=== PATIENT | female | born 1985 | race Caucasian/White ===

== ENCOUNTER 2019-03-12 06:46 | Emergency (ER) | payer MEDICAID, SELFPAY ==
[2019-03-12 06:47] VITALS: BP 144/94; BP 156/93; PULSE 70; RESP 16; RESP 18; TEMP 35; O2SAT 97; BMI 22.8
--- NOTE | 2019-03-12 06:50 | ED_ITS ---
Entered by Lilibeth Finch, acting as scribe for Sesar Valverde DO Mar 12, 2019 06:46 HPI - General Adult General: Chief complaint: General Medical Stated complaint: MILD HYPOTHERMIA Time Seen by Provider: 03/12/19 06:48 Source: patient and EMS Mode of arrival: EMS Limitations: no limitations History of Present Illness: HPI narrative: 33 yo f came to the er by ems for mild hypothermia. Onset was last night. Pt states that she is homeless and that she was trying to make it to the [facility] for an apt and did not make it. Pt states that she was just trying to survive till she [facility]. Pt is denying any numbness at this time. MD complaint: Mild Hypothermia Onset (ago): day(s) (last night) Radiation: non-radiation Severity: mild Pain Consistency: intermittent Relieving factors: none Exacerbating factors: none Associated symptoms: Deny chest pain, confusion, dyspnea, headache(s), malaise, nausea, rash, palpitations, syncope or vomiting Review of Systems Const: Reports: chills, body aches and fatigue; Denies: fever or malaise ENMT: Denies: throat pain, ear pain, nasal discharge or nasal congestion Card: Denies: chest pain, palpitations or syncope Resp: Denies: shortness of breath GI: Denies: nausea or vomiting : Denies: flank pain, difficulty urinating, painful urination, urinary frequency or urinary urgency Skin/Breast: Denies: rash Neuro: Denies: headache or confusion PFSH ED PFSH: Statuses (acute, chronic, etc) shown below reflect problem list status as previously entered and may not be historically accurate Social History Smoking and tobacco status: current every day smoker Physical Exam Const: COMMON NORMALS: no apparent distress GENERAL APPEARANCE: cooperative and comfortable ORIENTATION/CONSCIOUSNESS: Yes awake, Yes oriented to person, Yes oriented to place and Yes oriented to time HENMT: COMMON NORMALS: normocephalic, head/scalp atraumatic, hearing grossly normal bilaterally, external ears normal, EAC's normal, TM's normal bilaterally, nasal mucous membranes and turbinates normal, moist oral mucous membranes and oropharynx normal HEAD & SCALP: normocephalic and atraumatic NOSE: nasal mucous membranes and turbinates normal EXTERNAL EAR: Yes external ears normal EXTERNAL AUDITORY CANAL: EAC's normal TYMPANIC MEMBRANE: TM's normal bilaterally Eye: COMMON NORMALS: PERRL, EOMs intact bilaterally, conjunctivae normal and no scleral icterus CONJUNCTIVA: Yes conjunctivae normal PUPIL: Yes PERRL Neck/C-Spine: COMMON NORMALS: full ROM, no lymphadenopathy, supple and no JVD Lymph: LYMPHATIC: no lymphadenopathy noted and no lymphedema noted Resp: COMMON NORMALS: normal respiratory effort, no retractions, no use of accessory muscles and clear to auscultation bilaterally AUSCULTATION: clear to auscultation bilaterally Cardio: COMMON NORMALS: no JVD, regular rate, regular rhythm and no murmurs RATE: regular rate RHYTHM: regular rhythm Extremity: COMMON NORMALS: normal to inspection, normal capillary refill, no clubbing, cyanosis or edema, no calf tenderness and no pedal edema Neuro: SENSORIUM/ORIENTATION: Yes oriented to person, Yes oriented to place and Yes oriented to time Skin: COMMON NORMALS: no rashes or lesions noted GENERAL SKIN EXAM: no rashes or lesions noted Course ED course: Core temp improved labs reviewed. We will go ahead and discharge patient home we did try to get some social organization professor help for her ultimately she left the emergency room on her own. Vital Signs: Vital signs: Vital Signs Temperature 97.7 F 03/12/19 10:05 Pulse Rate 100 03/12/19 10:05 Respiratory Rate 16 03/12/19 10:05 Blood Pressure 127/67 03/12/19 10:05 Pulse Oximetry 97 03/12/19 06:47 [facility] - General Adult Lab Data: Labs: Lab Results 03/12/19 03/12/19 03/12/19 Range/Units 07:02 07:02 07:02 WBC 10.4 H (4.0-10.0) 10^3/ uL RBC 4.84 (4.1-5.3) 10^6/u L Hgb 14.9 (11.5-15.3) g/dL Hct 45.7 (37.0-47.0) % MCV 94.4 (81-99) fL MCH 30.8 (28.0-34.0) pg MCHC 32.6 (30.0-36.0) g/dL RDW 13.1 (12.1-15.1) % Plt Count 147 (130-400) 10^3/c mm MPV 12.6 H (7.4-10.4) fL Neut % (Auto) 68.6 % Lymph % (Auto) 22.3 % [place] % (Auto) 7.4 % Eos % (Auto) 1.0 % Baso % (Auto) 0.5 % Neut # (Auto) 7.2 (1.8-7.7) 10^3/u L Lymph # (Auto) 2.3 (0.8-4.8) 10^3/u L [place] # (Auto) 0.8 (0.2-0.9) 10^3/u L Eos # (Auto) 0.1 (0.0-0.8) 10^3/u L Baso # (Auto) 0.1 (0.0-0.1) 10^3/u L Nucleated RBC % (a uto) 0 % Nucleated RBCs # 0.0 /100WBC Sodium 138 (136-145) mmol/L Potassium 3.4 L (3.5-5.1) mmol/L Chloride 102 (98-107) mmol/L Carbon Dioxide 23 (22-29) mmol/L Anion Gap 16.4 (5-19) BUN 15 (6-20) mg/dL Creatinine 0.4 L (0.5-0.9) mg/dL GFR Calculation 182.7 H (90-130) mL/min Glucose 115 H (74-109) mg/dL Calcium 10.0 (8.6-10.0) mg/Dl Total Bilirubin 0.3 (0.15-1.2) mg/dL AST 12 (0-32) U/L ALT 15 (0-33) U/L Alkaline Phosphata se 89 (35-105) IU/L Creatine Kinase 63 (26-192) U/L Total Protein 6.4 L (6.6-8.7) g/dL Albumin 4.4 (3.5-5.2) g/dL Globulin 2.0 (1.3-4.6) g/dL TSH 1.22 (0.27-4.20) uIU/ mL Salicylates < 0.3 L (3-10) mg/dL Acetaminophen < 5.0 L (10-30) ug/mL Ethyl Alcohol < 10 (0-10) mg/dL Discharge Plan Discharge Patient Disposition: Home, Self-Care Clinical Impression: Mental health disorder Hypothermia Qualifiers: Encounter type: initial encounter Qualified Code(s): T68.XXXA - Hypothermia, initial encounter Condition: Stable Prescriptions: No Action hydrocodone-acetaminophen 10-325 mg tablet See Rx Instructions .ROUTE .COMPLEX RF: 0 gabapentin 100 mg capsule 100 mg PO BID RF: 0 Discharge Orders: Discharge Order (Routine); Ordered 03/12/19 Ordered By: Sesar Valverde Referrals: Franca Akers DO [Primary Care Provider] - Discharge Diet: Usual diet Discharge Activity: Resume usual activity Discharge Date/Time: 03/12/19 10:07 Coding Level of Care Code ED Land Manager for Chg Fwd Exam Problem Focused The documentation recorded by the Stef welsh Stephanie Lyn, accurately reflects the service I personally performed and the decisions made by Nicolle driscoll Curtis L, DO Mar 12, 2019 06:46
--- NOTE | 2019-03-12 07:04 | PC.NURSE ---
pt care taken over
[2019-03-12 07:07] LABS: Basophils # 0.1 10^3/uL (0.0-0.1); Basophils % 0.5 %; Eosinophils # 0.1 10^3/uL (0.0-0.8); Hematocrit 45.7 % (37.0-47.0); Hemoglobin 14.9 g/dL (11.5-15.3); Lymphocytes # 2.3 10^3/uL (0.8-4.8); Lymphocytes % 22.3 %; Mean Corpuscular HGB Conc 32.6 g/dL (30.0-36.0); Mean Corpuscular Hemoglobin 30.8 pg (28.0-34.0); Mean Corpuscular Volume 94.4 fL (81-99); Mean Platelet Volume 12.6 fL (7.4-10.4); Monocytes # 0.8 10^3/uL (0.2-0.9); Monocytes % 7.4 %; Neutrophils # 7.2 10^3/uL (1.8-7.7); Neutrophils % 68.6 %; Nucleated Red Blood Cells % 0 %; Platelet Count 147 10^3/cmm (130-400); Red Blood Count 4.84 10^6/uL (4.1-5.3); Red Cell Distribution Width 13.1 % (12.1-15.1); White Blood Count 10.4 10^3/uL (4.0-10.0)
[2019-03-12 07:31] LABS: Creatine Phosphokinase 63 U/L (26-192)
[2019-03-12] MEDS: sodium chloride 0.9% 1,000 ML 999 ML IV (07:33)
--- NOTE | 2019-03-12 07:35 | PC.NURSE ---
when nurse checked on patient and stated to patient she was going to start warm fluids to help hydrate her, patient then stated I plead the 5th until I have an privacy attorney, so get an privacy attorney and get the fuck out
[2019-03-12 07:38] LABS: Alanine Aminotransferase 15 U/L (0-33); Albumin Level 4.4 g/dL (3.5-5.2); Alkaline Phosphatase 89 IU/L (35-105); Anion Gap 16.4 (5-19); Aspartate Amino Transferase 12 U/L (0-32); Blood Urea Nitrogen 15 mg/dL (6-20); Carbon Dioxide 23 mmol/L (22-29); Chloride 102 mmol/L (98-107); Glomerular Filtration Rate 182.7 mL/min (90-130); Glucose 115 mg/dL (74-109); Potassium 3.4 mmol/L (3.5-5.1); Sodium 138 mmol/L (136-145); Thyroid Stimulating Hormone 1.22 uIU/mL (0.27-4.20); Total Bilirubin 0.3 mg/dL (0.15-1.2); Total Protein 6.4 g/dL (6.6-8.7)
[2019-03-12 07:47] LABS: Acetaminophen < 5.0 ug/mL (10-30); Alcohol Level < 10 mg/dL (0-10); Salicylate < 0.3 mg/dL (3-10)
[2019-03-12 08:56] VITALS: TEMP 36.5
[2019-03-12 10:05] VITALS: BP 127/67; PULSE 100; RESP 16; TEMP 36.5
== END 2019-03-12 10:07 | disposition home or self-care (01) ==
PROVIDERS: Emergency Provider Family Medicine; Family Provider Family Medicine; PCP Family Medicine
DX: T68.XXXA Hypothermia, initial encounter (principal); F99 Mental disorder, not otherwise specified; F17.210 Nicotine dependence, cigarettes, uncomplicated
CPT/HCPCS: 80053; 80307; 82550; 84443; 85025; 96360; 99281; J7030

== ENCOUNTER 2019-03-17 22:00 | Emergency (ER) | payer MEDICAID, SELFPAY ==
[2019-03-17 21:53] VITALS: BP 138/99; PULSE 86; RESP 17; TEMP 36.7; O2SAT 99; BMI 20.8
[2019-03-18] MEDS: HYDROcodone-acetaminophen 5-325 mg Tablet 1 TAB PO (00:27)
[2019-03-18] MEDS: citalopram 20 mg Tablet 10 MG PO (00:27)
--- NOTE | 2019-03-18 00:44 | W.ED.ANXIETY ---
HPI - Anxiety General: Chief Complaint: Anxiety Stated Complaint: ANXIETY Time Seen by Provider: 03/17/19 23:47 History of Present Illness: HPI narrative: Patient arrived here by ambulance stating that she like to have some medication for PTSD and for her chronic pain. She has been staying at skilled nursing. He does not want to be admitted she did not want go to [facility] [place]. Says she is interested in going to [facility] skilled nursing in [place]. Says she has chronic pain from her salt that she had many years ago MD complaint: anxiety Onset (ago): year(s) Associated symptoms: Deny chest pain, chills, fever(s), headache(s), nausea or vomiting Review of Systems Const: Denies: fever, chills or body aches Eyes: Denies: change in vision or blurry vision ENMT: Denies: throat pain or nasal congestion Card: Denies: chest pain or shortness of breath on exertion Resp: Denies: shortness of breath, productive cough or non-productive cough GI: Denies: abdominal pain, nausea or vomiting Musc: Reports: extremity pain (And back pain) Skin/Breast: Denies: rash Neuro: Denies: headache Psych: Denies: anxiety or depression Ramy/Lymph: Denies: easy bruising PFSH ED PFSH: Statuses (acute, chronic, etc) shown below reflect problem list status as previously entered and may not be historically accurate Social History Smoking and tobacco status: current every day smoker Physical Exam Const: COMMON NORMALS: no apparent distress, average body habitus and oriented x3 HENMT: COMMON NORMALS: normocephalic HEAD & SCALP: normal to inspection and normocephalic FACE & SINUS: normal facial exam Eye: COMMON NORMALS: conjunctivae normal GENERAL EYE: normal appearance of both eyes CONJUNCTIVA: Yes conjunctivae normal Neck/C-Spine: COMMON NORMALS: no JVD Chest: COMMONS NORMALS: inspection of chest normal Resp: COMMON NORMALS: normal respiratory effort and clear to auscultation bilaterally AUSCULTATION: clear to auscultation bilaterally Cardio: COMMON NORMALS: no JVD, regular rate and regular rhythm RATE: regular rate RHYTHM: regular rhythm GI: COMMON NORMALS: normal to inspection, nondistended, normoactive bowel sounds Extremity: COMMON NORMALS: normal to inspection and full ROM Neuro: COMMON NORMALS: oriented x3 Psych: ATTITUDE: Yes other (Patient talks very fast keeps repeating short and sweet , goes back very Fa past history to explain what has happened to her) MOOD & AFFECT: Yes anxious and Yes flat affect Course Vital Signs: Vital signs: Vital Signs Temperature 98.0 F 03/17/19 21:53 Pulse Rate 86 03/17/19 21:53 Respiratory Rate 17 03/17/19 21:53 Blood Pressure 138/99 03/17/19 21:53 Pulse Oximetry 99 03/17/19 21:53 Discharge Plan Discharge Patient Disposition: Home, Self-Care Clinical Impression: Posttraumatic stress disorder Chronic pain Qualifiers: Chronic pain type: due to trauma Qualified Code(s): G89.21 - Chronic pain due to trauma Condition: Stable Prescriptions: New Celexa 10 mg tablet 10 mg PO DAILY Qty: 10 RF: 0 tramadol 50 mg tablet 50 mg PO Q8H PRN (Reason: pain) Qty: 10 RF: 0 No Action hydrocodone-acetaminophen 10-325 mg tablet See Rx Instructions .ROUTE .COMPLEX RF: 0 gabapentin 100 mg capsule 100 mg PO BID RF: 0 trazodone RF: 0 Discharge Orders: Discharge Order (Routine); Ordered 03/18/19 Ordered By: Sandip Carreon Referrals: Franca Akers DO [Primary Care Provider] - Discharge Diet: Advance as tolerated Discharge Activity: Resume usual activity Patient Instructions: Post Traumatic Stress Disorder (ED) Activity Restrictions/Additional Instructions: Follow-up with medical provider as directed. Take medications as prescribed. Return to the ER are your medical provider if condition worsens. Read and understand discharge instructions. Follow-up with [facility] [place] or mental health providers of choice. Return to skilled nursing Coding Level of Care Code ED Emotionally Impaired Teacher for Indira Campos
--- NOTE | 2019-03-18 11:41 | DCPLANNER ---
it account manager had message to speak with patient about [facility] services, patient came back to ER on 03.18.19 and was admitted. it account manager was unable to make contact with patient before coming back to ED.
== END 2019-03-18 00:56 | disposition home or self-care (01) ==
PROVIDERS: Emergency Provider Nurse Practitioner Family; Family Provider Family Medicine; PCP Family Medicine
DX: F43.10 Post-traumatic stress disorder, unspecified (principal); G89.29 Other chronic pain; G89.21 Chronic pain due to trauma; F17.210 Nicotine dependence, cigarettes, uncomplicated
CPT/HCPCS: 99281; 99283

== ENCOUNTER 2019-03-18 08:17 | Inpatient (IN) | payer MEDICAID, SELFPAY ==
[2019-03-18 08:18] VITALS: BP 133/73; PULSE 97; RESP 17; TEMP 36.8; O2SAT 97; BMI 20.8
--- NOTE | 2019-03-18 08:21 | ED_ITS ---
Entered by Delia Wooten, acting as scribe for HPI - Psych General: Chief Complaint: Psychiatric Symptoms Stated Complaint: PTSD, does not want to have SI Time Seen by Provider: 03/18/19 08:21 Source: patient Mode of arrival: ambulatory Limitations: no limitations History of Present Illness: MD complaint: feels depressed Onset (ago): hour(s) (just user acceptance tester) Duration: getting worse PFSH ED PFSH: Statuses (acute, chronic, etc) shown below reflect problem list status as previously entered and may not be historically accurate Social History Smoking and tobacco status: current every day smoker MDM - Psych Lab Data: Labs: Lab Results 03/18/19 03/18/19 03/18/19 Range/Units 08:49 08:49 09:22 WBC 12.8 H (4.0-10.0) 10^3/ uL RBC 4.88 (4.1-5.3) 10^6/u L Hgb 15.5 H (11.5-15.3) g/dL Hct 46.6 (37.0-47.0) % MCV 95.5 (81-99) fL MCH 31.8 (28.0-34.0) pg MCHC 33.3 (30.0-36.0) g/dL RDW 12.9 (12.1-15.1) % Plt Count 228 (130-400) 10^3/c mm MPV 11.7 H (7.4-10.4) fL Neut % (Auto) 69.8 % Lymph % (Auto) 22.6 % [place] % (Auto) 5.9 % Eos % (Auto) 0.9 % Baso % (Auto) 0.5 % Neut # (Auto) 8.9 H (1.8-7.7) 10^3/u L Lymph # (Auto) 2.9 (0.8-4.8) 10^3/u L [place] # (Auto) 0.8 (0.2-0.9) 10^3/u L Eos # (Auto) 0.1 (0.0-0.8) 10^3/u L Baso # (Auto) 0.1 (0.0-0.1) 10^3/u L Nucleated RBC % (a uto) 0 % Nucleated RBCs # 0.0 /100WBC Sodium 139 (136-145) mmol/L Potassium 4.0 (3.5-5.1) mmol/L Chloride 101 (98-107) mmol/L Carbon Dioxide 23 (22-29) mmol/L Anion Gap 19.0 (5-19) BUN 16 (6-20) mg/dL Creatinine 0.5 (0.5-0.9) mg/dL GFR Calculation 141.2 H (90-130) mL/min Glucose 113 H (74-109) mg/dL Calcium 10.0 (8.6-10.0) mg/Dl Total Bilirubin 0.6 (0.15-1.2) mg/dL AST 15 (0-32) U/L ALT 15 (0-33) U/L Alkaline Phosphata se 93 (35-105) IU/L Total Protein 7.0 (6.6-8.7) g/dL Albumin 5.5 H (3.5-5.2) g/dL Globulin 1.5 (1.3-4.6) g/dL TSH 0.71 (0.27-4.20) uIU/ mL HCG, Qual Negative (Negative) Urine Color (Yellow) Urine Appearance (CLEAR) Urine pH (5-7) Ur Specific Gravit y (1.005-1.030) Urine Protein (Negative) Urine Glucose (UA) (Normal) Urine Ketones (Negative) Urine Occult Blood (Negative) Urine Nitrate (Negative) Urine Bilirubin (NEGATIVE) Urine Urobilinogen (Negative) mg/dL Ur Leukocyte Tara ase (Negative) Urine RBC (0-2) /hpf Urine WBC (0-5) /hpf Ur Squamous Epith Cells (0-5) Urine Bacteria (NONE) Salicylates < 0.3 L (3-10) mg/dL Urine Opiates Scre en (Negative) ng/mL Acetaminophen < 5.0 L (10-30) ug/mL Ur Barbiturates Sc reen (Negative) ng/mL Ur Phencyclidine S crn (Negative) ng/mL Ur Amphetamines Sc reen (Negative) ng/mL U Benzodiazepines Scrn (Negative) ng/mL Urine Cocaine Scre en (Negative) ng/mL U Marijuana (THC) Screen (Negative) ng/mL Ethyl Alcohol < 10 (0-10) mg/dL 03/18/19 03/18/19 Range/Units 09:22 09:22 WBC (4.0-10.0) 10^3/ uL RBC (4.1-5.3) 10^6/u L Hgb (11.5-15.3) g/dL Hct (37.0-47.0) % MCV (81-99) fL MCH (28.0-34.0) pg MCHC (30.0-36.0) g/dL RDW (12.1-15.1) % Plt Count (130-400) 10^3/c mm MPV (7.4-10.4) fL Neut % (Auto) % Lymph % (Auto) % [place] % (Auto) % Eos % (Auto) % Baso % (Auto) % Neut # (Auto) (1.8-7.7) 10^3/u L Lymph # (Auto) (0.8-4.8) 10^3/u L [place] # (Auto) (0.2-0.9) 10^3/u L Eos # (Auto) (0.0-0.8) 10^3/u L Baso # (Auto) (0.0-0.1) 10^3/u L Nucleated RBC % (a uto) % Nucleated RBCs # /100WBC Sodium (136-145) mmol/L Potassium (3.5-5.1) mmol/L Chloride (98-107) mmol/L Carbon Dioxide (22-29) mmol/L Anion Gap (5-19) BUN (6-20) mg/dL Creatinine (0.5-0.9) mg/dL GFR Calculation (90-130) mL/min Glucose (74-109) mg/dL Calcium (8.6-10.0) mg/Dl Total Bilirubin (0.15-1.2) mg/dL AST (0-32) U/L ALT (0-33) U/L Alkaline Phosphata se (35-105) IU/L Total Protein (6.6-8.7) g/dL Albumin (3.5-5.2) g/dL Globulin (1.3-4.6) g/dL TSH (0.27-4.20) uIU/ mL HCG, Qual (Negative) Urine Color Yellow (Yellow) Urine Appearance Hazy A (CLEAR) Urine pH 5 (5-7) Ur Specific Gravit y 1.015 (1.005-1.030) Urine Protein Neg (Negative) Urine Glucose (UA) Norm (Normal) Urine Ketones 1+ H (Negative) Urine Occult Blood Neg (Negative) Urine Nitrate Positive H (Negative) Urine Bilirubin Neg (NEGATIVE) Urine Urobilinogen Norm (Negative) mg/dL Ur Leukocyte Tara ase Trace H (Negative) Urine RBC None (0-2) /hpf Urine WBC 5-10 H (0-5) /hpf Ur Squamous Epith Cells 25-40 H (0-5) Urine Bacteria 3+ H (NONE) Salicylates (3-10) mg/dL Urine Opiates Scre en Positve (Negative) ng/mL Acetaminophen (10-30) ug/mL Ur Barbiturates Sc reen Negative (Negative) ng/mL Ur Phencyclidine S crn Negative (Negative) ng/mL Ur Amphetamines Sc reen Negative (Negative) ng/mL U Benzodiazepines Scrn Negative (Negative) ng/mL Urine Cocaine Scre en Negative (Negative) ng/mL U Marijuana (THC) Screen Negative (Negative) ng/mL Ethyl Alcohol (0-10) mg/dL Discharge Plan Discharge Prescriptions: No Action hydrocodone-acetaminophen 10-325 mg tablet See Rx Instructions .ROUTE .COMPLEX RF: 0 gabapentin 100 mg capsule 100 mg PO BID RF: 0 trazodone RF: 0 Celexa 10 mg tablet 10 mg PO DAILY Qty: 10 RF: 0 tramadol 50 mg tablet 50 mg PO Q8H PRN (Reason: pain) Qty: 10 RF: 0 Coding Level of Care Code ED Aviation Maintenance Technician for Chg Fwd The documentation recorded by the Je welsh Bridget Annette, accurately re flects the service I personally performed and the decisions made by , Last Levine, Mar 18, 2019 08:17
[2019-03-18] MEDS: LORazepam 1 mg Tablet PO ×2 (08:51→09:30)
[2019-03-18 09:03] LABS: Basophils # 0.1 10^3/uL (0.0-0.1); Basophils % 0.5 %; Eosinophils # 0.1 10^3/uL (0.0-0.8); Eosinophils % 0.9 %; Hematocrit 46.6 % (37.0-47.0); Hemoglobin 15.5 g/dL (11.5-15.3); Lymphocytes # 2.9 10^3/uL (0.8-4.8); Lymphocytes % 22.6 %; Mean Corpuscular HGB Conc 33.3 g/dL (30.0-36.0); Mean Corpuscular Hemoglobin 31.8 pg (28.0-34.0); Mean Corpuscular Volume 95.5 fL (81-99); Mean Platelet Volume 11.7 fL (7.4-10.4); Monocytes # 0.8 10^3/uL (0.2-0.9); Monocytes % 5.9 %; Neutrophils # 8.9 10^3/uL (1.8-7.7); Neutrophils % 69.8 %; Nucleated Red Blood Cells % 0 %; Platelet Count 228 10^3/cmm (130-400); Red Blood Count 4.88 10^6/uL (4.1-5.3); Red Cell Distribution Width 12.9 % (12.1-15.1); White Blood Count 12.8 10^3/uL (4.0-10.0)
[2019-03-18 09:32] LABS: Alanine Aminotransferase 15 U/L (0-33); Albumin Level 5.5 g/dL (3.5-5.2); Alkaline Phosphatase 93 IU/L (35-105); Aspartate Amino Transferase 15 U/L (0-32); Blood Urea Nitrogen 16 mg/dL (6-20); Carbon Dioxide 23 mmol/L (22-29); Chloride 101 mmol/L (98-107); Globulin 1.5 g/dL (1.3-4.6); Glomerular Filtration Rate 141.2 mL/min (90-130); Glucose 113 mg/dL (74-109); Sodium 139 mmol/L (136-145); Thyroid Stimulating Hormone 0.71 uIU/mL (0.27-4.20); Total Bilirubin 0.6 mg/dL (0.15-1.2)
[2019-03-18 09:32] LABS: HCG Qualitative Urine. Negative (Negative)
--- NOTE | 2019-03-18 09:32 | PC.NURSE ---
please see 1:1 charting for further documentation
[2019-03-18 09:33] LABS: Acetaminophen < 5.0 ug/mL (10-30); Alcohol Level < 10 mg/dL (0-10); Salicylate < 0.3 mg/dL (3-10)
[2019-03-18 09:48] LABS: Add Urine Microscopic? YES; Bilirubin Urine Neg (NEGATIVE); Blood Urine Neg (Negative); Glucose Urine UA Norm (Normal); Ketones Urine 1+ (Negative); Leukocyte Esterase Urine Trace (Negative); Nitrate Urine Positive (Negative); Protein Urine Neg (Negative); Specific Gravity, Urine 1.015 (1.005-1.030); Urine Appearance Hazy (CLEAR); Urine Color Yellow (Yellow); Urobilinogen Urine Norm (Negative); pH Urine 5 (5-7)
[2019-03-18 10:00] LABS: Add Urine Culture? No; Bacteria Urine 3+; Squamous Epithelial Cell Urine 25-40 (0-5)
[2019-03-18 10:03] LABS: Amphetamines Screen Urine Negative (Negative); Barbiturates Screen Urine Negative (Negative); Benzodiazepines Screen Urine Negative (Negative); Cocaine Screen Urine Negative (Negative); PCP Screen Urine Negative (Negative); THC Screen Urine Negative (Negative)
--- NOTE | 2019-03-18 10:22 | PC.NURSE ---
wasted 2 mg of ativan with travon garces
[2019-03-18 11:08] VITALS: BP 117/79; PULSE 87; RESP 20; TEMP 36.6; O2SAT 98
--- NOTE | 2019-03-18 11:27 | W.ED.PSYCH ---
HPI - Psych General: Chief Complaint: Psychiatric Symptoms Stated Complaint: PTSD, does not want to have SI Time Seen by Provider: 03/18/19 08:21 PFS ED PFSH: Statuses (acute, chronic, etc) shown below reflect problem list status as previously entered and may not be historically accurate Social History Smoking and tobacco status: current every day smoker MDM - Psych Lab Data: Labs: Lab Results 03/18/19 03/18/19 03/18/19 Range/Units 08:49 08:49 09:22 WBC 12.8 H (4.0-10.0) 10^3/ uL RBC 4.88 (4.1-5.3) 10^6/u L Hgb 15.5 H (11.5-15.3) g/dL Hct 46.6 (37.0-47.0) % MCV 95.5 (81-99) fL MCH 31.8 (28.0-34.0) pg MCHC 33.3 (30.0-36.0) g/dL RDW 12.9 (12.1-15.1) % Plt Count 228 (130-400) 10^3/c mm MPV 11.7 H (7.4-10.4) fL Neut % (Auto) 69.8 % Lymph % (Auto) 22.6 % [place] % (Auto) 5.9 % Eos % (Auto) 0.9 % Baso % (Auto) 0.5 % Neut # (Auto) 8.9 H (1.8-7.7) 10^3/u L Lymph # (Auto) 2.9 (0.8-4.8) 10^3/u L [place] # (Auto) 0.8 (0.2-0.9) 10^3/u L Eos # (Auto) 0.1 (0.0-0.8) 10^3/u L Baso # (Auto) 0.1 (0.0-0.1) 10^3/u L Nucleated RBC % (a uto) 0 % Nucleated RBCs # 0.0 /100WBC Sodium 139 (136-145) mmol/L Potassium 4.0 (3.5-5.1) mmol/L Chloride 101 (98-107) mmol/L Carbon Dioxide 23 (22-29) mmol/L Anion Gap 19.0 (5-19) BUN 16 (6-20) mg/dL Creatinine 0.5 (0.5-0.9) mg/dL GFR Calculation 141.2 H (90-130) mL/min Glucose 113 H (74-109) mg/dL Calcium 10.0 (8.6-10.0) mg/Dl Total Bilirubin 0.6 (0.15-1.2) mg/dL AST 15 (0-32) U/L ALT 15 (0-33) U/L Alkaline Phosphata se 93 (35-105) IU/L Total Protein 7.0 (6.6-8.7) g/dL Albumin 5.5 H (3.5-5.2) g/dL Globulin 1.5 (1.3-4.6) g/dL TSH 0.71 (0.27-4.20) uIU/ mL HCG, Qual Negative (Negative) Urine Color (Yellow) Urine Appearance (CLEAR) Urine pH (5-7) Ur Specific Gravit y (1.005-1.030) Urine Protein (Negative) Urine Glucose (UA) (Normal) Urine Ketones (Negative) Urine Occult Blood (Negative) Urine Nitrate (Negative) Urine Bilirubin (NEGATIVE) Urine Urobilinogen (Negative) mg/dL Ur Leukocyte Tara ase (Negative) Urine RBC (0-2) /hpf Urine WBC (0-5) /hpf Ur Squamous Epith Cells (0-5) Urine Bacteria (NONE) Salicylates < 0.3 L (3-10) mg/dL Urine Opiates Scre en (Negative) ng/mL Acetaminophen < 5.0 L (10-30) ug/mL Ur Barbiturates Sc reen (Negative) ng/mL Ur Phencyclidine S crn (Negative) ng/mL Ur Amphetamines Sc reen (Negative) ng/mL U Benzodiazepines Scrn (Negative) ng/mL Urine Cocaine Scre en (Negative) ng/mL U Marijuana (THC) Screen (Negative) ng/mL Ethyl Alcohol < 10 (0-10) mg/dL 03/18/19 03/18/19 Range/Units 09:22 09:22 WBC (4.0-10.0) 10^3/ uL RBC (4.1-5.3) 10^6/u L Hgb (11.5-15.3) g/dL Hct (37.0-47.0) % MCV (81-99) fL MCH (28.0-34.0) pg MCHC (30.0-36.0) g/dL RDW (12.1-15.1) % Plt Count (130-400) 10^3/c mm MPV (7.4-10.4) fL Neut % (Auto) % Lymph % (Auto) % [place] % (Auto) % Eos % (Auto) % Baso % (Auto) % Neut # (Auto) (1.8-7.7) 10^3/u L Lymph # (Auto) (0.8-4.8) 10^3/u L [place] # (Auto) (0.2-0.9) 10^3/u L Eos # (Auto) (0.0-0.8) 10^3/u L Baso # (Auto) (0.0-0.1) 10^3/u L Nucleated RBC % (a uto) % Nucleated RBCs # /100WBC Sodium (136-145) mmol/L Potassium (3.5-5.1) mmol/L Chloride (98-107) mmol/L Carbon Dioxide (22-29) mmol/L Anion Gap (5-19) BUN (6-20) mg/dL Creatinine (0.5-0.9) mg/dL GFR Calculation (90-130) mL/min Glucose (74-109) mg/dL Calcium (8.6-10.0) mg/Dl Total Bilirubin (0.15-1.2) mg/dL AST (0-32) U/L ALT (0-33) U/L Alkaline Phosphata se (35-105) IU/L Total Protein (6.6-8.7) g/dL Albumin (3.5-5.2) g/dL Globulin (1.3-4.6) g/dL TSH (0.27-4.20) uIU/ mL HCG, Qual (Negative) Urine Color Yellow (Yellow) Urine Appearance Hazy A (CLEAR) Urine pH 5 (5-7) Ur Specific Gravit y 1.015 (1.005-1.030) Urine Protein Neg (Negative) Urine Glucose (UA) Norm (Normal) Urine Ketones 1+ H (Negative) Urine Occult Blood Neg (Negative) Urine Nitrate Positive H (Negative) Urine Bilirubin Neg (NEGATIVE) Urine Urobilinogen Norm (Negative) mg/dL Ur Leukocyte Tara ase Trace H (Negative) Urine RBC None (0-2) /hpf Urine WBC 5-10 H (0-5) /hpf Ur Squamous Epith Cells 25-40 H (0-5) Urine Bacteria 3+ H (NONE) Salicylates (3-10) mg/dL Urine Opiates Scre en Positve (Negative) ng/mL Acetaminophen (10-30) ug/mL Ur Barbiturates Sc reen Negative (Negative) ng/mL Ur Phencyclidine S crn Negative (Negative) ng/mL Ur Amphetamines Sc reen Negative (Negative) ng/mL U Benzodiazepines Scrn Negative (Negative) ng/mL Urine Cocaine Scre en Negative (Negative) ng/mL U Marijuana (THC) Screen Negative (Negative) ng/mL Ethyl Alcohol (0-10) mg/dL Discharge Plan Discharge Clinical Impression: Mental health disorder, Posttraumatic stress disorder, Acute psychosis, Suicidal ideation, Depression Condition: Stable Prescriptions: No Action hydrocodone-acetaminophen 10-325 mg tablet See Rx Instructions .ROUTE .COMPLEX RF: 0 gabapentin 100 mg capsule 100 mg PO BID RF: 0 trazodone RF: 0 Celexa 10 mg tablet 10 mg PO DAILY Qty: 10 RF: 0 tramadol 50 mg tablet 50 mg PO Q8H PRN (Reason: pain) Qty: 10 RF: 0 Referrals: Franca Akers DO [Primary Care Provider] - Coding Level of Care Code ED Growth Media Mixer Mushroom for Indira Campos
[2019-03-18 11:32] VITALS: BP 138/75; PULSE 94; RESP 17; O2SAT 98
[2019-03-18 14:00] VITALS: BP 117/79; PULSE 87; RESP 20; TEMP 36.6; O2SAT 98
[2019-03-18] MEDS: nicotine 2 mg Gum BUCCAL ×2 (16:33→20:40)
[2019-03-18] MEDS: gabapentin 100 mg Capsule PO (17:13)
[2019-03-18 20:36] VITALS: BP 118/75; PULSE 93; RESP 24; TEMP 36.8; O2SAT 98
[2019-03-18] MEDS: trazodone 150 mg Tablet 75 MG PO (20:40)
[2019-03-19] MEDS: nicotine 2 mg Gum BUCCAL ×3 (04:28→19:08)
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
[2019-03-19 06:28] VITALS: BP 115/69; PULSE 101; RESP 23; TEMP 36.7; O2SAT 98
[2019-03-19] MEDS: gabapentin 100 mg Capsule PO ×2 (08:37→17:36)
[2019-03-19] MEDS: PARoxetine 20 mg Tablet PO (08:37)
--- NOTE | 2019-03-19 13:21 | PC.NURSE ---
REFUSED SCHEDULED ABILIFY. PT AGITATED, STATED TO THIS NURSE I HAVE THE RIGHT TO REFUSE!
[2019-03-19 14:00] VITALS: BP 121/78; PULSE 94; RESP 18; TEMP 36.3; O2SAT 96
[2019-03-19] MEDS: ARIPiprazole 10 mg Tablet PO (14:00)
--- NOTE | 2019-03-19 14:00 | PC.NURSE ---
PT AGREEABLE TO TAKING SCHEDULED ABILIFY THAT SHE PREVIOUSLY HAD REFUSED TO TAKE. PT STILL ARGUMENTATIVE WITH STAFF, SAYING HOW SHE HATES US ALL, HATES THIS FUCKING [place]OWN, SHE WANTS A STAFFING DIRECTOR & SHE DOESN'T TRUST ANY OF US.
[2019-03-19 19:53] VITALS: BP 116/79; PULSE 90; RESP 18; TEMP 36.3; O2SAT 99
[2019-03-19] MEDS: trazodone 150 mg Tablet 75 MG PO (20:48)
[2019-03-20] MEDS: acetaminophen 325 mg Tablet 650 MG PO ×2 (01:28→18:25)
[2019-03-20] MEDS: hyDROXYzine 25 mg Capsule 50 MG PO ×2 (01:28→21:30)
[2019-03-20 06:00] VITALS: BP 101/72; PULSE 127; RESP 19; TEMP 36.4; O2SAT 94
[2019-03-20] MEDS: PARoxetine 20 mg Tablet PO (08:26)
[2019-03-20] MEDS: gabapentin 100 mg Capsule PO ×2 (08:27→17:39)
[2019-03-20] MEDS: nicotine 2 mg Gum BUCCAL ×4 (09:13→21:40)
--- NOTE | 2019-03-20 10:53 | PM.NPN ---
Subjective NPU Subjective: Interval history: Patient states that she is not suicidal. She is thinking clearly. She intends to be compliant with her medications. She is not from this area but is highly motivated to comply with rules so that she can stay here. She has an appointment with her advocate and once to be discharged so that she can meet with her advocate. She would also like to shave her armpits. It is really important to her that she shave her armpits. Medications: Medication Review Details: I cannot figure out how to get the medication list into this document but they have been reviewed. Mental Status Exam MSE Comments: This is a slender white female with adequate dressed limited grooming and eye contact. No abnormal movements . Cooperative with exam in no distress. Speech was increased rate/pressure. Mood described as happy, affect mildly elevated. Thought process mostly organized, . Thought content: Patient denied any suicidal or homicidal ideations, no delusions reported, No longer exhibiting paranoia , she denied any auditory or visual hallucinations. Attention and concentration were limited, and memory was mostly reliable but none were formally tested. She is alert and oriented to person and place but does not believe anything wrong or that she needs to be here. Insight and judgment are Poor but adequate for safety. Cognition: Level of Consciousness: Awake, Alert and Appropriate Patient Cognition Impaired: Yes Ability to Follow Directions: Fair Patient Orientation (long list): Person and Place Comprehension Ability: Moderate Impairment Hallucination Type: None Thought Process: Flight of Ideas Affect: Affect Description: Appropriate Depressive Symptoms: Unhappiness Behavior: Patient Behavior: Cooperative Speech Pattern: Appropriate and Clear Vitals/I&O/Wt Last Vital Signs Temp 97.6 F 03/20/19 06:00 Pulse 127 H 03/20/19 06:00 Resp 19 H 03/20/19 06:00 BP 101/72 03/20/19 06:00 Pulse Ox 94 03/20/19 06:00 A&P Assessment and plan (1) Nikky: This is a 33-year-old white female with a history of schizoaffective disorder bipolar type versus bipolar disorder with significant trauma/PTSD diagnosis who presents in active nikky wanting to leave but only 96 hour hold. 1. Continue current medication. Except: 2. Continue Abilify 10 mg by mouth every morning. 3. Encourage individual, group and milieu therapy. 4. Continue every 15 minute checks for safety. Status: Acute Code(s): F30.9 - Manic episode, unspecified (2) Bipolar 1 disorder with moderate nikky: Status: Acute Code(s): F31.12 - Bipolar disorder, current episode manic without psychotic features, moderate Involuntary Hold Information 96 Hour Hold: 96 Hour Involuntary Admission: Yes 96 Hour Hold Ending Date: 03/24/19 96 Hour Hold Ending Time: 09:30 Attestations NPU Medical Necessity Statement*: Patient will remain in the hospital another 2-3 nights while her Abilify was titrated and We can assess that she is no longer imminent risk to self or others. Coding Level of Care Code Acute Embedded Software Architect for Indira Campos Diagnoses Nikky F30.9 Bipolar 1 disorder with moderate nikky F31.12
[2019-03-20] MEDS: ARIPiprazole 10 mg Tablet PO (12:15)
[2019-03-20 13:59] VITALS: BP 136/84; PULSE 88; RESP 20; TEMP 36.8; O2SAT 100
[2019-03-20 19:56] VITALS: BP 123/82; PULSE 103; RESP 18; TEMP 36.9; O2SAT 100
[2019-03-20] MEDS: trazodone 150 mg Tablet 75 MG PO (21:32)
[2019-03-20] MEDS: HYDROcodone-acetaminophen 10-325 mg Tablet 1 TAB PO (22:02)
[2019-03-21 06:00] VITALS: BP 121/75; PULSE 91; RESP 17; TEMP 36.6; O2SAT 98
[2019-03-21] MEDS: nicotine 2 mg Gum BUCCAL ×2 (08:15→18:36)
[2019-03-21] MEDS: ARIPiprazole 10 mg Tablet PO (09:31)
[2019-03-21] MEDS: PARoxetine 20 mg Tablet PO (09:31)
[2019-03-21] MEDS: gabapentin 100 mg Capsule PO ×2 (09:31→17:19)
[2019-03-21 13:33] VITALS: BP 118/66; PULSE 96; RESP 20; TEMP 36.6; O2SAT 99
--- NOTE | 2019-03-21 14:39 | P.PN_ITS ---
Subjective NPU Subjective: Interval history: Patient continues to insist that she is not suicidal. She is not a harm to herself. She has a plan for her discharge. However her plan includes 1. being transported to a homeless senior care in [place] 2. accessing her storage locker in [place] 3. utilizing services of her counselor at [facility] 4. Utilizing a voucher that she has that we will give her a place to stay and [place]. However she bounces from one plan to another with no specific set plan once she leaves the unit. Medications: Reviewed: Yes Mental Status Exam MSE Comments: This is a slender white female with adequate dressed limited grooming and eye contact. No abnormal movements . Cooperative with exam in no distress. Speech was increased rate/pressure. (+) flight of ideas. Mood described as happy, affect mildly elevated. Thought process still somewhat dis- organized, . Thought content: Patient denied any suicidal or homicidal ideations, no delusions reported, No longer exhibiting paranoia , she denied any auditory or visual hallucinations. Attention and concentration were limited, and memory was mostly reliable but none were formally tested. She is alert and oriented to person and place but does not believe anything wrong or that she needs to be here. Insight and judgment are Poor but adequate for safety. Cognition: Level of Consciousness: Awake, Alert and Appropriate Patient Cognition Impaired: Yes Ability to Follow Directions: Fair Patient Orientation (long list): Person and Place Comprehension Ability: Moderate Impairment Hallucination Type: None Thought Process: Appropriate Affect: Affect Description: Calm Depressive Symptoms: Unhappiness Behavior: Patient Behavior: Cooperative Speech Pattern: Clear Vitals/I&O/Wt Last Vital Signs Temp 97.8 F 03/21/19 13:33 Pulse 96 03/21/19 13:33 Resp 20 H 03/21/19 13:33 BP 118/66 03/21/19 13:33 Pulse Ox 99 03/21/19 13:33 Data NPU : 03/18/19 08:49 03/18/19 08:49 A&P Assessment and plan (1) Nikky: This is a 33-year-old white female with a history of schizoaffective disorder bipolar type versus bipolar disorder with significant trauma/PTSD diagnosis who presents in active nikky wanting to leave but only 96 hour hold. 1. Continue current medication. Except: 2. Continue Abilify 10 mg by mouth every morning. 3. Encourage individual, group and milieu therapy. 4. Continue every 15 minute checks for safety. Status: Acute Code(s): F30.9 - Manic episode, unspecified (2) Bipolar 1 disorder with moderate nikky: Status: Acute Code(s): F31.12 - Bipolar disorder, current episode manic without psychotic features, moderate Involuntary Hold Information 96 Hour Hold: 96 Hour Involuntary Admission: Yes 96 Hour Hold Ending Date: 03/24/19 96 Hour Hold Ending Time: 09:30 Attestations NPU Medical Necessity Statement*: Patient remained in the hospital the night so that hopefully the medication will provide adequate benefit that she can be discharged at the completion of her 96 hour involuntary commitment. Coding Level of Care Code Acute Manufacturing Quality Inspector for Indira Campos Diagnoses Nikky F30.9 Bipolar 1 disorder with moderate nikky F31.12
[2019-03-21] MEDS: HYDROcodone-acetaminophen 10-325 mg Tablet 1 TAB PO ×2 (14:40→20:44)
[2019-03-21 20:01] VITALS: BP 120/85; PULSE 94; RESP 24; TEMP 36.8
[2019-03-21] MEDS: hyDROXYzine 25 mg Capsule 50 MG PO (20:44)
[2019-03-21] MEDS: trazodone 150 mg Tablet 75 MG PO (20:45)
[2019-03-21 21:59] VITALS: BP 120/85; PULSE 94; RESP 24; TEMP 36.8; O2SAT 100
[2019-03-22] MEDS: blistex lip oint 7 gm Tube 1 APPLIC TOPICAL ×2 (04:53→08:05)
[2019-03-22 05:17] VITALS: BP 115/76; PULSE 70; RESP 16; TEMP 36.7; O2SAT 94
[2019-03-22] MEDS: PARoxetine 20 mg Tablet PO (08:05)
[2019-03-22] MEDS: ARIPiprazole 10 mg Tablet PO (08:05)
[2019-03-22] MEDS: gabapentin 100 mg Capsule PO (08:05)
[2019-03-22 08:39] VITALS: BP 115/76; PULSE 70; RESP 16; TEMP 36.7; O2SAT 94
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
[2019-03-22] MEDS: nicotine 2 mg Gum BUCCAL (09:11)
== END 2019-03-22 09:59 | disposition left against medical advice (07) | DRG 882 ==
LOC: ER 11:33 → NP 11:38
PROVIDERS: Admitting Provider Psychiatry & Neurology Psychiatry; Emergency Provider Family Medicine; Family Provider Family Medicine; PCP Family Medicine; Visit Provider Psychiatry & Neurology Psychiatry
DX: F43.10 Post-traumatic stress disorder, unspecified (principal); Z59.0 Homelessness; F17.210 Nicotine dependence, cigarettes, uncomplicated; F31.12 Bipolar disorder, current episode manic without psychotic features, moderate; F25.9 Schizoaffective disorder, unspecified; Z62.810 Personal history of physical and sexual abuse in childhood; F12.90 Cannabis use, unspecified, uncomplicated; Z91.5 Personal history of self-harm
CPT/HCPCS: 12345; 36415; 80053; 80307; 81003; 81025; 84443; 85025; 99284; A9270

== ENCOUNTER 2019-03-18 08:17 | Emergency (ER) | payer SELFPAY | END 2019-03-18 11:44 | disposition admitted as inpatient to this hospital (09) | LOC: ER 04-18 10:51 | PROVIDERS: Emergency Provider Family Medicine; Family Provider Family Medicine; PCP Family Medicine | DX: F43.10 Post-traumatic stress disorder, unspecified (principal); F32.9 Major depressive disorder, single episode, unspecified; F17.210 Nicotine dependence, cigarettes, uncomplicated; Z79.891 Long term (current) use of opiate analgesic | CPT/HCPCS: 36415; 80053; 80307; 81003; 81025; 84443; 85025; 96372; 99284; 99285; A9270 ==

== ENCOUNTER 2019-05-13 18:19 | Inpatient (IN) | payer MEDICAID, SELFPAY ==
[2019-05-13 17:32] VITALS: BP 134/81; PULSE 85; RESP 15; TEMP 36.8; O2SAT 99
--- NOTE | 2019-05-13 17:37 | ECG_ITS ---
Measurements Intervals [place] Rate: 84 P: 61 MS: 126 QRS: 51 QRSD: 76 T: 18 QT: 359 QTc: 426 SINUS RHYTHM POSSIBLE LEFT ATRIAL ENLARGEMENT [-0.1mV P WAVE IN V1/V2] ANTERIOR MYOCARDIAL INFARCTION , PROBABLY RECENT [40+ ms Q WAVE AND/OR ST/T ABNO ABNORMALITY IN V3/V4] INTERPRETATION BASED ON A DEFAULT AGE OF 40 YEARS No previous ECG available for comparison Electronically Signed On 05-14-2019 9:03:21 CDT by Royal Olea M.D. [email or web address]
--- NOTE | 2019-05-13 17:37 | ED_ITS ---
Entered by Annamaria Levi, acting as scribe for Christiane Bonner HPI - Altered Mental Status General: Chief Complaint: Altered Mental Status Stated Complaint: AMS Time Seen by Provider: 05/13/19 17:32 Source: EMS Mode of arrival: EMS Limitations: altered mental status History of Present Illness: HPI narrative: 34 yo Female presents to ED with complaint of altered mental status. Pt was brought in by EMS. Per EMS, patient was found in front of a storage unit and has been unresponsive. Pt does not respond to questions in the ER. Pt does not voice any complaints at this time. MD complaint: altered mental status and decreased responsiveness Onset (ago): unknown Consistency of symptoms: Unknown Context: unknown Associated symptoms: Reports other (altered mental status) Review of Systems General: Reports: ROS unobtainable due to mental status Physical Exam Const: EXAM LIMITATIONS: altered mental status GENERAL APPEARANCE: well developed and disheveled; not cooperative ORIENTATION/CONSCIOUSNESS: Yes awake HENMT: COMMON NORMALS: normocephalic, head/scalp atraumatic, hearing grossly normal bilaterally, external ears normal, EAC's normal, external nose normal and moist oral mucous membranes HEAD & SCALP: normal to inspection, normocephalic and atraumatic FACE & SINUS: normal facial exam and face symmetric NOSE: external nose normal and nares normal EXTERNAL EAR: Yes external ears normal EXTERNAL AUDITORY CANAL: EAC's normal MOUTH: oral and palatal mucosa normal and tongue normal Eye: COMMON NORMALS: PERRL, EOMs intact bilaterally, conjunctivae normal and no scleral icterus GENERAL EYE: normal appearance of both eyes and normal light reflex CONJUNCTIVA: Yes conjunctivae normal SCLERA: sclerae normal CORNEA: Yes corneas normal PUPIL: Yes PERRL DIRECT OPHTHALMOSCOPY: Yes normal light reflex Neck/C-Spine: COMMON NORMALS: full ROM, no lymphadenopathy, supple, no meningeal signs and no JVD GENERAL: Yes normal visual inspection and Yes trachea midline CERVICAL SPINE: Yes cervical ROM normal Chest: COMMONS NORMALS: inspection of chest normal and palpation of chest normal Resp: COMMON NORMALS: normal respiratory effort, no retractions, no use of accessory muscles and clear to auscultation bilaterally EFFORT & INSPECTION: Yes able to speak in complete sentences AUSCULTATION: clear to auscultation bilaterally Cardio: COMMON NORMALS: no JVD, regular rate, regular rhythm, S1 normal heart sound, S2 normal heart sound, no gallops, no clicks, no murmurs and no rub JUGULAR VENOUS DISTENTION: no JVD RATE: regular rate RHYTHM: regular rhythm HEART SOUNDS: S1 normal and S2 normal GI: COMMON NORMALS: soft to palpation, non-tender, no hepatosplenomegaly and no masses INSPECTION: Yes normal to inspection PALPATION: Yes soft and Yes no hepatosplenomegaly : COMMON NORMALS: Yes no CVA tenderness BLADDER/KIDNEY EXAM: Yes no CVA tenderness Back/Pelvis: COMMON NORMALS: no CVA tenderness, thoracic and lumbar spine normal to inspection, no thoracic nor lumbar tenderness and thoraco-lumbar ROM normal Extremity: COMMON NORMALS: normal to inspection, full ROM, normal capillary refill, no joint enlargement, no clubbing, cyanosis or edema and no calf tenderness Neuro: COMMON NORMALS: CN's II-XII intact bilaterally, moves all extremities, no focal motor deficits and no sensory deficits noted MENINGEAL SIGNS: Yes no meningeal signs Psych: APPEARANCE: Yes disheveled ATTITUDE: Yes uncooperative, Yes belligerent and Yes hostile SPEECH: Yes mute Skin: COMMON NORMALS: no rashes or lesions noted, skin turgor normal, no jaundice, no petechiae and no mottling GENERAL SKIN EXAM: no rashes or lesions noted and turgor normal Course Vital Signs: Vital signs: Vital Signs Temperature 98.6 F 05/13/19 21:14 Pulse Rate 81 05/13/19 21:14 Respiratory Rate 22 H 05/13/19 21:14 Blood Pressure 139/73 05/13/19 21:14 Pulse Oximetry 98 05/13/19 21:14 MDM - Altered Mental Status MDM Narrative: Medical decision making narrative: Meredith is a 33-year-old female who arrives to the ER after being found sitting in front of a storage unit. Here the patient is alert and will interact at times. She has spoken a few times but only 2 complaint including a comment when we tried to draw an ABG fuck off . The patient did allow us to place an IV and give her IV fluids. I found no evidence of acute abnormality on her work-up here. With her being able to speak but at times fighting us and being combative I felt this is likely behavioral or psychiatric in nature. The patient at times appears acutely psychotic. I reviewed the case in full including the normal pressure hydrocephalus seen on CT by Dr. Estrada he agrees to take the patient. The radiology department did not have the benefit of an old CT to compare to as she initially the patient was listed as a Sakina Magallon but to my eye the ventricles are normal in size in comparison to her old CT and they were read as normal at that time. Lab Data: Attestation: I reviewed the patient's lab results. Labs: Lab Results 05/13/19 05/13/19 05/13/19 Range/Units 17:51 17:51 17:51 WBC 13.5 H (4.0-10.0) 10^3/ uL RBC 4.19 (4.1-5.3) 10^6/u L Hgb 13.1 (11.5-15.3) g/dL Hct 38.6 (37.0-47.0) % MCV 92.1 (81-99) fL MCH 31.3 (28.0-34.0) pg MCHC 33.9 (30.0-36.0) g/dL RDW 12.5 (12.1-15.1) % Plt Count 173 (130-400) 10^3/c mm MPV 11.1 H (7.4-10.4) fL Neut % (Auto) 82.5 % Lymph % (Auto) 10.4 % [place] % (Auto) 6.3 % Eos % (Auto) 0.2 % Baso % (Auto) 0.2 % Neut # (Auto) 11.2 H (1.8-7.7) 10^3/u L Lymph # (Auto) 1.4 (0.8-4.8) 10^3/u L [place] # (Auto) 0.9 (0.2-0.9) 10^3/u L Eos # (Auto) 0.0 (0.0-0.8) 10^3/u L Baso # (Auto) 0.0 (0.0-0.1) 10^3/u L Nucleated RBC % (a uto) 0 % Nucleated RBCs # 0.0 /100WBC Sodium 142 (136-145) mmol/L Potassium 3.5 (3.5-5.1) mmol/L Chloride 102 (98-107) mmol/L Carbon Dioxide 24 (22-29) mmol/L Anion Gap 19.5 H (5-19) BUN 11 (6-20) mg/dL Creatinine 0.5 (0.5-0.9) mg/dL GFR Calculation 140.4 H (90-130) mL/min Glucose 107 (65-115) mg/dL Calculated Osmolal ity 291 (285-295) mOsm/k g Calcium 9.8 (8.5-10.5) mg/dL Magnesium 2.1 (1.7-2.3) mg/dL Total Bilirubin 0.8 (0.15-1.2) mg/dL AST 16 (0-32) U/L ALT 17 (0-33) U/L Alkaline Phosphata se 93 (35-105) IU/L Ammonia 10 L (11-51) umol/L Creatine Kinase 223 H (26-192) U/L Total Protein 6.4 L (6.6-8.7) g/dL Albumin 4.4 (3.5-5.2) g/dL Globulin 2.0 (1.3-4.6) g/dL TSH (0.27-4.20) uIU/ mL HCG, Qual (Negative) Urine Color (Yellow) Urine Appearance (CLEAR) Urine pH (5-7) Ur Specific Gravit y (1.005-1.030) Urine Protein (Negative) Urine Glucose (UA) (Normal) Urine Ketones (Negative) Urine Blood (Negative) Urine Nitrate (Negative) Urine Bilirubin (NEGATIVE) Urine Urobilinogen (Negative) mg/dL Ur Leukocyte Tara ase (Negative) Urine RBC (0-2) /hpf Urine WBC (0-5) /hpf Ur Squamous Epith Cells (0-5) Urine Bacteria (NONE) Salicylates (3-10) mg/dL Urine Opiates Scre en (Negative) ng/mL Acetaminophen (10-30) ug/mL Ur Barbiturates Sc reen (Negative) ng/mL Phenytoin (10-20) ug/mL Valproic Acid (50-100) mcg/mL Carbamazepine (4.0-12.0) ug/mL Ur Phencyclidine S crn (Negative) ng/mL Ur Amphetamines Sc reen (Negative) ng/mL U Benzodiazepines Scrn (Negative) ng/mL [place] (0.6-1.2) mmol/L Urine Cocaine Scre en (Negative) ng/mL U Marijuana (THC) Screen (Negative) ng/mL Ethyl Alcohol < 10 (0-10) mg/dL 05/13/19 05/13/19 05/13/19 Range/Units 17:51 17:51 17:51 WBC (4.0-10.0) 10^3/ uL RBC (4.1-5.3) 10^6/u L Hgb (11.5-15.3) g/dL Hct (37.0-47.0) % MCV (81-99) fL MCH (28.0-34.0) pg MCHC (30.0-36.0) g/dL RDW (12.1-15.1) % Plt Count (130-400) 10^3/c mm MPV (7.4-10.4) fL Neut % (Auto) % Lymph % (Auto) % Cam[place] % (Auto) % Eos % (Auto) % Baso % (Auto) % Neut # (Auto) (1.8-7.7) 10^3/u L Lymph # (Auto) (0.8-4.8) 10^3/u L [place] # (Auto) (0.2-0.9) 10^3/u L Eos # (Auto) (0.0-0.8) 10^3/u L Baso # (Auto) (0.0-0.1) 10^3/u L Nucleated RBC % (a uto) % Nucleated RBCs # /100WBC Sodium (136-145) mmol/L Potassium (3.5-5.1) mmol/L Chloride (98-107) mmol/L Carbon Dioxide (22-29) mmol/L Anion Gap (5-19) BUN (6-20) mg/dL Creatinine (0.5-0.9) mg/dL GFR Calculation (90-130) mL/min Glucose (65-115) mg/dL Calculated Osmolal ity (285-295) mOsm/k g Calcium (8.5-10.5) mg/dL Magnesium (1.7-2.3) mg/dL Total Bilirubin (0.15-1.2) mg/dL AST (0-32) U/L ALT (0-33) U/L Alkaline Phosphata se (35-105) IU/L Ammonia (11-51) umol/L Creatine Kinase (26-192) U/L Total Protein (6.6-8.7) g/dL Albumin (3.5-5.2) g/dL Globulin (1.3-4.6) g/dL TSH (0.27-4.20) uIU/ mL HCG, Qual Negative (Negative) Urine Color Dark yellow (Yellow) Urine Appearance Sl hazy (CLEAR) Urine pH 5 (5-7) Ur Specific Gravit y 1.025 (1.005-1.030) Urine Protein Neg (Negative) Urine Glucose (UA) Norm (Normal) Urine Ketones 2+ H (Negative) Urine Blood Neg (Negative) Urine Nitrate Negative (Negative) Urine Bilirubin 1+ H (NEGATIVE) Urine Urobilinogen 1 H (Negative) mg/dL Ur Leukocyte Tara ase 1+ H (Negative) Urine RBC 5-10 H (0-2) /hpf Urine WBC 15-25 H (0-5) /hpf Ur Squamous Epith Cells 25-40 H (0-5) Urine Bacteria 2+ H (NONE) Salicylates (3-10) mg/dL Urine Opiates Scre en Negative (Negative) ng/mL Acetaminophen (10-30) ug/mL Ur Barbiturates Sc reen Negative (Negative) ng/mL Phenytoin (10-20) ug/mL Valproic Acid (50-100) mcg/mL Carbamazepine (4.0-12.0) ug/mL Ur Phencyclidine S crn Negative (Negative) ng/mL Ur Amphetamines Sc reen Negative (Negative) ng/mL U Benzodiazepines Scrn Negative (Negative) ng/mL [place] (0.6-1.2) mmol/L Urine Cocaine Scre en Negative (Negative) ng/mL U Marijuana (THC) Screen Negative (Negative) ng/mL Ethyl Alcohol (0-10) mg/dL 05/13/19 05/13/19 Range/Units 17:51 17:51 WBC (4.0-10.0) 10^3/ uL RBC (4.1-5.3) 10^6/u L Hgb (11.5-15.3) g/dL Hct (37.0-47.0) % MCV (81-99) fL MCH (28.0-34.0) pg MCHC (30.0-36.0) g/dL RDW (12.1-15.1) % Plt Count (130-400) 10^3/c mm MPV (7.4-10.4) fL Neut % (Auto) % Lymph % (Auto) % [place] % (Auto) % Eos % (Auto) % Baso % (Auto) % Neut # (Auto) (1.8-7.7) 10^3/u L Lymph # (Auto) (0.8-4.8) 10^3/u L [place] # (Auto) (0.2-0.9) 10^3/u L Eos # (Auto) (0.0-0.8) 10^3/u L Baso # (Auto) (0.0-0.1) 10^3/u L Nucleated RBC % (a uto) % Nucleated RBCs # /100WBC Sodium (136-145) mmol/L Potassium (3.5-5.1) mmol/L Chloride (98-107) mmol/L Carbon Dioxide (22-29) mmol/L Anion Gap (5-19) BUN (6-20) mg/dL Creatinine (0.5-0.9) mg/dL GFR Calculation (90-130) mL/min Glucose (65-115) mg/dL Calculated Osmolal ity (285-295) mOsm/k g Calcium (8.5-10.5) mg/dL Magnesium (1.7-2.3) mg/dL Total Bilirubin (0.15-1.2) mg/dL AST (0-32) U/L ALT (0-33) U/L Alkaline Phosphata se (35-105) IU/L Ammonia (11-51) umol/L Creatine Kinase (26-192) U/L Total Protein (6.6-8.7) g/dL Albumin (3.5-5.2) g/dL Globulin (1.3-4.6) g/dL TSH 0.39 (0.27-4.20) uIU/ mL HCG, Qual (Negative) Urine Color (Yellow) Urine Appearance (CLEAR) Urine pH (5-7) Ur Specific Gravit y (1.005-1.030) Urine Protein (Negative) Urine Glucose (UA) (Normal) Urine Ketones (Negative) Urine Blood (Negative) Urine Nitrate (Negative) Urine Bilirubin (NEGATIVE) Urine Urobilinogen (Negative) mg/dL Ur Leukocyte Tara ase (Negative) Urine RBC (0-2) /hpf Urine WBC (0-5) /hpf Ur Squamous Epith Cells (0-5) Urine Bacteria (NONE) Salicylates < 0.3 L (3-10) mg/dL Urine Opiates Scre en (Negative) ng/mL Acetaminophen < 5.0 L (10-30) ug/mL Ur Barbiturates Sc reen (Negative) ng/mL Phenytoin 0.8 L (10-20) ug/mL Valproic Acid 2.8 L (50-100) mcg/mL Carbamazepine 2.0 L (4.0-12.0) ug/mL Ur Phencyclidine S crn (Negative) ng/mL Ur Amphetamines Sc reen (Negative) ng/mL U Benzodiazepines Scrn (Negative) ng/mL [place] 0.1 L (0.6-1.2) mmol/L Urine Cocaine Scre en (Negative) ng/mL U Marijuana (THC) Screen (Negative) ng/mL Ethyl Alcohol (0-10) mg/dL Imaging Data^: CT Head: Radiologist's impression: [place] [address] CT Scan Report Signed Patient: Meredith Pressleynit #: [id number] : 1985Acct#:[id number] Age/Sex: 33 / FADM Date: 05/13/19 Loc: ERRoom/Bed: Attending Dr: Ordering Provider/Ordering MD: Christiane Bonner DO Date of Service: 05/13/19 Procedure(s): CT head wo con* 19756 Accession Number(s): [id number] Report Number: [id number] PROCEDURE INFORMATION: Exam: CT Head Without Contrast Exam date and time: 05/13/2019 5:38 PM Age: 34 years old Clinical indication: Altered mental status/memory loss; Additional info: Wang/ams TECHNIQUE: Imaging protocol: Computed tomography of the head without contrast. Total DLP: 611.56 mGy-cm Radiation optimization: All CT scans at this facility use at least one of these dose optimization techniques: automated exposure control; mA and/or kV adjustment per patient size (includes targeted exams where dose is matched to clinical indication); or iterative reconstruction. COMPARISON: No relevant prior studies available. FINDINGS: Brain: No abnormal brain attenuation. No intracranial hemorrhage. Ventricles: Mild prominence of the lateral, 3rd, and 4th ventricles. Bones/joints: Unremarkable. No acute fracture. Sinuses: Visualized sinuses are unremarkable. No fluid levels. Mastoid air cells: Visualized mastoid air cells are well aerated. Soft tissues: Unremarkable. Other findings: The pituitary gland is mildly prominent with a convex upper border. CT/CT head wo con* [id number] IMPRESSION: 1. Mild prominence of the ventricles. Normal pressure hydrocephalus cannot be excluded. 2. Mild prominence of the pituitary gland. If there is clinical concern for a pituitary adenoma, this can be further evaluated with a dedicated pituitary MRI scan. Radiation Dose CTDIVOL = (mGy): DLP = 611.56 (mGy-cm) Dictated By:Juliano Reddy Signed By:Juliano ReddySianne Date/Time:05/13/191914 DD/ 12 CXR: Radiologist's impression: [address] [address] XRay Report Signed Patient: Meredith Pressley #: [id number] : 1985Acct#:[id number] Age/Sex: 33 / FADM Date: 05/13/19 Loc: ERRoom/Bed: Attending Dr: Ordering Provider/Ordering MD: Christiane Bonner DO Date of Service: 05/13/19 Procedure(s): XR chest 1V portable [id number] Accession Number(s): [id number] Report Number: [id number] PROCEDURE INFORMATION: Exam: XR Chest, 1 View Exam date and time: 05/13/2019 6:37 PM Age: 33 years old Clinical indication: Other: AMS; Additional info: Cough TECHNIQUE: Imaging protocol: XR of the chest Views: 1 view. COMPARISON: No relevant prior studies available. FINDINGS: Lungs: There is very mild interstitial prominence compatible with mild fibrosis, bronchitis, viral pneumonitis or mild interstitial edema. No lobar consolidation. Pleural space: Unremarkable. No pleural effusion. No pneumothorax. Heart/Mediastinum: Unremarkable. No cardiomegaly. Bones/joints: No acute abnormality. Other findings: Probable nipples are projected symmetrically over both lower lobes. XR/XR chest 1V portable [id number] IMPRESSION: There is very mild interstitial prominence compatible with mild fibrosis, bronchitis, viral pneumonitis or mild interstitial edema. Dictated By:Dorita Rust Signed By:Sumi Rustigned Date/Time:05/13/191937 DD/ 34 Discharge Plan Discharge Patient Disposition: Admitted As Inpatient Admit Provider: Fran Estrada Clinical Impression: Psychosis Condition: Stable Interventions: ED Discharge Assessment Last Done: 05/13/19 20:49 Discharge Date/Time: 05/13/19 21:10 Coding Level of Care Code ED Gun Perforator Loader for Chg 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 The documentation recorded by the Amita welsh Carmen, accurately reflects the service I personally performed and the decisions made by Kailey driscoll Eli N May 13, 2019 18:19
[2019-05-13 18:15] LABS: Ammonia 10 umol/L (11-51); Urine Appearance SL Hazy (CLEAR); Urine Color Dark Yellow (Yellow)
[2019-05-13 18:16] LABS: Alanine Aminotransferase 17 U/L (0-33); Albumin Level 4.4 g/dL (3.5-5.2); Alkaline Phosphatase 93 IU/L (35-105); Anion Gap 19.5 (5-19); Aspartate Amino Transferase 16 U/L (0-32); Bilirubin Urine 1+ (NEGATIVE); Blood Urea Nitrogen 11 mg/dL (6-20); Blood Urine Neg (Negative); Calcium 9.8 mg/dL (8.5-10.5); Carbon Dioxide 24 mmol/L (22-29); Chloride 102 mmol/L (98-107); Creatine Phosphokinase 223 U/L (26-192); Glomerular Filtration Rate 140.4 mL/min (90-130); Glucose 107 mg/dL (65-115); Glucose Urine UA Norm (Normal); Ketones Urine 2+ (Negative); Leukocyte Esterase Urine 1+ (Negative); Magnesium 2.1 mg/dL (1.7-2.3); Nitrate Urine Negative (Negative); Osmolality Calculated 291 mOsm/kg (285-295); Potassium 3.5 mmol/L (3.5-5.1); Protein Urine Neg (Negative); Sodium 142 mmol/L (136-145); Specific Gravity, Urine 1.025 (1.005-1.030); Total Bilirubin 0.8 mg/dL (0.15-1.2); Total Protein 6.4 g/dL (6.6-8.7); Urobilinogen Urine 1 mg/dL (Negative); pH Urine 5 (5-7)
[2019-05-13] MEDS: sodium chloride 0.9% 1,000 ML 100 ML IV (18:16)
[2019-05-13 18:22] LABS: Amphetamines Screen Urine Negative (Negative); Barbiturates Screen Urine Negative (Negative); Benzodiazepines Screen Urine Negative (Negative); Cocaine Screen Urine Negative (Negative); Opiate Screen Urine Negative (Negative); PCP Screen Urine Negative (Negative); THC Screen Urine Negative (Negative)
[2019-05-13 18:23] LABS: Add Urine Culture? No; Bacteria Urine 2+; Squamous Epithelial Cell Urine 25-40 (0-5); WBC Urine 15-25 /hpf (0-5)
[2019-05-13 18:24] LABS: HCG, Serum Qual Negative (Negative)
[2019-05-13 18:26] LABS: Alcohol Level < 10 mg/dL (0-10)
--- NOTE | 2019-05-13 18:32 | PC.NURSE ---
patient alllowed me to do iv and ekg patient refuses to speak or give any information
[2019-05-13 18:49] LABS: Basophils % 0.2 %; Eosinophils % 0.2 %; Hematocrit 38.6 % (37.0-47.0); Hemoglobin 13.1 g/dL (11.5-15.3); Lymphocytes # 1.4 10^3/uL (0.8-4.8); Lymphocytes % 10.4 %; Mean Corpuscular HGB Conc 33.9 g/dL (30.0-36.0); Mean Corpuscular Hemoglobin 31.3 pg (28.0-34.0); Mean Corpuscular Volume 92.1 fL (81-99); Mean Platelet Volume 11.1 fL (7.4-10.4); Monocytes # 0.9 10^3/uL (0.2-0.9); Monocytes % 6.3 %; Neutrophils # 11.2 10^3/uL (1.8-7.7); Neutrophils % 82.5 %; Nucleated Red Blood Cells % 0 %; Platelet Count 173 10^3/cmm (130-400); Red Blood Count 4.19 10^6/uL (4.1-5.3); Red Cell Distribution Width 12.5 % (12.1-15.1); White Blood Count 13.5 10^3/uL (4.0-10.0)
[2019-05-13 19:01] LABS: Lithium 0.1 mmol/L (0.6-1.2)
[2019-05-13 19:10] LABS: Phenytoin Dilantin 0.8 ug/mL (10-20); Thyroid Stimulating Hormone 0.39 uIU/mL (0.27-4.20); Valproic Acid Level 2.8 mcg/mL (50-100)
[2019-05-13 19:18] LABS: Acetaminophen < 5.0 ug/mL (10-30); Salicylate < 0.3 mg/dL (3-10)
[2019-05-13 20:49] VITALS: PULSE 16
[2019-05-13 21:14] VITALS: BP 139/73; PULSE 81; RESP 22; TEMP 37; O2SAT 98
[2019-05-14 06:00] VITALS: BP 106/62; PULSE 102; RESP 23; TEMP 37.1; O2SAT 95
[2019-05-14 14:00] VITALS: RESP 18
--- NOTE | 2019-05-14 20:15 | PC.NURSE ---
Pt refused HS trazodone at this time.
[2019-05-14 21:54] VITALS: RESP 17
[2019-05-15 06:00] VITALS: RESP 17
[2019-05-15] MEDS: PARoxetine 20 mg Tablet PO (09:51)
[2019-05-15] MEDS: ARIPiprazole 10 mg Tablet PO (09:51)
[2019-05-15 14:00] VITALS: BP 102/62; PULSE 77; RESP 18; TEMP 36.3; O2SAT 99
[2019-05-15] MEDS: OLANZapine ODT 5 MG TABLET PO (15:38)
--- NOTE | 2019-05-15 15:38 | PC.NURSE ---
PRN ZYPREXA ZYDIS ZYPREXA ZYDIS 5MG PO FOR ANXIETY/AGITATION. WILL CONTINUE TO MONITOR FOR MEDICATION EFFECTIVENESS.
--- NOTE | 2019-05-15 16:34 | PM.NHP ---
Providers/Chief Complaint Admitting Physician: Fran Estrada MD Chief Complaint: AMS [facility] NPU History of Present Illness Meredith Pressley is a 33 year old female who was found unresponsive near a storage unit. EMS were called and she presented to the emergency room, where very little history could be obtained she was found to be physically intact and referred to us for inpatient care. This is my first encounter with her and she has been sleeping all day but is still clearly confused and disoriented. She is the very very picture of confusion and her speech is slurred. She says she had a normal [place] accident but there is no evidence of injury that would have left her unconscious for an unknown period of time. She is unable to answer most questions but she does admit to psychiatric hospitalizations many times and says her diagnosis is bipolar disorder, although today she seems more catatonic than manic. Further inquiry will have to wait. Meds NPU Home Medications Medication Instructions Recorded Confirmed Type Unable to Assess 05/13/19 05/13/19 History Allergies Allergy/AdvReac Type Severity Reaction Status Date / Time No Known Allergies Allergy Verified 05/14/19 19:19 [facility] NPU Other Psychiatric History: Other Psychiatric History: Probably longstanding, with multiple hospitalizations involving bipolar disease Mental Status Exam MSE Comments: This is a 33-year-old female who looks her stated age. She is utterly disheveled and bedraggled. She looks stunned and stares about her as if trying to grasp her situation. She frequently responds to my inquiry by lying her head down in her arms on the desk and talking to the floor, which further diminishes my ability to understand her. Thought processes are definitely blocked. She does not acknowledge whether she has suicidal or homicidal ideation and makes no response to inquiry about psychotic symptoms. She wants to know if she can go home but cannot tell me where that might be. Cognition is clearly impaired and the patient is bereft of insight and judgment. Affect is benumbed. Behavior exhibits very little regard for boundaries. Vitals/I&O/Wt Last Vital Signs Temp 97.3 F L 05/15/19 14:00 Pulse 77 05/15/19 14:00 Resp 18 05/15/19 14:00 BP 102/62 05/15/19 14:00 Pulse Ox 99 05/15/19 14:00 Physical Exam Narrative: EXAM NARRATIVE: The patient will not allow me to approach or touch her. Data NPU : 05/13/19 17:51 05/13/19 17:51 A&P Additional A&P Information Acute psychosis, possibly reflecting schizophrenia. She gives a history of bipolar disease. We still see see Involuntary Hold Information 96 Hour Hold: 96 Hour Involuntary Admission: Yes 96 Hour Hold Ending Date: 05/19/19 96 Hour Hold Ending Time: 19:12 Attestations NPU Medical Necessity Statement*: This patient is acutely psychotic. I anticipate 3-5 midnights additional stay if not longer Time Spent in Patient Care: Greater than 35 minutes (>than 50% of time spent in counselling and/or direct pt care on unit). Coding Level of Care Code Acute Patient Centered Care Specialist for Indira Campos
--- NOTE | 2019-05-15 16:40 | PC.NURSE ---
Addendum entered by Oralia Jiménez LPN 05/15/19 19:07: medication effective. no further c/o anxiety/agitation. Original Note: PRN ZYPREXA ZYDIS FOLLOW UP MEDICATION EFFECTIVE. PATIENT CALM AND COOPERATIVE.
--- NOTE | 2019-05-15 20:08 | PC.NURSE ---
Pt refused HS med at this time.
[2019-05-15 21:25] VITALS: BP 114/66; PULSE 88; RESP 20; TEMP 36.8; O2SAT 96
[2019-05-16 06:00] VITALS: BP 117/69; PULSE 63; RESP 19; TEMP 36.8; O2SAT 97
[2019-05-16] MEDS: PARoxetine 20 mg Tablet PO (09:00)
[2019-05-16] MEDS: ARIPiprazole 10 mg Tablet PO (09:00)
[2019-05-16 14:00] VITALS: BP 118/62; PULSE 82; RESP 20; TEMP 36.6; O2SAT 98
--- NOTE | 2019-05-16 17:00 | PC.NURSE ---
PT NOTE: WHILE PATIENT ON 1:1, PATIENT STEPPED TOWARD ANOTHER PATIENT IN HALLWAY, REACHING OUT WITH ONE HAND TOWARD THIS OTHER PATIENT NECK REGION, NO CONTACT WAS MADE TO OTHER PATIENT, HOWEVER RECIPIENT WAS MOVED TO A DIFFERENT AREA OF UNIT FOR SAFETY AND WELL BEING.
--- NOTE | 2019-05-16 19:36 | PM.NPN ---
Subjective NPU Subjective: Interval history: Things have not improved much. The patient is very nearly mute as before and she seems disoriented even within the confines of the [facility]. Worse, she attempted to reach for the throat of 1 of her peers, who was frightened and had to be moved to a separate section of the [place]. All is calm now but the patient is nearly mute and invades my personal space without hesitation. I had to ask her to move away so that I could open a door. She was able to understand and did so. Medications: Reviewed: Yes Medication Review Details: Current Medications Acetaminophen (Tylenol) 650 mg PO Q4H PRN PRN Reason: MILD PAIN Aripiprazole (Abilify) 15 mg PO DAILY DG Benztropine Mesylate (Cogentin) 1 mg PO BID PRN PRN Reason: Mild Extrapyramidal symptoms Camphor/Menthol/Phenol (Blistex) 1 applic TOPICAL Q1H PRN PRN Reason: DRYNESS Diphenhydramine HCl (Benadryl) 50 mg IM ONCE PRN PRN Reason: Severe Extrapyramidal Symptoms Diphenhydramine HCl (Benadryl) 50 mg IM Q4H PRN PRN Reason: Severe Aggression Haloperidol (Haldol) 5 mg PO Q4H PRN PRN Reason: AGITATION Haloperidol Lactate (Haldol Inj) 5 mg IM Q4H PRN PRN Reason: Severe Aggression Hydroxyzine Pamoate (Vistaril) 50 mg PO Q6H PRN PRN Reason: ANXIETY Loperamide HCl (Imodium Capsule) 2 mg PO Q6H PRN PRN Reason: DIARRHEA Lorazepam (Ativan) 2 mg IM Q4H PRN PRN Reason: Severe Aggression Nicotine (Nicoderm 21 Mg Patch) 1 patch TRANSDERMA DAILY PRN PRN Reason: NICOTINE WITHDRAWAL Nicotine Polacrilex (Nicorette) 2 mg BUCCAL Q2H PRN PRN Reason: NICOTINE WITHDRAWAL Olanzapine (Zyprexa Zydis) 5 mg PO Q4H PRN PRN Reason: Agitation/Psychosis Last Admin: 05/15/19 15:38 Dose: 5 mg Documented by: Ondansetron HCl (Zofran) 4 mg PO Q6H PRN PRN Reason: NAUSEA AND VOMITING Paroxetine HCl (Paxil) 20 mg PO DAILY [facility] Last Admin: 05/16/19 09:00 Dose: 20 mg Documented by: Trazodone HCl (Desyrel) 50 mg PO BEDTIME PRN PRN Reason: SLEEP Trazodone HCl (Desyrel) 75 mg PO BEDTIME [facility] Last Admin: 05/15/19 22:11 Dose: Not Given Documented by: Mental Status Exam MSE Comments: This is a 33-year-old female who looks her stated age. She remains utterly disheveled and bedraggled. She continues to appear stunned and to stare about her. She still has not grasped her situation. She is even less verbal than she had been yesterday. I have consulted with some of the nursing staff, who are familiar with her from prior hospital stays. They say they have never seen her this bad. Thought processes are definitely blocked. She does not acknowledge whether she has suicidal or homicidal ideation and makes no response to inquiry about psychotic symptoms. Cognition is clearly impaired and the patient is bereft of insight and judgment. Affect is benumbed. Behavior exhibits very little regard for boundaries. Vitals/I&O/Wt Last Vital Signs Temp 98 F 05/16/19 14:00 Pulse 82 05/16/19 14:00 Resp 20 H 05/16/19 14:00 BP 118/62 05/16/19 14:00 Pulse Ox 98 05/16/19 14:00 Data NPU : 05/13/19 17:51 05/13/19 17:51 A&P Additional A&P Information Additional A&P Information Acute psychosis, possibly reflecting schizophrenia. She gives a history of bipolar disease. We shall see Involuntary Hold Information 96 Hour Hold: 96 Hour Involuntary Admission: Yes 96 Hour Hold Ending Date: 05/19/19 96 Hour Hold Ending Time: 19:12 Attestations NPU Medical Necessity Statement*: I anticipate as many as 7-10 midnights additional stay. Time Spent in Patient Care: 16 - 35 minutes (>than 50% of time spent in counselling and/or direct pt care on unit). Coding Level of Care Code Acute Test Engineer for Indira Campos
[2019-05-16 20:00] VITALS: BP 141/83; PULSE 70; RESP 22; TEMP 36.6; O2SAT 99
[2019-05-16] MEDS: trazodone 150 mg Tablet 75 MG PO (20:51)
[2019-05-17 06:00] VITALS: BP 126/78; PULSE 68; RESP 19; TEMP 36.7; O2SAT 98
[2019-05-17] MEDS: ARIPiprazole 10 mg Tablet 15 MG PO (09:07)
[2019-05-17] MEDS: PARoxetine 20 mg Tablet PO (09:07)
[2019-05-17 14:00] VITALS: BP 126/78; PULSE 68; RESP 18
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
[2019-05-17] MEDS: OLANZapine ODT 5 MG TABLET PO (16:39)
[2019-05-17] MEDS: hyDROXYzine 25 mg Capsule 50 MG PO (17:18)
[2019-05-17] MEDS: trazodone 150 mg Tablet 75 MG PO (21:45)
[2019-05-17 22:00] VITALS: BP 118/82; PULSE 90; RESP 19; TEMP 36.6; O2SAT 99
[2019-05-18 06:00] VITALS: BP 100/63; PULSE 53; RESP 18; TEMP 36.4; O2SAT 97
[2019-05-18] MEDS: ARIPiprazole 10 mg Tablet 15 MG PO (08:15)
[2019-05-18] MEDS: PARoxetine 20 mg Tablet PO (08:16)
[2019-05-18 14:00] VITALS: BP 132/79; PULSE 79; RESP 18
[2019-05-18] MEDS: acetaminophen 325 mg Tablet 650 MG PO ×2 (15:52→20:57)
--- NOTE | 2019-05-18 17:19 | P.PN_ITS ---
Subjective NPU Subjective: Interval history: Interval history: Day by day the patient's mind begins to clear. She can have simple dialogue with staff now and indicate her preferences on things like the objects on her meal tray. She recognizes me and is oriented as to her current location but (reasonably) not what day of the week it is or time of day, much less the date. She seems appropriate in her interaction with me. She is getting hungry and she awakens every day and will eat. Medications: Reviewed: Yes Medication Review Details: Current Medications Acetaminophen (Tylenol) 650 mg PO Q4H PRN PRN Reason: MILD PAIN Last Admin: 05/18/19 15:52 Dose: 650 mg Documented by: Aripiprazole (Abilify) 15 mg PO DAILY [facility] Last Admin: 05/18/19 08:15 Dose: 15 mg Documented by: Benztropine Mesylate (Cogentin) 1 mg PO BID PRN PRN Reason: Mild Extrapyramidal symptoms Camphor/Menthol/Phenol (Blistex) 1 applic TOPICAL Q1H PRN PRN Reason: DRYNESS Diphenhydramine HCl (Benadryl) 50 mg IM ONCE PRN PRN Reason: Severe Extrapyramidal Symptoms Diphenhydramine HCl (Benadryl) 50 mg IM Q4H PRN PRN Reason: Severe Aggression Haloperidol (Haldol) 5 mg PO Q4H PRN PRN Reason: AGITATION Haloperidol Lactate (Haldol Inj) 5 mg IM Q4H PRN PRN Reason: Severe Aggression Hydroxyzine Pamoate (Vistaril) 50 mg PO Q6H PRN PRN Reason: ANXIETY Last Admin: 05/17/19 17:18 Dose: 50 mg Documented by: Loperamide HCl (Imodium Capsule) 2 mg PO Q6H PRN PRN Reason: DIARRHEA Nicotine (Nicoderm 21 Mg Patch) 1 patch TRANSDERMA DAILY PRN PRN Reason: NICOTINE WITHDRAWAL Nicotine Polacrilex (Nicorette) 2 mg BUCCAL Q2H PRN PRN Reason: NICOTINE WITHDRAWAL Olanzapine (Zyprexa Zydis) 5 mg PO Q4H PRN PRN Reason: Agitation/Psychosis Last Admin: 05/17/19 16:39 Dose: 5 mg Documented by: Ondansetron HCl (Zofran) 4 mg PO Q6H PRN PRN Reason: NAUSEA AND VOMITING Paroxetine HCl (Paxil) 20 mg PO DAILY [facility] Last Admin: 05/18/19 08:16 Dose: 20 mg Documented by: Trazodone HCl (Desyrel) 50 mg PO BEDTIME PRN PRN Reason: SLEEP Trazodone HCl (Desyrel) 75 mg PO BEDTIME [facility] Last Admin: 05/17/19 21:45 Dose: 75 mg Documented by: Mental Status Exam MSE Comments: This is a 33-year-old female who looks her stated age. She remains disheveled but can be induced to run a comb through her hair. She no longer wanders, stunned, nor does she stare blankly. She now understands her situation and is conversant with staff about her needs. Thought processes are less blocked. Cognition is less impaired and the patient has a hint of insight and judgment. Affect is flat. She is reacquiring appropriate boundaries. Vitals/I&O/Wt Last Vital Signs Temp 97.6 F 05/18/19 06:00 Pulse 79 05/18/19 14:00 Resp 18 05/18/19 14:00 BP 132/79 05/18/19 14:00 Pulse Ox 97 05/18/19 06:00 Weight last 48 hrs Weight 112 lb Data NPU : 05/13/19 17:51 05/13/19 17:51 A&P Assessment and plan (1) Psychosis: We honestly do not know what the origin of this woman's psychotic episode is. However, she is slowly recovering from what was near coma. So far so good Status: Acute Qualifiers: Psychosis type: unspecified psychosis type Qualified Code(s): F29 - Unspecified psychosis not due to a substance or known physiological condition Code(s): F29 - Unspecified psychosis not due to a substance or known physiological condition Involuntary Hold Information 96 Hour Hold: 96 Hour Involuntary Admission: Yes 96 Hour Hold Ending Date: 05/19/19 96 Hour Hold Ending Time: 19:12 Attestations NPU Medical Necessity Statement*: I anticipate 10-12 midnights additional stay. I further recognize that she will be the subject of a hearing tomorrow for a 21- day extension of her involuntary hold. She is utterly vulnerable. Time Spent in Patient Care: 16 - 35 minutes (>than 50% of time spent in counselling and/or direct pt care on unit) . Coding Level of Care Code Acute Director Counseling Bureau for Chg Fwd Diagnoses Psychosis F29 Psychosis type: unspecified psychosis type
[2019-05-18] MEDS: hyDROXYzine 25 mg Capsule 50 MG PO (17:49)
[2019-05-18] MEDS: trazodone 150 mg Tablet 75 MG PO (20:59)
[2019-05-18 22:00] VITALS: BP 117/71; PULSE 72; RESP 16; TEMP 36.4; O2SAT 100
[2019-05-19 06:00] VITALS: BP 96/60; PULSE 59; RESP 16; TEMP 37; O2SAT 96
[2019-05-19] MEDS: PARoxetine 20 mg Tablet PO (09:08)
[2019-05-19] MEDS: ARIPiprazole 10 mg Tablet 15 MG PO (09:08)
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
[2019-05-19] MEDS: acetaminophen 325 mg Tablet 650 MG PO (12:41)
[2019-05-19 14:00] VITALS: BP 104/69; PULSE 85; RESP 18; TEMP 36.6; O2SAT 100
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
[2019-05-19] MEDS: sulfamethoxazole-trimeth DS 160-800 mg Tablet 1 TAB PO (17:18)
[2019-05-19] MEDS: OLANZapine ODT 5 MG TABLET PO (17:18)
--- NOTE | 2019-05-19 17:18 | PC.NURSE ---
PRN ZYPREXA ZYDIS ZYPREXA ZYDIS 5MG PO PER PT C/O AGITATION/PSYCHOSIS. WILL CONTINUE TO MONITOR FOR MEDICATION EFFECTIVENESS.
--- NOTE | 2019-05-19 18:20 | PC.NURSE ---
PRN ZYPREXA ZYDIS FOLLOW UP MEDICATION SOMEWHAT EFFECTIVE. PATIENT CALM AND COOPERATIVE.
[2019-05-19 20:16] VITALS: RESP 20
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
[2019-05-19] MEDS: trazodone 150 mg Tablet 75 MG PO (20:33)
[2019-05-20 06:00] VITALS: BP 91/54; PULSE 65; RESP 18; TEMP 36.3; O2SAT 97
[2019-05-20] MEDS: ARIPiprazole 10 mg Tablet 15 MG PO (08:20)
[2019-05-20] MEDS: PARoxetine 20 mg Tablet PO (08:20)
[2019-05-20] MEDS: sulfamethoxazole-trimeth DS 160-800 mg Tablet 1 TAB PO ×2 (08:20→17:11)
--- NOTE | 2019-05-20 11:36 | PC.SOCIAL ---
Addendum entered by DONOVAN Corona 05/21/19 11:07: 21 day hold rescinded Original Note: Court for 21 day hold scheduled for Tuesday, May 21, 2019 at 1:00pm at the [facility], this may be changed to being done via videoconferencing.
--- NOTE | 2019-05-20 13:03 | PM.NPN ---
Subjective NPU Subjective: Interval history: I've been taking my medications. Doing well I'm asked. I'm not sure where I will go. can I think about it? Mental Status Exam MSE Comments: Mental Status Exam: Appearance: hygiene is fair; no gross neurological deficits., gait is unremarkable; AIMS=0 Speech: Speech is of normal rate and rhythm and easily understood. Thought processes: Thought processes are abstract. Judgment is not adequate for safety. Associations: intact Psychotic processes: There is no indication of guarding or paranoia. There is no attention to the internal stimuli. Auditory and visual hallucinations are denied. Judgment: Insight is fair. Problem solving skills are adequate for safety. Orientation: The patient is oriented to person, place time and situation. Memory: no deficits noted in immediate, intermediate, or remote spheres. Attention: The patient is alert and interpersonally engaged. Language: Verbalizations are coherent. Fund of knowledge: Fund of knowledge is adequate. Affect/Mood: Affect is consistent with a depressed mood. denied suicidal ideation Affective range is appropriate. Psychosis: perception unimpaired except through cognitive distortion; reality testing intact. Cognition: Patient Appearance: Disheveled/Poor Hygiene Level of Consciousness: Awake, Disoriented and Inappropriate Patient Cognition Impaired: Yes Ability to Follow Directions: Fair Patient Orientation (long list): Person Comprehension Ability: Mild Impairment Hallucination Type: Visual Delusion Description: Not Present Thought Process: Confused Affect: Affect Description: [place] Behavior: Patient Behavior: Cooperative Speech Pattern: Clear Vitals/I&O/Wt Last Vital Signs Temp 97.3 F L 05/20/19 06:00 Pulse 65 05/20/19 06:00 Resp 18 05/20/19 06:00 BP 91/54 05/20/19 06:00 Pulse Ox 97 05/20/19 06:00 Data NPU : 05/13/19 17:51 05/13/19 17:51 A&P Assessment and plan (1) Psychosis: at this point there is no explanation for the events leading to her being found unconscious under a bridge. She is known to be higher functioning than is apparent on interview. Her cognitive level is better than she presents. Her admission labs might be consistent with a urinary tract infection and staff has noted that she has been incontinent of urine. At this point the plan is to continue her routine medications that she has been on in the past and this provided her a trial of Bactrim DS targeting a presumptive urinary tract infection. hospital day #6: patient is more alert and thinking more coherently. She is no longer a danger to herself or others if she can identify a place where she will go which she will be out of harms way. She is yet to do that. Status: Acute Qualifiers: Psychosis type: unspecified psychosis type Qualified Code(s): F29 - Unspecified psychosis not due to a substance or known physiological condition Code(s): F29 - Unspecified psychosis not due to a substance or known physiological condition Involuntary Hold Information 96 Hour Hold: 96 Hour Involuntary Admission: Yes 96 Hour Hold Ending Date: 05/19/19 96 Hour Hold Ending Time: 19:12 Attestations NPU Medical Necessity Statement*: she'll remain in the hospital another 1-3 nights while discharge planning is completed. Coding Level of Care Code Acute Knockout Worker for Indira Campos Diagnoses Psychosis F29 Psychosis type: unspecified psychosis type
[2019-05-20 14:00] VITALS: BP 98/62; PULSE 74; RESP 16; TEMP 36.5; O2SAT 99
[2019-05-20] MEDS: trazodone 150 mg Tablet 75 MG PO (21:11)
[2019-05-21 06:00] VITALS: BP 98/61; PULSE 72; RESP 18; TEMP 36.9; O2SAT 97
[2019-05-21] MEDS: PARoxetine 20 mg Tablet PO (08:38)
[2019-05-21] MEDS: ARIPiprazole 10 mg Tablet 15 MG PO (08:38)
[2019-05-21] MEDS: sulfamethoxazole-trimeth DS 160-800 mg Tablet 1 TAB PO ×2 (08:38→17:09)
[2019-05-21] MEDS: ARIPiprazole Maintena 400 MG IM (10:57)
--- NOTE | 2019-05-21 10:58 | PC.NURSE ---
YOJANA MAINTENA INJECTION GIVEN ORDERED BY PHYSICIAN. INJECTION GIVEN IN LEFT DELTOID. WILL CONT TO MONITOR INJECTION SITE FOR ANY REDNESS, SWELLING, OR IRRITATION. PT EDUCATED ON MED GIVEN AND VERBALIZED UNDERSTANDING. LOT [id number] EXP NOV 2020
[2019-05-21 13:14] VITALS: BP 93/59; PULSE 84; RESP 18; TEMP 36.9; O2SAT 100
[2019-05-21] MEDS: gabapentin 100 mg Capsule PO (14:30)
[2019-05-21] MEDS: nicotine 2 mg Gum BUCCAL ×2 (17:09→19:20)
--- NOTE | 2019-05-21 17:34 | P.PN_ITS ---
Subjective NPU Subjective: Interval history: I want to get back on my Abilify Mental Status Exam MSE Comments: Mental Status Exam: Appearance: hygiene is fair; no gross neurological deficits., gait is unremarkable; AIMS=0 Speech: Speech is of normal rate and rhythm and easily understood. Thought processes: Thought processes are abstract. Judgment is adequate for safety. Associations: intact Psychotic processes: There is no indication of guarding or paranoia. There is no attention to the internal stimuli. Auditory and visual hallucinations are denied. Judgment: Insight is fair. Problem solving skills are adequate for safety. Orientation: The patient is oriented to person, place time and situation. Memory: no deficits noted in immediate, intermediate, or remote spheres. Attention: The patient is alert and interpersonally engaged. Language: Verbalizations are coherent. Fund of knowledge: Fund of knowledge is adequate. Affect/Mood: Affect is consistent with a depressed mood. denied suicidal ideation Affective range is appropriate. Psychosis: perception unimpaired except through cognitive distortion; reality testing intact. Cognition: Patient Appearance: Disheveled/Poor Hygiene Level of Consciousness: Awake, Disoriented and Inappropriate Patient Cognition Impaired: Yes Ability to Follow Directions: Fair Patient Orientation (long list): Person and Place Comprehension Ability: Mild Impairment Hallucination Type: None Delusion Description: Not Present Thought Process: Appropriate Affect: Affect Description: Appropriate Behavior: Patient Behavior: Appropriate Speech Pattern: Appropriate and Clear Vitals/I&O/Wt Last Vital Signs Temp 98.4 F 05/21/19 13:14 Pulse 84 05/21/19 13:14 Resp 18 05/21/19 13:14 BP 93/59 05/21/19 13:14 Pulse Ox 100 05/21/19 13:14 Data NPU : 05/13/19 17:51 05/13/19 17:51 A&P Assessment and plan (1) Psychosis: Start Abilify Maintenna 400 mg im. Status: Acute Qualifiers: Psychosis type: unspecified psychosis type Qualified Code(s): F29 - Unspecified psychosis not due to a substance or known physiological condition Code(s): F29 - Unspecified psychosis not due to a substance or known physiological condition Involuntary Hold Information 96 Hour Hold: 96 Hour Involuntary Admission: Yes 96 Hour Hold Ending Date: 05/19/19 96 Hour Hold Ending Time: 19:12 Attestations NPU Medical Necessity Statement*: Pt will be in the hospital another 1-2 nights until her Abilify shows benefit. 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
--- NOTE | 2019-05-21 20:20 | PC.NURSE ---
HS meds Gabapentin and Trazodone given at this time.
[2019-05-21 21:16] VITALS: BP 106/69; PULSE 113; RESP 22; TEMP 36.7; O2SAT 99
[2019-05-21] MEDS: acetaminophen 325 mg Tablet 650 MG PO (21:34)
--- NOTE | 2019-05-21 21:34 | PC.NURSE ---
Tylenol given for c/o headache, per pt request.
[2019-05-22] MEDS: trazodone 150 mg Tablet 75 MG PO (00:22)
[2019-05-22] MEDS: gabapentin 100 mg Capsule PO ×3 (00:22→14:29)
[2019-05-22 05:55] VITALS: BP 96/62; PULSE 86; RESP 20; TEMP 36.6; O2SAT 98
[2019-05-22] MEDS: sulfamethoxazole-trimeth DS 160-800 mg Tablet 1 TAB PO (08:10)
[2019-05-22] MEDS: PARoxetine 20 mg Tablet PO (08:10)
[2019-05-22] MEDS: ARIPiprazole 10 mg Tablet 15 MG PO (08:11)
[2019-05-22] MEDS: nicotine 2 mg Gum BUCCAL ×2 (11:30→14:29)
[2019-05-22 14:00] VITALS: BP 105/67; PULSE 86; RESP 16; TEMP 36.7; O2SAT 97
--- NOTE | 2019-05-22 14:56 | PM.NDC ---
Diagnoses at Discharge Discharge Diagnosis (1) Psychosis: Status: Acute Qualifiers: Psychosis type: unspecified psychosis type Qualified Code(s): F29 - Unspecified psychosis not due to a substance or known physiological condition Reason for Visit Reason for Visit: Reason For Visit: AMS Hospital Course Hospital Course For several days after the patient was admitted there was little response. Patient has since begun to recover. It is a daily slow process and I suspect it will be a while. Discharge Summary Meredith Pressley is a 33 year old female who was found unresponsive near a storage unit. EMS were called and she presented to the emergency room, where very little history could be obtained she was found to be physically intact and referred to us for inpatient care. This is my first encounter with her and she has been sleeping all day but is still clearly confused and disoriented. She is the very very picture of confusion and her speech is slurred. She says she had a normal [place] accident but there is no evidence of injury that would have left her unconscious for an unknown period of time. She is unable to answer most questions but she does admit to psychiatric hospitalizations many times and says her diagnosis is bipolar disorder, although today she seems more catatonic than manic. Further inquiry will have to wait. Admission MSE: This is a 33-year-old female who looks her stated age. She is utterly disheveled and bedraggled. She looks stunned and stares about her as if trying to grasp her situation. She frequently responds to my inquiry by lying her head down in her arms on the desk and talking to the floor, which further diminishes my ability to understand her. Thought processes are definitely blocked. She does not acknowledge whether she has suicidal or homicidal ideation and makes no response to inquiry about psychotic symptoms. She wants to know if she can go home but cannot tell me where that might be. Cognition is clearly impaired and the patient is bereft of insight and judgment. Affect is benumbed. Behavior exhibits very little regard for boundaries. Second day of this physician's coverage HD#5: Interval history: Can I be discharged now? patient clearly does not know or recall the events leading to her hospitalization. She notes that it's 20. 20.. When being informed of the events leading to her hospitalization she did appear somewhat alarmed. However at point she tried provided explanation, most likely because she cannot remember the events leading to her being discovered unconscious under a bridge. She did spontaneously report problems with urination and burning on urination. ) Psychosis: at this point there is no explanation for the events leading to her being found unconscious under a bridge. She is known to be higher functioning than is apparent on interview. Her cognitive level is better than she presents. Her admission labs might be consistent with a urinary tract infection and staff has noted that she has been incontinent of urine. At this point the plan is to continue her routine medications that she has been on in the past and this provided her a trial of Bactrim DS targeting a presumptive urinary tract infection. Status: Acute Qualifiers: Psychosis type: unspecified psychosis type Qualified Code(s): F29 - Unspecified psychosis not due to a substance or known physiological condition Code(s): F29 - Unspecified psychosis not due to a substance or known physiological condition Additional A&P Information Acute psychosis, possibly reflecting schizophrenia. provisional?delirium secondary to urinary tract infection Urinary tract infection HD#6: Interval history: I've been taking my medications. Doing well I'm asked. I'm not sure where I will go. can I think about it? HD#7:? I want back on my Abilify? Pateint tolerated two days o f regular Abiliy and Abilify Maintenna 300 mg was provided and pt accepted. Involuntary Hold Information 96 Hour Hold: 96 Hour Involuntary Admission: Yes 96 Hour Hold Ending Date: 05/19/19 96 Hour Hold Ending Time: 19:12 Mental Status Exam MSE Comments: Discharge Mental Status Exam: Appearance: hygiene is good; no gross neurological deficits., gait is unremarkable; AIMS=0 Speech: Speech is of normal rate and rhythm and easily understood. Thought processes: Thought processes are abstract. Judgment is adequate for safety. Associations: intact Psychotic processes: There is no indication of guarding or paranoia. There is no attention to the internal stimuli. Auditory and visual hallucinations are denied. Judgment: Insight is fair. Problem solving skills are adequate for safety. Orientation: The patient is oriented to person, place time and situation. Memory: no deficits noted in immediate, intermediate, or remote spheres. Attention: The patient is alert and interpersonally engaged. Language: Verbalizations are coherent. Fund of knowledge: Fund of knowledge is adequate. Affect/Mood: Affect is consistent with a euthymic mood. denied suicidal ideation Affective range is appropriate. Psychosis: perception unimpaired except through cognitive distortion; reality testing intact. Discharge Data Data Completed and Pending: Completed Studies During Hospitalization Category Date Time Status CT head wo con* 7 0450 Urgent Cat Scan 05/13/19 17:37 Completed XR chest 1V pedro luis ble [id number] Urgent Exams 05/13/19 17:37 Completed Vitals: Last Vital Signs Temp 98.1 F 05/22/19 14:00 Pulse 86 05/22/19 14:00 Resp 16 05/22/19 14:00 BP 105/67 05/22/19 14:00 Pulse Ox 97 05/22/19 14:00 Discharge Plan Discharge Patient Disposition: Home, Self-Care Condition: Stable Prescriptions: New sulfamethoxazole-trimethoprim 800-160 mg Tablet 1 tab PO BID Qty: 10 RF: 0 paroxetine HCl 20 mg Tablet 20 mg PO DAILY Qty: 30 RF: 3 trazodone 150 mg Tablet 75 mg PO BEDTIME Qty: 15 RF: 3 gabapentin 100 mg Capsule 100 mg PO TID Qty: 90 RF: 3 aripiprazole 10 mg Tablet 10 mg PO DAILY PRN (Reason: as directed) Qty: 30 RF: 3 Abilify Maintena 300 mg suspension,extended rel recon 300 mg IM .monthly Qty: 1 RF: 5 Discharge Orders: Discharge Order (Routine); Ordered 05/22/19 Ordered By: Layo Simmons Discharge Attestations NPU Time Spent in Discharge Care*: greater than 30 min Coding Level of Care Code 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
[2019-05-22 15:07] VITALS: BP 105/67; PULSE 86; RESP 16; TEMP 36.7; O2SAT 97
[2019-05-22 16:42] VITALS: BP 105/67; PULSE 86; RESP 16; TEMP 36.7; O2SAT 97
--- NOTE | 2019-05-22 17:53 | PC.NURSE ---
refused scheduled antibiotic
== END 2019-05-22 17:59 | disposition home or self-care (01) | DRG 885 ==
LOC: ER 19:35 → NP 19:48
PROVIDERS: Admitting Provider Psychiatry & Neurology Psychiatry; Emergency Provider Emergency Medicine; Visit Provider Psychiatry & Neurology Psychiatry
DX: F23 Brief psychotic disorder (principal); N39.0 Urinary tract infection, site not specified; F17.210 Nicotine dependence, cigarettes, uncomplicated
CPT/HCPCS: 12345; 36415; 70450; 71045; 80053; 80156; 80164; 80178; 80185; 80306; 80307; 81001; 82140; 82550; 83735; 84443; 84703; 85025; 93005; 96372; 99282; J0401; J7030

== ENCOUNTER 2019-05-13 18:19 | Emergency (ER) | payer MEDICAID, SELFPAY | END 2019-05-13 21:10 | disposition admitted as inpatient to this hospital (09) | LOC: ER 05-30 13:11 | PROVIDERS: Emergency Provider Emergency Medicine; Family Provider Family Medicine; PCP Family Medicine | DX: T43.211A Poisoning by selective serotonin and norepinephrine reuptake inhibitors, accidental (unintentional), initial encounter (principal); F17.210 Nicotine dependence, cigarettes, uncomplicated; I10 Essential (primary) hypertension; F31.12 Bipolar disorder, current episode manic without psychotic features, moderate; F43.10 Post-traumatic stress disorder, unspecified | CPT/HCPCS: 12345; 36415; 70450; 71045; 80053; 80156; 80164; 80178; 80185; 80306; 80307; 81001; 82140; 82550; 83735; 84443; 84703; 85025; 93005; 99282; 99285; J7030 ==

== ENCOUNTER 2019-05-13 18:52 | Emergency (ER) | payer MEDICAID, SELFPAY | END 2019-05-13 19:51 | disposition left against medical advice (07) | LOC: ER 19:01 | PROVIDERS: Emergency Provider Emergency Medicine; Family Provider Family Medicine; PCP Family Medicine | DX: Z53.21 Procedure and treatment not carried out due to patient leaving prior to being seen by health care provider (principal) | CPT/HCPCS: 99281 ==

== ENCOUNTER 2019-05-23 14:20 | Emergency (ER) | payer MEDICAID, SELFPAY ==
[2019-05-23 14:28] VITALS: BP 133/84; PULSE 113; RESP 17; TEMP 36.6; O2SAT 99; BMI 20.1
[2019-05-23 14:45] VITALS: BP 119/80; PULSE 104; RESP 16; TEMP 36.4; O2SAT 98
--- NOTE | 2019-05-23 15:05 | W.ED.ALLEREA ---
HPI - Allergic Reaction General: Chief complaint: Allergic Reaction Stated complaint: Poss reaction to meds Time Seen by Provider: 05/23/19 15:02 Source: patient Mode of arrival: ambulatory Limitations: no limitations History of Present Illness: HPI narrative: Patient comes in today for complaints of swelling around the eyes and some nasal stuffiness. Patient appears well. No obvious swelling is noted. Patient appears in no pain. Review of Systems General: Reports: 10 or more systems reviewed and unremarkable except in HPI and below Eyes: Reports: eye discomfort PFSH ED PFSH: Social History (System 05/23/19 @ 11:31 by Trish Hernandez) Smoking and tobacco status: current every day smoker Female Reproductive History: Date of last menstrual period: 05/14/19 Physical Exam Const: COMMON NORMALS: no apparent distress and oriented x3 GENERAL APPEARANCE: cooperative HENMT: COMMON NORMALS: normocephalic, external ears normal, EAC's normal, TM's normal bilaterally and external nose normal HEAD & SCALP: normal to inspection and normocephalic FACE & SINUS: normal facial exam NOSE: external nose normal GENERAL EAR: hearing not grossly impaired EXTERNAL EAR: Yes external ears normal EXTERNAL AUDITORY CANAL: EAC's normal TYMPANIC MEMBRANE: TM's normal bilaterally MOUTH: oral and palatal mucosa normal THROAT: posterior oropharynx normal Eye: COMMON NORMALS: PERRL and EOMs intact bilaterally PUPIL: Yes PERRL Neck/C-Spine: COMMON NORMALS: full ROM and no lymphadenopathy Lymph: LYMPHATIC: no lymphedema noted Chest: COMMONS NORMALS: inspection of chest normal and palpation of chest normal Resp: COMMON NORMALS: normal respiratory effort and clear to auscultation bilaterally AUSCULTATION: clear to auscultation bilaterally Cardio: COMMON NORMALS: regular rate and regular rhythm RATE: regular rate RHYTHM: regular rhythm GI: COMMON NORMALS: normal to inspection, nondistended, normoactive bowel sounds and non-tender : COMMON NORMALS: Yes no CVA tenderness BLADDER/KIDNEY EXAM: Yes no CVA tenderness Back/Pelvis: COMMON NORMALS: no CVA tenderness and thoracic and lumbar spine normal to inspection Extremity: COMMON NORMALS: normal to inspection GENERAL: No edema Neuro: COMMON NORMALS: oriented x3, moves all extremities and no focal motor deficits Psych: COMMON NORMALS: mental status grossly normal and cooperative Skin: COMMON NORMALS: no rashes or lesions noted GENERAL SKIN EXAM: no rashes or lesions noted Course Vital Signs: Vital signs: Vital Signs Temperature 97.5 F L 05/23/19 14:45 Pulse Rate 104 H 05/23/19 14:45 Respiratory Rate 16 05/23/19 14:45 Blood Pressure 119/80 05/23/19 14:45 Pulse Oximetry 98 05/23/19 14:45 MDM - Allergic Reaction MDM Narrative: Medical decision making narrative: Patient comes in today for concerns of swelling in the periorbital region of the eyes, nasal congestion. Patient recently been started on some Abilify and felt that that she may be having a reaction to it. Exam notes no obvious swelling. Pupils are equal reactive. Nasal mucosal is pink and moist. Posterior pharynx is open without any signs of airway obstruction. Lungs are clear to auscultation. Skin is warm and dry. Differential diagnosis adverse reaction, anaphylaxis, allergic reaction, side effect. Reviewed documentation of side effects that are common to medication and some mild swelling and blurring of the eyesight is very common with Abilify. Reassured patient that this is a common side effect but would probably improve with time. Recommended continuation of treatment and follow-up with behavioral health. Patient reported understanding agreed to plan. Discharge Plan Discharge Patient Disposition: Home, Self-Care Clinical Impression: Drug side effects Condition: Stable Prescriptions: No Action trazodone 50 mg tablet 25 mg PO DAILY RF: 0 hydroxyzine pamoate 25 mg capsule 25 mg PO QID RF: 0 propranolol 20 mg tablet 20 mg PO DAILY RF: 0 amitriptyline 50 mg tablet 50 mg PO DAILY RF: 0 hydrocodone-acetaminophen 10-325 mg Tablet 1 tab PO Q8H PRN (Reason: Pain, Moderate) Qty: 30 RF: 0 paroxetine HCl 20 mg Tablet 20 mg PO DAILY Qty: 30 RF: 3 trazodone 150 mg Tablet 75 mg PO BEDTIME Qty: 15 RF: 3 gabapentin 100 mg Capsule 100 mg PO BID Qty: 60 RF: 3 aripiprazole 10 mg Tablet 10 mg PO DAILY Qty: 30 RF: 3 sulfamethoxazole-trimethoprim 800-160 mg Tablet 1 tab PO BID Qty: 10 RF: 0 paroxetine HCl 20 mg Tablet 20 mg PO DAILY Qty: 30 RF: 3 trazodone 150 mg Tablet 75 mg PO BEDTIME Qty: 15 RF: 3 gabapentin 100 mg Capsule 100 mg PO TID Qty: 90 RF: 3 aripiprazole 10 mg Tablet 10 mg PO DAILY PRN (Reason: as directed) Qty: 30 RF: 3 Abilify Maintena 300 mg suspension,extended rel recon 300 mg IM .monthly Qty: 1 RF: 5 Discharge Orders: Discharge Order (Routine); Ordered 05/23/19 Ordered By: Braden Miller Referrals: Franca Akers DO [Primary Care Provider] - Discharge Diet: Usual diet Discharge Activity: Increase activity as tolerated Patient Instructions: Adverse Drug Reaction (ED) Activity Restrictions/Additional Instructions: Continue with medications as directed Keep appointment Sunday with psychiatry services Return to ER for difficulty breathing or new concerns Coding Level of Care Code ED Audio Visual Aids Director for Indira 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
--- NOTE | 2019-05-23 15:29 | DCPLANNER ---
financial manager was asked to give patient the phone numbers to [facility] and [facility] for shelters. financial manager gave patient the phone numbers to the local shelters. financial manager then was asked to call [facility] to confirm if long-term had a bed. financial manager called [facility], the long-term spoke with patient, and informed patient that they did not have any beds at this time. financial manager was not asked to call any other long-term, patient stated that she would go and stay with a friend.
== END 2019-05-23 15:39 | disposition home or self-care (01) ==
PROVIDERS: Emergency Provider Nurse Practitioner Family; Family Provider Family Medicine; PCP Family Medicine
DX: R22.0 Localized swelling, mass and lump, head (principal); R09.81 Nasal congestion; T43.595A Adverse effect of other antipsychotics and neuroleptics, initial encounter; F17.200 Nicotine dependence, unspecified, uncomplicated
CPT/HCPCS: 12345; 99281

== ENCOUNTER 2019-06-05 18:04 | Emergency (ER) | payer MEDICAID, SELFPAY ==
[2019-06-05 18:11] VITALS: BP 122/79; PULSE 110; RESP 16; TEMP 36.7; O2SAT 97; BMI 19.7
--- NOTE | 2019-06-05 18:14 | W.ED.HA ---
HPI - Headache General: Chief Complaint: Headache Stated Complaint: reyes Time Seen by Provider: 06/05/19 18:09 History of Present Illness: HPI Narrative: 33-year-old female presents emergency room with complaint of a headache she indicates it is frontal in nature. She is very repetitive she does have a history of psychiatric issues she denies any suicidal or homicidal ideation. She is not had any suicidal homicidal ideations. MD elicited complaint: headache Associated symptoms: Deny chest pain, fever(s), malaise, nausea, rash or vomiting Review of Systems Const: Denies: fever, chills, body aches, change in appetite, fatigue or malaise ENMT: Denies: throat pain, ear pain, nasal discharge or nasal congestion Card: Denies: chest pain, edema, shortness of breath on exertion or shortness of breath when lying down Resp: Denies: shortness of breath, productive cough or non-productive cough GI: Denies: abdominal pain, nausea, vomiting, vomiting blood, coffee grounds in vomit, diarrhea, constipation, bloating, blood in stool or black tarry stool : Denies: flank pain, difficulty urinating, painful urination, urinary frequency or urinary urgency Skin/Breast: Denies: rash or itching Neuro: Reports: headache PFSH ED PFSH: Medical History (Updated 06/05/19 @ 18:31 by Sesar Valverde DO) Schizoaffective disorder, bipolar type Scoliosis Surgical History (Updated 05/29/19 @ 14:40 by Franca Akers DO) H/O tubal ligation History of foot surgery Social History Smoking and tobacco status: current every day smoker cigarettes Packs smoked per day: 0.25 Alcohol intake: never Female Reproductive History: Date of last menstrual period: 05/14/19 Physical Exam Const: COMMON NORMALS: no apparent distress GENERAL APPEARANCE: cooperative and comfortable ORIENTATION/CONSCIOUSNESS: Yes awake, Yes oriented to person, Yes oriented to place and Yes oriented to time HENMT: COMMON NORMALS: normocephalic, head/scalp atraumatic, hearing grossly normal bilaterally, external ears normal, EAC's normal, TM's normal bilaterally, nasal mucous membranes and turbinates normal, moist oral mucous membranes and oropharynx normal HEAD & SCALP: normocephalic and atraumatic NOSE: nasal mucous membranes and turbinates normal EXTERNAL EAR: Yes external ears normal EXTERNAL AUDITORY CANAL: EAC's normal TYMPANIC MEMBRANE: TM's normal bilaterally Eye: COMMON NORMALS: PERRL, EOMs intact bilaterally, conjunctivae normal and no scleral icterus CONJUNCTIVA: Yes conjunctivae normal PUPIL: Yes PERRL Neck/C-Spine: COMMON NORMALS: full ROM, no lymphadenopathy, supple and no JVD Lymph: LYMPHATIC: no lymphadenopathy noted and no lymphedema noted Resp: COMMON NORMALS: normal respiratory effort, no retractions, no use of accessory muscles and clear to auscultation bilaterally AUSCULTATION: clear to auscultation bilaterally Cardio: COMMON NORMALS: no JVD, regular rate, regular rhythm and no murmurs RATE: regular rate RHYTHM: regular rhythm GI: COMMON NORMALS: soft to palpation and no hepatosplenomegaly AUSCULTATION: Yes normoactive bowel sounds PALPATION: Yes soft, No tender, No guarding and Yes no hepatosplenomegaly Extremity: COMMON NORMALS: normal to inspection, normal capillary refill, no clubbing, cyanosis or edema, no calf tenderness and no pedal edema Neuro: SENSORIUM/ORIENTATION: Yes oriented to person, Yes oriented to place and Yes oriented to time Skin: COMMON NORMALS: no rashes or lesions noted GENERAL SKIN EXAM: no rashes or lesions noted Course Vital Signs: Vital signs: Vital Signs Temperature 98.1 F 06/05/19 18:11 Pulse Rate 110 H 06/05/19 18:11 Respiratory Rate 16 06/05/19 18:11 Blood Pressure 122/79 06/05/19 18:11 Pulse Oximetry 97 06/05/19 18:11 MDM - Headache MDM Narrative: Medical decision making narrative: Improved after medications patient is ready to go home. Her exam continues to be normal she has no focal neurologic deficits we will go ahead and discharge her home follow-up with her primary care provider Discharge Plan Discharge Patient Disposition: Home, Self-Care Clinical Impression: Headache Condition: Stable Prescriptions: No Action hydroxyzine pamoate 25 mg capsule 25 mg PO QID RF: 0 propranolol 20 mg tablet 20 mg PO DAILY RF: 0 amitriptyline 50 mg tablet 50 mg PO DAILY RF: 0 baclofen 20 mg tablet 20 mg PO TID RF: 0 nicotine [Nicoderm CQ] 14 mg/24 hr patch 24 hour 1 patch TRANSDERMA DAILY RF: 0 trazodone 150 mg tablet 175 mg PO .at bedtime RF: 0 hydrocodone-acetaminophen 10-325 mg Tablet 1 tab PO Q8H PRN (Reason: Pain, Moderate) Qty: 30 RF: 0 paroxetine HCl 20 mg Tablet 20 mg PO DAILY Qty: 30 RF: 3 gabapentin 100 mg Capsule 100 mg PO TID Qty: 90 RF: 3 Abilify Maintena 300 mg suspension,extended rel recon 300 mg IM .monthly Qty: 1 RF: 5 Referrals: Franca Akers DO [Primary Care Provider] - Discharge Diet: Usual diet Discharge Activity: Resume usual activity Activity Restrictions/Additional Instructions: Follow-up as needed Discharge Date/Time: 06/05/19 20:30 Coding Level of Care Code ED Adoption Manager for Indira Fwelisha Exam Comprehensive
[2019-06-05] MEDS: metoclopramide 5 mg/mL SDV 2 mL 10 MG IVP (18:39)
[2019-06-05] MEDS: valproic acid inj 500 MG in sodium chloride 0.9% 50 ML 55 MG IV (18:40)
[2019-06-05] MEDS: ketorolac 30 mg/mL INJ IVP (18:40)
== END 2019-06-05 20:30 | disposition home or self-care (01) ==
PROVIDERS: Emergency Provider Family Medicine; Family Provider Family Medicine; PCP Family Medicine
DX: R51 Headache (principal); F25.0 Schizoaffective disorder, bipolar type; F43.10 Post-traumatic stress disorder, unspecified; M41.9 Scoliosis, unspecified; F17.210 Nicotine dependence, cigarettes, uncomplicated
CPT/HCPCS: 12345; 96365; 96366; 96374; 96375; 99282; 99284; J1885; J2765

== ENCOUNTER 2019-06-08 23:36 | Emergency (ER) | payer MEDICAID, SELFPAY ==
[2019-06-08 23:37] VITALS: BP 113/65; PULSE 100; RESP 16; TEMP 36.8; O2SAT 96; BMI 20.1
--- NOTE | 2019-06-08 23:51 | ECG_ITS ---
Measurements Intervals Gray Rate: 86 P: 59 OH: 133 QRS: 57 QRSD: 74 T: 33 QT: 371 QTc: 446 SINUS RHYTHM Compared to ECG 02/19/2019 19:08:16 Sinus tachycardia no longer present Electronically Signed On 06-09-2019 18:28:34 CDT by Neftali Vega M.D. [email or web address]
--- NOTE | 2019-06-08 23:54 | ED_ITS ---
HPI - Overdose General: Chief Complaint: Overdose Stated Complaint: possible overdose Time Seen by Provider: 06/08/19 23:40 History of Present Illness: HPI Narrative: 33-year-old female on multiple psychiatric medications. She presents after reportedly accidentally taking too many trazodone. She usually takes one half of a tab of a 150 mg trazodone at bedtime. This evening, she ended up taking several . On pill count, it appears that she took around 900 mg. This may or may not be accurate. This would be around the max she would have taken. She states that she had a sip of a Felisa as well. She adamantly denies that she was trying to harm h erself at all. MD complaint: accidental overdose Onset (ago): hour(s) (1.5) Time: 22:15 Timing confirmed by: spouse Review of Systems Const: Denies: fever or chills Eyes: Reports: blurry vision; Denies: change in vision ENMT: Denies: painful swallowing, swelling of lips/tongue, bleeding gums, nose bleeds, post nasal drip or facial/sinus pain Card: Denies: chest pain, palpitations, irregular heart rhythm or edema Resp: Denies: shortness of breath, productive cough, non-productive cough or wheezing GI: Reports: nausea; Denies: abdominal pain or vomiting : Denies: painful urination, urinary frequency, urinary urgency or blood in urine Musc: Denies: neck pain, back pain, redness or joint warmth Skin/Breast: Denies: rash, itching or redness Neuro: Reports: dizziness and confusion; Denies: headache, vertigo or seizure-like activity Psych: Denies: anxiety, visual hallucinations, auditory hallucinations, suicidal ideation or homicidal ideation [facility] ED PFSH: Medical History (Updated 06/09/19 @ 02:39 by Gilberto Marie DO) Schizoaffective disorder, bipolar type Scoliosis Surgical History (Updated 05/29/19 @ 14:40 by Franca Akers DO) H/O tubal ligation History of foot surgery Social History Smoking and tobacco status: current every day smoker cigarettes Packs smoked per day: 0.25 Alcohol intake: never Female Reproductive History: Date of last menstrual period: 05/14/19 Physical Exam Const: GENERAL APPEARANCE: well developed and lethargic ORIENTATION/CONSCIOUSNESS: Yes oriented to person, Yes oriented to place, Yes oriented to time and Yes lethargic HENMT: COMMON NORMALS: normocephalic, external ears normal and external nose normal HEAD & SCALP: normocephalic; no scalp tenderness FACE & SINUS: normal facial exam NOSE: external nose normal and no nasal discharge EXTERNAL EAR: Yes external ears normal MOUTH: tongue normal Eye: COMMON NORMALS: PERRL, EOMs intact bilaterally and conjunctivae normal EYELID: eyelids normal CONJUNCTIVA: Yes conjunctivae normal PUPIL: Yes PERRL Neck/C-Spine: GENERAL: No tracheal deviation Chest: COMMONS NORMALS: inspection of chest normal CHEST: No tenderness Resp: COMMON NORMALS: clear to auscultation bilaterally EFFORT & INSPECTION: No tachypneic, No respiratory distress, No retractions, No uses accessory muscles and No tracheal deviation AUSCULTATION: clear to auscultation bilaterally, no rhonchi, no wheezes and lung sounds not diminished Cardio: COMMON NORMALS: regular rate and regular rhythm RATE: regular rate RHYTHM: regular rhythm HEART SOUNDS: no murmurs PERIPHERAL PULSES: radial pulses present GI: INSPECTION: No abdominal distension AUSCULTATION: No hyperactive bowel sounds and No hypoactive bowel sounds PALPATION: No guarding and No rigid Neuro: SENSORIUM/ORIENTATION: Yes oriented to person, Yes oriented to place, Yes oriented to time and Yes lethargic CRANIAL NERVES: Yes CN normal except as noted COORDINATION/BALANCE: ladfna-og-rdab test normal SPEECH: abnormal speech Details: slurred MOTOR EXAM: no pronator drift COORDINATION: [id number] test normal Psych: COMMON NORMALS: thought process normal APPEARANCE: Yes grossly normal ATTITUDE: Yes calm ACTIVITY/MOTOR BEHAVIOR: Yes psychomotor slowing SPEECH: Yes slow THOUGHT PROCESS: normal thought process THOUGHT CONTENT: No suicidality and No homicidality ATTENTION/CONCENTRATION: Yes attention grossly intact MEMORY/COGNITION: Yes memory grossly intact JUDGEMENT: limited Skin: COMMON NORMALS: no rashes or lesions noted GENERAL SKIN EXAM: no rashes or lesions noted Course Vital Signs: Vital signs: Vital Signs Temperature 98.2 F 06/08/19 23:37 Pulse Rate 84 06/09/19 02:14 Respiratory Rate 16 06/09/19 02:14 Blood Pressure 114/64 06/09/19 02:14 Pulse Oximetry 98 06/09/19 02:14 MDM - Overdose MDM Narrative: Medical decision making narrative: 33-year-old female with a long psychiatric history. She states that she accidentally took too many trazodone tonight. She adamantly denies suicidality. She denies stressors, that would have made her do this as a move for attention, etc. We spoke with poison control. Toxic dose was 1200 mg. She took no more than 900 mg it seems. It peaks in 2 hours. She is past the peak time now. EKG revealed a normal QTc of 415 or so. She is non-tachycardic, and not hypertensive. She shows no rigidity or signs of seizure. She has been held here for 3 hours. No changes to her vitals. She has been up and walking. She is eating. No signs of toxicity. She continues to deny suicidality. We will go ahead and discharge her. Lab Data: Labs: Lab Results 06/08/19 06/08/19 06/08/19 Range/Units 23:22 23:22 23:22 WBC 7.8 (4.0-10.0) 10^3/ uL RBC 4.45 (4.1-5.3) 10^6/u L Hgb 14.4 (11.5-15.3) g/dL Hct 44.1 (37.0-47.0) % MCV 99.1 H (81-99) fL MCH 32.4 (28.0-34.0) pg MCHC 32.7 (30.0-36.0) g/dL RDW 13.2 (12.1-15.1) % Plt Count 177 (130-400) 10^3/c mm MPV 11.8 H (7.4-10.4) fL Neut % (Auto) 53.4 % Lymph % (Auto) 36.6 % Meigs % (Auto) 7.0 % Eos % (Auto) 2.3 % Baso % (Auto) 0.4 % Neut # (Auto) 4.2 (1.8-7.7) 10^3/u L Lymph # (Auto) 2.9 (0.8-4.8) 10^3/u L Meigs # (Auto) 0.6 (0.2-0.9) 10^3/u L Eos # (Auto) 0.2 (0.0-0.8) 10^3/u L Baso # (Auto) 0.0 (0.0-0.1) 10^3/u L Nucleated RBC % (a uto) 0 % Nucleated RBCs # 0.0 /100WBC Sodium 135 L (136-145) mmol/L Potassium 4.0 (3.5-5.1) mmol/L Chloride 98 (98-107) mmol/L Carbon Dioxide 26 (22-29) mmol/L Anion Gap 15.0 (5-19) BUN 15 (6-20) mg/dL Creatinine 0.7 (0.5-0.9) mg/dL GFR Calculation 95.8 (90-130) mL/min Glucose 100 (65-115) mg/dL Calculated Osmolal ity 276 L (285-295) mOsm/k g Calcium 9.7 (8.5-10.5) mg/dL Total Bilirubin 0.2 (0.15-1.2) mg/dL AST 19 (0-32) U/L ALT 85 H (0-33) U/L Alkaline Phosphata se 138 H (35-105) IU/L Total Protein 7.6 (6.6-8.7) g/dL Albumin 4.8 (3.5-5.2) g/dL Globulin 2.8 (1.3-4.6) g/dL HCG, Qual Negative (Negative) Urine Color (Yellow) Urine Appearance (CLEAR) Urine pH (5-7) Ur Specific Gravit y (1.005-1.030) Urine Protein (Negative) Urine Glucose (UA) (Normal) Urine Ketones (Negative) Urine Blood (Negative) Urine Nitrate (Negative) Urine Bilirubin (NEGATIVE) Urine Urobilinogen (Negative) mg/dL Ur Leukocyte Tara ase (Negative) Urine RBC (0-2) /hpf Urine WBC (0-5) /hpf Ur Squamous Epith Cells (0-5) Urine Bacteria (NONE) Salicylates 0.5 L (3-10) mg/dL Urine Opiates Scre en (Negative) ng/mL Acetaminophen < 10.0 L (10-30) ug/mL Ur Barbiturates Sc reen (Negative) ng/mL Ur Phencyclidine S crn (Negative) ng/mL Ur Amphetamines Sc reen (Negative) ng/mL U Benzodiazepines Scrn (Negative) ng/mL Urine Cocaine Scre en (Negative) ng/mL U Marijuana (THC) Screen (Negative) ng/mL Ethyl Alcohol < 10 (0-10) mg/dL 06/09/19 06/09/19 Range/Units 00:15 00:15 WBC (4.0-10.0) 10^3/ uL RBC (4.1-5.3) 10^6/u L Hgb (11.5-15.3) g/dL Hct (37.0-47.0) % MCV (81-99) fL MCH (28.0-34.0) pg MCHC (30.0-36.0) g/dL RDW (12.1-15.1) % Plt Count (130-400) 10^3/c mm MPV (7.4-10.4) fL Neut % (Auto) % Lymph % (Auto) % Meigs % (Auto) % Eos % (Auto) % Baso % (Auto) % Neut # (Auto) (1.8-7.7) 10^3/u L Lymph # (Auto) (0.8-4.8) 10^3/u L Meigs # (Auto) (0.2-0.9) 10^3/u L Eos # (Auto) (0.0-0.8) 10^3/u L Baso # (Auto) (0.0-0.1) 10^3/u L Nucleated RBC % (a uto) % Nucleated RBCs # /100WBC Sodium (136-145) mmol/L Potassium (3.5-5.1) mmol/L Chloride (98-107) mmol/L Carbon Dioxide (22-29) mmol/L Anion Gap (5-19) BUN (6-20) mg/dL Creatinine (0.5-0.9) mg/dL GFR Calculation (90-130) mL/min Glucose (65-115) mg/dL Calculated Osmolal ity (285-295) mOsm/k g Calcium (8.5-10.5) mg/dL Total Bilirubin (0.15-1.2) mg/dL AST (0-32) U/L ALT (0-33) U/L Alkaline Phosphata se (35-105) IU/L Total Protein (6.6-8.7) g/dL Albumin (3.5-5.2) g/dL Globulin (1.3-4.6) g/dL HCG, Qual (Negative) Urine Color Yellow (Yellow) Urine Appearance Cloudy (CLEAR) Urine pH 5 (5-7) Ur Specific Gravit y 1.015 (1.005-1.030) Urine Protein Neg (Negative) Urine Glucose (UA) Norm (Normal) Urine Ketones Negative (Negative) Urine Blood Neg (Negative) Urine Nitrate Negative (Negative) Urine Bilirubin Neg (NEGATIVE) Urine Urobilinogen Norm (Negative) mg/dL Ur Leukocyte Tara ase Negative (Negative) Urine RBC 0-4 H (0-2) /hpf Urine WBC 0-4 H (0-5) /hpf Ur Squamous Epith Cells 15-25 H (0-5) Urine Bacteria 1+ H (NONE) Salicylates (3-10) mg/dL Urine Opiates Scre en Positive H (Negative) ng/mL Acetaminophen (10-30) ug/mL Ur Barbiturates Sc reen Negative (Negative) ng/mL Ur Phencyclidine S crn Negative (Negative) ng/mL Ur Amphetamines Sc reen Negative (Negative) ng/mL U Benzodiazepines Scrn Negative (Negative) ng/mL Urine Cocaine Scre en Negative (Negative) ng/mL U Marijuana (THC) Screen Negative (Negative) ng/mL Ethyl Alcohol (0-10) mg/dL Discharge Plan Discharge Patient Disposition: Home, Self-Care Clinical Impression: Drug overdose Qualifiers: Encounter type: initial encounter Injury intent: accidental or unintentional Qualified Code(s): T50.901A - Poisoning by unspecified drugs, medicaments and biological substances, accidental (unintentional), initial encounter Condition: Stable Prescriptions: No Action hydroxyzine pamoate 25 mg capsule 25 mg PO QID RF: 0 propranolol 20 mg tablet 20 mg PO DAILY RF: 0 amitriptyline 50 mg tablet 50 mg PO DAILY RF: 0 baclofen 20 mg tablet 20 mg PO TID RF: 0 nicotine [Nicoderm CQ] 14 mg/24 hr patch 24 hour 1 patch TRANSDERMA DAILY RF: 0 trazodone 150 mg tablet 175 mg PO .at bedtime RF: 0 hydrocodone-acetaminophen 10-325 mg Tablet 1 tab PO Q8H PRN (Reason: Pain, Moderate) Qty: 30 RF: 0 paroxetine HCl 20 mg Tablet 20 mg PO DAILY Qty: 30 RF: 3 gabapentin 100 mg Capsule 100 mg PO TID Qty: 90 RF: 3 Abilify Maintena 300 mg suspension,extended rel recon 300 mg IM .monthly Qty: 1 RF: 5 Discharge Orders: Discharge Order (Routine); Ordered 06/09/19 Ordered By: Gilberto Marie Referrals: Franca Akers DO [Primary Care Provider] - 4-7 days Discharge Diet: Usual diet Discharge Activity: Increase activity as tolerated Activity Restrictions/Additional Instructions: Return for vomiting, seizure activity, mental status changes, other concerning symptoms. Return immediately for any thoughts or wishes to harm your self or anyone else. 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
[2019-06-09 00:01] LABS: Basophils % 0.4 %; Eosinophils # 0.2 10^3/uL (0.0-0.8); Eosinophils % 2.3 %; Hematocrit 44.1 % (37.0-47.0); Hemoglobin 14.4 g/dL (11.5-15.3); Lymphocytes # 2.9 10^3/uL (0.8-4.8); Lymphocytes % 36.6 %; Mean Corpuscular HGB Conc 32.7 g/dL (30.0-36.0); Mean Corpuscular Hemoglobin 32.4 pg (28.0-34.0); Mean Corpuscular Volume 99.1 fL (81-99); Mean Platelet Volume 11.8 fL (7.4-10.4); Monocytes # 0.6 10^3/uL (0.2-0.9); Neutrophils # 4.2 10^3/uL (1.8-7.7); Neutrophils % 53.4 %; Nucleated Red Blood Cells % 0 %; Platelet Count 177 10^3/cmm (130-400); Red Blood Count 4.45 10^6/uL (4.1-5.3); Red Cell Distribution Width 13.2 % (12.1-15.1); White Blood Count 7.8 10^3/uL (4.0-10.0)
[2019-06-09] MEDS: sodium chloride 0.9% 1,000 ML 999 ML IV (00:07)
[2019-06-09 00:14] LABS: HCG, Serum Qual Negative (Negative)
[2019-06-09 00:15] LABS: Acetaminophen < 10.0 ug/mL (10-30); Alanine Aminotransferase 85 U/L (0-33); Albumin Level 4.8 g/dL (3.5-5.2); Alkaline Phosphatase 138 IU/L (35-105); Aspartate Amino Transferase 19 U/L (0-32); Blood Urea Nitrogen 15 mg/dL (6-20); Calcium 9.7 mg/dL (8.5-10.5); Carbon Dioxide 26 mmol/L (22-29); Chloride 98 mmol/L (98-107); Globulin 2.8 g/dL (1.3-4.6); Glomerular Filtration Rate 95.8 mL/min (90-130); Glucose 100 mg/dL (65-115); Osmolality Calculated 276 mOsm/kg (285-295); Salicylate 0.5 mg/dL (3-10); Sodium 135 mmol/L (136-145); Total Bilirubin 0.2 mg/dL (0.15-1.2); Total Protein 7.6 g/dL (6.6-8.7)
[2019-06-09 00:29] VITALS: BP 118/66; PULSE 88; RESP 19; O2SAT 97
[2019-06-09 00:30] LABS: Alcohol Level < 10 mg/dL (0-10)
[2019-06-09 00:49] LABS: Amphetamines Screen Urine Negative (Negative); Barbiturates Screen Urine Negative (Negative); Benzodiazepines Screen Urine Negative (Negative); Cocaine Screen Urine Negative (Negative); Opiate Screen Urine Positive (Negative); PCP Screen Urine Negative (Negative); THC Screen Urine Negative (Negative)
[2019-06-09 01:03] LABS: Add Urine Microscopic? YES; Bilirubin Urine Neg (NEGATIVE); Blood Urine Neg (Negative); Glucose Urine UA Norm (Normal); Ketones Urine Negative (Negative); Leukocyte Esterase Urine Negative (Negative); Nitrate Urine Negative (Negative); Protein Urine Neg (Negative); Specific Gravity, Urine 1.015 (1.005-1.030); Urine Appearance Cloudy (CLEAR); Urine Color Yellow (Yellow); Urobilinogen Urine Norm (Negative); pH Urine 5 (5-7)
[2019-06-09 01:04] LABS: Bacteria Urine 1+; RBC Urine 0-4 /hpf (0-2); Squamous Epithelial Cell Urine 15-25 (0-5); WBC Urine 0-4 /hpf (0-5)
[2019-06-09 02:14] VITALS: BP 114/64; PULSE 84; RESP 16; O2SAT 98
--- NOTE | 2019-06-09 02:15 | PC.NURSE ---
pt eating sandwich and chips
--- NOTE | 2019-06-09 03:30 | PC.NURSE ---
Called for a medicaid ride, ride number [phone].
[2019-06-09 04:00] VITALS: BP 111/77; O2SAT 99
[2019-06-09 07:29] VITALS: BP 125/85; PULSE 75; RESP 16; O2SAT 98
== END 2019-06-09 07:29 | disposition home or self-care (01) ==
PROVIDERS: Emergency Provider Emergency Medicine; Family Provider Family Medicine; PCP Family Medicine
DX: T43.211A Poisoning by selective serotonin and norepinephrine reuptake inhibitors, accidental (unintentional), initial encounter (principal); F25.0 Schizoaffective disorder, bipolar type; F17.210 Nicotine dependence, cigarettes, uncomplicated
CPT/HCPCS: 12345; 80053; 80306; 80307; 81001; 84703; 85025; 93005; 96360; 96361; 99284; J7030

== ENCOUNTER 2019-06-21 18:52 | Emergency (ER) | payer MEDICAID, SELFPAY | END 2019-06-21 21:30 | disposition admitted as inpatient to this hospital (09) | LOC: ER 06-23 09:49 | PROVIDERS: Emergency Provider Physician Assistant; Family Provider Family Medicine; PCP Family Medicine | DX: R45.851 Suicidal ideations (principal); F17.210 Nicotine dependence, cigarettes, uncomplicated | CPT/HCPCS: 12345; 71045; 80053; 80178; 80306; 80307; 81001; 84703; 85025; 96360; 99282; 99285 ==

== ENCOUNTER 2019-06-21 18:52 | Inpatient (IN) | payer MEDICAID, SELFPAY ==
[2019-06-21 19:07] VITALS: BP 142/101; PULSE 115; RESP 18; TEMP 37.1; O2SAT 100; BMI 22.1
--- NOTE | 2019-06-21 19:14 | XRR_ITS ---
PROCEDURE INFORMATION: Exam: XR Chest, 1 View Exam date and time: 06/21/2019 7:35 PM Age: 33 years old Clinical indication: Other: Si, mhe TECHNIQUE: Imaging protocol: XR of the chest Views: Frontal portable upright view of the chest. COMPARISON: CR Chest 1 [place] [id number] 09/15/2015 8:15 PM FINDINGS: Lungs: The lungs are clear bilaterally. The pulmonary vasculature is normal. Pleural space: No pleural effusion. No pneumothorax. Heart/Mediastinum: The heart is normal in size and contour. Mediastinum: Stable. Bones/joints: Stable. XR/XR chest 1V portable [id number] IMPRESSION: No acute cardiopulmonary abnormality identified.
[2019-06-21 19:18] VITALS: BP 137/97; PULSE 107; RESP 18; O2SAT 98
--- NOTE | 2019-06-21 19:26 | W.ED.PSYCH ---
HPI - Psych General: Chief Complaint: Psychiatric Symptoms Stated Complaint: MHE Time Seen by Provider: 06/21/19 19:10 History of Present Illness: HPI Narrative: Patient is a 33-year-old female who comes to the ED with suicidal ideation. Past medical history of essential hypertension, bipolar 1 disorder, PTSD and vicenta. Patient was here on June 07 for a drug overdose. She comes in today stating she is extremely stressed and has a lot of anxiety. She is homeless and states that she is hearing voices that are telling her to end her life. She says her current antidepressive medication has not working anymore and she needs help. Patient states if she leaves here tonight no one will oversee her lab again. She denies any homicidal ideation. She does not not have a plan to end her life but has been thinking about a lot lately. Denies ingesting or overdose today. Associated symptoms: Reports auditory hallucinations and suicidal ideation; Deny visual hallucinations or homicidal ideation Review of Systems Const: Denies: fever, chills or fatigue Eyes: Denies: change in vision or eye discomfort ENMT: Denies: throat pain, painful swallowing, nasal discharge or nasal congestion Card: Denies: chest pain, palpitations, edema, swelling of feet/ankles, shortness of breath on exertion or shortness of breath when lying down Resp: Denies: shortness of breath, productive cough or non-productive cough GI: Denies: abdominal pain, nausea, vomiting, diarrhea, constipation or blood in stool : Denies: flank pain, painful urination or blood in urine Musc: Denies: neck pain, back pain or extremity swelling Skin/Breast: Denies: rash or new lesion Neuro: Denies: headache, numbness in extremities or weakness in extremities Psych: Reports: anxiety, auditory hallucinations and suicidal ideation; Denies: visual hallucinations or homicidal ideation PFS ED PFSH: Medical History Schizoaffective disorder, bipolar type Scoliosis Surgical History H/O tubal ligation History of foot surgery Family History Other Cancer Social History Smoking and tobacco status: current every day smoker cigarettes Packs smoked per day: 0.25 Alcohol intake: never Female Reproductive History: Date of last menstrual period: 05/14/19 Physical Exam Const: COMMON NORMALS: oriented x3 HENMT: COMMON NORMALS: normocephalic HEAD & SCALP: normocephalic MOUTH: oral and palatal mucosa normal THROAT: posterior oropharynx normal and uvula midline Eye: COMMON NORMALS: PERRL and conjunctivae normal CONJUNCTIVA: Yes conjunctivae normal PUPIL: Yes PERRL Neck/C-Spine: COMMON NORMALS: supple GENERAL: Yes normal visual inspection Resp: COMMON NORMALS: normal respiratory effort, no retractions, no use of accessory muscles and clear to auscultation bilaterally AUSCULTATION: clear to auscultation bilaterally Cardio: COMMON NORMALS: regular rate, regular rhythm, S1 normal heart sound, S2 normal heart sound, no gallops, no clicks, no murmurs and peripheral pulses 2+ throughout RATE: regular rate RHYTHM: regular rhythm HEART SOUNDS: S1 normal and S2 normal PERIPHERAL PULSES: pulses 2+ throughout GI: COMMON NORMALS: normal to inspection, nondistended, normoactive bowel sounds, soft to palpation, non-tender and no masses PALPATION: Yes soft : COMMON NORMALS: Yes no CVA tenderness BLADDER/KIDNEY EXAM: Yes no CVA tenderness Back/Pelvis: COMMON NORMALS: no CVA tenderness Extremity: COMMON NORMALS: normal to inspection, full ROM, normal capillary refill and no pedal edema Neuro: COMMON NORMALS: oriented x3, CN's II-XII intact bilaterally, moves all extremities, no focal motor deficits, no sensory deficits noted and gait normal COORDINATION/BALANCE: [id number]-lj-[id number] test normal and ffbr-hh-vnlx test normal MOTOR EXAM: strength 5/5 throughout COORDINATION: [id number]-wt-[id number] test normal and rqlu-he-mcnc test normal Psych: COMMON NORMALS: mental status grossly normal, thought process normal, cooperative and denies homicidal ideation; negative for denies suicidal ideation APPEARANCE: Yes unkempt ATTITUDE: Yes engaged ACTIVITY/MOTOR BEHAVIOR: Yes appropriate eye contact, Yes hyperactive and Yes restless SPEECH: Yes excessive and Yes rapid MOOD & AFFECT: Yes elevated mood and Yes anxious THOUGHT PROCESS: normal thought process THOUGHT CONTENT: Yes suicidality and Yes hallucination(s) auditory (Voices tell her to end her life.) ATTENTION/CONCENTRATION: Yes attention grossly intact and Yes concentration grossly intact MEMORY/COGNITION: Yes memory grossly intact and Yes cognition grossly intact INSIGHT: fair JUDGEMENT: fair Skin: COMMON NORMALS: no rashes or lesions noted GENERAL SKIN EXAM: no rashes or lesions noted and dry skin MDM - Psych MDM Narrative: Medical decision making narrative: Patient is a 33-year-old female who comes to the ED with suicidal ideation and anxiety. Patient wants to be admitted to [facility] to get help. I contacted Dr. Simmons the on-call behavioral health doctor and he wanted me to admit patient to [facility]. I talked with Dr. Marie and he will be handling the admitting process and placing orders for admission. Lab Data: Attestation: I reviewed the patient's lab results. Labs: Lab Results 06/21/19 06/21/19 06/21/19 Range/Units 19:20 19:20 19:20 WBC 10.8 H (4.0-10.0) 10^3/ uL RBC 4.47 (4.1-5.3) 10^6/u L Hgb 14.3 (11.5-15.3) g/dL Hct 43.8 (37.0-47.0) % MCV 98.0 (81-99) fL MCH 32.0 (28.0-34.0) pg MCHC 32.6 (30.0-36.0) g/dL RDW 13.1 (12.1-15.1) % Plt Count 211 (130-400) 10^3/c mm MPV 11.6 H (7.4-10.4) fL Neut % (Auto) 59.9 % Lymph % (Auto) 31.1 % Wallace % (Auto) 6.5 % Eos % (Auto) 1.6 % Baso % (Auto) 0.6 % Neut # (Auto) 6.5 (1.8-7.7) 10^3/u L Lymph # (Auto) 3.4 (0.8-4.8) 10^3/u L Wallace # (Auto) 0.7 (0.2-0.9) 10^3/u L Eos # (Auto) 0.2 (0.0-0.8) 10^3/u L Baso # (Auto) 0.1 (0.0-0.1) 10^3/u L Nucleated RBC % (a uto) 0 % Nucleated RBCs # 0.0 /100WBC Sodium 139 (136-145) mmol/L Potassium 3.9 (3.5-5.1) mmol/L Chloride 102 (98-107) mmol/L Carbon Dioxide 27 (22-29) mmol/L Anion Gap 13.9 (5-19) BUN 17 (6-20) mg/dL Creatinine 0.6 (0.5-0.9) mg/dL GFR Calculation 114.4 (90-130) mL/min Glucose 138 H (65-115) mg/dL Calculated Osmolal ity 287 (285-295) mOsm/k g Calcium 9.3 (8.5-10.5) mg/dL Total Bilirubin 0.3 (0.15-1.2) mg/dL AST 11 (0-32) U/L ALT 11 (0-33) U/L Alkaline Phosphata se 95 (35-105) IU/L Total Protein 7.0 (6.6-8.7) g/dL Albumin 4.8 (3.5-5.2) g/dL Globulin 2.2 (1.3-4.6) g/dL HCG, Qual Negative (Negative) Urine Color (Yellow) Urine Appearance (CLEAR) Urine pH (5-7) Ur Specific Gravit y (1.005-1.030) Urine Protein (Negative) Urine Glucose (UA) (Normal) Urine Ketones (Negative) Urine Blood (Negative) Urine Nitrate (Negative) Urine Bilirubin (NEGATIVE) Urine Urobilinogen (Negative) mg/dL Ur Leukocyte Tara ase (Negative) Urine RBC (0-2) /hpf Urine WBC (0-5) /hpf Ur Squamous Epith Cells (0-5) Urine Bacteria (NONE) Urine Mucus Salicylates 0.6 L (3-10) mg/dL Urine Opiates Scre en (Negative) ng/mL Acetaminophen < 5.0 L (10-30) ug/mL Ur Barbiturates Sc reen (Negative) ng/mL Ur Phencyclidine S crn (Negative) ng/mL Ur Amphetamines Sc reen (Negative) ng/mL U Benzodiazepines Scrn (Negative) ng/mL Urine Cocaine Scre en (Negative) ng/mL U Marijuana (THC) Screen (Negative) ng/mL Ethyl Alcohol < 10 (0-10) mg/dL 06/21/19 06/21/19 Range/Units 20:00 20:00 WBC (4.0-10.0) 10^3/ uL RBC (4.1-5.3) 10^6/u L Hgb (11.5-15.3) g/dL Hct (37.0-47.0) % MCV (81-99) fL MCH (28.0-34.0) pg MCHC (30.0-36.0) g/dL RDW (12.1-15.1) % Plt Count (130-400) 10^3/c mm MPV (7.4-10.4) fL Neut % (Auto) % Lymph % (Auto) % Wallace % (Auto) % Eos % (Auto) % Baso % (Auto) % Neut # (Auto) (1.8-7.7) 10^3/u L Lymph # (Auto) (0.8-4.8) 10^3/u L Wallace # (Auto) (0.2-0.9) 10^3/u L Eos # (Auto) (0.0-0.8) 10^3/u L Baso # (Auto) (0.0-0.1) 10^3/u L Nucleated RBC % (a uto) % Nucleated RBCs # /100WBC Sodium (136-145) mmol/L Potassium (3.5-5.1) mmol/L Chloride (98-107) mmol/L Carbon Dioxide (22-29) mmol/L Anion Gap (5-19) BUN (6-20) mg/dL Creatinine (0.5-0.9) mg/dL GFR Calculation (90-130) mL/min Glucose (65-115) mg/dL Calculated Osmolal ity (285-295) mOsm/k g Calcium (8.5-10.5) mg/dL Total Bilirubin (0.15-1.2) mg/dL AST (0-32) U/L ALT (0-33) U/L Alkaline Phosphata se (35-105) IU/L Total Protein (6.6-8.7) g/dL Albumin (3.5-5.2) g/dL Globulin (1.3-4.6) g/dL HCG, Qual (Negative) Urine Color Yellow (Yellow) Urine Appearance Sl hazy (CLEAR) Urine pH 6.5 (5-7) Ur Specific Gravit y 1.020 (1.005-1.030) Urine Protein Neg (Negative) Urine Glucose (UA) Norm (Normal) Urine Ketones 1+ H (Negative) Urine Blood Neg (Negative) Urine Nitrate Negative (Negative) Urine Bilirubin 1+ H (NEGATIVE) Urine Urobilinogen 4 H (Negative) mg/dL Ur Leukocyte Tara ase Trace H (Negative) Urine RBC 0-4 H (0-2) /hpf Urine WBC 5-10 H (0-5) /hpf Ur Squamous Epith Cells 15-25 H (0-5) Urine Bacteria Trace (NONE) Urine Mucus Trace Salicylates (3-10) mg/dL Urine Opiates Scre en Positive H (Negative) ng/mL Acetaminophen (10-30) ug/mL Ur Barbiturates Sc reen Negative (Negative) ng/mL Ur Phencyclidine S crn Negative (Negative) ng/mL Ur Amphetamines Sc reen Negative (Negative) ng/mL U Benzodiazepines Scrn Negative (Negative) ng/mL Urine Cocaine Scre en Negative (Negative) ng/mL U Marijuana (THC) Screen Negative (Negative) ng/mL Ethyl Alcohol (0-10) mg/dL Imaging Data^: CXR: Attestation: I personally reviewed and interpreted this imaging study as follows: My impression: No acute findings. Pending final radiology report. 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
[2019-06-21 19:30] LABS: Basophils # 0.1 10^3/uL (0.0-0.1); Basophils % 0.6 %; Eosinophils # 0.2 10^3/uL (0.0-0.8); Eosinophils % 1.6 %; Hematocrit 43.8 % (37.0-47.0); Hemoglobin 14.3 g/dL (11.5-15.3); Lymphocytes # 3.4 10^3/uL (0.8-4.8); Lymphocytes % 31.1 %; Mean Corpuscular HGB Conc 32.6 g/dL (30.0-36.0); Mean Platelet Volume 11.6 fL (7.4-10.4); Monocytes # 0.7 10^3/uL (0.2-0.9); Monocytes % 6.5 %; Neutrophils # 6.5 10^3/uL (1.8-7.7); Neutrophils % 59.9 %; Nucleated Red Blood Cells % 0 %; Platelet Count 211 10^3/cmm (130-400); Red Blood Count 4.47 10^6/uL (4.1-5.3); Red Cell Distribution Width 13.1 % (12.1-15.1); White Blood Count 10.8 10^3/uL (4.0-10.0)
[2019-06-21 19:48] LABS: Alanine Aminotransferase 11 U/L (0-33); Albumin Level 4.8 g/dL (3.5-5.2); Alkaline Phosphatase 95 IU/L (35-105); Anion Gap 13.9 (5-19); Aspartate Amino Transferase 11 U/L (0-32); Blood Urea Nitrogen 17 mg/dL (6-20); Calcium 9.3 mg/dL (8.5-10.5); Carbon Dioxide 27 mmol/L (22-29); Chloride 102 mmol/L (98-107); Globulin 2.2 g/dL (1.3-4.6); Glomerular Filtration Rate 114.4 mL/min (90-130); Glucose 138 mg/dL (65-115); HCG, Serum Qual Negative (Negative); Osmolality Calculated 287 mOsm/kg (285-295); Potassium 3.9 mmol/L (3.5-5.1); Salicylate 0.6 mg/dL (3-10); Sodium 139 mmol/L (136-145); Total Bilirubin 0.3 mg/dL (0.15-1.2)
[2019-06-21 19:52] LABS: Acetaminophen < 5.0 ug/mL (10-30); Alcohol Level < 10 mg/dL (0-10)
[2019-06-21] MEDS: LORazepam 1 mg Tablet PO (19:56)
[2019-06-21 20:16] LABS: Bilirubin Urine 1+ (NEGATIVE); Blood Urine Neg (Negative); Glucose Urine UA Norm (Normal); Ketones Urine 1+ (Negative); Leukocyte Esterase Urine Trace (Negative); Nitrate Urine Negative (Negative); Protein Urine Neg (Negative); Urine Appearance SL Hazy (CLEAR); Urine Color Yellow (Yellow); Urobilinogen Urine 4 mg/dL (Negative); pH Urine 6.5 (5-7)
[2019-06-21 20:21] LABS: RBC Urine 0-4 /hpf (0-2)
[2019-06-21 20:22] LABS: Add Urine Culture? No; Bacteria Urine TRACE; Mucus Urine TRACE; Squamous Epithelial Cell Urine 15-25 (0-5)
[2019-06-21 20:24] LABS: Amphetamines Screen Urine Negative (Negative); Barbiturates Screen Urine Negative (Negative); Benzodiazepines Screen Urine Negative (Negative); Cocaine Screen Urine Negative (Negative); Opiate Screen Urine Positive (Negative); PCP Screen Urine Negative (Negative); THC Screen Urine Negative (Negative)
[2019-06-21] MEDS: HYDROcodone-acetaminophen 5-325 mg Tablet 1 TAB PO (20:34)
[2019-06-21] MEDS: nicotine 14 mg Patch 1 PATCH TRANSDERMA (21:10)
--- NOTE | 2019-06-21 21:37 | PC.NURSE ---
Called report to [facility] nurse
[2019-06-21 21:45] VITALS: BP 131/82; PULSE 60; RESP 18; TEMP 36.6; O2SAT 94
[2019-06-21 22:00] VITALS: BP 131/82; PULSE 60; RESP 18; TEMP 36.6; O2SAT 94
[2019-06-21] MEDS: trazodone 150 mg Tablet 75 MG PO (22:38)
--- NOTE | 2019-06-21 22:59 | PC.NURSE ---
TRAZODONE PT ADMITTED FROM ED. PER TELEPHONE ORDER FROM DR. DOBBS PTS HOME MED TRAZODONE CAN BE STARTED. PER ED NOTE PT TAKES 175MG OF TRAZODNE. PT RECENTLY HAD 75MG TRAZODONE FILLED AT [facility]. PT IS VERY ADAMANT THAT SHE ONLY TAKES 75 MG. 75MG OF TRAZODONE GIVEN PO. WILL MONITOR PT FOR MEDICATION EFFECTIVENESS.
[2019-06-22 06:00] VITALS: BP 126/85; PULSE 107; RESP 19; TEMP 36.7; O2SAT 97
[2019-06-22] MEDS: propranolol 20 mg Tablet PO (08:10)
[2019-06-22] MEDS: PARoxetine 20 mg Tablet PO (08:11)
[2019-06-22] MEDS: gabapentin 100 mg Capsule PO ×3 (08:11→21:11)
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
[2019-06-22] MEDS: acetaminophen 325 mg Tablet 650 MG PO ×2 (12:01→22:15)
[2019-06-22 14:00] VITALS: BP 120/80; PULSE 84; RESP 18
[2019-06-22] MEDS: nicotine 2 mg Gum BUCCAL ×3 (16:04→21:55)
[2019-06-22] MEDS: lithium carbonate 300 mg Capsule PO (17:21)
[2019-06-22] MEDS: trazodone 150 mg Tablet 75 MG PO (21:11)
[2019-06-22 21:32] VITALS: BP 136/85; PULSE 79; RESP 24; TEMP 36.8; O2SAT 97
--- NOTE | 2019-06-22 21:37 | PC.NURSE ---
Pt given HS gabapentin and trazodone at 2100.
[2019-06-23] MEDS: nicotine 2 mg Gum BUCCAL ×4 (05:24→18:01)
[2019-06-23 06:00] VITALS: BP 138/92; PULSE 99; RESP 23; TEMP 36.7; O2SAT 100
[2019-06-23] MEDS: lithium carbonate 300 mg Capsule PO ×2 (08:16→17:06)
[2019-06-23] MEDS: propranolol 20 mg Tablet PO (08:16)
[2019-06-23] MEDS: PARoxetine 20 mg Tablet PO (08:17)
[2019-06-23] MEDS: gabapentin 100 mg Capsule PO ×3 (08:17→20:18)
--- NOTE | 2019-06-23 10:43 | PM.NPN ---
Subjective NPU Subjective: Interval history: Meredith presented today looking significantly improved with the addition of the lithium. She is working with the treatment team to figure out reasonable options moving forward. She was somewhat focused on restarting PRN opiates but we were able to obtain her bottle and she has an open and legitimate prescription with medications in the bottle as would be expected so we discussed the risks benefits and alternatives of restarting the medication and she understood and agreed to proceed as is documented in this note. We discussed the plan to monitor the medication for another day or 2 with a plan for discharge no later than Sunday. Mental Status Exam MSE Comments: This is a well-nourished, well-developed, white female, with adequate dress, grooming, and eye contact. No abnormal movements. Cooperative with exam in no acute distress. Speech was decreased rate and volume. Mood described as depressed; affect congruent. Thought process, organized. Thought content: patient denied any suicidal or homicidal ideation, there were no delusions reported or noted, she denied any auditory or visual hallucinations. Attention, concentration, and memory appear intact but were not formally tested. She is alert and oriented times three. Insight and judgment are fair and improving. Vitals/I&O/Wt Last Vital Signs Temp 98.6 F 06/23/19 21:56 Pulse 112 H 06/23/19 21:56 Resp 20 H 06/23/19 21:56 BP 142/91 06/23/19 21:56 Pulse Ox 99 06/23/19 21:56 Weight last 48 hrs Weight 57.833 kg Data NPU : 06/21/19 19:20 06/21/19 19:20 A&P Additional A&P Information (1) Posttraumatic stress disorder: This is a 33 year old, white female, with bipolar disorder and post traumatic stress disorder, who presents reporting that she has been struggling without lithium as part of her treatment regimen. Continue current medication. Encourage individual and milieu therapy. Continue q-15 minute checks for safety. Will work with treatment team for outpatient continuity. Involuntary Hold Information 96 Hour Hold: 96 Hour Involuntary Admission: No 96 Hour Hold Ending Date: 05/19/19 96 Hour Hold Ending Time: 19:12 Attestations NPU Medical Necessity Statement*: Inpatient hospitalization is medically necessary and the clinically appropriate intervention at this time. We will monitor medications and titrate as indicated. Patient will be in the hospital for over two midnights; likely length of stay is 2-3 days. Coding Level of Care Code Acute Military Aircraft Designer for Indira Campos
[2019-06-23] MEDS: acetaminophen 325 mg Tablet 650 MG PO ×2 (11:22→20:17)
[2019-06-23 14:00] VITALS: BP 117/73; PULSE 96; RESP 20; TEMP 36.6; O2SAT 97
[2019-06-23] MEDS: OLANZapine ODT 5 MG TABLET PO (20:18)
[2019-06-23] MEDS: trazodone 150 mg Tablet 75 MG PO (20:18)
[2019-06-23] MEDS: HYDROcodone-acetaminophen 10-325 mg Tablet PO (21:19)
--- NOTE | 2019-06-23 21:38 | PC.NURSE ---
Pt given scheduled gabapentin and trazodone and prn tylenol for back pain at 2018. Pt requested to be able to soak in warm bath to help ease back pain.
--- NOTE | 2019-06-23 21:39 | PC.NURSE ---
Pt given norco 1 tab at 2118 for back pain not releived by tylenol and warm bath.
[2019-06-23 21:56] VITALS: BP 142/91; PULSE 112; RESP 20; TEMP 37; O2SAT 99
[2019-06-24] MEDS: nicotine 2 mg Gum BUCCAL ×3 (02:45→11:22)
[2019-06-24 06:00] VITALS: BP 105/74; PULSE 89; RESP 17; TEMP 36.6; O2SAT 96
[2019-06-24] MEDS: lithium carbonate 300 mg Capsule PO (08:14)
[2019-06-24] MEDS: gabapentin 100 mg Capsule PO ×2 (08:14→13:53)
[2019-06-24] MEDS: propranolol 20 mg Tablet PO (08:15)
[2019-06-24] MEDS: PARoxetine 20 mg Tablet PO (08:15)
[2019-06-24] MEDS: HYDROcodone-acetaminophen 10-325 mg Tablet PO ×2 (09:35→13:52)
[2019-06-24 11:21] LABS: Lithium 0.1 mmol/L (0.6-1.2)
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
[2019-06-24 13:49] VITALS: BP 105/74; PULSE 89; RESP 17; TEMP 36.6; O2SAT 96
--- NOTE | 2019-06-24 13:54 | PC.SOCIAL ---
Medicaid ride called. Trip #[id number] with a curing pickling packer time no later than 4:52PM.
== END 2019-06-24 14:40 | disposition home or self-care (01) | DRG 885 ==
LOC: ER 19:37 → NP 21:28
PROVIDERS: Psychiatry & Neurology Psychiatry; Admitting Provider Psychiatry & Neurology Psychiatry; Emergency Provider Physician Assistant; Family Provider Family Medicine; PCP Family Medicine; Visit Provider Psychiatry & Neurology Psychiatry
DX: F31.9 Bipolar disorder, unspecified (principal); R45.851 Suicidal ideations; F17.210 Nicotine dependence, cigarettes, uncomplicated; F43.10 Post-traumatic stress disorder, unspecified; Z59.0 Homelessness; I10 Essential (primary) hypertension; Z91.5 Personal history of self-harm
CPT/HCPCS: 12345; 71045; 80053; 80178; 80306; 80307; 81001; 84703; 85025; 90471; 90686; 99282; A9270

== ENCOUNTER 2019-07-31 13:58 | Emergency (ER) | payer MEDICAID, SELFPAY ==
[2019-07-31 14:04] VITALS: BP 125/77; RESP 20; TEMP 37; O2SAT 98; BMI 24.7
--- NOTE | 2019-07-31 14:07 | W.ED.ABDPA2 ---
HPI - Abdominal Pain General: Chief Complaint: OB/Uterine Contractions Stated Complaint: HAVING CONTRACTIONS Time Seen by Provider: 07/31/19 14:01 Source: patient and EMS Mode of arrival: EMS Limitations: no limitations History of Present Illness: HPI narrative: 33-year-old female who believes she is 3 months . She states she felt like she had contractions earlier and denies any pain currently. Patient denies any vaginal bleeding or discharge. She denies any worsening improving factors. Patient has not seen anyone for this and states she had a home that was positive MD elicited complaint: abdominal pain Pertinent past history: none Quality: cramping Exacerbating factors: nothing Associated Symptoms: Denies chills, dysuria and fever(s) Related Data: Date of Last Menstrual Period: 05/14/19 Review of Systems Const: Denies: fever(s), chills, body aches or change in appetite Eyes: Denies: blurry vision or eye discomfort ENMT: Denies: throat pain or dental pain Card: Denies: chest pain Resp: Denies: dyspnea GI: Reports: abdominal pain : Denies: dysuria Musc: Denies: neck pain or back pain Skin/Breast: Denies: rash Neuro: Denies: headache(s) Psych: Denies: depression Ramy/Lymph: Denies: easy bruising All/Imm: Denies: urticaria PFSH ED PFSH: Medical History Schizoaffective disorder, bipolar type Scoliosis Surgical History H/O tubal ligation History of foot surgery Family History Other Cancer Social History Smoking and tobacco status: current every day smoker cigarettes Packs smoked per day: 0.25 Alcohol intake: never Female Reproductive History: Date of last menstrual period: 05/14/19 Physical Exam Const: COMMON NORMALS: no acute distress, patient oriented x3 and healthy appearing HENMT: COMMON NORMALS: normocephalic and atraumatic HEAD & SCALP: normocephalic and atraumatic Eye: COMMON NORMALS: Equal, round and reactive pupils present and EOMs intact bilaterally PUPIL: Yes Equal, round and reactive pupils present Neck/C-Spine: COMMON NORMALS: full ROM and supple Chest: COMMONS NORMALS: normal inspection of the chest and normal palpation of entire chest wall Resp: COMMON NORMALS: normal respiratory effort, No retractions, No use of accessory muscles and clear to auscultation bilaterally AUSCULTATION: clear to auscultation bilaterally Cardio: COMMON NORMALS: regular rate, regular rhythm and No murmurs present (Cardio) RATE: regular rate RHYTHM: regular rhythm GI: COMMON NORMALS: Normal to inspection, nondistended, normoactive bowel sounds present, Soft to palpation, non-tender and no masses PALPATION: Yes Soft to palpation Extremity: COMMON NORMALS: normal to inspection and full ROM Neuro: COMMON NORMALS: patient oriented x3, moves all extremities and no focal motor deficits Psych: COMMON NORMALS: mental status grossly normal, Normal thought process present and cooperative THOUGHT PROCESS: Normal thought process present Skin: COMMON NORMALS: no rashes or lesions noted and no wounds GENERAL SKIN EXAM: no rashes or lesions noted Course Vital Signs: Vital signs: Vital Signs Temperature 98.6 F 07/31/19 14:04 Respiratory Rate 20 H 07/31/19 14:04 Blood Pressure 125/77 07/31/19 14:04 Pulse Oximetry 98 07/31/19 14:04 MDM - Abdominal Pain MDM Narrative: Medical decision making narrative: Patient presents here with abdominal pain stating that she is having contractions. Her here is negative and she is not . Her domicile here is benign and lab work is normal. Patient was upset and eloped because she stated that someone had seen her half naked. I am not sure what happened she did not explain it to me but her lab work and everything here is normal and she has no signs of acute surgical abdomen at this time. Lab Data: Labs: Lab Results 07/31/19 07/31/19 Range/Units 14:45 14:45 WBC 8.7 (4.0-10.0) 10^3/ uL RBC 4.46 (4.1-5.3) 10^6/u L Hgb 14.1 (11.5-15.3) g/dL Hct 44.3 (37.0-47.0) % MCV 99.3 H (81-99) fL MCH 31.6 (28.0-34.0) pg MCHC 31.8 (30.0-36.0) g/dL RDW 12.3 (12.1-15.1) % Plt Count 165 (130-400) 10^3/c mm MPV 11.6 H (7.4-10.4) fL Neut % (Auto) 64.0 % Lymph % (Auto) 28.2 % Pima % (Auto) 5.3 % Eos % (Auto) 1.7 % Baso % (Auto) 0.6 % Neut # (Auto) 5.6 (1.8-7.7) 10^3/u L Lymph # (Auto) 2.5 (0.8-4.8) 10^3/u L Pima # (Auto) 0.5 (0.2-0.9) 10^3/u L Eos # (Auto) 0.2 (0.0-0.8) 10^3/u L Baso # (Auto) 0.1 (0.0-0.1) 10^3/u L Nucleated RBC % (a uto) 0 % Nucleated RBCs # 0.0 /100WBC Sodium 142 (136-145) mmol/L Potassium 4.3 (3.5-5.1) mmol/L Chloride 106 (98-107) mmol/L Carbon Dioxide 28 (22-29) mmol/L Anion Gap 12.3 (5-19) BUN 12 (6-20) mg/dL Creatinine 0.5 (0.5-0.9) mg/dL GFR Calculation 141.2 H (90-130) mL/min Glucose 86 (65-115) mg/dL Calculated Osmolal ity 289 (285-295) mOsm/k g Calcium 9.0 (8.5-10.5) mg/dL Total Bilirubin 0.3 (0.15-1.2) mg/dL AST 16 (0-32) U/L ALT 56 H (0-33) U/L Alkaline Phosphata se 102 (35-105) IU/L Total Protein 6.2 L (6.6-8.7) g/dL Albumin 4.4 (3.5-5.2) g/dL Globulin 1.8 (1.3-4.6) g/dL Lipase 26 (13-60) U/L Discharge Plan Discharge Clinical Impression: Abdominal pain Qualifiers: Abdominal location: generalized Qualified Code(s): R10.84 - Generalized abdominal pain Condition: Stable Prescriptions: No Action amitriptyline 50 mg tablet 50 mg PO DAILY RF: 0 baclofen 20 mg tablet 20 mg PO TID RF: 0 propranolol 20 mg tablet 20 mg PO DAILY Qty: 90 RF: 0 nicotine 14 mg/24 hr patch 24 hour 1 patch TRANSDERMA DAILY Qty: 28 RF: 0 gabapentin 100 mg Capsule 100 mg PO TID Qty: 90 RF: 3 Abilify Maintena 300 mg suspension,extended rel recon 300 mg IM .monthly Qty: 1 RF: 5 trazodone 50 mg Tablet 75 mg PO BEDTIME PRN (Reason: Insomnia) 30 Days Qty: 45 RF: 2 Referrals: Franca Akers DO [Primary Care Provider] - Patient Instructions: Cholecystitis (ED), Abdominal Pain (ED) Coding Level of Care Code ED Kiln Operator Helper for Chg 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
[2019-07-31 14:54] LABS: Basophils # 0.1 10^3/uL (0.0-0.1); Basophils % 0.6 %; Eosinophils # 0.2 10^3/uL (0.0-0.8); Eosinophils % 1.7 %; Hematocrit 44.3 % (37.0-47.0); Hemoglobin 14.1 g/dL (11.5-15.3); Lymphocytes # 2.5 10^3/uL (0.8-4.8); Lymphocytes % 28.2 %; Mean Corpuscular HGB Conc 31.8 g/dL (30.0-36.0); Mean Corpuscular Hemoglobin 31.6 pg (28.0-34.0); Mean Corpuscular Volume 99.3 fL (81-99); Mean Platelet Volume 11.6 fL (7.4-10.4); Monocytes # 0.5 10^3/uL (0.2-0.9); Monocytes % 5.3 %; Neutrophils # 5.6 10^3/uL (1.8-7.7); Nucleated Red Blood Cells % 0 %; Platelet Count 165 10^3/cmm (130-400); Red Blood Count 4.46 10^6/uL (4.1-5.3); Red Cell Distribution Width 12.3 % (12.1-15.1); White Blood Count 8.7 10^3/uL (4.0-10.0)
[2019-07-31 15:07] LABS: Alanine Aminotransferase 56 U/L (0-33); Albumin Level 4.4 g/dL (3.5-5.2); Alkaline Phosphatase 102 IU/L (35-105); Anion Gap 12.3 (5-19); Aspartate Amino Transferase 16 U/L (0-32); Blood Urea Nitrogen 12 mg/dL (6-20); Carbon Dioxide 28 mmol/L (22-29); Chloride 106 mmol/L (98-107); Globulin 1.8 g/dL (1.3-4.6); Glomerular Filtration Rate 141.2 mL/min (90-130); Glucose 86 mg/dL (65-115); Lipase 26 U/L (13-60); Osmolality Calculated 289 mOsm/kg (285-295); Potassium 4.3 mmol/L (3.5-5.1); Sodium 142 mmol/L (136-145); Total Bilirubin 0.3 mg/dL (0.15-1.2); Total Protein 6.2 g/dL (6.6-8.7)
[2019-07-31 15:27] LABS: Add Urine Microscopic? NO
[2019-07-31 15:27] LABS: HCG, Serum Qual Negative (Negative)
[2019-07-31 15:52] LABS: Urine Appearance Clear (CLEAR); Urine Color Yellow (Yellow)
[2019-07-31 15:53] LABS: Bilirubin Urine Neg (NEGATIVE); Blood Urine Neg (Negative); Glucose Urine UA Norm (Normal); Ketones Urine Negative (Negative); Leukocyte Esterase Urine Negative (Negative); Nitrate Urine Negative (Negative); Protein Urine Neg (Negative); Specific Gravity, Urine 1.015 (1.005-1.030); Urobilinogen Urine 1 mg/dL (Negative)
== END 2019-07-31 15:22 | disposition home or self-care (01) ==
PROVIDERS: Emergency Provider Emergency Medicine; PCP Family Medicine
DX: O26.891 Other specified pregnancy related conditions, first trimester (principal); R10.84 Generalized abdominal pain; O99.331 Smoking (tobacco) complicating pregnancy, first trimester; F17.210 Nicotine dependence, cigarettes, uncomplicated; Z3A.00 Weeks of gestation of pregnancy not specified
CPT/HCPCS: 12345; 36415; 80053; 81003; 83690; 84703; 85025; 99282

== ENCOUNTER 2019-10-13 21:32 | Emergency (ER) | payer MEDICAID, SELFPAY ==
[2019-10-13 21:34] VITALS: BP 125/86; PULSE 84; RESP 16; TEMP 36.7; O2SAT 95; BMI 22.8
--- NOTE | 2019-10-13 21:45 | W.ED.PSYCH ---
HPI - Psych General: Chief Complaint: Psychiatric Symptoms Stated Complaint: Depression Time Seen by Provider: 10/13/19 21:37 Source: patient and EMS Mode of arrival: EMS Limitations: no limitations History of Present Illness: HPI Narrative: 34-year-old female who states she has been depressed and having trouble sleeping. Patient is currently 6 months . She denies any homicidality or suicidality. She denies any worsening improving factors. Associated symptoms: Reports depression Review of Systems Const: Denies: fever(s), chills, body aches or change in appetite Eyes: Denies: blurry vision or eye discomfort ENMT: Denies: throat pain or dental pain Card: Denies: chest pain Resp: Denies: dyspnea GI: Denies: abdominal pain, nausea, vomiting or diarrhea : Denies: dysuria Musc: Denies: neck pain or back pain Skin/Breast: Denies: rash Neuro: Denies: headache(s) Psych: Reports: depression Ramy/Lymph: Denies: easy bruising All/Imm: Denies: urticaria PFSH ED PFSH: Medical History (Updated 10/13/19 @ 22:19 by Nikos Rodriges MD) Schizoaffective disorder, bipolar type Scoliosis Surgical History H/O tubal ligation History of foot surgery Family History Other Cancer Social History Smoking and tobacco status: current every day smoker cigarettes Packs smoked per day: 0.25 Alcohol intake: never Female Reproductive History: Date of last menstrual period: 05/14/19 Physical Exam Const: COMMON NORMALS: no acute distress, patient oriented x3 and healthy appearing HENMT: COMMON NORMALS: normocephalic and atraumatic HEAD & SCALP: normocephalic and atraumatic Eye: COMMON NORMALS: Equal, round and reactive pupils present and EOMs intact bilaterally PUPIL: Yes Equal, round and reactive pupils present Neck/C-Spine: COMMON NORMALS: full ROM and supple Chest: COMMONS NORMALS: normal inspection of the chest and normal palpation of entire chest wall Resp: COMMON NORMALS: normal respiratory effort, No retractions, No use of accessory muscles and clear to auscultation bilaterally AUSCULTATION: clear to auscultation bilaterally Cardio: COMMON NORMALS: regular rate, regular rhythm and No murmurs present (Cardio) RATE: regular rate RHYTHM: regular rhythm GI: COMMON NORMALS: Normal to inspection, nondistended, normoactive bowel sounds present, Soft to palpation, non-tender and no masses PALPATION: Yes Soft to palpation Extremity: COMMON NORMALS: normal to inspection and full ROM Neuro: COMMON NORMALS: patient oriented x3, moves all extremities and no focal motor deficits Psych: COMMON NORMALS: mental status grossly normal, Normal thought process present and cooperative MOOD & AFFECT: Yes depressed mood THOUGHT PROCESS: Normal thought process present Skin: COMMON NORMALS: no rashes or lesions noted and no wounds GENERAL SKIN EXAM: no rashes or lesions noted MDM - Psych MDM Narrative: Medical decision making narrative: Patient presents here with depression. She adamantly denies being suicidal or homicidal. Patient also evaluated by Dr. Estrada and she does not warrant admission. Patient stable for discharge and is to follow-up with primary care doctor in 2 to 4 days return if worsening. Lab Data: Labs: Lab Results 10/13/19 10/13/19 Range/Units 21:42 21:42 WBC 8.7 (4.0-10.0) 10^3/ uL RBC 4.77 (4.1-5.3) 10^6/u L Hgb 15.1 (11.5-15.3) g/dL Hct 45.5 (37.0-47.0) % MCV 95.4 (81-99) fL MCH 31.7 (28.0-34.0) pg MCHC 33.2 (30.0-36.0) g/dL RDW 12.8 (12.1-15.1) % Plt Count 194 (130-400) 10^3/c mm MPV 11.4 H (7.4-10.4) fL Neut % (Auto) 60.9 % Lymph % (Auto) 31.3 % [place] % (Auto) 5.0 % Eos % (Auto) 2.0 % Baso % (Auto) 0.7 % Neut # (Auto) 5.29 (1.8-7.7) 10^3/u L Lymph # (Auto) 2.7 (0.8-4.8) 10^3/u L [place] # (Auto) 0.4 (0.2-0.9) 10^3/u L Eos # (Auto) 0.2 (0.0-0.8) 10^3/u L Baso # (Auto) 0.1 (0.0-0.1) 10^3/u L Nucleated RBC % (a uto) 0 % Nucleated RBCs # 0.0 /100WBC Sodium 138 (136-145) mmol/L Potassium 4.5 (3.5-5.1) mmol/L Chloride 103 (98-107) mmol/L Carbon Dioxide 27 (22-29) mmol/L Anion Gap 12.5 (5-19) BUN 14 (6-20) mg/dL Creatinine 0.6 (0.5-0.9) mg/dL GFR Calculation 113.8 (90-130) mL/min Glucose 201 H (65-115) mg/dL Calculated Osmolal ity 288 (285-295) mOsm/k g Calcium 10.0 (8.5-10.5) mg/dL Total Bilirubin 0.6 (0.15-1.2) mg/dL AST 19 (0-32) U/L ALT 73 H (0-33) U/L Alkaline Phosphata se 207 H (35-105) IU/L Total Protein 6.5 L (6.6-8.7) g/dL Albumin 4.7 (3.5-5.2) g/dL Globulin 1.8 (1.3-4.6) g/dL Salicylates 0.6 L (3-10) mg/dL Acetaminophen 9.4 L (10-30) ug/mL Ethyl Alcohol < 10 (0-10) mg/dL Discharge Plan Discharge Patient Disposition: Home Clinical Impression: Depression Qualifiers: Depression Type: unspecified Qualified Code(s): F32.9 - Major depressive disorder, single episode, unspecified Condition: Stable Prescriptions: No Action amitriptyline 50 mg tablet 50 mg PO DAILY RF: 0 baclofen 20 mg tablet 20 mg PO TID RF: 0 propranolol 20 mg tablet 20 mg PO DAILY Qty: 90 RF: 0 nicotine 14 mg/24 hr patch 24 hour 1 patch TRANSDERMA DAILY Qty: 28 RF: 0 gabapentin 100 mg Capsule 100 mg PO TID Qty: 90 RF: 3 Abilify Maintena 300 mg suspension,extended rel recon 300 mg IM .monthly Qty: 1 RF: 5 trazodone 50 mg Tablet 75 mg PO BEDTIME PRN (Reason: Insomnia) 30 Days Qty: 45 RF: 2 Discharge Orders: Discharge Order (Routine); Ordered 10/13/19 Ordered By: Nikos Rodriges Referrals: Franca Akers DO [Primary Care Provider] - Discharge Diet: Advance as tolerated Discharge Activity: Resume usual activity Patient Instructions: Depression (ED) Coding Level of Care Code ED Train Control Electronic Technician for Chg 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
[2019-10-13 21:54] LABS: Basophils # 0.1 10^3/uL (0.0-0.1); Basophils % 0.7 %; Eosinophils # 0.2 10^3/uL (0.0-0.8); Hematocrit 45.5 % (37.0-47.0); Hemoglobin 15.1 g/dL (11.5-15.3); Lymphocytes # 2.7 10^3/uL (0.8-4.8); Lymphocytes % 31.3 %; Mean Corpuscular HGB Conc 33.2 g/dL (30.0-36.0); Mean Corpuscular Hemoglobin 31.7 pg (28.0-34.0); Mean Corpuscular Volume 95.4 fL (81-99); Mean Platelet Volume 11.4 fL (7.4-10.4); Monocytes # 0.4 10^3/uL (0.2-0.9); Neutrophils # 5.29 10^3/uL (1.8-7.7); Neutrophils % 60.9 %; Nucleated Red Blood Cells % 0 %; Platelet Count 194 10^3/cmm (130-400); Red Blood Count 4.77 10^6/uL (4.1-5.3); Red Cell Distribution Width 12.8 % (12.1-15.1); White Blood Count 8.7 10^3/uL (4.0-10.0)
[2019-10-13 22:16] LABS: Acetaminophen 9.4 ug/mL (10-30); Alanine Aminotransferase 73 U/L (0-33); Albumin Level 4.7 g/dL (3.5-5.2); Alcohol Level < 10 mg/dL (0-10); Alkaline Phosphatase 207 IU/L (35-105); Anion Gap 12.5 (5-19); Aspartate Amino Transferase 19 U/L (0-32); Blood Urea Nitrogen 14 mg/dL (6-20); Carbon Dioxide 27 mmol/L (22-29); Chloride 103 mmol/L (98-107); Globulin 1.8 g/dL (1.3-4.6); Glomerular Filtration Rate 113.8 mL/min (90-130); Glucose 201 mg/dL (65-115); Osmolality Calculated 288 mOsm/kg (285-295); Potassium 4.5 mmol/L (3.5-5.1); Salicylate 0.6 mg/dL (3-10); Sodium 138 mmol/L (136-145); Total Bilirubin 0.6 mg/dL (0.15-1.2); Total Protein 6.5 g/dL (6.6-8.7)
[2019-10-13 22:22] LABS: HCG Qualitative Urine. Negative (Negative)
[2019-10-13 22:29] LABS: Amphetamines Screen Urine Negative (Negative); Barbiturates Screen Urine Negative (Negative); Benzodiazepines Screen Urine Negative (Negative); Cocaine Screen Urine Negative (Negative); Opiate Screen Urine Positive (Negative); PCP Screen Urine Positive (Negative); THC Screen Urine Negative (Negative)
[2019-10-13 22:31] VITALS: BP 138/74; PULSE 82; RESP 17; O2SAT 98
== END 2019-10-13 22:32 | disposition home or self-care (01) ==
PROVIDERS: Emergency Provider Emergency Medicine; PCP Family Medicine
DX: F32.9 Major depressive disorder, single episode, unspecified (principal); F17.210 Nicotine dependence, cigarettes, uncomplicated
CPT/HCPCS: 12345; 36415; 80053; 80306; 80307; 81025; 85025; 99282

== ENCOUNTER 2019-10-21 17:06 | Emergency (ER) | payer MEDICAID, SELFPAY ==
[2019-10-21 17:14] VITALS: BP 101/55; PULSE 89; RESP 16; TEMP 36.9; O2SAT 97; BMI 22.8
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
== END 2019-10-21 18:20 | disposition left against medical advice (07) ==
PROVIDERS: Emergency Provider Physician Assistant; PCP Family Medicine
DX: T76.21XA Adult sexual abuse, suspected, initial encounter (principal); Z53.21 Procedure and treatment not carried out due to patient leaving prior to being seen by health care provider
CPT/HCPCS: 12345; 99281

== ENCOUNTER 2019-11-16 18:23 | Observation (INO) | payer MEDICAID, SELFPAY ==
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
[2019-11-16 18:34] VITALS: BP 149/73; PULSE 63; RESP 20; TEMP 36.7; O2SAT 97; BMI 24.7
[2019-11-16 18:42] LABS: Basophils # 0.1 10^3/uL (0.0-0.1); Basophils % 0.6 %; Eosinophils # 0.1 10^3/uL (0.0-0.8); Hematocrit 45.8 % (37.0-47.0); Hemoglobin 14.8 g/dL (11.5-15.3); Lymphocytes # 2.3 10^3/uL (0.8-4.8); Lymphocytes % 24.7 %; Mean Corpuscular HGB Conc 32.3 g/dL (30.0-36.0); Mean Corpuscular Hemoglobin 31.7 pg (28.0-34.0); Mean Corpuscular Volume 98.1 fL (81-99); Mean Platelet Volume 11.6 fL (7.4-10.4); Monocytes # 0.6 10^3/uL (0.2-0.9); Monocytes % 6.4 %; Neutrophils # 6.24 10^3/uL (1.8-7.7); Neutrophils % 66.9 %; Nucleated Red Blood Cells % 0 %; Platelet Count 161 10^3/cmm (130-400); Red Blood Count 4.67 10^6/uL (4.1-5.3); Red Cell Distribution Width 13.2 % (12.1-15.1); White Blood Count 9.3 10^3/uL (4.0-10.0)
[2019-11-16] MEDS: LORazepam 2 mg/mL INJ 1 mL IM (18:50)
[2019-11-16 18:59] LABS: Alanine Aminotransferase 42 U/L (0-33); Albumin Level 4.4 g/dL (3.5-5.2); Alkaline Phosphatase 100 IU/L (35-105); Anion Gap 11.7 (5-19); Aspartate Amino Transferase 15 U/L (0-32); Blood Urea Nitrogen 9 mg/dL (6-20); Calcium 8.6 mg/dL (8.5-10.5); Carbon Dioxide 26 mmol/L (22-29); Chloride 110 mmol/L (98-107); Globulin 2.1 g/dL (1.3-4.6); Glomerular Filtration Rate 140.4 mL/min (90-130); Glucose 110 mg/dL (65-115); Osmolality Calculated 295 mOsm/kg (285-295); Potassium 3.7 mmol/L (3.5-5.1); Sodium 144 mmol/L (136-145); Total Bilirubin 0.3 mg/dL (0.15-1.2); Total Protein 6.5 g/dL (6.6-8.7)
[2019-11-16 19:02] LABS: Acetaminophen < 5.0 ug/mL (10-30); Alcohol Level < 10 mg/dL (0-10); Salicylate < 0.3 mg/dL (3-10)
--- NOTE | 2019-11-16 19:12 | XRR_ITS ---
PROCEDURE INFORMATION: Exam: XR Chest, 1 View Exam date and time: 11/16/2019 7:13 PM Age: 34 years old Clinical indication: Dyspnea; Additional info: AMS TECHNIQUE: Imaging protocol: XR of the chest Views: 1 view. COMPARISON: CR XR chest 1V portable [id number] 06/21/2019 7:26 PM FINDINGS: Lungs: Shallow inspiration with crowding. No focal consolidation. Pleural space: Unremarkable. No pleural effusion. No pneumothorax. Heart/Mediastinum: Unremarkable. No cardiomegaly. Diaphragm: Elevation of the right diaphragm. Bones/joints: Unremarkable. XR/XR chest 1V portable [id number] IMPRESSION: No acute findings.
--- NOTE | 2019-11-16 19:12 | ECG_ITS ---
[facility] Test Date: 2019-11-16 Pat Name: Meredith Pressley Department: Room: Gender: Female Coding Validator: : 1985 Requested By: Nikos Rodriges Order Number: [id number] Hodges MD: Neftali Vega M.D. Measurements Intervals [place] Rate: 57 P: 53 [place]: 165 QRS: 46 QRSD: 89 T: 14 QT: 411 QTc: 403 Interpretive Statements SINUS BRADYCARDIA POSSIBLE ANTERIOR MYOCARDIAL INFARCTION , OF INDETERMINATE AGE [30 ms Q WAVE IN V3/V4, OR R < 0.2 mV IN V4] Compared to ECG 06/08/2019 23:58:35 Myocardial infarct finding now present Sinus rhythm no longer present Electronically Signed On 11-17-2019 20:51:59 CDT by Neftali Vega M.D. [email or web address]
[2019-11-16 19:59] LABS: HCG Qualitative Urine. Negative (Negative)
[2019-11-16 20:05] LABS: Amphetamines Screen Urine Negative (Negative); Barbiturates Screen Urine Negative (Negative); Benzodiazepines Screen Urine Negative (Negative); Cocaine Screen Urine Negative (Negative); Opiate Screen Urine Positive (Negative); PCP Screen Urine Negative (Negative); THC Screen Urine Negative (Negative)
--- NOTE | 2019-11-16 21:01 | PM.HP ---
Providers/Chief Complaint Admitting Physician: Mariya Ahumada Primary Care Provider: Franca Akers DO Chief Complaint: AMS History of Present Illness Meredith Pressley is a 34 year old female who presented to the emergency room via EMS for alteration of mental status. It is not known exactly what was going on leading to EMS being called but according to EMS patient was combative when they arrived. She received Haldol and Ativan. Here she was agitated and would not provide any history. She required an additional dose of Ativan in the ER to allow evaluation. Work-up was unremarkable except for drug screen positive for opiates. She does have a prescription for hydrocodone on her medication list. Alcohol level was unremarkable as well. She has history of schizoaffective disorder bipolar type according to available medical records. Evidently her fianc? or at least a male friend stated that she was 6 months . She has stated this or similar at the last few ED visits that she has had this year. Qualitative hCG was negative today. At the time of my evaluation, patient will arouse to sternal rub and is protecting her airway but I am not able to communicate with her further. She has multiple prescriptions medications with her but I do not know if she is or is not taking them or if she is taking any in excess. Some prescriptions date back to earlier this year. Review of Systems General: Reports: ROS unobtainable due to mental status Medications/Allergies Home Medications Medication Instructions Recorded Confirmed Last Taken Type amitriptyline 50 mg tablet 50 mg PO DAILY 04/11/19 11/16/19 Unknown History Abilify Maintena 300 mg IM .monthly #1 vial 05/22/19 11/16/19 06/05/19 Rx gabapentin 100 mg PO TID #90 cap 05/22/19 11/16/19 06/05/19 Rx baclofen 20 mg tablet 20 mg PO TID 05/29/19 11/16/19 06/05/19 History propranolol 20 mg tablet 20 mg PO DAILY #90 tab 06/10/19 11/16/19 Unknown Rx trazodone 75 mg PO BEDTIME PRN 30 Days #45 06/24/19 11/16/19 Unknown Rx tab nicotine 14 mg/24 hr daily 1 patch TRANSDERMA DAILY #28 each 07/18/19 11/16/19 Unknown Rx transdermal patch fluoxetine 20 mg PO DAILY 11/16/19 11/16/19 Unknown History hydrocodone-acetaminophen See Rx Instructions .ROUTE .COMPLEX 11/16/19 11/16/19 Unknown History hydroxyzine pamoate 25 mg PO Q6H PRN 11/16/19 11/16/19 Unknown History Allergies Allergy/AdvReac Type Severity Reaction Status Date / Time adhesive tape Allergy ALGY-Rash Verified 11/16/19 18:57 cyclobenzaprine Allergy ALGY-Hives Verified 11/16/19 18:57 [From Flexeril] diphenhydramine Allergy ALGY-Hives Verified 11/16/19 18:57 [From Benadryl] fluphenazine [From Prolixin] Allergy ALGY-Anaphy Verified 11/16/19 18:57 laxis ibuprofen Allergy ALGY-Hives Verified 11/16/19 18:57 lithium Allergy ALGY-Difficulty Verified 11/16/19 18:57 Breathing Additional Medication Information Above information is based on prior medication list from clinic. Patient has various prescriptions for the above medications. There was a pack of cigarettes with her so I doubt that she is still using the nicotine patch which was prescribed back in July of this year. It is not known if she has missed any of her baclofen or any of her Abilify monthly injections. PFSH Acute PFSH: Medical History Schizoaffective disorder, bipolar type Scoliosis Surgical History H/O tubal ligation History of foot surgery Family History Other Cancer Social History Smoking and tobacco status: current every day smoker cigarettes Packs smoked per day: 0.25 Alcohol intake: former Female Reproductive History: Other female reproductive history: Last menstrual period is unknown at this time due to inability to get patient to answer any questions Supplemental PFSH Information: Above information is what was listed in the computer. I am unable to confirm or deny any history at this point in time otherwise Vitals/I&O/Wt Last Vital Signs Temp 98.1 F 11/16/19 18:34 Pulse 63 11/16/19 18:34 Resp 20 H 11/16/19 18:34 BP 149/73 11/16/19 18:34 Pulse Ox 97 11/16/19 18:34 Weight last 48 hrs Weight 61.235 kg Physical Exam Const: OTHER: Lethargic, arouses to sternal rub but does not follow any commands HENMT: OTHER: Normocephalic atraumatic, dry mucous membranes, no tongue lesions noted, gag reflex, no significant rhinorrhea or posterior pharyngeal erythema noted Eye: OTHER: Pupils equally round and reactive to light, conjunctive are slightly injected, normal corneal reflexes Neck/C-Spine: OTHER: Supple, no thyromegaly or lymphadenopathy Resp: OTHER: Clear to auscultation bilaterally, no rales, rhonchi or wheezes noted, no accessory muscle use noted, intermittent snoring Cardio: OTHER: Regular rate and rhythm, no murmurs gallops or rubs. Pulses equal throughout. Feet are a bit cool but no cyanosis. GI: OTHER: Abdomen soft, no apparent tenderness, nondistended with positive bowel sounds : OTHER: Normal external female genitalia Extremity: NARRATIVE EXTREMITY EXAM: No cyanosis, clubbing or edema, no acute synovitis Neuro: OTHER: Face symmetric, moves all extremities with sternal rub, DTRs are equal throughout Psych: OTHER: Not able to currently evaluate Skin: OTHER: Skin is dry, she has a small area of erythema below the right breast but otherwise did not really see any lan anywhere. No sores or rashes otherwise noted. Data : 11/16/19 18:37 11/16/19 18:37 Other Labs: Liver Function 11/16/19 Range/Units 18:37 Total Bilirubin 0.3 (0.15-1.2) mg/dL AST 15 (0-32) U/L ALT 42 H (0-33) U/L Alkaline Phosphatase 100 (35-105) IU/L Albumin 4.4 (3.5-5.2) g/dL Laboratory Tests 11/16/19 11/16/19 11/16/19 18:37 18:37 19:51 HCG, Qual Negative Ser , Semi-Qnt 0.50 Salicylates < 0.3 L Urine Opiates Screen Acetaminophen < 5.0 L Ethyl Alcohol < 10 11/16/19 19:51 HCG, Qual Ser , Semi-Qnt Salicylates Urine Opiates Screen Positive H Acetaminophen Ethyl Alcohol CT Head: Radiologist's impression: IMPRESSION: 1. No acute intracranial abnormality. CXR: Radiologist's impression: IMPRESSION: No acute findings EKG 1: I personally reviewed and interpreted this EKG as follows: My Interpretation: Sinus bradycardia 57 bpm, QTC 403, no acute ST segment changes noted A&P Assessment and plan (1) Combative behavior: I do not know if this is due to psychiatric reasons, over under use of medications or something else at this point in time. Quick review of prior admissions shows that she has had some vicenta at times and presented with almost a catatonic response at others. I did not go in depth through all of the admissions this year. Status: Acute (2) Sedated due to medication: Currently sedated after receiving Haldol and Ativan by EMS and then additional Ativan here. Status: Acute (3) Schizoaffective disorder, bipolar type: Status: Chronic (4) Nicotine dependence, cigarettes, with unspecified nicotine-induced disorders: Status: Chronic Additional A&P Information Home medication list shows chronic baclofen, gabapentin, hydrocodone for unclear reasons Her medication list indicates propranolol which I am suspecting is for either anxiety or akathesia from antipsychotics Observation admission currently Serial neuro exams When she has awakened will need to evaluate and see if we can get any information from her May have to consider psychiatry involvement Attempts to reach anybody to get more information as to what happened were unsuccessful tonight We will need to resume at least some baclofen to eliminate that as a cause of her mental status changes today Other home medications are currently held until we can clarify them further Will provide some maintenance IV fluids Supportive care otherwise Full code Disposition is unclear at this time. It is hoped that she will wake up and be a bit more cooperative. If not and it looks more like her psychiatric condition has acutely worsened she may require psychiatric admission. I do not currently see any medical indications as a cause of her presentation. Attestations Medical Necessity Statement*: Currently anticipated stay less than 2 midnights in a patient who was combative earlier and has received medications leading to significant sedation. Exact cause of combativeness is unknown. She does have a psychiatric history as described. Coding Level of Care Code Acute Sports Medicine [facility] Diagnoses Combative behavior R46.89 Sedated due to medication R40.4; T50.905A Schizoaffective disorder, bipolar type F25.0 Nicotine dependence, cigarettes, with unspecified nicotine-induced disorders F17.219
[2019-11-16 22:22] VITALS: BP 134/77; PULSE 59; RESP 18; O2SAT 95
[2019-11-16 22:51] VITALS: BP 126/78; PULSE 62; RESP 18; TEMP 36.9; O2SAT 99
[2019-11-16 23:12] VITALS: BP 126/78; PULSE 58; RESP 17; TEMP 36.9; O2SAT 99
[2019-11-16] MEDS: D5-NS 0.45% + KCL 20 mEq 20 MEQ/1,000 ML BAG 75 MEQ IV (23:41)
[2019-11-17] VITALS: BP 130/87; PULSE 65; RESP 16; TEMP 37.2; O2SAT 96
[2019-11-17 01:34] LABS: Glucose Point of Care 102 mg/dL (70-110)
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
[2019-11-17] MEDS: LORazepam 2 mg/mL INJ 1 mL 1 MG IVP (02:36)
[2019-11-17] MEDS: haloperidol inj 5 mg/mL INJ 1 mL 2 MG IM ×2 (02:43→05:39)
[2019-11-17] MEDS: LORazepam 2 mg/mL INJ 1 mL 1 MG IM (03:10)
[2019-11-17] MEDS: haloperidol inj 5 mg/mL INJ 1 mL IM (03:10)
--- NOTE | 2019-11-17 05:35 | PC.NURSE ---
Pt. awake at this time screaming at patient shayna Bo CNA that patient needs out, wants out . Pt. remains unable to verbalize what year it is or day. Pt. attempting to get out of bed and screaming at staff do not touch me, I don't want to be touched, don't touch me Mian. Pt. given 2mg IM Haldol by Carisa Estrada RN. Carisa Estrada RN and Rabia Hanson CNA voice to this nurse that patient expressed some SI and HI while they were in the room. This nurse did not witness any SI or HI statements from patient. View note from Carisa Estrada RN.
[2019-11-17] MEDS: ziprasidone 20 mg/mL SDV IM (06:15)
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
[2019-11-17 07:04] VITALS: BP 138/75; PULSE 126; RESP 18; O2SAT 99
--- NOTE | 2019-11-17 07:38 | PC.NURSE ---
During patient behavior event in room 277 patient continued to state i need my pain pills, give me my damn pain pills. Mian i need my pain pills I'll kill you and kill my self. I swear to god Mian i need my fucking pain pills, i'll kill you patient is a 1:1 sitter at this time, room sweep was completed prior to these statements.
[2019-11-17 10:03] VITALS: BP 123/77; PULSE 58; RESP 17; O2SAT 99
--- NOTE | 2019-11-17 11:59 | P.PN_ITS ---
Subjective Subjective: Interval history: Overnight labs and H&P reviewed. Patient is currently sleeping at this time. Discussion with nurse and report, patient was quite agitated this morning and was requiring restraints. Restraints were loosened and now the patient is more calm and currently sleeping. Medications: Reviewed: Yes Vitals/I&O/Wt Last Vital Signs Temp 98.9 F 11/17/19 00:00 Pulse 58 L 11/17/19 10:03 Resp 17 11/17/19 10:03 BP 123/77 11/17/19 10:03 Pulse Ox 99 11/17/19 10:03 11/16/19 11/17/19 11/17/19 22:59 06:59 14:59 Intake Total 248.75 / 248.75 Balance 248.75 / 248.75 Weight last 48 hrs Weight 61.235 kg Physical Exam Narrative: EXAM NARRATIVE: GEN: Asleep at the time of exam, snoring, does not wake up to calling name at this present time. Restraints have been loosened. CVS: S1S2 N RS: CTA B/L Abd: Soft, nt/nd , bs+ LICENSED PSYCHOLOGIST MANAGER: unable to assess at this time Data : 11/16/19 18:37 11/16/19 18:37 A&P Assessment and plan (1) Sedated due to medication: Status: Acute (2) Combative behavior: Status: Acute (3) Schizoaffective disorder, bipolar type: Status: Chronic (4) Nicotine dependence, cigarettes, with unspecified nicotine-induced disorders: Status: Chronic Additional A&P Information Patient is currently asleep, does not wake up easily to calling name. She was reportedly initially combative and needed to be restrained on the floors. Restraints have now been closing. Psychiatry consult with Dr. Estrada appreciated. We will come back to reassess patient once she is more awake. Her vital signs are stable. Continue maintenance IV fluid fluids and supportive therapy. We will get EEG to rule out postictal state given updated history that boyfriend may have noticed some jerking movements. Continued observation admission Attestations Medical Necessity Statement*: Needs ongoing neurological monitoring, patient is sedated at this present time. Will need reassessment through the day. Coding Level of Care Code Acute [facility] for [facility] Diagnoses Sedated due to medication R40.4; T50.905A Combative behavior R46.89 Schizoaffective disorder, bipolar type F25.0 Nicotine dependence, cigarettes, with unspecified nicotine-induced disorders F17.219
--- NOTE | 2019-11-17 12:13 | PC.RESP ---
Smoking Cessation information and a schedule of classes sent to patient.
[2019-11-17 12:29] VITALS: BP 117/72; PULSE 60; RESP 16; TEMP 36.4; O2SAT 100
--- NOTE | 2019-11-17 14:01 | PC.CHAP ---
Pastoral Care Encounter/Spiritual Assessment Type of Contact [] Declined cfo controller visit [] Patient/Family/Request visit [] Outpatient visit [] Follow-up visit [] Physician referral [] Code/Alert [] Routine visit [] Staff referral [] Actively dying [x] Patient sleeping [] Family support [] [] Out of room [] Palliative care [] [] Receiving care in room [] Pre-surgical visit [] Trauma [] Long length of stay [] ICU visit [] Other: Relational/Emotional Strength [] Patient feels connected with others/family/visitors/staff [] Distress [] Loneliness/isolation [] Abandonment Spirituality of Patient [] Person of Linda [] Attends Episcopal of their Linda [] Believes in Prayer [] Reads Bible or Latter-Day materials [] There are Spiritual issues to be addressed Hearing Healthcare Practitioner Interventions [] Prayer [] Active listening [] Non-anxious presence [] Spiritual/emotional support [] Crisis/trauma care [] Spiritual counseling [] Bereavement support [] Provided bereavement packet [] Provided Bible/devotional materials [] Provided toy/stuffed animal, coloring book to patient or family member [] Provided Communion [] Anointing/[place] [] Salvation [] Completed spiritual assessment [] Other: Impact on Illness or Injury [] Angry [] Fearful [] Anxious [] Often cries [] Exhaustion [] Unable to work [] Unable to attend zoroastrianism [] Unable to walk/stand [] Unable to read [] Unable to drive [] Unable to eat/drink [] Unable to sleep [] Unable to be with family [] Patient intubated [] Other: Summary Patient was sleeping at the time of the cfo controller visit. Hearing Healthcare Practitioner referred her for a follow- up visit from the next cfo controller. Patient visit attempted by Hearing Healthcare Practitioner Augustine Billings. Time spent with patient 3 minutes
[2019-11-17 16:00] VITALS: RESP 20
[2019-11-17] MEDS: OLANZapine 5 mg ODT PO (16:46)
[2019-11-17] MEDS: HYDROcodone-acetaminophen 5-325 mg Tablet 1 TAB PO (16:47)
[2019-11-17] MEDS: baclofen 10 mg Tablet PO (16:47)
--- NOTE | 2019-11-17 17:26 | PC.NURSE ---
Safe Deposit Attendant to Med Surg to possibly fill out 96 hour hold paperwork. Patient discussed with Psychiatrist, Dr. Estrada. Safe Deposit Attendant read Dr. Estrada affidavit in pt's chart. Dr. Estrada recommended writer producer to interview pt to determine if she is willing to come to [facility] voluntarily. During interview pt states that she wants to go home multiple times. Pt denies SI/HI/AVH repeatedly during interaction with writer producer. Pt is calm at this time. When writer producer asked pt what her plans are for when she is discharged, pt stated something similar to, I just want to go home and watch TV. This interaction was discussed with Dr. Estrada and his recommendation is to not put pt on a 96 hour hold and report this interaction to Dr. Loving before proceeding with the hold. This is being communicated to Dr. Loving per pt's nurse, Soraida Lara RN.
--- NOTE | 2019-11-17 19:26 | PC.NURSE ---
restraints removed from patient at 1015 due to patient being cooperative and resting well in bed. patient became more alert around 1620 and demanded a sandwich and pain medications. When offered her po norco, patient refused stating i need to talk to mian first patient was offered a phone call in which she spoke with Mian. Patient became agitated while on the phone, throwing her sandwich in the floor, walking out the door and into the hallway yelling i want to get out of here, you can't keep me here . patient had a 1:1 sitter this shift and the sitter, CHIARA, and this nurse walked with patient and tried to convince her to go back to her room so we could talk with her doctor. Dr. Loving notified, order received for zyprexa po. zyprexa and hydrocodone give to patient. she then tried to make herself vomit after taking them saying you hurt my baby Dr. Loving notified who talked with Dr. Estrada. 96 hour hold not ordered at this time, patient alert and oriented just stating she wants to go home Dr. Loving notified and patient left AMA at 1942.
[2019-11-17 19:42] VITALS: RESP 20
--- NOTE | 2019-11-18 08:45 | P.DS_ITS ---
Discharge Providers Date of Admission: 11/16/19 21:35 Date of Discharge: November 18, 2019 Attending Provider at Admission: Mariya Ahumada MD Attending Provider at Discharge: Marii Loving MD Primary Care Provider: Franca Akers DO Diagnoses at Discharge Discharge Diagnosis (1) Sedated due to medication: Status: Acute (2) Combative behavior: Status: Acute (3) Schizoaffective disorder, bipolar type: Status: Chronic (4) Nicotine dependence, cigarettes, with unspecified nicotine-induced disorders: Status: Chronic Reason for Visit Reason for Visit: AMS Hospital Course Discharge Summary: please see my progress notes from today for details. Patient decided to leave AMA Discharge Data Data Completed and Pending: Completed Studies During Hospitalization Category Date Time Status CT head wo con* 7 0450 Urgent Cat Scan 11/16/19 18:28 Completed XR chest 1V pedro luis ble [id number] Stat Exams 11/16/19 19:12 Completed Vitals: Last Vital Signs Temp 97.6 F 11/17/19 12:29 Pulse 60 11/17/19 12:29 Resp 20 H 11/17/19 19:42 BP 117/72 11/17/19 12:29 Pulse Ox 100 11/17/19 12:29 Discharge Plan Discharge Patient Disposition: Left Against Medical Advice Condition: Stable Prescriptions: No Action amitriptyline 50 mg tablet 50 mg PO DAILY RF: 0 baclofen 20 mg tablet 20 mg PO TID RF: 0 propranolol 20 mg tablet 20 mg PO DAILY Qty: 90 RF: 0 nicotine 14 mg/24 hr patch 24 hour 1 patch TRANSDERMA DAILY Qty: 28 RF: 0 gabapentin 100 mg Capsule 100 mg PO TID Qty: 90 RF: 3 Abilify Maintena 300 mg suspension,extended rel recon 300 mg IM .monthly Qty: 1 RF: 5 trazodone 50 mg Tablet 75 mg PO BEDTIME PRN (Reason: Insomnia) 30 Days Qty: 45 RF: 2 hydrocodone-acetaminophen 10-325 mg tablet See Rx Instructions .ROUTE .COMPLEX RF: 0 fluoxetine 20 mg capsule 20 mg PO DAILY RF: 0 hydroxyzine pamoate 25 mg capsule 25 mg PO Q6H PRN (Reason: Anxiety) RF: 0 Referrals: Franca Akers DO [Primary Care Provider] - Discharge Date/Time: 11/17/19 19:43 Discharge Attestations Time Spent in Discharge Care*: greater than 30 min Quality Metrics Clinical Quality Measures During this hospital stay, did patient experience: None Coding Level of Care Code 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
== END 2019-11-17 19:43 | disposition left against medical advice (07) ==
LOC: ER 20:50 → MEDSURG 22:01
PROVIDERS: Admitting Provider Hospitalist; Emergency Provider Emergency Medicine; PCP Family Medicine; Visit Provider Student in an Organized Health Care Education/Training Program
DX: F91.8 Other conduct disorders (principal); F25.0 Schizoaffective disorder, bipolar type; F17.210 Nicotine dependence, cigarettes, uncomplicated; Z53.29 Procedure and treatment not carried out because of patient's decision for other reasons
CPT/HCPCS: 12345; 36415; 36416; 70450; 71045; 80053; 80306; 80307; 81025; 82962; 84702; 85025; 93005; 96360; 96361; 96372; 96375; 99282; 99285; G0378; J1630; J2060; J3486

== ENCOUNTER 2019-12-31 21:31 | Outpatient (CLI) | payer MEDICAID, SELFPAY ==
[2019-12-31 21:46] VITALS: BMI 23.2
[2019-12-31 21:58] VITALS: PULSE 82; O2SAT 97
[2019-12-31 22:03] VITALS: PULSE 83; O2SAT 97
[2019-12-31 22:07] VITALS: BP 138/80; PULSE 81
[2019-12-31 22:08] VITALS: PULSE 84; O2SAT 96
--- NOTE | 2019-12-31 22:11 | PC.NURSE ---
Addendum entered by Stacie Harris RN 12/31/19 22:17: ON FILE. WAREHOUSE SHIPPING CLERK WENT INTO PT ROOM TO GET HER ON U/S AND TOCO; WAREHOUSE SHIPPING CLERK NOTED PT'S ABDOMEN WAS FLAT, SOFT AND NON-TENDER. WAREHOUSE SHIPPING CLERK WAS UNABLE TO OBTAIN HEART TONES WITH BEDSIDE MONITOR AND ASKED SECOND RN, Jose Manuel RANDOLPH TO BRING ULTRASOUND MACHINE TO BEDSIDE. WAREHOUSE SHIPPING CLERK WAS UNABLE TO VIEW ANY SIGNS OF WITH ULTRASOUND, AND ASKED Jose Manuel RANDOLPH TO TRY. WAREHOUSE SHIPPING CLERK ASKED PT WHEN SHE HAD LAST HAD A VISIT, AND SHE STATED 3-4 WEEKS AGO. WAREHOUSE SHIPPING CLERK ASKED PT IF SHE HAD AN ULTRASOUND DURING , AND PT STATED SHE HAD AN ULTRASOUND 3-4 WEEKS AGO BECAUSE SHE HAD BEEN SPOTTING. PT STATED SHE DID NOT KNOW WHERE SHE HAD GONE FOR THE ULTRASOUND, OR WHO HAD DONE IT, BUT THAT SHE KNEW IT HAD BEEN DONE IN [place]. WHILE Jose Manuel RANDOLPH ATTEMPTED TO LOCATE FETUS WITH ULTRASOUND, WAREHOUSE SHIPPING CLERK LEFT ROOM AND NOTIFIED Soraida HORTON RN OF PT ON FLOOR COMPLAINING OF BEING IN LABOR WITH TERM BUT PRESENTING WITH NO SIGNS OF BEING . RETURNED TO ROOM, WHILE Soraida HORTON RN NOTIFIED DIRECTOR OF PRECLINICAL RESEARCH AND SECURITY OF SITUATION. ONCE IN THE ROOM, Soraida HORTON ALSO ATTEMPED TO LOCATE FETUS WITH ULTRASOUND MACHINE, AND STATED TO PT THAT THERE WAS NO SIGN OF PT BEING , NO SIGNS OF A FETUS WITH ULTRASOUND. THE VISITOR THAT HAD ACCOMPANIED PT TO UNIT, LORELEI PLASCENCIA, ASKED HOW THAT COULD BE POSSIBLE IF YOU COULD FEEL THE BABY IN HER STOMACH. Soraida HORTON EXPLAINED TO PT THAT WE COULD CALL THE DOCTOR AND REQUEST A METAL CONTROL COORDINATOR COME TO THE BEDSIDE TO PERFORM ANOTHER ULTRASOUND WITH MORE ADVANCED EQUIPMENT, WE STATED TO PT WE WOULD STEP OUT TO CALL HIM, AND WOULD RETURN IN A FEW MINUTES. DIRECTOR OF PRECLINICAL RESEARCH AND SECURITY WERE WAITING OUTSIDE ROOM. Soraida HORTON RN NOTIFIED DR RODRIGES OF THE SITUATION AND OBTAINED AN ORDER TO DISCHARGE PT TO EMERGENCY ROOM. Ysabel RIVERA RN STEPPED INTO ROOM TO UPDATE PT, THAT SHE WOULD BE DISCHARGED TO THE EMERGENCY ROOM TO BE SEEN BY A PHYSICIAN. PT REFUSED TO BE DISCHARGED AND WANTED TO LEAVE HOSPITAL. PT WALKED OUT OF UNIT WITH HER STATED , LORELEI, AT 2218. Original Note: PT PRESENTED TO OB AT 2126 C/O CTX SINCE 1845 THAT WERE 5 MINUTES APART. PT RATED PAIN 9/10 WITH PAIN FROM CTX, WAS IN TEARS AND BREATHING THROUGH PAINS. PT STATED A LOSS OF VAGINAL FLUID AT 1830. WAREHOUSE SHIPPING CLERK WENT THROUGH TRIAGE SHEET WITH PT, PT STATED THIS WAS HER 5TH AND THAT HER OTHER CHILDREN HAD . PT STATED ONE CHILD AT AGE 4 BECAUSE A DOCTOR HAD CUT HER HEART VALVE AND KILLED HER , ONE CHILD HAD WHEN 2 WEEKS OLD FROM HEART COMPLICATIONS AND HAD BEEN A TWIN AND THAT HER OTHER THREE CHILDREN HAD BEEN STILLBIRTHS. PT STATED SHE HAD BEEN SEEING ZOHRA RIVERA, AN FISH SALTER, IN [place] FOR CARE. PT STATED SHE WAS DUE 01/03/20, MAKING HER 39 WEEKS AND 4 DAYS GESTATIONAL AGE. WAREHOUSE SHIPPING CLERK ASSISTED PT TO SCALE TO OBTAIN STANDING WEIGHT, THEN ASSISTED HER TO LDR 3. WAREHOUSE SHIPPING CLERK INSTRUCTED PT TO REMOVED CLOTHING, PUT ON BELLY BAND AND GOWN, AND TO LEAVE URINE SAMPLE. PT COMPLIED. WHILE PT WAS CHANGING WAREHOUSE SHIPPING CLERK TRIED LOCATING RECORDS BUT NONE WERE
--- NOTE | 2019-12-31 22:56 | PC.NURSE ---
Gwendolyn Harris, RN asked this nurse to come and evaluate this patient for heart tones and bedside anatomy ultrasound scan. This nurse did not see any sign of a fetus on bedside ultrasound, nor could a heartbeat be detected. Dr. Mosher was called by this nurse and explained that we do not have records on patient and cannot find a heartbeat or signs of fetus on bedside ultrasound. Dr. Mosher stated to send patient to ER for appropriate testing and dating of .
== END 2019-12-31 22:18 | disposition home or self-care (01) ==
LOC: OPOB 21:32 → OBGYN 21:34
PROVIDERS: PCP Family Medicine; Visit Provider Obstetrics & Gynecology
DX: O26.899 Other specified pregnancy related conditions, unspecified trimester (principal); Z3A.00 Weeks of gestation of pregnancy not specified; R10.9 Unspecified abdominal pain
CPT/HCPCS: 99211

== ENCOUNTER → 2020-03-10 16:03 | Outpatient (BNVA) | payer MEDICAID, SELFPAY | PROVIDERS: Absent Provider Family Medicine; PCP Family Medicine; Visit Provider Nurse Practitioner Family | DX: R10.9 Unspecified abdominal pain (principal); R21 Rash and other nonspecific skin eruption | CPT/HCPCS: 80053; 83690; 85025; 85651; 86038; 86140; 86431 ==

== ENCOUNTER 2020-04-01 08:51 | Outpatient (CLI) | payer MEDICAID, SELFPAY ==
--- NOTE | 2020-04-01 09:25 | US_ITS ---
WS: [id number] ULTRASOUND PELVIS TECHNIQUE: Transabdominal. CLINICAL INFORMATION: R10.84 - Generalized abdominal pain : No. COMPARISON: None. FINDINGS: Uterus not visualized presumably due to prior hysterectomy. Cystic pelvic lesion measuring 7.8 x 7.2 x 7.6 CM. Adnexa: Neither ovary is visualized. Free fluid: None. Other findings: None. US/US pelvic complete* [id number] IMPRESSION: 1. Prior hysterectomy. 2. Midline cystic pelvic lesion measuring 7.8 x 7.2 x 7.6 cm. This has a relat ively simple appearance and may be related to prior hysterectomy with postopera tive cyst or seroma. This can be further evaluated with contrast-enhanced CT ab domen pelvis for better anatomic detail. 3. Neither ovary is visualized.
== END 2020-04-01 08:52 | disposition home or self-care (01) ==
PROVIDERS: PCP Family Medicine; Visit Provider Nurse Practitioner Family
DX: R10.84 Generalized abdominal pain (principal); R63.4 Abnormal weight loss; Z90.710 Acquired absence of both cervix and uterus
CPT/HCPCS: 76856

== ENCOUNTER 2020-04-16 08:02 | Outpatient (CLI) | payer MEDICAID, SELFPAY ==
--- NOTE | 2020-04-16 08:45 | US_ITS ---
WS: [id number] ULTRASOUND ABDOMEN CLINICAL INFORMATION: R10.84 - Generalized abdominal pain COMPARISON: None. FINDINGS: Liver Size: Normal. Craniocaudal length: 16.4 cm. Echogenicity: Normal. Surface nodularity: None. Mass (size and location): None. Normal portal veins. Bile ducts Intrahepatic ducts: Normal. Common bile duct diameter: 0.4 cm. Gallbladder Extensive shadowing cholelithiasis. Gallstones: Present Gallbladder sludge: None. Gallbladder wall thickening: None. Pericholecystic fluid: None. Sonographic Corley sign: Absent. Pancreas Normal as visualized. Tail not well visualized. Spleen Small splenule Splenomegaly: Mild Craniocaudal length: 12.9 cm. Right kidney: Normal. Hydronephrosis: None. Size: 10.6 cm x 3.6 cm x 4.4 cm Left kidney: Normal. Hydronephrosis: None. Size: 11.3 cm x 4.7 cm x 3.4 cm. Abdominal aorta and IVC Visualized portions are normal. Ascites: None. US/US abdomen complete* [id number] IMPRESSION: 1. Mild hepatomegaly and mild splenomegaly. No intrahepatic biliary duct dilat ation. 2. No hydronephrosis in either kidney. 3. Cholelithiasis. Normal common bile duct. No gallbladder wall edema or peric holecystic fluid.
== END 2020-04-16 08:03 | disposition home or self-care (01) ==
LOC: US 08:05
PROVIDERS: PCP Nurse Practitioner Family; Visit Provider Nurse Practitioner Family
DX: R10.84 Generalized abdominal pain (principal); R16.0 Hepatomegaly, not elsewhere classified; K80.20 Calculus of gallbladder without cholecystitis without obstruction
CPT/HCPCS: 76700

== ENCOUNTER 2020-05-26 03:26 | Emergency (ER) | payer MEDICAID, SELFPAY ==
[2020-05-26 03:27] VITALS: BP 166/106; PULSE 82; RESP 18; TEMP 36.8; O2SAT 99; BMI 21.4
--- NOTE | 2020-05-26 03:37 | ED_ITS ---
HPI - Abdominal Pain General: Chief Complaint: Abdominal Pain Stated Complaint: HEADACHE/ANXIETY Time Seen by Provider: 05/26/20 03:34 Source: patient Mode of arrival: EMS Limitations: no limitations and altered mental status History of Present Illness: HPI narrative: 34-year-old female with history of anxiety, schizoaffective disorder, complaining of lower abdominal pain, head ache, and anxiety attack. She is unable to give an accurate timeline of events or a meaningful HPI due to disorganized and tangential thought process. She does say that she is supposed to be scheduled to get a CT scan some point, is not sure if she has an appointment or not. She has been having pain for 6 months. MD elicited complaint: abdominal pain Pertinent past history: none Associated Symptoms: Reports diarrhea and nausea Review of Systems General: Reports: 10 or more systems reviewed and unremarkable except in HPI and below and ROS unobtainable due to mental status GI: Reports: abdominal pain, nausea and diarrhea PFS ED PFSH: Medical History (Updated 05/26/20 @ 05:57 by Aimee Radford MD) Schizoaffective disorder, bipolar type Scoliosis Surgical History H/O tubal ligation History of foot surgery Family History Other Cancer Social History Smoking and tobacco status: current every day smoker cigarettes Packs smoked per day: 0.25 Years cigarettes smoked: 20 Second hand smoke exposure: Yes Alcohol intake: former Caregiver/support person: Yes Lives independently: Yes Household members: significant other Marital status: service: No Current occupational status: disabled History of recent travel: No Current gender identity: Female Special matt needs: Yes Agree to transfusion: No Physical Exam Const: COMMON NORMALS: patient oriented x3 GENERAL APPEARANCE: anxious and disheveled ORIENTATION/CONSCIOUSNESS: Yes awake and Yes oriented to person HENMT: COMMON NORMALS: normocephalic and atraumatic HEAD & SCALP: normal to inspection, normocephalic and atraumatic FACE & SINUS: normal facial exam and face symmetric Eye: COMMON NORMALS: Equal, round and reactive pupils present, EOMs intact bilaterally, conjunctivae normal and no scleral icterus CONJUNCTIVA: Yes conjunctivae normal PUPIL: Yes Equal, round and reactive pupils present Neck/C-Spine: COMMON NORMALS: no JVD Chest: COMMONS NORMALS: normal inspection of the chest and normal palpation of entire chest wall Resp: COMMON NORMALS: normal respiratory effort and No use of accessory muscles EFFORT & INSPECTION: Yes able to speak in complete sentences, No tachypneic and No respiratory distress Cardio: COMMON NORMALS: no JVD, regular rate, regular rhythm, S1 normal heart sound present and S2 normal heart sound present RATE: regular rate RHYTHM: regular rhythm HEART SOUNDS: S1 normal heart sound present and S2 normal heart sound present GI: COMMON NORMALS: Normal to inspection, nondistended, normoactive bowel sounds present and Soft to palpation INSPECTION: No abdominal distension PALPATION: Yes Soft to palpation and Yes Tenderness to palpation present (GI) (Lower abdominal, mild) Extremity: COMMON NORMALS: normal to inspection, full ROM and capillary refill normal Neuro: COMMON NORMALS: patient oriented x3 SENSORIUM/ORIENTATION: Yes oriented to person Psych: ATTITUDE: Yes bizarre ACTIVITY/MOTOR BEHAVIOR: Yes fidgeting, Yes hyperactivity, Yes disorganized behavior and Yes restless SPEECH: Yes excessive MOOD & AFFECT: Yes anxious THOUGHT PROCESS: disorganized, Perseverating thought process present and Tangential thought process present THOUGHT CONTENT: Yes Normal thought content present ATTENTION/CONCENTRATION: Yes attention grossly intact MEMORY/COGNITION: Yes memory grossly intact INSIGHT: Fair insight present (Psych) JUDGEMENT: Fair judgement present (Psych) Skin: COMMON NORMALS: no rashes or lesions noted, no wounds and turgor normal GENERAL SKIN EXAM: no rashes or lesions noted and turgor normal Course Vital Signs: Vital signs: Vital Signs Temperature 98.2 F 05/26/20 03:27 Pulse Rate 73 05/26/20 04:42 Respiratory Rate 18 05/26/20 04:42 Blood Pressure 141/86 05/26/20 04:42 Pulse Oximetry 98 05/26/20 04:42 MDM - Abdominal Pain MDM Narrative: Medical decision making narrative: 34-year-old female with lower abdominal pain, headache, anxiety. Underlying schizoaffective disorder. Review of her records show that she had a pelvic ultrasound 04/01/2020; a cystic pelvic lesion measuring 7.8 x 7.2 x 7.6 was noted-possibly postoperative. Ultrasound abdomen was done April 16, 2020, there was cholelithiasis without any signs of cholecystitis. Baseline labs today are unremarkable. Vital signs are stable, she is in no acute distress. CT abdomen pelvis; cystitis, cholelithiasis without acute cholecystitis, pelvic cyst- appears stable, keflex and levsin for uti/cystitis, norco for HARP Followup with specialist in [place] as scheduled. Differential Diagnosis: Differential diagnosis abdominal pain: Likely abdominal pain, acute appendicitis, calculus of kidney, constipation, diverticulitis, endometriosis, gastroenteritis, pancreatitis and small bowel obstruction Medical Records: Attestation: I reviewed the patient's medical records. Lab Data: Attestation: I reviewed the patient's lab results. Labs: Lab Results 05/26/20 05/26/20 05/26/20 Range/Units 03:31 03:31 04:05 WBC 8.8 (4.0-10.0) 10^3/ uL RBC 4.50 (4.1-5.3) 10^6/u L Hgb 14.5 (11.5-15.3) g/dL Hct 43.3 (37.0-47.0) % MCV 96.2 (81-99) fL MCH 32.2 (28.0-34.0) pg MCHC 33.5 (30.0-36.0) g/dL RDW 12.5 (12.1-15.1) % Plt Count 164 (130-400) 10^3/c mm MPV 11.8 H (7.4-10.4) fL Neut % (Auto) 65.1 % Lymph % (Auto) 25.3 % [place] % (Auto) 8.1 % Eos % (Auto) 0.8 % Baso % (Auto) 0.5 % Neut # (Auto) 5.73 (1.8-7.7) 10^3/u L Lymph # (Auto) 2.2 (0.8-4.8) 10^3/u L [place] # (Auto) 0.7 (0.2-0.9) 10^3/u L Eos # (Auto) 0.1 (0.0-0.8) 10^3/u L Baso # (Auto) 0.0 (0.0-0.1) 10^3/u L Nucleated RBC % (a uto) 0 % Nucleated RBCs # 0.0 /100WBC Sodium 142 (136-145) mmol/L Potassium 3.4 L (3.5-5.1) mmol/L Chloride 105 (98-107) mmol/L Carbon Dioxide 27 (22-29) mmol/L Anion Gap 13.4 (5-19) BUN 8 (6-20) mg/dL Creatinine 0.4 L (0.5-0.9) mg/dL GFR Calculation 181.6 H (90-130) mL/min Glucose 115 (65-115) mg/dL Calculated Osmolal ity 293 (285-295) mOsm/k g Calcium 8.8 (8.5-10.5) mg/dL Total Bilirubin 0.3 (0.15-1.2) mg/dL AST 39 H (0-32) U/L ALT 23 (0-33) U/L Alkaline Phosphata se 74 (35-105) IU/L Total Protein 6.2 L (6.6-8.7) g/dL Albumin 4.2 (3.5-5.2) g/dL Globulin 2.0 (1.3-4.6) g/dL Lipase 10 L (13-60) U/L Urine Color (Yellow) Urine Appearance (CLEAR) Urine pH (5-7) Ur Specific Gravit y (1.005-1.030) Urine Protein (Negative) Urine Glucose (UA) (Normal) Urine Ketones (Negative) Urine Blood (Negative) Urine Nitrate (Negative) Urine Bilirubin (Negative) Urine Urobilinogen (Negative) mg/dL Ur Leukocyte Tara ase (Negative) Urine RBC (0-2) /hpf Urine WBC (0-5) /hpf Ur Squamous Epith Cells (0-5) /hpf Amorphous Sediment Urine Bacteria (NONE) /hpf Urine Mucus /hpf Urine Opiates Scre en Positive H (Negative) ng/mL Ur Barbiturates Sc reen Negative (Negative) ng/mL Ur Phencyclidine S crn Negative (Negative) ng/mL Ur Amphetamines Sc reen Negative (Negative) ng/mL U Benzodiazepines Scrn Negative (Negative) ng/mL Urine Cocaine Scre en Negative (Negative) ng/mL U Marijuana (THC) Screen Negative (Negative) ng/mL 05/26/20 Range/Units 04:05 WBC (4.0-10.0) 10^3/ uL RBC (4.1-5.3) 10^6/u L Hgb (11.5-15.3) g/dL Hct (37.0-47.0) % MCV (81-99) fL MCH (28.0-34.0) pg MCHC (30.0-36.0) g/dL RDW (12.1-15.1) % Plt Count (130-400) 10^3/c mm MPV (7.4-10.4) fL Neut % (Auto) % Lymph % (Auto) % [place] % (Auto) % Eos % (Auto) % Baso % (Auto) % Neut # (Auto) (1.8-7.7) 10^3/u L Lymph # (Auto) (0.8-4.8) 10^3/u L [place] # (Auto) (0.2-0.9) 10^3/u L Eos # (Auto) (0.0-0.8) 10^3/u L Baso # (Auto) (0.0-0.1) 10^3/u L Nucleated RBC % (a uto) % Nucleated RBCs # /100WBC Sodium (136-145) mmol/L Potassium (3.5-5.1) mmol/L Chloride (98-107) mmol/L Carbon Dioxide (22-29) mmol/L Anion Gap (5-19) BUN (6-20) mg/dL Creatinine (0.5-0.9) mg/dL GFR Calculation (90-130) mL/min Glucose (65-115) mg/dL Calculated Osmolal ity (285-295) mOsm/k g Calcium (8.5-10.5) mg/dL Total Bilirubin (0.15-1.2) mg/dL AST (0-32) U/L ALT (0-33) U/L Alkaline Phosphata se (35-105) IU/L Total Protein (6.6-8.7) g/dL Albumin (3.5-5.2) g/dL Globulin (1.3-4.6) g/dL Lipase (13-60) U/L Urine Color Yellow (Yellow) Urine Appearance Clear (CLEAR) Urine pH 5 (5-7) Ur Specific Gravit y 1.020 (1.005-1.030) Urine Protein Neg (Negative) Urine Glucose (UA) Norm (Normal) Urine Ketones 1+ H (Negative) Urine Blood Neg (Negative) Urine Nitrate Negative (Negative) Urine Bilirubin 1+ H (Negative) Urine Urobilinogen 1 H (Negative) mg/dL Ur Leukocyte Tara ase Trace H (Negative) Urine RBC 0-4 H (0-2) /hpf Urine WBC 5-10 H (0-5) /hpf Ur Squamous Epith Cells 0-4 H (0-5) /hpf Amorphous Sediment Not Reportable Urine Bacteria Trace (NONE) /hpf Urine Mucus 2+ /hpf Urine Opiates Scre en (Negative) ng/mL Ur Barbiturates Sc reen (Negative) ng/mL Ur Phencyclidine S crn (Negative) ng/mL Ur Amphetamines Sc reen (Negative) ng/mL U Benzodiazepines Scrn (Negative) ng/mL Urine Cocaine Scre en (Negative) ng/mL U Marijuana (THC) Screen (Negative) ng/mL Discharge Plan Discharge Patient Disposition: Home Clinical Impression: Cystitis, Pelvic cyst Abdominal pain Qualifiers: Abdominal location: lower abdomen, unspecified Qualified Code(s): R10.30 - Lower abdominal pain, unspecified Condition: Stable Prescriptions: New cephalexin 500 mg capsule 500 mg PO BID 5 Days Qty: 10 RF: 0 Levsin 0.125 mg tablet 0.125 mg PO TID PRN (Reason: adominal ayala) Qty: 30 RF: 0 No Action baclofen 20 mg tablet 20 mg PO TID RF: 0 Premarin 0.625 mg tablet 0.625 mg PO DAILY RF: 0 propranolol 20 mg tablet 20 mg PO BID RF: 0 fluticasone propionate [Allergy Relief (fluticasone)] 50 mcg/actuation spray,suspension 2 spray intranasal DAILY RF: 0 nicotine (polacrilex) 4 mg gum 4 mg buccal Q2H RF: 0 sennosides-docusate sodium [Senna Plus] 8.6-50 mg tablet 1 tab-cap PO DAILY PRN (Reason: constipation) Qty: 20 RF: 0 fluoxetine [Prozac] 40 mg capsule 40 mg PO DAILY Qty: 30 RF: 2 ondansetron HCl [Zofran] 4 mg tablet 4 mg PO Q6H PRN (Reason: nausea and vomiting) Qty: 20 RF: 0 gabapentin 100 mg Capsule 100 mg PO TID Qty: 90 RF: 3 trazodone 50 mg Tablet 75 mg PO BEDTIME PRN (Reason: Insomnia) 30 Days Qty: 45 RF: 2 hydrocodone-acetaminophen 10-325 mg tablet See Rx Instructions .ROUTE .COMPLEX RF: 0 hydroxyzine pamoate 25 mg capsule 25 mg PO Q6H PRN (Reason: Anxiety) RF: 0 Discharge Orders: Discharge ED (Routine); Ordered 05/26/20 Ordered By: Aimee Radford Referrals: Estephania Cid FNP [Primary Care Provider] - Discharge Diet: Advance as tolerated Discharge Activity: Resume usual activity Patient Instructions: Urinary Tract Infection in Women (ED), Abdominal Pain (ED) Activity Restrictions/Additional Instructions: Call to schedule follow-up appoint with your primary care doctor in the next 2 to 3 days. Drink plenty of fluids, make sure to finish all of your antibiotics. Return immediately to the ER if you develop fever, worsening pain, nausea or vomiting. Coding Level of Care Code ED Drivability Technician for Indira Campos Exam Comprehensive
[2020-05-26 03:48] LABS: Basophils % 0.5 %; Eosinophils # 0.1 10^3/uL (0.0-0.8); Eosinophils % 0.8 %; Hematocrit 43.3 % (37.0-47.0); Hemoglobin 14.5 g/dL (11.5-15.3); Lymphocytes # 2.2 10^3/uL (0.8-4.8); Lymphocytes % 25.3 %; Mean Corpuscular HGB Conc 33.5 g/dL (30.0-36.0); Mean Corpuscular Hemoglobin 32.2 pg (28.0-34.0); Mean Corpuscular Volume 96.2 fL (81-99); Mean Platelet Volume 11.8 fL (7.4-10.4); Monocytes # 0.7 10^3/uL (0.2-0.9); Monocytes % 8.1 %; Neutrophils # 5.73 10^3/uL (1.8-7.7); Neutrophils % 65.1 %; Nucleated Red Blood Cells % 0 %; Platelet Count 164 10^3/cmm (130-400); Red Cell Distribution Width 12.5 % (12.1-15.1); White Blood Count 8.8 10^3/uL (4.0-10.0)
[2020-05-26 03:58] LABS: Alanine Aminotransferase 23 U/L (0-33); Albumin Level 4.2 g/dL (3.5-5.2); Alkaline Phosphatase 74 IU/L (35-105); Anion Gap 13.4 (5-19); Aspartate Amino Transferase 39 U/L (0-32); Blood Urea Nitrogen 8 mg/dL (6-20); Calcium 8.8 mg/dL (8.5-10.5); Carbon Dioxide 27 mmol/L (22-29); Chloride 105 mmol/L (98-107); Glomerular Filtration Rate 181.6 mL/min (90-130); Glucose 115 mg/dL (65-115); Lipase 10 U/L (13-60); Osmolality Calculated 293 mOsm/kg (285-295); Potassium 3.4 mmol/L (3.5-5.1); Sodium 142 mmol/L (136-145); Total Bilirubin 0.3 mg/dL (0.15-1.2); Total Protein 6.2 g/dL (6.6-8.7)
[2020-05-26 04:03] VITALS: BP 160/89; PULSE 79; RESP 18; O2SAT 99
[2020-05-26 04:21] LABS: Add Urine Microscopic? YES; Bilirubin Urine 1+ (Negative); Blood Urine Neg (Negative); Glucose Urine UA Norm (Normal); Ketones Urine 1+ (Negative); Leukocyte Esterase Urine Trace (Negative); Nitrate Urine Negative (Negative); Protein Urine Neg (Negative); Urine Appearance Clear (CLEAR); Urine Color Yellow (Yellow); Urobilinogen Urine 1 mg/dL (Negative); pH Urine 5 (5-7)
[2020-05-26 04:22] LABS: Bacteria Urine TRACE /hpf; Mucus Urine 2+ /hpf; RBC Urine 0-4 /hpf (0-2); Squamous Epithelial Cell Urine 0-4 /hpf (0-5)
[2020-05-26 04:23] LABS: Add Urine Culture? No
[2020-05-26 04:26] LABS: Amphetamines Screen Urine Negative (Negative); Barbiturates Screen Urine Negative (Negative); Benzodiazepines Screen Urine Negative (Negative); Cocaine Screen Urine Negative (Negative); Opiate Screen Urine Positive (Negative); PCP Screen Urine Negative (Negative); THC Screen Urine Negative (Negative)
[2020-05-26 04:42] VITALS: BP 141/86; PULSE 73; RESP 18; O2SAT 98
--- NOTE | 2020-05-26 04:57 | CTR_ITS ---
PROCEDURE INFORMATION: Exam: CT Abdomen And Pelvis With Contrast Exam date and time: 05/26/2020 4:59 AM Age: 34 years old Clinical indication: Abdominal pain; Prior surgery; Surgery type: Hysterectomy; Patient HX: Ruq pain; Additional info: Abd pain, HX of pelvic mass TECHNIQUE: Imaging protocol: Computed tomography of the abdomen and pelvis with contrast. Radiation optimization: All CT scans at this facility use at least one of these dose optimization techniques: automated exposure control; mA and/or kV adjustment per patient size (includes targeted exams where dose is matched to clinical indication); or iterative reconstruction. Contrast material: OMNI 300; Contrast volume: 75 ml; Contrast route: INTRAVENOUS (IV); COMPARISON: CT abdomen pelvis w con* [id number] 02/13/2017 10:12 AM RADIATION DOSE METRICS: Total DLP (mGy-cm): 733.3 FINDINGS: Lungs: The lung bases are clear. No effusion Liver: Normal. No mass. Gallbladder and bile ducts: There is cholelithiasis without wall thickening or pericholecystic fluid. Pancreas: Normal. No ductal dilation. Spleen: Normal. No splenomegaly. Adrenal glands: Normal. No mass. Kidneys and ureters: Normal. No hydronephrosis. Stomach and bowel: Unremarkable. No obstruction. No mucosal thickening. Appendix: No evidence of appendicitis. Intraperitoneal space: Unremarkable. No free air. No significant fluid collection. Vasculature: Unremarkable. No abdominal aortic aneurysm. Lymph nodes: Unremarkable. No enlarged lymph nodes. Urinary bladder: There is urinary bladder wall thickening with pericystic fat stranding. It Reproductive: 6.7 x 7.4 x 5.1 cm left adnexal cyst. Two right adnexal cysts, largest is 2.5 cm. Bones/joints: Unremarkable. No acute fracture. Soft tissues: Unremarkable. CT/CT abdomen pelvis w con* [id number] IMPRESSION: 1. Findings concerning for acute cystitis. 2. Cholelithiasis without cholecystitis. 6.7 x 7.4 x 5.1 cm simple left adnexal cyst. Ultrasound follow-up in 6-12 months is recommended. Reference: Eric) References: Eric et al. Management of Incidental Adnexal Findings on CT and MRI: A White Paper of the ACR Incidental Findings Committee, J Am Keena Radiol. 2019;17(2):248-254. Radiation Dose CTDIVOL = (mGy): DLP = 733.3 (mGy-cm)
[2020-05-26] MEDS: iohexol 300 mg/mL 100 mL Btl IV (05:24)
--- NOTE | 2020-05-26 06:09 | PC.NURSE ---
Patient refusing medication and discharge paperwork. Pt asking to leave AMA even though DC paperwork is printed and ready for patient to sign. Now patient refusing to leave ER room 14. Security notified.
[2020-05-26] MEDS: HYDROcodone-acetaminophen 5-325 mg Tablet 1 TAB PO (06:25)
[2020-05-26] MEDS: hyoscyamine ODT 0.125 mg Tablet 0.25 MG PO (06:25)
[2020-05-26] MEDS: cephALEXin 500 mg Capsule PO (06:26)
== END 2020-05-26 06:30 | disposition home or self-care (01) ==
PROVIDERS: Emergency Provider Family Medicine; PCP Nurse Practitioner Family
DX: N94.89 Other specified conditions associated with female genital organs and menstrual cycle (principal); N30.90 Cystitis, unspecified without hematuria; F17.210 Nicotine dependence, cigarettes, uncomplicated
CPT/HCPCS: 74177; 80053; 80306; 81001; 83690; 85025; 99284; Q9967

== ENCOUNTER 2020-06-14 15:32 | Outpatient (CLI) | payer MEDICAID, SELFPAY ==
--- NOTE | 2020-06-14 15:42 | MR_ITS ---
WS: [id number] MRI HEAD WITHOUT CONTRAST TECHNIQUE: Sagittal T1, T2 axial, T2 axial FLAIR, axial and coronal T1 images, axial susceptibility w eighted imaging, axial diffusion weighted images, and coronal T2 images were obtained. CLINICAL INFORMATION: SEIZURE-LIKE ACTIVITY, CHRONIC HEADACHES COMPARISON: CT November 16, 2019 FINDINGS: No evidence of restricted diffusion to suggest acute ischemia. Ventricular system and basal cisterns are patent. No suspicious intracranial signal abnormalities. Moderate parenchymal volume loss. This i s somewhat advanced for patient this age. Normal posterior fossa. Normal vascular flow voids at the s kull base. No extra axial fluid collections. No evidence of mass or mass effect. Paranasal sinuses and mastoid air cells are well aerated. No hemo siderin on susceptibly weighted images. Normal optic chiasm and pituitary infundibulum. Mild to moder ate symmetric atrophy temporal lobes and hippocampal formations. No signal abnormalities in the mesia l temporal lobes. MR/MR head wo con* [id number] IMPRESSION: 1. No evidence of restricted diffusion to suggest acute ischemia. 2. Moderate parenchymal volume loss somewhat advanced for patient this age. 3. Mild to moderate symmetric atrophy temporal lobes and hippocampal formation s. No signal abnormalities in the mesial temporal lobes. 4. No suspicious intracranial signal abnormalities. 5. No hemosiderin on susceptibly weighted images. 6. Normal posterior fossa and brainstem.
== END 2020-06-14 15:33 | disposition home or self-care (01) ==
PROVIDERS: PCP Nurse Practitioner Family; Visit Provider Nurse Practitioner Family
DX: R51.9 Headache, unspecified (principal); R56.9 Unspecified convulsions; G31.9 Degenerative disease of nervous system, unspecified
CPT/HCPCS: 70551

== ENCOUNTER → 2020-10-20 11:20 | Outpatient (BNVA) | payer MEDICAID, SELFPAY | PROVIDERS: PCP Nurse Practitioner Family; Visit Provider Registered Nurse | DX: F32.9 Major depressive disorder, single episode, unspecified (principal); G62.9 Polyneuropathy, unspecified; R63.4 Abnormal weight loss | CPT/HCPCS: 84443 ==

== ENCOUNTER 2020-11-11 17:29 | Inpatient (IN) | payer MEDICAID, SELFPAY ==
[2020-11-11 17:33] VITALS: BP 107/76; PULSE 82; RESP 18; TEMP 36.9; O2SAT 98; BMI 19.8
--- NOTE | 2020-11-11 17:43 | PC.NURSE ---
pt has been so [id number] on providing her history. pt states that she overdosed last night because she was depressed and missing her mother but then when asked suicide screening questions she denies all. Pt still placed with 1 to 1 sitter until ER physician gives orders.
[2020-11-11 18:00] VITALS: BP 120/68; PULSE 85; RESP 18; O2SAT 99
--- NOTE | 2020-11-11 18:25 | ECG_ITS ---
[facility] Test Date: 2020-11-11 Pat Name: Meredith Pressley Department: Room: Gender: Female Desktop Publisher: : 1985 Requested By: Yael Rehman Order Number: [id number] Hodges MD: Emanuel Michele M.D. Measurements Intervals [place] Rate: 74 P: 59 NH: 147 QRS: 42 QRSD: 72 T: 19 QT: 371 QTc: 412 Interpretive Statements SINUS RHYTHM Compared to ECG 11/16/2019 21:21:17 Sinus bradycardia no longer present Myocardial infarct finding no longer present Electronically Signed On 11-11-2020 20:03:51 CDT by Emanuel Michele M.D. [id number]
--- NOTE | 2020-11-11 18:51 | ED_ITS ---
HPI - General Adult General: Chief complaint: Overdose Stated complaint: overdose Time Seen by Provider: 11/11/20 17:35 History of Present Illness: HPI narrative: HPI: [35]yo patient w/ hx of depression presenting to the emergency room for concerns of baclofen injection. Patient tells me that yesterday night around 11 PM, she took 15 tablets of 20 mg of baclofen. Shortly after, patient induced vomiting and threw up the pills. Patient says that she was feeling sad about her mother and took the medicine. On arrival, the patient is AAOx3 and cooperative with my evaluation. No focal complaints of chest pain, shortness of breath, palpitations, N/V, focal GI/ complaints. Currently denies SI/HI. No complaints of hallucinations. Onset: chronic Duration: ongoing Location: home Severity: severe Review of Systems Narrative: Constitutional: No fever, no chills. HEENT: No vision changes CV: No chest pain, no palpitations PULM: No productive cough, no dyspnea. GI: No abdominal pain, no N/V/D. : No dysuria MSKEL: No muscle pain SKIN: No new rashes, no lesions. NEURO: No headache, no focal weakness. HEME: No visible bruises PSYCH: Normal mood PFSH ED PFSH: Medical History (Updated 11/11/20 @ 19:52 by Yael Rehman MD) Schizoaffective disorder, bipolar type Scoliosis Seizure disorder Surgical History H/O tubal ligation History of foot surgery Family History Other CAD (coronary artery disease) Cancer Hypertension Denies family history of Diabetes Stroke Social History Smoking and tobacco status: current every day smoker cigarettes Packs smoked per day: 0.25 Years cigarettes smoked: 20 Second hand smoke exposure: Yes Alcohol intake: former Caregiver/support person: Yes Lives independently: Yes Household members: significant other Marital status: service: No Current occupational status: disabled History of recent travel: No Current gender identity: Female Special matt needs: Yes Agree to transfusion: No Physical Exam Narrative: EXAM NARRATIVE: Head: Atraumatic Eyes: PERRL, conjunctiva without injection, eyes tracking ENT: Mucous membrane moist NECK: Supple without lymphadenopathy LUNGS: LCTAB CV: RRR ABDOMEN: Soft, nontender EXTREMITY: Normal ROM SKIN: No rash or erythema NEURO: Awake and alert. No focal weakness PSYCH: Cooperative mood and affect. Course Vital Signs: Vital signs: Vital Signs Temperature 98.3 F 11/12/20 19:56 Pulse Rate 91 11/12/20 19:56 Respiratory Rate 21 H 11/12/20 19:56 Blood Pressure 122/75 11/12/20 19:56 Pulse Oximetry 99 11/12/20 19:56 MDM - General Adult MDM Narrative: Medical decision making narrative: [35]yo patient w/ hx of depression presenting for concerns of ingestions of 15 tabs of 20mg of baclofen. HDS, exam within normal limit Thoughts are linear and organized, and the patient has no AH/VH, or HI. Clinically the patient displays no overt toxidrome; they are well appearing, with low suspicion for toxic ingestion given history and exam. Symptoms unlikely 2/2 anemia, hypothyroidism, infection, or ICH. Case was discussed with poison center specialist who tells me that given duration of symptoms (almost 24 hrs) and no neurological findings at this time, it is unlikely that patient has true baclofen overdose. Workup: CBC, CMP, Lipase, salicylate/tylenol EKG showing regular sinus rhythm at HT of [74]. Normal axis. No ST elevations/depressions to suggest coronary occlusion. Normal AK, QRS, QT intervals. Lab findings: wnl [7:51] On reassessment, labs and workup wnl. Patient is hemodynamically stable with no acute medical complaints. Around 7:30 PM, patient elects to leave the hospital at this time. Shortly prior to patient leaving the emergency room, Case was discussed with Dr Feliciano from Psychiatry who recommended placing patient under involuntary commitment hold to prevent her from leaving given concerns for baclofen overdose. Disposition: Admission Lab Data: Labs: Lab Results 11/11/20 11/11/20 11/11/20 Range/Units 17:11 17:11 18:25 WBC 10.3 H (4.0-10.0) 10^3/ uL RBC 4.73 (4.1-5.3) 10^6/u L Hgb 15.3 (11.5-15.3) g/dL Hct 45.2 (37.0-47.0) % MCV 95.6 (81-99) fl MCH 32.3 (28.0-34.0) pg MCHC 33.8 (30.0-36.0) g/dL RDW 12.1 (12.1-15.1) % Plt Count 167 (130-400) 10^3/c mm MPV 11.9 H (7.4-10.4) fL Neut % (Auto) 79.2 % Lymph % (Auto) 15.3 % Harrison % (Auto) 4.7 % Eos % (Auto) 0.3 % Baso % (Auto) 0.3 % Neut # (Auto) 8.14 H (1.8-7.7) 10^3/u L Lymph # (Auto) 1.6 (0.8-4.8) 10^3/u L Harrison # (Auto) 0.5 (0.2-0.9) 10^3/u L Eos # (Auto) 0.0 (0.0-0.8) 10^3/u L Baso # (Auto) 0.0 (0.0-0.1) 10^3/u L Nucleated RBC % (a uto) 0 % Nucleated RBCs # 0.0 /100WBC Sodium 140 (136-145) mmol/L Potassium 5.0 (3.5-5.1) mmol/L Chloride 104 (98-107) mmol/L Carbon Dioxide 27 (22-29) mmol/L Anion Gap 14.0 (5-19) BUN 10 (6-20) mg/dL Creatinine 0.4 L (0.5-0.9) mg/dL GFR Calculation 180.6 H (90-130) mL/min Glucose 92 (65-115) mg/dL Specific [place] Calculated Osmolal ity 289 (285-295) mOsm/k g Calcium 9.1 (8.5-10.5) mg/dL Total Bilirubin 0.4 (0.15-1.2) mg/dL AST 18 (0-32) U/L ALT 34 H (0-33) U/L Alkaline Phosphata se 128 H (35-105) IU/L Total Protein 6.6 (6.6-8.7) g/dL Albumin 4.5 (3.5-5.2) g/dL Globulin 2.1 (1.3-4.6) g/dL Lipase 11 L (13-60) U/L Urine pH Urine Oxidant Urine HCG, Qual Negative (Negative) Salicylates < 0.3 L (3-10) mg/dL Urine Opiates Scre en (Negative) ng/mL Urine Opiates Leve l Urine Oxycodone U Methadone Metabo lites Acetaminophen < 5.0 L (10-30) ug/mL Barbiturates Ur Barbiturates Sc reen (Negative) ng/mL Phencyclidine (PCP ) Ur Phencyclidine S crn (Negative) ng/mL Amphetamines Ur Amphetamines Sc reen (Negative) ng/mL Benzodiazepines U Benzodiazepines Scrn (Negative) ng/mL Cocaine Metabolite Urine Cocaine Scre en (Negative) ng/mL U Marijuana (THC) Screen (Negative) ng/mL U Marijuana Metabo lites Abn Spec Valid Oc g Scn Urine Drug Screen Note Ur Drug Screen Com ment 11/11/20 11/11/20 Range/Units 18:25 18:25 WBC (4.0-10.0) 10^3/ uL RBC (4.1-5.3) 10^6/u L Hgb (11.5-15.3) g/dL Hct (37.0-47.0) % MCV (81-99) fl MCH (28.0-34.0) pg MCHC (30.0-36.0) g/dL RDW (12.1-15.1) % Plt Count (130-400) 10^3/c mm MPV (7.4-10.4) fL Neut % (Auto) % Lymph % (Auto) % Harrison % (Auto) % Eos % (Auto) % Baso % (Auto) % Neut # (Auto) (1.8-7.7) 10^3/u L Lymph # (Auto) (0.8-4.8) 10^3/u L Harrison # (Auto) (0.2-0.9) 10^3/u L Eos # (Auto) (0.0-0.8) 10^3/u L Baso # (Auto) (0.0-0.1) 10^3/u L Nucleated RBC % (a uto) % Nucleated RBCs # /100WBC Sodium (136-145) mmol/L Potassium (3.5-5.1) mmol/L Chloride (98-107) mmol/L Carbon Dioxide (22-29) mmol/L Anion Gap (5-19) BUN (6-20) mg/dL Creatinine Cancelled (0.5-0.9) mg/dL GFR Calculation (90-130) mL/min Glucose (65-115) mg/dL Specific [place] Cancelled Calculated Osmolal ity (285-295) mOsm/k g Calcium (8.5-10.5) mg/dL Total Bilirubin (0.15-1.2) mg/dL AST (0-32) U/L ALT (0-33) U/L Alkaline Phosphata se (35-105) IU/L Total Protein (6.6-8.7) g/dL Albumin (3.5-5.2) g/dL Globulin (1.3-4.6) g/dL Lipase (13-60) U/L Urine pH Cancelled Urine Oxidant Cancelled Urine HCG, Qual (Negative) Salicylates (3-10) mg/dL Urine Opiates Scre en Positive H (Negative) ng/mL Urine Opiates Leve l Cancelled Urine Oxycodone Cancelled U Methadone Metabo lites Cancelled Acetaminophen (10-30) ug/mL Barbiturates Cancelled Ur Barbiturates Sc reen Negative (Negative) ng/mL Phencyclidine (PCP ) Cancelled Ur Phencyclidine S crn Negative (Negative) ng/mL Amphetamines Cancelled Ur Amphetamines Sc reen Negative (Negative) ng/mL Benzodiazepines Cancelled U Benzodiazepines Scrn Negative (Negative) ng/mL Cocaine Metabolite Cancelled Urine Cocaine Scre en Negative (Negative) ng/mL U Marijuana (THC) Screen Negative (Negative) ng/mL U Marijuana Met[place] lites Cancelled Abn Spec Valid Oc g Scn Cancelled Urine Drug Screen Note Cancelled Ur Drug Screen Com ment Cancelled Discharge Plan Discharge Patient Disposition: Admitted As Inpatient Admit Provider: Fran Estrada Clinical Impression: Accidental drug ingestion, Suicidal ideations Condition: Stable Coding Level of Care Code ED Library Services Dean for Indira Campos
[2020-11-11 19:02] LABS: Basophils % 0.3 %; Eosinophils % 0.3 %; Hematocrit 45.2 % (37.0-47.0); Hemoglobin 15.3 g/dL (11.5-15.3); Lymphocytes # 1.6 10^3/uL (0.8-4.8); Lymphocytes % 15.3 %; Mean Corpuscular HGB Conc 33.8 g/dL (30.0-36.0); Mean Corpuscular Hemoglobin 32.3 pg (28.0-34.0); Mean Corpuscular Volume 95.6 fl (81-99); Mean Platelet Volume 11.9 fL (7.4-10.4); Monocytes # 0.5 10^3/uL (0.2-0.9); Monocytes % 4.7 %; Neutrophils # 8.14 10^3/uL (1.8-7.7); Neutrophils % 79.2 %; Nucleated Red Blood Cells % 0 %; Platelet Count 167 10^3/cmm (130-400); Red Blood Count 4.73 10^6/uL (4.1-5.3); Red Cell Distribution Width 12.1 % (12.1-15.1); White Blood Count 10.3 10^3/uL (4.0-10.0)
[2020-11-11 19:05] VITALS: BP 116/74; PULSE 71; RESP 18; O2SAT 95
[2020-11-11 19:23] LABS: Alanine Aminotransferase 34 U/L (0-33); Albumin Level 4.5 g/dL (3.5-5.2); Alkaline Phosphatase 128 IU/L (35-105); Aspartate Amino Transferase 18 U/L (0-32); Blood Urea Nitrogen 10 mg/dL (6-20); Calcium 9.1 mg/dL (8.5-10.5); Carbon Dioxide 27 mmol/L (22-29); Chloride 104 mmol/L (98-107); Globulin 2.1 g/dL (1.3-4.6); Glomerular Filtration Rate 180.6 mL/min (90-130); Glucose 92 mg/dL (65-115); Lipase 11 U/L (13-60); Osmolality Calculated 289 mOsm/kg (285-295); Sodium 140 mmol/L (136-145); Total Bilirubin 0.4 mg/dL (0.15-1.2); Total Protein 6.6 g/dL (6.6-8.7)
[2020-11-11 19:24] LABS: Acetaminophen < 5.0 ug/mL (10-30); Salicylate < 0.3 mg/dL (3-10)
[2020-11-11] MEDS: HYDROcodone-acetaminophen 5-325 mg Tablet 1 TAB PO ×2 (20:25→22:34)
[2020-11-11 21:20] VITALS: BP 116/94; PULSE 71; RESP 18; TEMP 36.9; O2SAT 97
[2020-11-11 21:25] LABS: Amphetamines Screen Urine Negative (Negative); Barbiturates Screen Urine Negative (Negative); Benzodiazepines Screen Urine Negative (Negative); Cocaine Screen Urine Negative (Negative); Opiate Screen Urine Positive (Negative); PCP Screen Urine Negative (Negative); THC Screen Urine Negative (Negative)
[2020-11-11] MEDS: acetaminophen 325 mg Tablet 650 MG PO (21:36)
[2020-11-11] MEDS: trazodone 50 mg Tablet PO (21:36)
[2020-11-11] MEDS: nicotine 2 mg Gum BUCCAL ×2 (21:36→23:04)
--- NOTE | 2020-11-11 21:57 | PC.NURSE ---
Throughout ED visit,pt verbally aggressive and using profane language to staff. Pt becoming worse when informed she was being placed in a 96hr hold after ED Dr and Dr Beatty consult. Physician, Security and senior data warehouse architect notified. vo obtained for IM meds otained. restraint bed placed in room. With physician present, pt agreed to following protocols. IM meds not adm per order. Pt transfered to stress unit without further difficulites or complaints
[2020-11-11 22:00] VITALS: BP 116/94; PULSE 71; RESP 18; TEMP 36.9; O2SAT 97
[2020-11-11 22:04] VITALS: BP 116/94; O2SAT 97
[2020-11-11] MEDS: trazodone 100 mg Tablet PO (22:34)
[2020-11-11] MEDS: gabapentin 100 mg Capsule PO (22:56)
[2020-11-11] MEDS: BuSPIRONE 10 mg Tablet 7.5 MG PO (22:56)
[2020-11-12] MEDS: levETIRAcetam 500 mg Tablet PO ×2 (00:26→08:31)
[2020-11-12 06:00] VITALS: BP 116/94; PULSE 71; RESP 18; TEMP 36.9; O2SAT 97
[2020-11-12] MEDS: BuSPIRONE 10 mg Tablet 7.5 MG PO ×2 (08:30→20:40)
[2020-11-12] MEDS: gabapentin 100 mg Capsule PO ×3 (08:31→20:40)
[2020-11-12] MEDS: propranolol 20 mg Tablet PO ×2 (08:31→20:39)
[2020-11-12] MEDS: nicotine 2 mg Gum BUCCAL ×5 (08:32→20:39)
[2020-11-12] MEDS: fluoxetine 20 mg Capsule 40 MG PO (08:32)
[2020-11-12] MEDS: HYDROcodone-acetaminophen 10-325 mg Tablet PO ×4 (08:35→20:40)
--- NOTE | 2020-11-12 08:36 | PC.NURSE ---
refused scheduled nasal spray
[2020-11-12 14:00] VITALS: RESP 16; TEMP 36.9
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
--- NOTE | 2020-11-12 18:12 | PC.RESP ---
SMOKING CESSATION INFORMATION SENT TO PATIENT.
[2020-11-12 19:56] VITALS: BP 122/75; PULSE 91; RESP 21; TEMP 36.8; O2SAT 99
[2020-11-12] MEDS: trazodone 150 mg Tablet PO (20:39)
[2020-11-13] MEDS: HYDROcodone-acetaminophen 10-325 mg Tablet PO ×4 (04:38→20:55)
[2020-11-13] MEDS: fluoxetine 20 mg Capsule 40 MG PO (09:02)
[2020-11-13] MEDS: gabapentin 100 mg Capsule PO ×4 (09:03→20:55)
[2020-11-13] MEDS: BuSPIRONE 10 mg Tablet 7.5 MG PO ×2 (09:04→20:56)
[2020-11-13] MEDS: propranolol 20 mg Tablet PO ×2 (09:05→20:55)
[2020-11-13] MEDS: nicotine 2 mg Gum BUCCAL ×5 (09:18→20:57)
[2020-11-13 13:41] VITALS: BP 99/67; PULSE 81; RESP 14; TEMP 37
--- NOTE | 2020-11-13 13:42 | PC.NURSE ---
PATIENTS OXYGEN LEVEL WOULD NOT READ DUE TO FINGER NAILS BEING TO LONG, PATIENT STATES IM NOT BITING THEM AND IM NOT CUTTING THEM . WILL CONTINUE TO MONITOR.
--- NOTE | 2020-11-13 16:41 | P.PN_ITS ---
Subjective NPU Subjective: Interval history: Patient is in today reporting that she feels better. She tried to downplay her behavior leading to the hospitalization once again decreasing the amount of pills he supposedly took. And then trying to disregard the purpose of taking pills. We discussed the importance of her being honest and transparent with herself about behaviors he has been expressing. We discussed speaking with her prior to considering discharge. Mental Status Exam MSE Comments: This is a thin, underweight white female, in hospital scrubs with limited grooming, and eye contact. No abnormal movements except for psychomotor retardation. Cooperative with exam in no acute distress. Speech was more normal rate and volume. Mood described as okay; affect slightly subdued. T hought process, organized. Thought content: patient denied any suicidal or homicidal ideation, there were no delusions reported or noted, she denied any auditory or visual hallucinations. Attention and concentration appear intact and memory appears somewhat unreliable probably intentionally as she desires to be discharged but none were formally tested. She is alert and oriented times three. Insight and judgment are limited and impulse control is limited. Vitals/I&O/Wt Last Vital Signs Temp 98.6 F 11/13/20 13:41 Pulse 81 11/13/20 13:41 Resp 14 11/13/20 13:41 BP 99/67 11/13/20 13:41 Pulse Ox 99 11/12/20 19:56 Weight last 48 hrs Weight 49.895 kg Data NPU : 11/11/20 17:11 11/11/20 17:11 A&P Additional A&P Information (1) Accidental drug ingestion: (2) Suicidal ideations: (3) Seizure disorder: (4) Idiopathic peripheral neuropathy: (5) Anxiety with depression: (6) Insomnia disorder: (7) Weight loss, non-intentional: (8) Schizoaffective disorder, bipolar type: (9) Combative behavior: (10) Abdominal pain: (11) Rosacea: (12) Nausea and vomiting: (13) Rash: (14) Constipation: (15) Nicotine dependence, cigarettes, with unspecified nicotine-induced disorders: This is a 35-year-old white female known to this creative services writer from previous hospitalizations with a history of trauma, psychosis and poor independent functioning presents on the 96-hour hold after a possible intentional ingestion. 1. Continue current medication. We will explore whether restarting previous successful medications will be indicated. 2. Continue every 15 minute checks for safety. 3. Encourage individual, group and milieu therapies. 4. Will evaluate for safety for discharge against 96-hour hold affidavits. 5. Get collateral information from robert? or other significant others to get a sense of what her safety profile and motivations are. Involuntary Hold Information 96 Hour Hold: 96 Hour Involuntary Admission: Yes 96 Hour Hold Ending Date: 11/17/20 96 Hour Hold Ending Time: 19:46 Attestations NPU Medical Necessity Statement*: Inpatient hospitalization is medically necessary and the clinically appropriate intervention at this time. We will monitor medications and make changes as indicated. Likely length of stay 1-3 days. Coding Level of Care Code Acute Undercollar Baster for Indira Campos
[2020-11-13] MEDS: trazodone 150 mg Tablet PO (20:56)
[2020-11-13] MEDS: levETIRAcetam 500 mg Tablet PO (20:57)
--- NOTE | 2020-11-13 21:00 | PC.NURSE ---
pt requested sleep med, trazodone 150mg po given.
[2020-11-13 21:18] VITALS: BP 138/89; PULSE 82; RESP 15; TEMP 36.7; O2SAT 95
--- NOTE | 2020-11-13 22:00 | PC.NURSE ---
pt in room resting quietly
[2020-11-14] MEDS: nicotine 2 mg Gum BUCCAL ×4 (00:16→09:52)
[2020-11-14] MEDS: HYDROcodone-acetaminophen 10-325 mg Tablet PO ×2 (05:13→10:15)
[2020-11-14 06:00] VITALS: BP 94/65; PULSE 92; RESP 18; TEMP 37.1; O2SAT 92; BMI 20.1
[2020-11-14] MEDS: propranolol 20 mg Tablet PO (09:52)
[2020-11-14] MEDS: fluoxetine 20 mg Capsule 40 MG PO (09:52)
[2020-11-14] MEDS: gabapentin 100 mg Capsule PO (09:52)
[2020-11-14] MEDS: levETIRAcetam 500 mg Tablet PO (09:53)
[2020-11-14] MEDS: BuSPIRONE 10 mg Tablet 7.5 MG PO (09:53)
[2020-11-14] MEDS: fluticasone nasal spray 16gm Btl 2 SPRAY INTRANASAL (10:02)
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
[2020-11-14 12:45] VITALS: BP 94/65; PULSE 92; RESP 18; TEMP 37.1; O2SAT 92
== END 2020-11-14 13:44 | disposition home or self-care (01) | DRG 918 ==
LOC: ER 18:54 → NP 20:45
PROVIDERS: Admitting Provider Psychiatry & Neurology Psychiatry; Emergency Provider Emergency Medicine; PCP Nurse Practitioner Family; Visit Provider Psychiatry & Neurology Psychiatry
DX: T50.991A Poisoning by other drugs, medicaments and biological substances, accidental (unintentional), initial encounter (principal); F25.0 Schizoaffective disorder, bipolar type; F17.210 Nicotine dependence, cigarettes, uncomplicated; G60.9 Hereditary and idiopathic neuropathy, unspecified; Z79.891 Long term (current) use of opiate analgesic; F41.8 Other specified anxiety disorders; F51.04 Psychophysiologic insomnia; R10.30 Lower abdominal pain, unspecified; L71.9 Rosacea, unspecified; K59.00 Constipation, unspecified
CPT/HCPCS: 80053; 80306; 80307; 81025; 83690; 85025; 93005

== ENCOUNTER → 2021-06-13 11:45 | Outpatient (BNVA) | payer MEDICAID, SELFPAY | PROVIDERS: PCP Family Medicine; Visit Provider Family Medicine | DX: K80.20 Calculus of gallbladder without cholecystitis without obstruction (principal); R10.11 Right upper quadrant pain; R11.2 Nausea with vomiting, unspecified; R63.4 Abnormal weight loss; Z11.4 Encounter for screening for human immunodeficiency virus [HIV]; Z11.59 Encounter for screening for other viral diseases; Z91.89 Other specified personal risk factors, not elsewhere classified | CPT/HCPCS: 80053; 80061; 84439; 84443; 85025; 86803; 87806 ==

== ENCOUNTER 2021-07-21 10:55 | Outpatient (CLI) | payer MEDICAID, SELFPAY ==
--- NOTE | 2021-07-21 11:15 | US_ITS ---
WS: [id number] ULTRASOUND ABDOMEN LIMITED CLINICAL INFORMATION: History of gallstones, worsening symptoms. COMPARISON: CT May 26, 2020 FINDINGS: Liver Size: Normal. Craniocaudal length: 15.7 cm. Echogenicity: Normal. Surface nodularity: None. Mass (size and location): None. Bile ducts Intrahepatic ducts: Normal. Common bile duct diameter: 0.8 cm. Gallbladder Shadowing cholelithiasis. Gallstones: Present Gallbladder sludge: None. Gallbladder wall thickening: None. Pericholecystic fluid: None. Sonographic Corley sign: Absent. Pancreas Normal as visualized. Right kidney: Normal. Hydronephrosis: None. Size: 11.4 cm x 4.4 cm x 3.6 cm. Abdominal aorta and IVC Visualized portions are normal. Ascites: None. US/US abdomen limited 65138 IMPRESSION: 1. Normal liver. 2. Shadowing cholelithiasis. No gallbladder wall thickening or pericholecystic fluid. 3. Common bile duct dilated measuring 8 mm. Recommend further evaluation with MRCP to exclude choledocholithiasis. 4. No hydronephrosis in RIGHT kidney. 5. No other significant findings.
== END 2021-07-21 10:56 | disposition home or self-care (01) ==
LOC: RAD 10:57
PROVIDERS: PCP Family Medicine; Visit Provider Family Medicine
DX: K80.80 Other cholelithiasis without obstruction (principal); K83.8 Other specified diseases of biliary tract
CPT/HCPCS: 76705

== ENCOUNTER → 2021-07-26 08:53 | Outpatient (BNVA) | payer MEDICAID, SELFPAY | PROVIDERS: PCP Family Medicine; Visit Provider Surgery | DX: R10.9 Unspecified abdominal pain (principal); R11.0 Nausea; R14.0 Abdominal distension (gaseous) | CPT/HCPCS: 99203 ==

== ENCOUNTER 2021-08-08 09:54 | Day surgery (SDC) | payer MEDICAID, SELFPAY ==
[2021-08-05 09:35] VITALS: BMI 18.7
--- NOTE | 2021-08-08 | XR_ITS ---
WS: [id number] C-ARM RADIOGRAPHS INTRAOPERATIVE CHOLANGIOGRAM; 5 IMAGES HISTORY: Intraoperative cholangiogram. COMPARISON: None available. Intraoperative cholangiogram as been performed. There is good contrast opacification of a top normal size common bile duct. Common bile duct tapers normally through the ampulla. XR/XR cholangio operative 64128 IMPRESSION: Patent common bile duct with no filling defects. No choledocholithiasis or stri cture identified by intraoperative cholangiogram.
[2021-08-08 10:16] VITALS: BP 131/75; PULSE 81; RESP 17; TEMP 37.1; O2SAT 98
--- NOTE | 2021-08-08 10:29 | ANES.PREANE2 ---
Pre-Anesthetic Assessment Height/Weight: Height 1.59 m Weight 47.174 kg Temp Pulse Resp BP Pulse Ox 98.7 F 81 17 131/75 98 08/08/21 10:16 08/08/21 10:16 08/08/21 10:16 08/08/21 10:16 08/08/21 10:16 Preop Diagnosis: Cholecystitis Operation Date: 08/08/21 11:30 Proposed Procedures p Laparoscopic Cholecystectomy w/ Cholangiograms 26524,19210, r10.9,r11,r14(Not Applicable) - Momo Guan DO s EGD(Not Applicable) - Momo Guan DO Familial anesthetic complications: none Was Beta Nai taken within 24 hours: Yes Was Clonidine taken within 24 hours: N/A Last intake: > 8 hrs Social Tobacco and No alcohol Exam alert, oriented x 3, clear to auscultation bilaterally and regular rate & rhythm Airway Mallampati: Class II Dentition: other (metal plate) Pulmonary None reported CV/HEM Arrythmia (palpitations) and Hypertension Neuropsych Seizure (unable to tell me etiology - last one 4 months ago) schizoaffective, bipolar Anesthetic Plan ASA status: 3 Anesthesia: General Risk of > 500 ml blood loss (7ml/kg in children): No Medications/Allergies Home Medications Medication Instructions Recorded Confirmed Last Taken Type buspirone 7.5 mg tablet 7.5 mg PO BID 90 Days #180 tab 05/16/21 08/08/21 08/07/21 20:30 Rx conjugated estrogens 0.625 mg 0.625 mg PO DAILY #30 tab 05/16/21 08/08/21 08/07/21 08:00 Rx tablet (Premarin) propranolol 20 mg tablet 20 mg PO BID 90 Days #180 tab 05/16/21 08/08/21 08/07/21 20:30 Rx trazodone 50 mg tablet 150 mg PO BEDTIME PRN 90 Days #270 05/16/21 08/08/21 08/07/21 20:30 Rx tab acetaminophen 500 mg tablet 500 mg PO Q6H PRN 07/26/21 08/08/21 Unknown History (Tylenol Extra Strength) hydrocodone 10 mg-acetaminophen 1 tab PO .6 TABS DAILY PRN tab 07/26/21 08/08/21 08/07/21 20:30 History 325 mg tablet melatonin 5 mg tablet 5 mg PO DAILY 07/26/21 08/08/21 08/07/21 20:30 History fluoxetine 40 mg capsule (Prozac) 40 mg PO DAILY 90 Days #90 cap 08/03/21 08/08/21 08/07/21 08:00 Rx fluticasone propionate 50 2 spray INTRANASAL DAILY #16 g 08/03/21 08/08/21 08/07/21 08:00 Rx mcg/actuation nasal spray,suspension (Allergy Relief (fluticasone)) gabapentin 100 mg capsule 200 mg PO TID #180 cap 08/03/21 08/08/21 08/07/21 20:30 Rx fluoxetine 20 mg capsule (Prozac) 20 mg PO DAILY #30 cap 08/04/21 08/08/21 08/07/21 20:30 Rx nicotine (polacrilex) 4 mg gum 4 mg BUCCAL Q2H #20 ea 08/04/21 08/08/21 08/07/21 10:00 Rx Allergies Allergy/AdvReac Type Severity Reaction Status Date / Time adhesive tape Allergy ALGY-Rash Verified 08/08/21 10:18 amitriptyline Allergy Unknown Verified 08/08/21 10:18 cyclobenzaprine Allergy ALGY-Hives Verified 08/08/21 10:18 [From Flexeril] diphenhydramine Allergy ALGY-Hives Verified 08/08/21 10:18 [From Benadryl] fluphenazine [From Prolixin] Allergy ALGY-Anaphy Verified 08/08/21 10:18 laxis ibuprofen Allergy ALGY-Hives Verified 08/08/21 10:18 lithium Allergy ALGY-Difficulty Verified 08/08/21 10:18 Breathing PFSH Anesthesia Medical History Schizoaffective disorder, bipolar type Scoliosis Seizure disorder Surgical History H/O tubal ligation History of foot surgery History of hysterectomy Family History Other CAD (coronary artery disease) Cancer Hypertension Denies family history of Diabetes Stroke Social History Smoking and tobacco status: current every day smoker cigarettes Packs smoked per day: 0.25 Years cigarettes smoked: 20 Second hand smoke exposure: Yes Alcohol intake: former Caregiver/support person: Yes Lives independently: Yes Household members: significant other Marital status: service: No Current occupational status: disabled History of recent travel: No Current gender identity: Female Special matt needs: Yes Agree to transfusion: No Data Anesthesia Cardiac Studies: No Data to Display
[2021-08-08] MEDS: scopolamine 1.5 Patch 1 PATCH TRANSDERMA (11:03)
[2021-08-08] MEDS: sodium chloride 0.9% 1,000 ML 30 ML IV (11:03)
--- NOTE | 2021-08-08 11:31 | SUR.PREOP ---
Patient was told by Mona in the surgery clinic when arriving for surgery we would take care of completing her living will, DNR, and show her the ultrasound results confirming the need for gallbladder removal. Patient has been rude and demanding upon arrival, and is stating if Dr Guan doesn't show her the ultrasound results she is walking out the door. Patient is upset because she has been here since 10:00 and is still waiting to go to surgery. Her surgery was scheduled for 11:30 and it was explained that sometimes the surgeries go over the time they are scheduled for.
[2021-08-08 11:55] VITALS: RESP 17; O2SAT 97
[2021-08-08] MEDS: fentaNYL 50 mcg/mL INJ 2mL IVP (11:55)
--- NOTE | 2021-08-08 12:23 | W.PM.OPSUD ---
Surgery/Procedure H&P Update DATE OF PROCEDURE: August 08, 2021 DATE H&P PERFORMED: 07/26/21 CHANGES TO PREVIOUS DOCUMENTATION: NONE PREOP DIAGNOSIS: Cholecystitis PRIMARY INDICATION FOR PROCEDURE: symptomatic cholelithiasis Bloating, nausea PLANNED PROCEDURE: Operation Date: 08/08/21 11:30 Proposed Procedures p Laparoscopic Cholecystectomy w/ Cholangiograms [id number], r10.9,r11,r14(Not Applicable) - Momo Guan DO s EGD(Not Applicable) - Momo Guan DO
--- NOTE | 2021-08-08 14:22 | SUR.OPER ---
OMNIPAQUE 300MGI/ML 50 ML TO STERILE FIELD FOR GRAMS [id number]. EXP 03/17/24. 2ML PER DR. GARDNER.
[2021-08-08 14:33] VITALS: BP 188/99; PULSE 59; RESP 16; TEMP 36.4; O2SAT 100
--- NOTE | 2021-08-08 14:34 | P.OP_ITS ---
Operative Report Date of procedure: August 08, 2021 Pre-op diagnosis: Preop Diagnosis Cholecystitis Post-op diagnosis: Gastritis Cholecystitis Procedure done: EGD with cold forceps biopsy and Laparoscopic cholecystectomy with intraoperative cholangiogram Specimens removed/disposition: Antrum for H. Pylori Gallbladder Surgeon: Dr. Momo Guan, DO Estimated blood loss: 5 Brief History: Patient with symptomatic Cholelithiasis, abdominal pain and bloating. EGD and Laparoscopic cholecystectomy with intraoperative cholangiogram were indicated. Risks and benefits were explained and documented. Procedure: She?was taken to the operating room and placed in the left lateral decubitus position. All bony prominences were padded. Patient was intubated, monitored throughout the case by the anesthesia personnel. We did a procedure pause prior to beginning without any issues. ? The scope was passed into the mouth and down into the esophagus.? The scope then easily passed into the stomach.? I passed the scope into the duodenum, through the pylorus and observed the 1st and 2nd portions of the duodenum. ?There was some moderate gastritis, especially in the antrum. Cold forceps biopsy of the antrum was taken for H. pylori investigation. The scope was then slowly withdrawn examining the esophagus and the mouth.? No further abnormalities were noted Abdomen was inspected prepped and draped in usual sterile fashion.? Time-out was performed and all present were in agreement.? A 15 blade scalp was used to make a stab incision in the left upper quadrant and intra-abdominal insufflation was achieved using a Veress needle.? After localizing the tissue incisions were made and a 5 millimeter trocar was placed into the umbilicus as well as 2 in the right upper quadrant.? A 10 millimeter trocar was placed in the epigastrium.? Ga llbladder was grasped and elevated.? The triangle of Calot?was carefully dissected using blunt dissection and electrocautery until the triangle of Calot?clearly identified.??The cystic duct was clipped proximally and then partially transected just distal to the clip.? A cholangiocatheter was placed and a cholangiogram was performed.? No obstruction of the ductal system was noted.? The cholangiocatheter was removed.? The cystic duct was triple triply clipped distally and fully ligated proximally.? The cystic artery was doubly clipped and ligated.? The gallbladder was then removed from the liver bed using electrocautery.? The gallbladder was removed from the abdomen using an Endo- Catch bag through the epigastric incision.? The liver bed was inspected and no bleeding was seen.? The abdomen was irrigated and suctioned.? All ports removed.? Skin was washed and dried.? Incisions were closed with 4 O Vicryl in a subcuticular interrupted fashion.? Skin glue was applied.? Patient tolerated the procedure well
[2021-08-08 14:55] VITALS: BP 183/95; PULSE 60; RESP 17; O2SAT 100
[2021-08-08 15:44] VITALS: BP 182/95; PULSE 58; RESP 17; TEMP 36.4; O2SAT 99
--- NOTE | 2021-08-08 16:27 | ANE.PACU2 ---
Inpatient post-anesthesia follow up: Airway intact: Yes Vital signs: Temperature 97.5 F Pulse Rate 58 Respiratory Rate 17 Blood Pressure 182/95 Pulse Oximetry 99 Oxygen Delivery Me thod Room Air Oxygen Flow Rate 2 Fraction of Inspir ed Oxygen Hydration adequate: Yes Nausea and vomiting: No Pain level: 2 Mental status: Baseline
== END 2021-08-08 15:49 | disposition home or self-care (01) ==
PROVIDERS: PCP Family Medicine; Visit Provider Surgery
PROC: 0FT44ZZ Resection of Gallbladder, Percutaneous Endoscopic Approach (ICD-10-PCS; CPT 47562; principal; 2021-08-08 11:30)
PROC: 0DJ08ZZ Inspection of Upper Intestinal Tract, Via Natural or Artificial Opening Endoscopic (ICD-10-PCS; CPT 43235; 2021-08-08 11:30)
DX: K80.10 Calculus of gallbladder with chronic cholecystitis without obstruction (principal); K29.50 Unspecified chronic gastritis without bleeding; B96.81 Helicobacter pylori [H. pylori] as the cause of diseases classified elsewhere; I10 Essential (primary) hypertension; F17.210 Nicotine dependence, cigarettes, uncomplicated
CPT/HCPCS: 43239; 47562; 74300; 76000; 88304; 88305; J1100; J1200; J2405; J2704; J3010; J3490; J7030

== ENCOUNTER → 2021-09-21 12:27 | Outpatient (BNVA) | payer SELFPAY | PROVIDERS: PCP Family Medicine; Visit Provider Family Medicine | DX: G43.909 Migraine, unspecified, not intractable, without status migrainosus (principal); R11.0 Nausea; K21.9 Gastro-esophageal reflux disease without esophagitis; R10.9 Unspecified abdominal pain | CPT/HCPCS: 80053; 83036; 84439; 84443; 84481; 85025; 85651; 86140 ==

== ENCOUNTER 2021-11-24 23:35 | Emergency (ER) | payer MEDICAID, SELFPAY ==
[2021-11-24 23:44] VITALS: BP 147/90; PULSE 77; RESP 17; TEMP 36.5; O2SAT 100; BMI 19.5
[2021-11-25] VITALS: BP 116/73; PULSE 73; RESP 14; O2SAT 99
[2021-11-25] MEDS: dexamethasone 10 mg/mL INJ IVP (00:55)
--- NOTE | 2021-11-25 00:55 | W.ED.HA ---
HPI - Headache General: Chief Complaint: Headache Stated Complaint: HARP Time Seen by Provider: 11/25/21 00:05 History of Present Illness: 36-year-old female presenting today with headache. Patient notes gradual onset headache over the last week. Consistent with prior significant migraines. Patient notes that she will get migraines every once in a while. This is identical to prior migraines that she has had. States that usually these migraines will improve after a Toradol injection. She denies fevers or chills. She denies nausea or vomiting. She denies numbness tingling or weakness. She has no other complaints or concerns. Review of Systems General: Reports: 10 or more systems reviewed and unremarkable except in HPI and below PFSH ED PFSH: Medical History Schizoaffective disorder, bipolar type Scoliosis Seizure disorder Surgical History H/O tubal ligation History of foot surgery History of hysterectomy Family History Other CAD (coronary artery disease) Cancer Hypertension Denies family history of Diabetes Stroke Social History Smoking and tobacco status: current every day smoker cigarettes Packs smoked per day: 0.25 Years cigarettes smoked: 20 Second hand smoke exposure: Yes Alcohol intake: former Caregiver/support person: Yes Lives independently: Yes Household members: significant other Marital status: service: No Current occupational status: disabled History of recent travel: No Current gender identity: Female Special matt needs: Yes Agree to transfusion: No Female Reproductive History: Spontaneous abortions: No Physical Exam Const: COMMON NORMALS: no acute distress, patient oriented x3 and alert GENERAL APPEARANCE: cooperative ORIENTATION/CONSCIOUSNESS: Yes awake, Yes oriented to person, Yes oriented to place and Yes oriented to time HENMT: COMMON NORMALS: normocephalic, atraumatic, external ears normal, Normal external nose present and moist oral mucous membranes HEAD & SCALP: normal to inspection, normocephalic and atraumatic NOSE: Normal external nose present GENERAL EAR: hearing grossly impaired EXTERNAL EAR: Yes external ears normal Eye: COMMON NORMALS: Equal, round and reactive pupils present, EOMs intact bilaterally, conjunctivae normal and no scleral icterus GENERAL EYE: appearance normal, both eyes and all related structures EYELID: eyelids normal CONJUNCTIVA: Yes conjunctivae normal SCLERA: sclerae normal PUPIL: Yes Equal, round and reactive pupils present Neck/C-Spine: COMMON NORMALS: full ROM, supple and no JVD GENERAL: Yes normal visual inspection Lymph: LYMPHATIC: no lymphadenopathy noted and no lymphedema noted Chest: COMMONS NORMALS: normal inspection of the chest Resp: COMMON NORMALS: normal respiratory effort, No retractions and No use of accessory muscles Cardio: COMMON NORMALS: no JVD, regular rate and regular rhythm RATE: regular rate RHYTHM: regular rhythm GI: COMMON NORMALS: Normal to inspection, nondistended, normoactive bowel sounds present : COMMON NORMALS: Yes no CVA tenderness BLADDER/KIDNEY EXAM: Yes no CVA tenderness Back/Pelvis: COMMON NORMALS: no CVA tenderness and thoracic and lumbar spine normal to inspection Extremity: COMMON NORMALS: normal to inspection, full ROM and capillary refill normal GENERAL: Yes normal exam except as noted Neuro: COMMON NORMALS: patient oriented x3, CN's II-XII intact bilaterally, moves all extremities, no focal motor deficits, no sensory deficits noted and gait normal SENSORIUM/ORIENTATION: Yes alert, Yes oriented to person, Yes oriented to place and Yes oriented to time Psych: COMMON NORMALS: mental status grossly normal, Normal thought process present, cooperative and normal affect THOUGHT PROCESS: Normal thought process present Skin: COMMON NORMALS: no rashes or lesions noted and no wounds GENERAL SKIN EXAM: no rashes or lesions noted Course Vital Signs: Vital signs: Vital Signs Temperature 97.7 F 11/24/21 23:44 Pulse Rate 73 11/25/21 00:00 Respiratory Rate 14 11/25/21 00:00 Blood Pressure 116/73 11/25/21 00:00 Pulse Oximetry 99 11/25/21 00:00 Oxygen Delivery Me thod 11/25/21 00:00 MDM - Headache Medical Decision Making 36-year-old female presenting today with migraine headache. Neurologic exam is nonfocal. Patient was given migraine cocktail with improvement in symptoms. Patient was given strict return precautions and recommended routine outpatient follow-up. Discharge Plan Discharge Patient Disposition: Home Clinical Impression: Headache Condition: Stable Prescriptions: No Action melatonin 5 mg tablet 5 mg PO DAILY hydrocodone-acetaminophen 10-325 mg tablet 1 tab PO .6 TABS DAILY PRN (Reason: Pain) Hold Instructions: Resume on 08/15/21. Only take once postoperative pain medicine complete acetaminophen [Tylenol Extra Strength] 500 mg tablet 500 mg PO Q6H PRN (Reason: pain) Hold Instructions: Resume on 08/15/21. Do not take with hydrocodone hydrocodone-acetaminophen 5-325 mg tablet 2 tab PO Q6H PRN (Reason: pain) 7 Days Qty: 30 0RF Premarin 0.625 mg tablet 0.625 mg PO DAILY Qty: 30 3RF Rx Instructions: cyclically propranolol 20 mg tablet 20 mg PO BID 90 Days Qty: 180 0RF fluticasone propionate [Allergy Relief (fluticasone)] 50 mcg/actuation spray,suspension 2 spray intranasal DAILY Qty: 16 1RF Rx Instructions: administer into each nostril fluoxetine [Prozac] 20 mg capsule 20 mg PO DAILY Qty: 30 0RF Rx Instructions: Take 20 mg in addition to the 40 mg capsule. Total of 60 mg daily. fluoxetine [Prozac] 40 mg capsule 40 mg PO DAILY 30 Days Qty: 30 0RF buspirone 7.5 mg tablet 7.5 mg PO BID 90 Days Qty: 60 0RF trazodone 50 mg tablet 150 mg PO BEDTIME PRN (Reason: Insomnia) 90 Days Qty: 90 0RF gabapentin 100 mg capsule 200 mg PO TID Qty: 60 0RF nicotine (polacrilex) 4 mg gum 4 mg buccal Q2H Qty: 20 0RF Discharge Orders: Discharge ED (Routine); Ordered 11/25/21 Ordered By: Toñito Li Referrals: Fadi Quinn DO [Primary Care Provider] - Patient Instructions: General Headache (ED) Coding Level of Care Code ED Clinical Engineer for [facility]
== END 2021-11-25 01:20 | disposition home or self-care (01) ==
PROVIDERS: Emergency Provider Emergency Medicine; PCP Family Medicine
DX: R51.9 Headache, unspecified (principal); F17.210 Nicotine dependence, cigarettes, uncomplicated
CPT/HCPCS: 96374; 99284; J1100

== ENCOUNTER 2022-02-10 09:10 | Emergency (ER) | payer MEDICAID, SELFPAY ==
[2022-02-10] VITALS (15 sets, daily range): BP systolic 120–141; BP diastolic 67–99; PULSE 102; RESP 14; TEMP 36.9; O2SAT 96–100; BMI 18.1
--- NOTE | 2022-02-10 10:12 | W.ED.HA ---
HPI - Headache General: Chief Complaint: Headache Stated Complaint: headache Time Seen by Provider: 02/10/22 10:08 Source: patient Mode of arrival: ambulatory Limitations: no limitations History of Present Illness: 36-year-old female with a history of migraines presents to the ER today for headache x2 weeks. Patient reports it has not let up for 2 full weeks. She reports she also has dizziness associated. Patient describes this as a blurry type of vision versus the room spinning. Patient reports she is been taking her home medications including hydrocodone, gabapentin, and Tylenol. Patient reports nothing seems to be helping her taking the headache away. Patient reports this headache is very similar to all of her typical migraines. She reports no new symptoms associated with this 1. She does have some nausea but no vomiting. Patient denies any recent illness. Reports some seasonal allergies but denies any fever, chills, congestion, sore throat, cough. Review of Systems General: Reports: 10 or more systems reviewed and unremarkable except in HPI and below PFSH ED PFSH: Medical History Schizoaffective disorder, bipolar type Scoliosis Seizure disorder Surgical History H/O tubal ligation History of foot surgery History of hysterectomy Family History Other CAD (coronary artery disease) Cancer Hypertension Denies family history of Diabetes Stroke Social History Smoking and tobacco status: current every day smoker cigarettes Packs smoked per day: 0.25 Years cigarettes smoked: 20 Second hand smoke exposure: Yes Alcohol intake: former Caregiver/support person: Yes Lives independently: Yes Household members: significant other Marital status: service: No Current occupational status: disabled History of recent travel: No Current gender identity: Female Special matt needs: Yes Agree to transfusion: No Female Reproductive History: Spontaneous abortions: No Physical Exam Const: COMMON NORMALS: no acute distress, patient oriented x3, no limitations, alert and well nourished HENMT: COMMON NORMALS: normocephalic, atraumatic, external ears normal, Normal nasal mucous membranes and turbinates present and moist oral mucous membranes HEAD & SCALP: normocephalic and atraumatic NOSE: Normal nasal mucous membranes and turbinates present EXTERNAL EAR: Yes external ears normal Eye: COMMON NORMALS: Equal, round and reactive pupils present and conjunctivae normal CONJUNCTIVA: Yes conjunctivae normal PUPIL: Yes Equal, round and reactive pupils present Lymph: LYMPHATIC: no lymphadenopathy noted Resp: COMMON NORMALS: normal respiratory effort, No retractions and clear to auscultation bilaterally AUSCULTATION: clear to auscultation bilaterally Cardio: COMMON NORMALS: regular rate, regular rhythm and No murmurs present (Cardio) RATE: regular rate RHYTHM: regular rhythm GI: COMMON NORMALS: Normal to inspection, nondistended, normoactive bowel sounds present, Soft to palpation and non-tender PALPATION: Yes Soft to palpation Extremity: COMMON NORMALS: normal to inspection and full ROM Neuro: COMMON NORMALS: patient oriented x3 SENSORIUM/ORIENTATION: Yes alert Psych: COMMON NORMALS: mental status grossly normal, Normal thought process present and cooperative THOUGHT PROCESS: Normal thought process present Skin: COMMON NORMALS: no rashes or lesions noted and no wounds GENERAL SKIN EXAM: no rashes or lesions noted Course ED course: Patient presents to the ER with a migraine. This is not uncommon for patient to have a migraine and this 1 is no different than previous migraines. She has some dizziness and nausea. We will do 500 and mils of normal saline, Zofran for nausea, Toradol for pain, and meclizine for the dizziness. Patient has an allergy to Benadryl. Patient is taking all of her home medications appropriately she reports. No reason to do any type of imaging at this time as nothing is different. Vital Signs: Vital signs: Vital Signs Temperature 98.5 F 02/10/22 09:49 Pulse Rate 102 H 02/10/22 09:49 Respiratory Rate 14 02/10/22 09:49 Blood Pressure 135/99 02/10/22 09:49 Pulse Oximetry 98 02/10/22 09:49 Oxygen Delivery Me thod 02/10/22 09:49 MDM - Headache Medical Decision Making Patient reports significant improvement after medications and fluids in the ER. She reports she is ready to go home at this time. Recommend patient continue home medications. Rest recommended. Follow-up with PCP in 3 to 5 days if no improvement headaches. Return to the ER with new or worsening symptoms. Patient verbalized understanding and was in agreement with the treatment plan. Critical Care Time Critical Care Time: Critical Care Time: No Discharge Plan Discharge Patient Disposition: Home Clinical Impression: Migraine Qualifiers: Migraine type: without aura Status migrainosus presence: without status migrainosus Intractability: intractable Qualified Code(s): G43.019 - Migraine without aura, intractable, without status migrainosus Condition: Stable Prescriptions: No Action buspirone 10 mg tablet 10 mg PO BID 30 Days Qty: 60 5RF Rx Instructions: do NOT fill 7.5mg dose, this dose replaces melatonin 5 mg tablet 5 mg PO DAILY hydrocodone-acetaminophen 10-325 mg tablet 1 tab PO .6 TABS DAILY PRN (Reason: Pain) Hold Instructions: Resume on 08/15/21. Only take once postoperative pain medicine complete acetaminophen [Tylenol Extra Strength] 500 mg tablet 500 mg PO Q6H PRN (Reason: pain) Hold Instructions: Resume on 08/15/21. Do not take with hydrocodone hydrocodone-acetaminophen 5-325 mg tablet 2 tab PO Q6H PRN (Reason: pain) 7 Days Qty: 30 0RF nicotine (polacrilex) 4 mg gum 4 mg buccal Q2H Qty: 20 0RF propranolol 20 mg tablet 20 mg PO BID 90 Days Qty: 180 3RF Premarin 0.625 mg tablet 0.625 mg PO DAILY Qty: 30 5RF Rx Instructions: cyclically fluoxetine [Prozac] 20 mg capsule 20 mg PO DAILY Qty: 30 5RF Rx Instructions: Take 20 mg in addition to the 40 mg capsule. Total of 60 mg daily. fluoxetine [Prozac] 40 mg capsule 40 mg PO DAILY 30 Days Qty: 30 5RF fluticasone propionate [Allergy Relief (fluticasone)] 50 mcg/actuation spray,suspension 2 spray intranasal DAILY Qty: 16 5RF Rx Instructions: administer into each nostril trazodone 50 mg tablet 150 mg PO BEDTIME PRN (Reason: Insomnia) 90 Days Qty: 90 5RF gabapentin 100 mg capsule 200 mg PO TID Qty: 180 5RF Discharge Orders: Discharge ED (Routine); Ordered 02/10/22 Ordered By: Annalee Hines Referrals: Fadi Quinn DO [Primary Care Provider] - Discharge Diet: Usual diet Discharge Activity: Resume usual activity Patient Instructions: Opioid Safety, Pain Management Activity Restrictions/Additional Instructions: Rest recommended. Continue home medications. Follow-up with PCP in 3 to 5 days if no improvement. 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
[2022-02-10] MEDS: ketorolac 30 mg/mL INJ 15 MG IVP (10:29)
[2022-02-10] MEDS: sodium chloride 0.9% 500 ML 999 ML IV (10:29)
[2022-02-10] MEDS: ondansetron 2 mg/ML SDV 2 mL 4 MG IVP (10:29)
[2022-02-10] MEDS: meclizine 25 mg tablet PO (10:32)
== END 2022-02-10 11:42 | disposition home or self-care (01) ==
PROVIDERS: Emergency Provider Physician Assistant; PCP Family Medicine
DX: G43.019 Migraine without aura, intractable, without status migrainosus (principal); F17.210 Nicotine dependence, cigarettes, uncomplicated
CPT/HCPCS: 96361; 96374; 96375; 99284; J1885; J2405; J7040; J8597

== ENCOUNTER 2022-02-23 15:51 | Emergency (ER) | payer MEDICAID, SELFPAY ==
[2022-02-23 15:51] VITALS: BP 145/100; PULSE 94; RESP 16; O2SAT 98
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
[2022-02-23] MEDS: iohexol 350 mg/mL 500 mL Btl (per mL) IV (16:28)
--- NOTE | 2022-02-23 16:49 | ECG_ITS ---
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 Measurements Intervals Leiter Rate: 69 P: 60 TX: 142 QRS: 61 QRSD: 88 T: 34 QT: 374 QTc: 401 Interpretive Statements SINUS RHYTHM POSSIBLE ANTERIOR MYOCARDIAL INFARCTION , OF INDETERMINATE AGE [30 ms Q WAVE IN V3/V4, OR R < 0.2 mV IN V4] Compared to ECG 11/11/2020 18:58:46 Myocardial infarct finding now present Electronically Signed On 02-24-2022 7:52:32 AIRCRAFT REFUELLER by Emanuel Michele M.D. [id number]
[2022-02-23 17:01] LABS: Glucose Point of Care 78 mg/dL (70-110)
--- NOTE | 2022-02-23 17:24 | PC.NURSE ---
Pt was standing at the door yelling she was leaving and did not want to be here anymore. I told her i needed to take her IV out and she said i was not touching her and she would remove it herself, i told her to let me do it and at that time she pulled it out, she was bleeding some but would not let me touch her, the door opened and she left the ER. Dr. Ballesteros was notified
== END 2022-02-23 17:17 | disposition left against medical advice (07) ==
PROVIDERS: Emergency Provider Emergency Medicine; PCP Family Medicine
DX: S06.0X9A Concussion with loss of consciousness of unspecified duration, initial encounter (principal); Y04.2XXA Assault by strike against or bumped into by another person, initial encounter; Z53.21 Procedure and treatment not carried out due to patient leaving prior to being seen by health care provider; F17.210 Nicotine dependence, cigarettes, uncomplicated
CPT/HCPCS: 36416; 70450; 71260; 72125; 74177; 82962; 93005; 99285; Q9967

== ENCOUNTER 2022-03-15 12:02 | Emergency (ER) | payer MEDICAID, SELFPAY ==
[2022-03-15 12:07] VITALS: BP 109/74; PULSE 107; RESP 16; TEMP 36.4; O2SAT 98; BMI 17.4
--- NOTE | 2022-03-15 14:37 | ED_ITS ---
HPI - Seizure General: Chief Complaint: Seizure Stated Complaint: stated she has had grand mal seizure and migraines Time Seen by Provider: 03/15/22 14:37 Source: patient Mode of arrival: ambulatory History of Present Illness: HPI Narrative: 36-year-old female presents to the emergency room stating she has had several seizures today. She also reporting a headache and right sided body pain particularly in her back. She denies any fever sweats or chills she has had a little bit of a cough that is been nonproductive. Patient appears to be under the influence he is rapid speech and erratic behavior. Patient demands a patient advocate at the moment staff or myself comes in the room. We have provided a nurse extruding department supervisor to attempt to fill that role but told her we did not have anyone without particular job title she declined the assistance of the nurse extruding department supervisor. complaint: possible seizure Onset (ago): hour(s) Witnessed: Yes - by Bystander Trauma: No Seizure History: Yes Place: Home Possible Precipitating Event: none Associated symptoms: Deny chest pain, chills, confusion, cough, diaphoresis, fever(s), anorexia, malaise, rash, short of breath, syncope or weakness Treatments prior to arrival: none Review of Systems Const: Reports: fatigue; Denies: fever(s), chills, malaise or diaphoresis ENMT: Denies: throat pain, ear or mastoid pain, nasal discharge or nasal congestion Card: Denies: chest pain or syncope Resp: Reports: non-productive cough; Denies: dyspnea or productive cough GI: Denies: abdominal pain, nausea, vomiting, hematemesis, coffee ground emesis, diarrhea, constipation, bloating, hematochezia or melena : Denies: flank pain, difficulty voiding, dysuria, urinary frequency or urinary urgency Musc: Reports: back pain Skin/Breast: Denies: rash or pruritus Neuro: Denies: confusion PFSH ED PFSH: Medical History Schizoaffective disorder, bipolar type Scoliosis Seizure disorder Surgical History H/O tubal ligation History of foot surgery History of hysterectomy Family History Other CAD (coronary artery disease) Cancer Hypertension Denies family history of Diabetes Stroke Social History Smoking and tobacco status: current every day smoker cigarettes Packs smoked per day: 0.25 Years cigarettes smoked: 20 Second hand smoke exposure: Yes Alcohol intake: former Caregiver/support person: Yes Lives independently: Yes Household members: significant other Marital status: service: No Current occupational status: disabled History of recent travel: No Current gender identity: Female Special matt needs: Yes Agree to transfusion: No Female Reproductive History: Spontaneous abortions: No Physical Exam Const: GENERAL APPEARANCE: comfortable, anxious and disheveled ORIENTATION/CONSCIOUSNESS: Yes awake, Yes oriented to person, Yes oriented to place and Yes oriented to time HENMT: COMMON NORMALS: normocephalic, atraumatic, hearing grossly normal bilaterally, external ears normal, Normal nasal mucous membranes and turbinates present, moist oral mucous membranes and oropharynx normal HEAD & SCALP: normocephalic and atraumatic NOSE: Normal nasal mucous membranes and turbinates present EXTERNAL EAR: Yes external ears normal Eye: COMMON NORMALS: Equal, round and reactive pupils present, EOMs intact bilaterally, conjunctivae normal and no scleral icterus CONJUNCTIVA: Yes conjunctivae normal PUPIL: Yes Equal, round and reactive pupils present Neck/C-Spine: COMMON NORMALS: full ROM, no lymphadenopathy and supple Resp: COMMON NORMALS: normal respiratory effort, No retractions, No use of accessory muscles and clear to auscultation bilaterally AUSCULTATION: clear to auscultation bilaterally Cardio: COMMON NORMALS: regular rate, regular rhythm and No murmurs present (Cardio) RATE: regular rate RHYTHM: regular rhythm GI: COMMON NORMALS: Soft to palpation and No hepatosplenomegaly present AUSCULTATION: Yes normoactive bowel sounds PALPATION: Yes Soft to palpation, No Tenderness to palpation present (GI), No Guarding due to palpation present (GI) and Yes No hepatosplenomegaly present Extremity: COMMON NORMALS: normal to inspection, capillary refill normal, no clubbing, cyanosis or edema, no calf tenderness and no pedal edema Neuro: SENSORIUM/ORIENTATION: Yes oriented to person, Yes oriented to place and Yes oriented to time Skin: COMMON NORMALS: no rashes or lesions noted GENERAL SKIN EXAM: no rashes or lesions noted Course Vital Signs: Vital signs: Vital Signs Temperature 97.6 F 03/15/22 12:07 Pulse Rate 107 H 03/15/22 12:07 Respiratory Rate 16 03/15/22 12:07 Blood Pressure 109/74 03/15/22 12:07 Pulse Oximetry 98 03/15/22 12:07 Oxygen Delivery Me thod 03/15/22 12:07 MDM - Seizure MDM Narrative Medical decision making narrative: Medications ordered for patient for her aches and pains and headache she refuses to allow nursing staff to draw blood or start an IV. While I was attending to another emergent critical patient patient left AMA. Staff encouraged her to stay and also on [place] she could return at any point if she wished Discharge Plan Discharge Patient Disposition: Left Against Medical Advice Clinical Impression: Generalized seizure, Headache Condition: Stable Prescriptions: No Action buspirone 10 mg tablet 10 mg PO BID 30 Days Qty: 60 5RF Rx Instructions: do NOT fill 7.5mg dose, this dose replaces melatonin 5 mg tablet 5 mg PO BEDTIME hydrocodone-acetaminophen 10-325 mg tablet 1 tab PO .6 TABS DAILY PRN (Reason: Pain) Hold Instructions: Resume on 08/15/21. Only take once postoperative pain medicine complete acetaminophen [Tylenol Extra Strength] 500 mg tablet 500 mg PO Q6H PRN (Reason: pain) Hold Instructions: Resume on 08/15/21. Do not take with hydrocodone hydrocodone-acetaminophen 5-325 mg tablet 2 tab PO Q6H PRN (Reason: pain) 7 Days Qty: 30 0RF nicotine (polacrilex) 4 mg gum 4 mg buccal Q2H Qty: 20 0RF propranolol 20 mg tablet 20 mg PO BID 90 Days Qty: 180 3RF Premarin 0.625 mg tablet 0.625 mg PO DAILY Qty: 30 5RF Rx Instructions: cyclically fluoxetine [Prozac] 20 mg capsule 20 mg PO DAILY Qty: 30 5RF Rx Instructions: Take 20 mg in addition to the 40 mg capsule. Total of 60 mg daily. fluoxetine [Prozac] 40 mg capsule 40 mg PO DAILY 30 Days Qty: 30 5RF fluticasone propionate [Allergy Relief (fluticasone)] 50 mcg/actuation spray,suspension 2 spray intranasal DAILY Qty: 16 5RF Rx Instructions: administer into each nostril trazodone 50 mg tablet 150 mg PO BEDTIME PRN (Reason: Insomnia) 90 Days Qty: 90 5RF gabapentin 100 mg capsule 200 mg PO TID Qty: 180 5RF Referrals: Fadi Quinn DO [Primary Care Provider] - Coding Level of Care Code ED Fiber Locking Supervisor for Indira Campos
--- NOTE | 2022-03-15 15:26 | PC.NURSE ---
Patient states she wants to leave AMA. AMA paper was given to patient and she signed.
== END 2022-03-15 15:29 | disposition left against medical advice (07) ==
PROVIDERS: Emergency Provider Family Medicine; PCP Family Medicine
DX: G40.89 Other seizures (principal); R51.9 Headache, unspecified; Z53.21 Procedure and treatment not carried out due to patient leaving prior to being seen by health care provider; F17.210 Nicotine dependence, cigarettes, uncomplicated
CPT/HCPCS: 99282

== ENCOUNTER 2022-03-23 17:54 | Emergency (ER) | payer MEDICAID, SELFPAY ==
[2022-03-23 18:09] VITALS: PULSE 99; RESP 18; TEMP 36.7; O2SAT 97
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
== END 2022-03-23 20:40 | disposition home or self-care (01) ==
PROVIDERS: Emergency Provider Nurse Practitioner Family; PCP Family Medicine
DX: S09.90XA Unspecified injury of head, initial encounter (principal); F17.210 Nicotine dependence, cigarettes, uncomplicated; Y00.XXXA Assault by blunt object, initial encounter
CPT/HCPCS: 70450; 99284

== ENCOUNTER 2022-04-04 02:51 | Emergency (ER) | payer MEDICAID, SELFPAY ==
[2022-04-04 02:56] VITALS: BMI 15.0
[2022-04-04 02:59] VITALS: BP 128/91; PULSE 116; RESP 15; TEMP 36.4; O2SAT 100
--- NOTE | 2022-04-04 02:59 | ED_ITS ---
HPI - Headache General: Chief Complaint: Headache Stated Complaint: HARP x 3 days Source: patient and EMS Mode of arrival: EMS Limitations: no limitations History of Present Illness: 36-year-old female has a history of migraine states she has had a headache over the last 2 days. States headache began gradually is worsened and is currently a 7 out of 10 its not the worst headache of her life denies any injuries does have phonophobia and photophobia. No vomiting or diarrhea. Associated symptoms: Deny chest pain, fever(s), nausea, rash or vomiting Review of Systems Const: Denies: fever(s), chills, body aches or change in appetite Eyes: Denies: blurry vision or eye discomfort ENMT: Denies: throat pain or dental pain Card: Denies: chest pain Resp: Denies: dyspnea GI: Denies: abdominal pain, nausea, vomiting or diarrhea : Denies: dysuria Musc: Denies: neck pain or back pain Skin/Breast: Denies: rash Neuro: Reports: headache(s) Psych: Denies: depression Ramy/Lymph: Denies: easy bruising All/Imm: Denies: urticaria PFSH ED PFSH: Medical History Schizoaffective disorder, bipolar type Scoliosis Seizure disorder Surgical History H/O tubal ligation History of foot surgery History of hysterectomy Family History Other CAD (coronary artery disease) Cancer Hypertension Denies family history of Diabetes Stroke Social History Smoking and tobacco status: current every day smoker cigarettes Packs smoked per day: 0.25 Years cigarettes smoked: 20 Second hand smoke exposure: Yes Alcohol intake: former Caregiver/support person: Yes Lives independently: Yes Household members: significant other Marital status: service: No Current occupational status: disabled History of recent travel: No Current gender identity: Female Special matt needs: Yes Agree to transfusion: No Female Reproductive History: Spontaneous abortions: No Physical Exam Const: COMMON NORMALS: no acute distress, patient oriented x3 and healthy appearing HENMT: COMMON NORMALS: normocephalic and atraumatic HEAD & SCALP: normocephalic and atraumatic Eye: COMMON NORMALS: Equal, round and reactive pupils present and EOMs intact bilaterally PUPIL: Yes Equal, round and reactive pupils present Neck/C-Spine: COMMON NORMALS: full ROM and supple Chest: COMMONS NORMALS: normal inspection of the chest and normal palpation of entire chest wall Resp: COMMON NORMALS: normal respiratory effort, No retractions, No use of accessory muscles and clear to auscultation bilaterally AUSCULTATION: clear to auscultation bilaterally Cardio: COMMON NORMALS: regular rate, regular rhythm and No murmurs present (Cardio) RATE: regular rate RHYTHM: regular rhythm GI: COMMON NORMALS: Normal to inspection, nondistended, normoactive bowel sounds present, Soft to palpation, non-tender and no masses PALPATION: Yes Soft to palpation Extremity: COMMON NORMALS: normal to inspection and full ROM Neuro: COMMON NORMALS: patient oriented x3, moves all extremities and no focal motor deficits Psych: COMMON NORMALS: mental status grossly normal, Normal thought process present and cooperative THOUGHT PROCESS: Normal thought process present Skin: COMMON NORMALS: no rashes or lesions noted and no wounds GENERAL SKIN EXAM: no rashes or lesions noted Course Vital Signs: Vital signs: Vital Signs Temperature 97.6 F 04/04/22 02:59 Pulse Rate 88 04/04/22 03:52 Respiratory Rate 14 04/04/22 03:52 Blood Pressure 110/68 04/04/22 03:52 Pulse Oximetry 100 04/04/22 03:52 Oxygen Delivery Me thod 04/04/22 03:52 MDM - Headache Medical Decision Making Patient presents with a headache that is likely migraine headache her headaches much improved here no signs subarachnoid hemorrhage or meningitis she is stable for discharge she is to follow-up with her PCP and return if worsening. Discharge Plan Discharge Patient Disposition: Home Clinical Impression: Migraine Condition: Stable Prescriptions: No Action buspirone 10 mg tablet 10 mg PO BID 30 Days Qty: 60 5RF Rx Instructions: do NOT fill 7.5mg dose, this dose replaces melatonin 5 mg tablet 5 mg PO BEDTIME hydrocodone-acetaminophen 10-325 mg tablet 1 tab PO .6 TABS DAILY PRN (Reason: Pain) Hold Instructions: Resume on 08/15/21. Only take once postoperative pain medicine complete acetaminophen [Tylenol Extra Strength] 500 mg tablet 500 mg PO Q6H PRN (Reason: pain) Hold Instructions: Resume on 08/15/21. Do not take with hydrocodone hydrocodone-acetaminophen 5-325 mg tablet 2 tab PO Q6H PRN (Reason: pain) 7 Days Qty: 30 0RF nicotine (polacrilex) 4 mg gum 4 mg buccal Q2H Qty: 20 0RF propranolol 20 mg tablet 20 mg PO BID 90 Days Qty: 180 3RF Premarin 0.625 mg tablet 0.625 mg PO DAILY Qty: 30 5RF Rx Instructions: cyclically fluoxetine [Prozac] 20 mg capsule 20 mg PO DAILY Qty: 30 5RF Rx Instructions: Take 20 mg in addition to the 40 mg capsule. Total of 60 mg daily. fluoxetine [Prozac] 40 mg capsule 40 mg PO DAILY 30 Days Qty: 30 5RF fluticasone propionate [Allergy Relief (fluticasone)] 50 mcg/actuation spray,suspension 2 spray intranasal DAILY Qty: 16 5RF Rx Instructions: administer into each nostril trazodone 50 mg tablet 150 mg PO BEDTIME PRN (Reason: Insomnia) 90 Days Qty: 90 5RF gabapentin 100 mg capsule 200 mg PO TID Qty: 180 5RF Discharge Orders: Discharge ED (Routine); Ordered 04/04/22 Ordered By: Nikos Rodriges Referrals: Fadi Quinn DO [Primary Care Provider] - 1-3 days Discharge Diet: Advance as tolerated Discharge Activity: Resume usual activity Patient Instructions: Migraine Headache (ED) Coding Level of Care Code 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
[2022-04-04] MEDS: promethazine 25 mg/mL SDV 1 mL IM (03:06)
[2022-04-04] MEDS: ketorolac 30 mg/mL INJ IM (03:06)
[2022-04-04 03:52] VITALS: BP 110/68; PULSE 88; RESP 14; O2SAT 100
--- NOTE | 2022-04-04 03:53 | PC.NURSE ---
Pt sleeping. Wakes easily. States headache has eased up. Request warm blanket. Provided for pt.
[2022-04-04] MEDS: HYDROcodone-acetaminophen 5-325 mg Tablet 1 TAB PO (04:11)
[2022-04-04] MEDS: metoclopramide 5 mg/mL SDV 2 mL 10 MG IM (04:12)
== END 2022-04-04 04:25 | disposition home or self-care (01) ==
PROVIDERS: Emergency Provider Emergency Medicine; PCP Family Medicine
DX: G43.909 Migraine, unspecified, not intractable, without status migrainosus (principal); F17.210 Nicotine dependence, cigarettes, uncomplicated
CPT/HCPCS: 96372; 99284; J1885; J2550; J2765

== ENCOUNTER 2022-05-12 12:42 | Emergency (ER) | payer MEDICAID, SELFPAY ==
[2022-05-12] VITALS (10 sets, daily range): BP systolic 142; BP diastolic 93; PULSE 68–122; RESP 16–20; O2SAT 97–99
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
[2022-05-12 13:57] LABS: Basophils # 0.1 10^3/uL (0.0-0.1); Basophils % 0.5 %; Eosinophils # 0.2 10^3/uL (0.0-0.8); Eosinophils % 1.4 %; Hematocrit 37.6 % (37.0-47.0); Hemoglobin 12.6 g/dL (11.5-15.3); Lymphocytes # 1.7 10^3/uL (0.8-4.8); Lymphocytes % 16.4 %; Mean Corpuscular HGB Conc 33.5 g/dL (30.0-36.0); Mean Corpuscular Hemoglobin 33.2 pg (28.0-34.0); Mean Corpuscular Volume 99.2 fl (81-99); Mean Platelet Volume 10.5 fL (7.4-10.4); Monocytes # 0.6 10^3/uL (0.2-0.9); Monocytes % 5.4 %; Neutrophils # 7.86 10^3/uL (1.8-7.7); Neutrophils % 75.8 %; Nucleated Red Blood Cells % 0 %; Platelet Count 151 10^3/cmm (130-400); Red Blood Count 3.79 10^6/uL (4.1-5.3); Red Cell Distribution Width 11.7 % (12.1-15.1); White Blood Count 10.4 10^3/uL (4.0-10.0)
[2022-05-12 14:19] LABS: Add Urine Culture? No; Add Urine Microscopic? YES; Amphetamines Screen Urine Negative (Negative); Bacteria Urine TRACE /hpf; Barbiturates Screen Urine Negative (Negative); Benzodiazepines Screen Urine Positive (Negative); Bilirubin Urine Neg (Negative); Blood Urine Neg (Negative); Cocaine Screen Urine Negative (Negative); Glucose Urine UA Norm (Normal); Ketones Urine Negative (Negative); Leukocyte Esterase Urine 1+ (Negative); Nitrate Urine Negative (Negative); Opiate Screen Urine Positive (Negative); PCP Screen Urine Negative (Negative); Protein Urine Neg (Negative); RBC Urine 0-4 /hpf (0-2); Specific Gravity, Urine 1.015 (1.005-1.030); Squamous Epithelial Cell Urine 0-4 /hpf (0-5); THC Screen Urine Negative (Negative); Trichomonas Urine TRACE /hpf; Urine Appearance Clear (CLEAR); Urine Color Yellow (Yellow); Urobilinogen Urine Norm (Negative); pH Urine 5 (5-7)
[2022-05-12 14:31] LABS: Alanine Aminotransferase 13 U/L (0-33); Albumin Level 4.4 g/dL (3.5-5.2); Alkaline Phosphatase 94 U/L (35-105); Anion Gap 13.5 (5-19); Aspartate Amino Transferase 11 U/L (0-32); Blood Urea Nitrogen 15 mg/dL (6-20); Carbon Dioxide 28 mmol/L (22-29); Chloride 101 mmol/L (98-107); Globulin 2.1 g/dL (1.3-4.6); Glomerular Filtration Rate 138.8 mL/min (90-130); Glucose 98 mg/dL (65-115); Osmolality Calculated 289 mOsm/kg (285-295); Potassium 3.5 mmol/L (3.5-5.1); Sodium 139 mmol/L (136-145); Thyroid Stimulating Hormone 0.43 uIU/mL (0.27-4.20); Total Bilirubin 0.3 mg/dL (0.15-1.2); Total Protein 6.5 g/dL (6.6-8.7)
[2022-05-12 14:36] LABS: Acetaminophen < 5.0 ug/mL (10-30); Alcohol Level < 10 mg/dL (0-10); Salicylate < 0.3 mg/dL (3-10)
== END 2022-05-12 17:16 | disposition home or self-care (01) ==
PROVIDERS: Emergency Provider Family Medicine; PCP Family Medicine
DX: A59.01 Trichomonal vulvovaginitis (principal); F17.210 Nicotine dependence, cigarettes, uncomplicated; Z90.710 Acquired absence of both cervix and uterus
CPT/HCPCS: 36415; 80053; 80306; 80307; 81001; 84443; 85025; 99283

== ENCOUNTER 2022-06-08 08:52 | Emergency (ER) | payer MEDICAID, SELFPAY ==
[2022-06-08 08:50] VITALS: BP 150/101; PULSE 120; RESP 20; TEMP 36.8; O2SAT 98; BMI 22.8
--- NOTE | 2022-06-08 09:08 | ED.C_ITS ---
HPI - Psych General: Chief Complaint: Psychiatric Symptoms Stated Complaint: si Source: patient Mode of arrival: EMS History of Present Illness: 36-year-old female presents emergency room with complaint of depression and suicidal ideation. She was recently hospitalized at [facility] for the same complaint. She has a constant stream of thought tangential thoughts and speech. She did tell me she was also recently in [facility]. While she was there and in distress and afterwards evidently she was not able to make payment for the rent where she parked her camper's to her camper's. She is no longer able to get to her camper she is very upset and depressed she had her medications filled after her hospitalization at [facility] and now is contemplating overdose with those medications. MD complaint: suicidal ideation and feels depressed Duration: constant History of same: Yes Relieving factors: none Exacerbating factors: none Associated psychiatric symptoms: none Associated symptoms: Reports depression and suicidal ideation; Deny auditory hallucinations, visual hallucinations, delusions, homicidal ideation or racing thoughts Treatments prior to arrival: none If self harm: admits thoughts of self harm and has plan Review of Systems Const: Denies: fever(s), chills, body aches, change in appetite, fatigue or malaise ENMT: Denies: throat pain, ear or mastoid pain, nasal discharge or nasal congestion Card: Denies: chest pain, edema, dyspnea on exertion or orthopnea Resp: Denies: dyspnea, productive cough or non-productive cough GI: Denies: abdominal pain, nausea, vomiting, hematemesis, coffee ground emesis, diarrhea, constipation, bloating, hematochezia or melena : Denies: flank pain, difficulty voiding, dysuria, urinary frequency or urinary urgency Skin/Breast: Denies: rash or pruritus Psych: Reports: anxiety, depression and suicidal ideation; Denies: visual hallucinations, auditory hallucinations or homicidal ideation [facility] ED PFSH: Medical History Schizoaffective disorder, bipolar type Scoliosis Seizure disorder Surgical History H/O tubal ligation History of foot surgery History of hysterectomy Family History Other CAD (coronary artery disease) Cancer Hypertension Denies family history of Diabetes Stroke Social History Smoking and tobacco status: current every day smoker cigarettes Packs smoked per day: 0.25 Years cigarettes smoked: 20 Second hand smoke exposure: Yes Alcohol intake: former Caregiver/support person: Yes Lives independently: Yes Household members: significant other Marital status: service: No Current occupational status: disabled Current gender identity: Female Special matt needs: Yes Agree to transfusion: No Female Reproductive History: Spontaneous abortions: No Physical Exam Const: GENERAL APPEARANCE: cooperative and comfortable ORIENTATION/CONSCIOUSNESS: Yes awake, Yes oriented to person, Yes oriented to place and Yes oriented to time HENMT: COMMON NORMALS: normocephalic, atraumatic and hearing grossly normal bilaterally HEAD & SCALP: normocephalic and atraumatic Resp: COMMON NORMALS: normal respiratory effort, No retractions, No use of accessory muscles and clear to auscultation bilaterally AUSCULTATION: clear to auscultation bilaterally Cardio: COMMON NORMALS: regular rate, regular rhythm and No murmurs present (Cardio) RATE: regular rate RHYTHM: regular rhythm GI: COMMON NORMALS: Soft to palpation and No hepatosplenomegaly present AUSCULTATION: Yes normoactive bowel sounds PALPATION: Yes Soft to palpation, No Tenderness to palpation present (GI), No Guarding due to palpation present (GI) and Yes No hepatosplenomegaly present Extremity: COMMON NORMALS: normal to inspection, capillary refill normal, no clubbing, cyanosis or edema, no calf tenderness and no pedal edema Neuro: SENSORIUM/ORIENTATION: Yes oriented to person, Yes oriented to place and Yes oriented to time Psych: THOUGHT CONTENT: No delusions Skin: COMMON NORMALS: no rashes or lesions noted GENERAL SKIN EXAM: no rashes or lesions noted Course Vital Signs: Vital signs: Vital Signs Temperature 97.5 F L 06/08/22 16:49 Pulse Rate 102 H 06/08/22 16:49 Respiratory Rate 16 06/08/22 16:49 Blood Pressure 127/79 06/08/22 16:49 Pulse Oximetry 100 06/08/22 16:49 Oxygen Delivery Me thod 06/08/22 16:49 MDM - Psych Medical Decision Making Patient initially made statements of suicidal ideation. Wait I talked to Dr. Estrada who is on-call for psychiatry he is very familiar the patient did not necessarily feel that she needed to be admitted he came down to see the patient in the emergency room by then she was no longer complaining of suicidal ideation and stated that she simply could not get her medications refilled and that is why she was having difficulty with worsening symptoms she had just recently been discharged from [facility] and had been admitted twice there in the last approximately week and a half. We did get the old records from [facility] including medication list Dr. Estrada felt she could safely be discharged we filled all of her medications for 1 month. Medical Records I reviewed the patient's medical records. Lab Data I reviewed the patient's lab results. 06/08/22 09:06 06/08/22 09:06 Laboratory Results WBC 5.5 10^3/uL (4.0-10.0) 06/08/22 09:06 RBC 4.04 10^6/uL (4.1-5.3) L 06/08/22 09:06 Hgb 13.1 g/dL (11.5-15.3) 06/08/22 09:06 Hct 40.6 % (37.0-47.0) 06/08/22 09:06 MCV 100.5 fl (81-99) H 06/08/22 09:06 MCH 32.4 pg (28.0-34.0) 06/08/22 09:06 MCHC 32.3 g/dL (30.0-36.0) 06/08/22 09:06 RDW 12.3 % (12.1-15.1) 06/08/22 09:06 Plt Count 191 10^3/cmm (130-400) 06/08/22 09:06 MPV 10.3 fL (7.4-10.4) 06/08/22 09:06 Neut % (Auto) 62.9 % 06/08/22 09:06 Lymph % (Auto) 27.6 % 06/08/22 09:06 [place] % (Auto) 6.8 % 06/08/22 09:06 Eos % (Auto) 1.8 % 06/08/22 09:06 Baso % (Auto) 0.5 % 06/08/22 09:06 Neut # (Auto) 3.44 10^3/uL (1.8-7.7) 06/08/22 09:06 Lymph # (Auto) 1.5 10^3/uL (0.8-4.8) 06/08/22 09:06 [place] # (Auto) 0.4 10^3/uL (0.2-0.9) 06/08/22 09:06 Eos # (Auto) 0.1 10^3/uL (0.0-0.8) 06/08/22 09:06 Baso # (Auto) 0.0 10^3/uL (0.0-0.1) 06/08/22 09:06 Nucleated RBC % (auto) 0 % 06/08/22 09:06 Nucleated RBCs # 0.0 /100WBC 06/08/22 09:06 Sodium 143 mmol/L (136-145) 06/08/22 09:06 Potassium 3.9 mmol/L (3.5-5.1) 06/08/22 09:06 Chloride 105 mmol/L (98-107) 06/08/22 09:06 Carbon Dioxide 28 mmol/L (22-29) 06/08/22 09:06 Anion Gap 13.9 (5-19) 06/08/22 09:06 BUN 12 mg/dL (6-20) 06/08/22 09:06 Creatinine 0.5 mg/dL (0.5-0.9) 06/08/22 09:06 GFR Calculation 138.8 mL/min (90-130) H 06/08/22 09:06 Glucose 132 mg/dL (65-115) H 06/08/22 09:06 Calculated Osmolality 298 mOsm/kg (285-295) H 06/08/22 09:06 Calcium 8.8 mg/dL (8.5-10.5) 06/08/22 09:06 Total Bilirubin 0.3 mg/dL (0.15-1.2) 06/08/22 09:06 AST 10 U/L (0-32) 06/08/22 09:06 ALT 11 U/L (0-33) 06/08/22 09:06 Alkaline Phosphatase 80 U/L (35-105) 06/08/22 09:06 Total Protein 6.9 g/dL (6.6-8.7) 06/08/22 09:06 Albumin 4.2 g/dL (3.5-5.2) 06/08/22 09:06 Globulin 2.7 g/dL (1.3-4.6) 06/08/22 09:06 HCG, Qual Negative (Negative) 06/08/22 09:06 Urine Color Yellow (Yellow) 06/08/22 10:54 Urine Appearance Clear (CLEAR) 06/08/22 10:54 Urine pH 6 (5-7) 06/08/22 10:54 Ur Specific [place] 1.020 (1.005-1.030) 06/08/22 10:54 Urine Protein Neg (Negative) 06/08/22 10:54 Urine Glucose (UA) Norm (Normal) 06/08/22 10:54 Urine Ketones Negative (Negative) 06/08/22 10:54 Urine Blood Neg (Negative) 06/08/22 10:54 Urine Nitrate Negative (Negative) 06/08/22 10:54 Urine Bilirubin Neg (Negative) 06/08/22 10:54 Urine Urobilinogen Neg mg/dL (Negative) 06/08/22 10:54 Ur Leukocyte Esterase Negative (Negative) 06/08/22 10:54 Salicylates < 0.3 mg/dL (3-10) L 06/08/22 09:06 Urine Opiates Screen Negative ng/mL (Negative) 06/08/22 10:54 Acetaminophen < 5.0 ug/mL (10-30) L 06/08/22 09:06 Ur Barbiturates Screen Negative ng/mL (Negative) 06/08/22 10:54 Ur Phencyclidine Scrn Negative ng/mL (Negative) 06/08/22 10:54 Ur Amphetamines Screen Negative ng/mL (Negative) 06/08/22 10:54 U Benzodiazepines Scrn Positive ng/mL (Negative) H 06/08/22 10:54 Urine Cocaine Screen Negative ng/mL (Negative) 06/08/22 10:54 U Marijuana (THC) Screen Positive ng/mL (Negative) H 06/08/22 10:54 Discharge Plan Discharge Patient Disposition: Home Clinical Impression: Depression Condition: Stable Prescriptions: New buspirone 10 mg tablet 10 mg PO TID Qty: 90 0RF conjugated estrogens 0.625 mg tablet 0.625 mg PO DAILY Qty: 30 0RF Rx Instructions: cyclically gabapentin 100 mg capsule 200 mg PO TID Qty: 180 0RF lamotrigine 25 mg tablet 25 mg PO BID 30 Days Qty: 60 0RF levetiracetam 750 mg tablet 750 mg PO BID Qty: 60 0RF prazosin 1 mg capsule 1 mg PO QPM Qty: 30 0RF propranolol 20 mg tablet 20 mg PO BID Qty: 60 0RF trazodone 150 mg tablet 150 mg PO .qhs Qty: 30 0RF Geodon 80 mg capsule 80 mg PO BID Qty: 60 0RF Rx Instructions: give with food (meal/snack) Discontinued buspirone 10 mg tablet 10 mg PO BID 30 Days Qty: 60 5RF Rx Instructions: do NOT fill 7.5mg dose, this dose replaces propranolol 20 mg tablet 20 mg PO BID 90 Days Qty: 180 3RF trazodone 50 mg tablet 150 mg PO BEDTIME PRN (Reason: Insomnia) 90 Days Qty: 90 5RF gabapentin 100 mg capsule 200 mg PO TID Qty: 180 5RF fluoxetine [Prozac] 40 mg capsule 40 mg PO QAM Premarin 0.625 mg tablet 0.625 mg PO QAM Rx Instructions: cyclically fluoxetine [Prozac] 20 mg capsule 20 mg PO QAM Rx Instructions: Take 20 mg in addition to the 40 mg capsule. Total of 60 mg daily. No Action acetaminophen [Tylenol Extra Strength] 500 mg tablet 1,000 mg PO TID PRN (Reason: Pain) Hold Instructions: Resume on 08/15/21. Do not take with hydrocodone fluticasone propionate [Allergy Relief (fluticasone)] 50 mcg/actuation spray,suspension 2 spray intranasal DAILY Qty: 16 5RF Rx Instructions: administer into each nostril metronidazole 500 mg tablet 500 mg PO BID Rx Instructions: rx filled 05/19/22 7d/s hydrocodone-acetaminophen 10-325 mg tablet 1 - 2 tab PO .EVERY 4-6 HOURS PRN (Reason: Pain) Rx Instructions: rx filled 03/25/22 30d/s Salonpas Adhesive Patch,Medicated 1 patch TOPICAL DAILY PRN (Reason: Pain) Discharge Orders: Discharge ED (Routine); Ordered 06/08/22 Ordered By: Sesar Valverde Referrals: Kai,Fadi W, DO [Primary Care Provider] - Discharge Diet: Usual diet Discharge Activity: Increase activity as tolerated Patient Instructions: Opioid Safety, Pain Management Activity Restrictions/Additional Instructions: You were seen and evaluated by psychiatry in the emergency room today they felt you are safe to be discharged home. We did rewrite all of your prescriptions so that you can have them filled in town. Your prescriptions were refilled based on the discharge paperwork that you had received from [facility]. Follow- up with [facility]. Coding Level of Care Code ED [employer] Management Technician for Indira Campos
[2022-06-08 09:14] LABS: Basophils % 0.5 %; Eosinophils # 0.1 10^3/uL (0.0-0.8); Eosinophils % 1.8 %; Hematocrit 40.6 % (37.0-47.0); Hemoglobin 13.1 g/dL (11.5-15.3); Lymphocytes # 1.5 10^3/uL (0.8-4.8); Lymphocytes % 27.6 %; Mean Corpuscular HGB Conc 32.3 g/dL (30.0-36.0); Mean Corpuscular Hemoglobin 32.4 pg (28.0-34.0); Mean Corpuscular Volume 100.5 fl (81-99); Mean Platelet Volume 10.3 fL (7.4-10.4); Monocytes # 0.4 10^3/uL (0.2-0.9); Monocytes % 6.8 %; Neutrophils # 3.44 10^3/uL (1.8-7.7); Neutrophils % 62.9 %; Nucleated Red Blood Cells % 0 %; Platelet Count 191 10^3/cmm (130-400); Red Blood Count 4.04 10^6/uL (4.1-5.3); Red Cell Distribution Width 12.3 % (12.1-15.1); White Blood Count 5.5 10^3/uL (4.0-10.0)
[2022-06-08 09:23] LABS: HCG, Serum Qual Negative (Negative)
[2022-06-08 09:30] LABS: Alanine Aminotransferase 11 U/L (0-33); Albumin Level 4.2 g/dL (3.5-5.2); Alkaline Phosphatase 80 U/L (35-105); Anion Gap 13.9 (5-19); Aspartate Amino Transferase 10 U/L (0-32); Blood Urea Nitrogen 12 mg/dL (6-20); Calcium 8.8 mg/dL (8.5-10.5); Carbon Dioxide 28 mmol/L (22-29); Chloride 105 mmol/L (98-107); Globulin 2.7 g/dL (1.3-4.6); Glomerular Filtration Rate 138.8 mL/min (90-130); Glucose 132 mg/dL (65-115); Osmolality Calculated 298 mOsm/kg (285-295); Potassium 3.9 mmol/L (3.5-5.1); Sodium 143 mmol/L (136-145); Total Bilirubin 0.3 mg/dL (0.15-1.2); Total Protein 6.9 g/dL (6.6-8.7)
[2022-06-08 09:35] LABS: Acetaminophen < 5.0 ug/mL (10-30); Salicylate < 0.3 mg/dL (3-10)
[2022-06-08 10:44] VITALS: BP 129/78; PULSE 97; RESP 16; O2SAT 92
[2022-06-08] MEDS: propranolol 20 mg Tablet PO (10:48)
[2022-06-08 11:28] LABS: Add Urine Microscopic? NO; Charge for UA Resulting for Rev
[2022-06-08 11:36] LABS: Bilirubin Urine Neg (Negative); Blood Urine Neg (Negative); Glucose Urine UA Norm (Normal); Ketones Urine Negative (Negative); Leukocyte Esterase Urine Negative (Negative); Nitrate Urine Negative (Negative); Protein Urine Neg (Negative); Urine Appearance Clear (CLEAR); Urine Color Yellow (Yellow); Urobilinogen Urine Neg (Negative); pH Urine 6 (5-7)
[2022-06-08 11:39] LABS: Amphetamines Screen Urine Negative (Negative); Barbiturates Screen Urine Negative (Negative); Benzodiazepines Screen Urine Positive (Negative); Cocaine Screen Urine Negative (Negative); Opiate Screen Urine Negative (Negative); PCP Screen Urine Negative (Negative); THC Screen Urine Positive (Negative)
[2022-06-08] MEDS: gabapentin 100 mg Capsule 200 MG PO (14:51)
[2022-06-08] MEDS: nicotine 21 mg Patch 1 PATCH TRANSDERMA (14:51)
[2022-06-08 16:49] VITALS: BP 127/79; PULSE 102; RESP 16; TEMP 36.4; O2SAT 100
[2022-06-08 16:56] VITALS: BP 127/79; PULSE 102; RESP 16; O2SAT 100
== END 2022-06-08 16:58 | disposition home or self-care (01) ==
PROVIDERS: Emergency Provider Family Medicine; PCP Family Medicine
DX: F32.A Depression, unspecified (principal); F17.210 Nicotine dependence, cigarettes, uncomplicated
CPT/HCPCS: 80053; 80306; 80307; 81003; 84703; 85025; 99285

== ENCOUNTER 2022-06-08 22:56 | Emergency (ER) | payer MEDICAID, SELFPAY ==
[2022-06-08 23:01] VITALS: BP 146/95; PULSE 80; RESP 16; TEMP 36.3; O2SAT 100
--- NOTE | 2022-06-08 23:16 | W.ED.HA ---
HPI - Headache General: Chief Complaint: Headache Stated Complaint: migraine Time Seen by Provider: 06/08/22 23:12 Source: patient Mode of arrival: ambulatory Limitations: no limitations History of Present Illness: 36-year-old female has a history of migraines states she had a migraine headache over the last 3 days it began gradually currently an 8 out of 10 states it feels like her previous migraine she has photophobia and phonophobia. She denies this being the worst headache of her life denies any neck pain denies any fevers. She had no vomiting or diarrhea. She has had some nausea. Associated symptoms: Deny chest pain, fever(s), nausea, rash or vomiting Review of Systems Const: Denies: fever(s), chills, body aches or change in appetite Eyes: Denies: blurry vision or eye discomfort ENMT: Denies: throat pain or dental pain Card: Denies: chest pain Resp: Denies: dyspnea GI: Denies: abdominal pain, nausea, vomiting or diarrhea : Denies: dysuria Musc: Denies: neck pain or back pain Skin/Breast: Denies: rash Neuro: Reports: headache(s) Psych: Denies: depression Ramy/Lymph: Denies: easy bruising All/Imm: Denies: urticaria PFSH ED PFSH: Medical History Schizoaffective disorder, bipolar type Scoliosis Seizure disorder Surgical History H/O tubal ligation History of foot surgery History of hysterectomy Family History Other CAD (coronary artery disease) Cancer Hypertension Denies family history of Diabetes Stroke Social History Smoking and tobacco status: current every day smoker cigarettes Packs smoked per day: 0.25 Years cigarettes smoked: 20 Second hand smoke exposure: Yes Alcohol intake: former Caregiver/support person: Yes Lives independently: Yes Household members: significant other Marital status: service: No Current occupational status: disabled Current gender identity: Female Special matt needs: Yes Agree to transfusion: No Female Reproductive History: Spontaneous abortions: No Physical Exam Const: COMMON NORMALS: no acute distress, patient oriented x3 and healthy appearing HENMT: COMMON NORMALS: normocephalic and atraumatic HEAD & SCALP: normocephalic and atraumatic Eye: COMMON NORMALS: Equal, round and reactive pupils present and EOMs intact bilaterally PUPIL: Yes Equal, round and reactive pupils present Neck/C-Spine: COMMON NORMALS: full ROM and supple Chest: COMMONS NORMALS: normal inspection of the chest and normal palpation of entire chest wall Resp: COMMON NORMALS: normal respiratory effort, No retractions, No use of accessory muscles and clear to auscultation bilaterally AUSCULTATION: clear to auscultation bilaterally Cardio: COMMON NORMALS: regular rate, regular rhythm and No murmurs present (Cardio) RATE: regular rate RHYTHM: regular rhythm GI: COMMON NORMALS: Normal to inspection, nondistended, normoactive bowel sounds present, Soft to palpation, non-tender and no masses PALPATION: Yes Soft to palpation Extremity: COMMON NORMALS: normal to inspection and full ROM Neuro: COMMON NORMALS: patient oriented x3, moves all extremities and no focal motor deficits Psych: COMMON NORMALS: mental status grossly normal, Normal thought process present and cooperative THOUGHT PROCESS: Normal thought process present Skin: COMMON NORMALS: no rashes or lesions noted and no wounds GENERAL SKIN EXAM: no rashes or lesions noted Course Vital Signs: Vital signs: Vital Signs Temperature 97.4 F L 06/08/22 23:01 Pulse Rate 80 06/08/22 23:01 Respiratory Rate 16 06/08/22 23:01 Blood Pressure 146/95 06/08/22 23:01 Pulse Oximetry 100 06/08/22 23:01 Oxygen Delivery Me thod 06/08/22 23:01 MDM - Headache Medical Decision Making Patient presents with a headache consistent with migraine headache she feels much improved here she is stable for discharge she is to follow-up with PCP and return if worsening. Discharge Plan Discharge Patient Disposition: Home Clinical Impression: Migraine Condition: Stable Prescriptions: No Action acetaminophen [Tylenol Extra Strength] 500 mg tablet 1,000 mg PO TID PRN (Reason: Pain) Hold Instructions: Resume on 08/15/21. Do not take with hydrocodone fluticasone propionate [Allergy Relief (fluticasone)] 50 mcg/actuation spray,suspension 2 spray intranasal DAILY Qty: 16 5RF Rx Instructions: administer into each nostril metronidazole 500 mg tablet 500 mg PO BID Rx Instructions: rx filled 05/19/22 7d/s hydrocodone-acetaminophen 10-325 mg tablet 1 - 2 tab PO .EVERY 4-6 HOURS PRN (Reason: Pain) Rx Instructions: rx filled 03/25/22 30d/s Salonpas Adhesive Patch,Medicated 1 patch TOPICAL DAILY PRN (Reason: Pain) buspirone 10 mg tablet 10 mg PO TID Qty: 90 0RF conjugated estrogens 0.625 mg tablet 0.625 mg PO DAILY Qty: 30 0RF Rx Instructions: cyclically gabapentin 100 mg capsule 200 mg PO TID Qty: 180 0RF lamotrigine 25 mg tablet 25 mg PO BID 30 Days Qty: 60 0RF levetiracetam 750 mg tablet 750 mg PO BID Qty: 60 0RF prazosin 1 mg capsule 1 mg PO QPM Qty: 30 0RF propranolol 20 mg tablet 20 mg PO BID Qty: 60 0RF trazodone 150 mg tablet 150 mg PO .qhs Qty: 30 0RF Geodon 80 mg capsule 80 mg PO BID Qty: 60 0RF Rx Instructions: give with food (meal/snack) Discharge Orders: Discharge ED (Routine); Ordered 06/08/22 Ordered By: Nikos Rodriges Referrals: Tony Angel MD [Primary Care Provider] - 1-3 days Discharge Diet: Advance as tolerated Discharge Activity: Resume usual activity Patient Instructions: Migraine Headache (ED) Coding Level of Care Code ED [employer] Rolls for Indira Campos
[2022-06-08] MEDS: ondansetron 2 mg/ML SDV 2 mL 4 MG IM (23:18)
[2022-06-08] MEDS: haloperidol inj 5 mg/mL INJ 1 mL IM (23:18)
[2022-06-08 23:50] VITALS: BP 128/72; PULSE 78; RESP 18; O2SAT 98
== END 2022-06-08 23:53 | disposition home or self-care (01) ==
PROVIDERS: Emergency Provider Emergency Medicine; PCP Anesthesiology
DX: G43.909 Migraine, unspecified, not intractable, without status migrainosus (principal); F17.210 Nicotine dependence, cigarettes, uncomplicated
CPT/HCPCS: 96372; 99284; J1630; J2405

== ENCOUNTER 2022-06-09 01:52 | Emergency (ER) | payer MEDICAID, SELFPAY ==
[2022-06-09 01:54] VITALS: BP 135/77; PULSE 88; RESP 16; TEMP 36.6; O2SAT 97; BMI 16.9
--- NOTE | 2022-06-09 01:57 | ED.C_ITS ---
HPI - Psych General: Chief Complaint: Psychiatric Symptoms Stated Complaint: SI Time Seen by Provider: 06/09/22 01:53 Source: patient and EMS Mode of arrival: EMS Limitations: no limitations History of Present Illness: 36-year-old female has been here 3 times last 24 hours she is seen yesterday for suicidality and had her meds refilled was seen by psychiatrist and cleared I had seen her for headache now she called EMS because she is suicidal again she states that she is no longer wants to live she wants to kill herself she appears intoxicated at this time or under the influence of drugs she did get Haldol earlier for her headache. She denies any specific plan to states she wants to . Associated symptoms: Reports depression and suicidal ideation Review of Systems Const: Denies: fever(s), chills, body aches or change in appetite Eyes: Denies: blurry vision or eye discomfort ENMT: Denies: throat pain or dental pain Card: Denies: chest pain Resp: Denies: dyspnea GI: Denies: abdominal pain, nausea, vomiting or diarrhea : Denies: dysuria Musc: Denies: neck pain or back pain Skin/Breast: Denies: rash Neuro: Denies: headache(s) Psych: Reports: depression and suicidal ideation Ramy/Lymph: Denies: easy bruising All/Imm: Denies: urticaria PFSH ED PFSH: Medical History Schizoaffective disorder, bipolar type Scoliosis Seizure disorder Surgical History H/O tubal ligation History of foot surgery History of hysterectomy Family History Other CAD (coronary artery disease) Cancer Hypertension Denies family history of Diabetes Stroke Social History Smoking and tobacco status: current every day smoker cigarettes Packs smoked per day: 0.25 Years cigarettes smoked: 20 Second hand smoke exposure: Yes Alcohol intake: former Caregiver/support person: Yes Lives independently: Yes Household members: significant other Marital status: service: No Current occupational status: disabled Current gender identity: Female Special matt needs: Yes Agree to transfusion: No Female Reproductive History: Spontaneous abortions: No Physical Exam Const: COMMON NORMALS: no acute distress, patient oriented x3 and healthy appearing HENMT: COMMON NORMALS: normocephalic and atraumatic HEAD & SCALP: normocephalic and atraumatic Eye: COMMON NORMALS: Equal, round and reactive pupils present and EOMs intact bilaterally PUPIL: Yes Equal, round and reactive pupils present Neck/C-Spine: COMMON NORMALS: full ROM and supple Chest: COMMONS NORMALS: normal inspection of the chest and normal palpation of entire chest wall Resp: COMMON NORMALS: normal respiratory effort, No retractions, No use of accessory muscles and clear to auscultation bilaterally AUSCULTATION: clear to auscultation bilaterally Cardio: COMMON NORMALS: regular rate, regular rhythm and No murmurs present (Cardio) RATE: regular rate RHYTHM: regular rhythm GI: COMMON NORMALS: Normal to inspection, nondistended, normoactive bowel sounds present, Soft to palpation, non-tender and no masses PALPATION: Yes Soft to palpation Extremity: COMMON NORMALS: normal to inspection and full ROM Neuro: COMMON NORMALS: patient oriented x3, moves all extremities and no focal motor deficits Psych: COMMON NORMALS: mental status grossly normal, Normal thought process present and cooperative APPEARANCE: Yes unkempt THOUGHT PROCESS: Normal thought process present THOUGHT CONTENT: Yes Suicidality present Skin: COMMON NORMALS: no rashes or lesions noted and no wounds GENERAL SKIN EXAM: no rashes or lesions noted Course Vital Signs: Vital signs: Vital Signs Temperature 97.8 F 06/09/22 01:54 Pulse Rate 88 06/09/22 01:54 Respiratory Rate 16 06/09/22 01:54 Blood Pressure 135/77 06/09/22 01:54 Pulse Oximetry 97 06/09/22 01:54 MDM - Psych Medical Decision Making Patient presents here with depression she was originally suicidal she is now denying suicidality states she feels improved she is homeless I believe she is malingering as well she had a recent admission to [facility] within the last month she [facility] recently as well patient was seen by Dr. Estrada yesterday and cleared I spoke to him again and he feels that she is not an imminent threat to herself I agree she is stable for discharge we will give her information to the crisis access center she is return if worsening she understands agrees to plan. Lab Data 06/09/22 02:38 06/09/22 02:38 Laboratory Results WBC 8.1 10^3/uL (4.0-10.0) 06/09/22 02:38 RBC 4.70 10^6/uL (4.1-5.3) 06/09/22 02:38 Hgb 15.3 g/dL (11.5-15.3) 06/09/22 02:38 Hct 47.3 % (37.0-47.0) H 06/09/22 02:38 MCV 100.6 fl (81-99) H 06/09/22 02:38 MCH 32.6 pg (28.0-34.0) 06/09/22 02:38 MCHC 32.3 g/dL (30.0-36.0) 06/09/22 02:38 RDW 12.0 % (12.1-15.1) L 06/09/22 02:38 Plt Count 185 10^3/cmm (130-400) 06/09/22 02:38 MPV 10.7 fL (7.4-10.4) H 06/09/22 02:38 Neut % (Auto) 70.6 % 06/09/22 02:38 Lymph % (Auto) 21.6 % 06/09/22 02:38 [place] % (Auto) 5.5 % 06/09/22 02:38 Eos % (Auto) 1.6 % 06/09/22 02:38 Baso % (Auto) 0.5 % 06/09/22 02:38 Neut # (Auto) 5.70 10^3/uL (1.8-7.7) 06/09/22 02:38 Lymph # (Auto) 1.7 10^3/uL (0.8-4.8) 06/09/22 02:38 [place] # (Auto) 0.4 10^3/uL (0.2-0.9) 06/09/22 02:38 Eos # (Auto) 0.1 10^3/uL (0.0-0.8) 06/09/22 02:38 Baso # (Auto) 0.0 10^3/uL (0.0-0.1) 06/09/22 02:38 Nucleated RBC % (auto) 0 % 06/09/22 02:38 Nucleated RBCs # 0.0 /100WBC 06/09/22 02:38 Sodium 136 mmol/L (136-145) 06/09/22 02:38 Potassium 4.7 mmol/L (3.5-5.1) 06/09/22 02:38 Chloride 97 mmol/L (98-107) L 06/09/22 02:38 Carbon Dioxide 27 mmol/L (22-29) 06/09/22 02:38 Anion Gap 16.7 (5-19) 06/09/22 02:38 BUN 16 mg/dL (6-20) 06/09/22 02:38 Creatinine 0.5 mg/dL (0.5-0.9) 06/09/22 02:38 GFR Calculation 138.8 mL/min (90-130) H 06/09/22 02:38 Glucose 111 mg/dL (65-115) 06/09/22 02:38 Calculated Osmolality 284 mOsm/kg (285-295) L 06/09/22 02:38 Calcium 10.3 mg/dL (8.5-10.5) 06/09/22 02:38 Total Bilirubin 0.4 mg/dL (0.15-1.2) 06/09/22 02:38 AST 14 U/L (0-32) 06/09/22 02:38 ALT 13 U/L (0-33) 06/09/22 02:38 Alkaline Phosphatase 97 U/L (35-105) 06/09/22 02:38 Total Protein 8.3 g/dL (6.6-8.7) D 06/09/22 02:38 Albumin 5.1 g/dL (3.5-5.2) 06/09/22 02:38 Globulin 3.2 g/dL (1.3-4.6) 06/09/22 02:38 HCG, Qual Negative (Negative) 06/09/22 03:47 Salicylates < 0.3 mg/dL (3-10) L 06/09/22 02:38 Urine Opiates Screen Negative ng/mL (Negative) 06/09/22 03:47 Acetaminophen < 5.0 ug/mL (10-30) L 06/09/22 02:38 Ur Barbiturates Screen Negative ng/mL (Negative) 06/09/22 03:47 Ur Phencyclidine Scrn Negative ng/mL (Negative) 06/09/22 03:47 Ur Amphetamines Screen Negative ng/mL (Negative) 06/09/22 03:47 U Benzodiazepines Scrn Negative ng/mL (Negative) 06/09/22 03:47 Urine Cocaine Screen Negative ng/mL (Negative) 06/09/22 03:47 U Marijuana (THC) Screen Negative ng/mL (Negative) 06/09/22 03:47 Ethyl Alcohol < 10 mg/dL (0-10) 06/09/22 02:38 SARS-CoV-2 Ag (Rapid) negative (Negative) 06/09/22 02:22 Discharge Plan Discharge Patient Disposition: Home Clinical Impression: Bipolar disorder, Homelessness Condition: Stable Prescriptions: No Action acetaminophen [Tylenol Extra Strength] 500 mg tablet 1,000 mg PO TID PRN (Reason: Pain) Hold Instructions: Resume on 08/15/21. Do not take with hydrocodone fluticasone propionate [Allergy Relief (fluticasone)] 50 mcg/actuation sp ray,suspension 2 spray intranasal DAILY Qty: 16 5RF Rx Instructions: administer into each nostril metronidazole 500 mg tablet 500 mg PO BID Rx Instructions: rx filled 05/19/22 7d/s hydrocodone-acetaminophen 10-325 mg tablet 1 - 2 tab PO .EVERY 4-6 HOURS PRN (Reason: Pain) Rx Instructions: rx filled 03/25/22 30d/s Salonpas Adhesive Patch,Medicated 1 patch TOPICAL DAILY PRN (Reason: Pain) buspirone 10 mg tablet 10 mg PO TID Qty: 90 0RF conjugated estrogens 0.625 mg tablet 0.625 mg PO DAILY Qty: 30 0RF Rx Instructions: cyclically gabapentin 100 mg capsule 200 mg PO TID Qty: 180 0RF lamotrigine 25 mg tablet 25 mg PO BID 30 Days Qty: 60 0RF levetiracetam 750 mg tablet 750 mg PO BID Qty: 60 0RF prazosin 1 mg capsule 1 mg PO QPM Qty: 30 0RF propranolol 20 mg tablet 20 mg PO BID Qty: 60 0RF trazodone 150 mg tablet 150 mg PO .qhs Qty: 30 0RF Geodon 80 mg capsule 80 mg PO BID Qty: 60 0RF Rx Instructions: give with food (meal/snack) Discharge Orders: Discharge ED (Routine); Ordered 06/09/22 Ordered By: Nikos Rodriges Referrals: Tony Angel MD [Primary Care Provider] - Discharge Diet: Advance as tolerated Discharge Activity: Resume usual activity Patient Instructions: Depression (ED) Coding Level of Care Code ED Packaging Technician for Indira Campos
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
[2022-06-09 02:43] LABS: Basophils % 0.5 %; Eosinophils # 0.1 10^3/uL (0.0-0.8); Eosinophils % 1.6 %; Hematocrit 47.3 % (37.0-47.0); Hemoglobin 15.3 g/dL (11.5-15.3); Lymphocytes # 1.7 10^3/uL (0.8-4.8); Lymphocytes % 21.6 %; Mean Corpuscular HGB Conc 32.3 g/dL (30.0-36.0); Mean Corpuscular Hemoglobin 32.6 pg (28.0-34.0); Mean Corpuscular Volume 100.6 fl (81-99); Mean Platelet Volume 10.7 fL (7.4-10.4); Monocytes # 0.4 10^3/uL (0.2-0.9); Monocytes % 5.5 %; Neutrophils % 70.6 %; Nucleated Red Blood Cells % 0 %; Platelet Count 185 10^3/cmm (130-400); White Blood Count 8.1 10^3/uL (4.0-10.0)
[2022-06-09 02:50] LABS: SARS Covid-2 Antigen negative (Negative)
[2022-06-09 03:04] LABS: Alanine Aminotransferase 13 U/L (0-33); Albumin Level 5.1 g/dL (3.5-5.2); Alkaline Phosphatase 97 U/L (35-105); Anion Gap 16.7 (5-19); Aspartate Amino Transferase 14 U/L (0-32); Blood Urea Nitrogen 16 mg/dL (6-20); Calcium 10.3 mg/dL (8.5-10.5); Carbon Dioxide 27 mmol/L (22-29); Chloride 97 mmol/L (98-107); Globulin 3.2 g/dL (1.3-4.6); Glomerular Filtration Rate 138.8 mL/min (90-130); Glucose 111 mg/dL (65-115); Osmolality Calculated 284 mOsm/kg (285-295); Potassium 4.7 mmol/L (3.5-5.1); Sodium 136 mmol/L (136-145); Total Bilirubin 0.4 mg/dL (0.15-1.2); Total Protein 8.3 g/dL (6.6-8.7)
[2022-06-09 03:12] LABS: Acetaminophen < 5.0 ug/mL (10-30); Alcohol Level < 10 mg/dL (0-10); Salicylate < 0.3 mg/dL (3-10)
[2022-06-09 03:54] LABS: HCG Qualitative Urine. Negative (Negative)
[2022-06-09 04:07] LABS: Amphetamines Screen Urine Negative (Negative); Barbiturates Screen Urine Negative (Negative); Benzodiazepines Screen Urine Negative (Negative); Cocaine Screen Urine Negative (Negative); Opiate Screen Urine Negative (Negative); PCP Screen Urine Negative (Negative); THC Screen Urine Negative (Negative)
[2022-06-09 05:25] VITALS: BP 135/77; PULSE 88; RESP 16; TEMP 36.6; O2SAT 97
== END 2022-06-09 05:26 | disposition home or self-care (01) ==
PROVIDERS: Emergency Provider Emergency Medicine; PCP Anesthesiology
DX: F31.9 Bipolar disorder, unspecified (principal); Z59.00 Homelessness unspecified; Z20.822 Contact with and (suspected) exposure to COVID-19; F17.210 Nicotine dependence, cigarettes, uncomplicated
CPT/HCPCS: 80053; 80306; 80307; 81025; 85025; 87426; 99285

== ENCOUNTER 2022-06-16 12:39 | Inpatient (IN) | payer MEDICAID, SELFPAY ==
[2022-06-16 12:48] VITALS: BMI 17.7
[2022-06-16 12:52] VITALS: BP 137/82; PULSE 113; RESP 16; TEMP 35.9; O2SAT 95
--- NOTE | 2022-06-16 13:16 | W.ED.PSYCHS ---
HPI - Psych General: Chief Complaint: Psychiatric Symptoms Stated Complaint: SI Time Seen by Provider: 06/16/22 13:02 Source: patient Mode of arrival: ambulatory History of Present Illness: 36-year-old female presents emergency room with complaints of suicidal ideation. She has been in the emergency room multiple times for same complaints. We had seen her recently and Dr. Estrada had evaluated her and did not feel she needed admission she was evaluated discharged home without poor turned out her big issue was she did not have her medications. Her medicines were refilled at that ER visit however in talking to her today she still has not gotten the prescriptions filled since she has not been on any of her medications. She offered several different ideas about killing herself occluding jumping in front of traffic or cutting her wrists. She is angry she feels like no one is taking her seriously and she wants to be admitted for for suicidal ideation. MD complaint: suicidal ideation and feels depressed Onset (ago): unknown Duration: constant History of same: Yes Relieving factors: none Exacerbating factors: none Context: not taking psychiatric medications Associated psychiatric symptoms: depression and suicidal ideation Associated symptoms: Reports depression, suicidal ideation and racing thoughts If self harm: admits thoughts of self harm and has plan Review of Systems Const: Denies: fever(s), chills, body aches, change in appetite, fatigue or malaise ENMT: Denies: throat pain, ear or mastoid pain, nasal discharge or nasal congestion Card: Denies: chest pain, edema, dyspnea on exertion or orthopnea Resp: Denies: dyspnea, productive cough or non-productive cough GI: Denies: abdominal pain, nausea, vomiting, diarrhea or constipation : Denies: flank pain, difficulty voiding, dysuria, urinary frequency or urinary urgency Skin/Breast: Denies: rash or pruritus Psych: Reports: depression and suicidal ideation PFS ED PFSH: Medical History Schizoaffective disorder, bipolar type Scoliosis Seizure disorder Surgical History H/O tubal ligation History of foot surgery History of hysterectomy Family History Other CAD (coronary artery disease) Cancer Hypertension Denies family history of Diabetes Stroke Social History Smoking and tobacco status: current every day smoker cigarettes Packs smoked per day: 0.25 Years cigarettes smoked: 20 Second hand smoke exposure: Yes Alcohol intake: former Caregiver/support person: Yes Lives independently: Yes Household members: significant other Marital status: service: No Current occupational status: disabled Current gender identity: Female Special matt needs: Yes Agree to transfusion: No Female Reproductive History: Spontaneous abortions: No Physical Exam Const: GENERAL APPEARANCE: cooperative and comfortable NUTRITIONAL APPEARANCE: underweight ORIENTATION/CONSCIOUSNESS: Yes awake HENMT: COMMON NORMALS: normocephalic, atraumatic and hearing grossly normal bilaterally HEAD & SCALP: normocephalic and atraumatic Resp: COMMON NORMALS: normal respiratory effort, No retractions, No use of accessory muscles and clear to auscultation bilaterally AUSCULTATION: clear to auscultation bilaterally Cardio: COMMON NORMALS: regular rate, regular rhythm and No murmurs present (Cardio) RATE: regular rate RHYTHM: regular rhythm Extremity: COMMON NORMALS: normal to inspection, capillary refill normal, no clubbing, cyanosis or edema, no calf tenderness and no pedal edema Skin: COMMON NORMALS: no rashes or lesions noted GENERAL SKIN EXAM: no rashes or lesions noted Course Vital Signs: Vital signs: Vital Signs Temperature 96.7 F L 06/16/22 12:52 Pulse Rate 113 H 06/16/22 12:52 Respiratory Rate 14 06/16/22 13:49 Blood Pressure 137/82 06/16/22 12:52 Pulse Oximetry 95 06/16/22 12:52 Oxygen Delivery Me thod Room Air 06/16/22 12:52 MDM - Psych Medical Decision Making Patient expressing suicidal ideation multiple forms today. Discussed Dr. Giron he would like to admit the patient. I did fill out an affidavit regarding her suicidality in the event that she changes her mind and wishes to leave at this point she wants to voluntarily be admitted. With the affidavit they would be able to 96 patient if needed. Medical screening completed patient has no medical issues ongoing medical issues can be admitted to psychiatry unit. Medical Records I reviewed the patient's medical records. Lab Data I reviewed the patient's lab results. 06/16/22 13:41 06/16/22 13:41 Laboratory Results WBC 9.8 10^3/uL (4.0-10.0) 06/16/22 13:41 RBC 3.75 10^6/uL (4.1-5.3) L 06/16/22 13:41 Hgb 12.2 g/dL (11.5-15.3) 06/16/22 13:41 Hct 37.9 % (37.0-47.0) 06/16/22 13:41 MCV 101.1 fl (81-99) H 06/16/22 13:41 MCH 32.5 pg (28.0-34.0) 06/16/22 13:41 MCHC 32.2 g/dL (30.0-36.0) 06/16/22 13:41 RDW 12.6 % (12.1-15.1) 06/16/22 13:41 Plt Count 147 10^3/cmm (130-400) 06/16/22 13:41 MPV 10.6 fL (7.4-10.4) H 06/16/22 13:41 Neut % (Auto) 79.1 % 06/16/22 13:41 Lymph % (Auto) 14.3 % 06/16/22 13:41 [place] % (Auto) 5.3 % 06/16/22 13:41 Eos % (Auto) 0.7 % 06/16/22 13:41 Baso % (Auto) 0.3 % 06/16/22 13:41 Neut # (Auto) 7.78 10^3/uL (1.8-7.7) H 06/16/22 13:41 Lymph # (Auto) 1.4 10^3/uL (0.8-4.8) 06/16/22 13:41 [place] # (Auto) 0.5 10^3/uL (0.2-0.9) 06/16/22 13:41 Eos # (Auto) 0.1 10^3/uL (0.0-0.8) 06/16/22 13:41 Baso # (Auto) 0.0 10^3/uL (0.0-0.1) 06/16/22 13:41 Nucleated RBC % (auto) 0 % 06/16/22 13:41 Nucleated RBCs # 0.0 /100WBC 06/16/22 13:41 Sodium 142 mmol/L (136-145) 06/16/22 13:41 Potassium 4.1 mmol/L (3.5-5.1) 06/16/22 13:41 Chloride 106 mmol/L (98-107) 06/16/22 13:41 Carbon Dioxide 26 mmol/L (22-29) 06/16/22 13:41 Anion Gap 14.1 (5-19) 06/16/22 13:41 BUN 13 mg/dL (6-20) 06/16/22 13:41 Creatinine 0.6 mg/dL (0.5-0.9) 06/16/22 13:41 GFR Calculation 112.5 mL/min (90-130) 06/16/22 13:41 Glucose 90 mg/dL (65-115) 06/16/22 13:41 Calculated Osmolality 294 mOsm/kg (285-295) 06/16/22 13:41 Calcium 9.1 mg/dL (8.5-10.5) 06/16/22 13:41 Total Bilirubin 0.2 mg/dL (0.15-1.2) 06/16/22 13:41 AST 9 U/L (0-32) 06/16/22 13:41 ALT 11 U/L (0-33) 06/16/22 13:41 Alkaline Phosphatase 74 U/L (35-105) 06/16/22 13:41 Total Protein 6.2 g/dL (6.6-8.7) L 06/16/22 13:41 Albumin 3.9 g/dL (3.5-5.2) 06/16/22 13:41 Globulin 2.3 g/dL (1.3-4.6) 06/16/22 13:41 HCG, Qual Negative (Negative) 06/16/22 13:41 Salicylates < 0.3 mg/dL (3-10) L 06/16/22 13:41 Urine Opiates Screen Negative ng/mL (Negative) 06/16/22 13:41 Acetaminophen < 5.0 ug/mL (10-30) L 06/16/22 13:41 Ur Barbiturates Screen Negative ng/mL (Negative) 06/16/22 13:41 Ur Phencyclidine Scrn Negative ng/mL (Negative) 06/16/22 13:41 Ur Amphetamines Screen Negative ng/mL (Negative) 06/16/22 13:41 U Benzodiazepines Scrn Positive ng/mL (Negative) H 06/16/22 13:41 Urine Cocaine Screen Negative ng/mL (Negative) 06/16/22 13:41 U Marijuana (THC) Screen Negative ng/mL (Negative) 06/16/22 13:41 Ethyl Alcohol < 10 mg/dL (0-10) 06/16/22 13:41 Discharge Plan Discharge Patient Disposition: Home Admit Provider: Clint Carcamo Clinical Impression: Suicidal ideation, Schizoaffective disorder, bipolar type, Bipolar disorder Condition: Stable Coding Level of Care Code ED Sales Record Clerk for Indira Campos
[2022-06-16 13:46] LABS: Basophils % 0.3 %; Eosinophils # 0.1 10^3/uL (0.0-0.8); Eosinophils % 0.7 %; Hematocrit 37.9 % (37.0-47.0); Hemoglobin 12.2 g/dL (11.5-15.3); Lymphocytes # 1.4 10^3/uL (0.8-4.8); Lymphocytes % 14.3 %; Mean Corpuscular HGB Conc 32.2 g/dL (30.0-36.0); Mean Corpuscular Hemoglobin 32.5 pg (28.0-34.0); Mean Corpuscular Volume 101.1 fl (81-99); Mean Platelet Volume 10.6 fL (7.4-10.4); Monocytes # 0.5 10^3/uL (0.2-0.9); Monocytes % 5.3 %; Neutrophils # 7.78 10^3/uL (1.8-7.7); Neutrophils % 79.1 %; Nucleated Red Blood Cells % 0 %; Platelet Count 147 10^3/cmm (130-400); Red Blood Count 3.75 10^6/uL (4.1-5.3); Red Cell Distribution Width 12.6 % (12.1-15.1); White Blood Count 9.8 10^3/uL (4.0-10.0)
[2022-06-16 13:49] VITALS: RESP 14
[2022-06-16 14:00] LABS: Amphetamines Screen Urine Negative (Negative); Barbiturates Screen Urine Negative (Negative); Benzodiazepines Screen Urine Positive (Negative); Cocaine Screen Urine Negative (Negative); HCG, Serum Qual Negative (Negative); Opiate Screen Urine Negative (Negative); PCP Screen Urine Negative (Negative); THC Screen Urine Negative (Negative)
[2022-06-16 14:05] LABS: Alanine Aminotransferase 11 U/L (0-33); Albumin Level 3.9 g/dL (3.5-5.2); Alkaline Phosphatase 74 U/L (35-105); Anion Gap 14.1 (5-19); Aspartate Amino Transferase 9 U/L (0-32); Blood Urea Nitrogen 13 mg/dL (6-20); Calcium 9.1 mg/dL (8.5-10.5); Carbon Dioxide 26 mmol/L (22-29); Chloride 106 mmol/L (98-107); Globulin 2.3 g/dL (1.3-4.6); Glomerular Filtration Rate 112.5 mL/min (90-130); Glucose 90 mg/dL (65-115); Osmolality Calculated 294 mOsm/kg (285-295); Potassium 4.1 mmol/L (3.5-5.1); Sodium 142 mmol/L (136-145); Total Bilirubin 0.2 mg/dL (0.15-1.2); Total Protein 6.2 g/dL (6.6-8.7)
[2022-06-16 14:06] LABS: Acetaminophen < 5.0 ug/mL (10-30); Alcohol Level < 10 mg/dL (0-10); Salicylate < 0.3 mg/dL (3-10)
--- NOTE | 2022-06-16 14:15 | PC.PHAR ---
PT STATES HER MEDICATIONS GOT JACKED PT STATES SHE HASNT HAD MEDS IN A WEEK-[facility] STATES THE PT HASNT PICKED UP GEODON 80MG BID-BUSPAR 10MG TID (EXT SHOWS LAST FILLED 10MG BID 05/19/22 30D/S)-LAMOTRIGINE 25MG BID-PRAZOSIN 1MG QPM-PT BROUGHT IN TRAZODONE 150MG HS AND GABAPENTIN 100MG TAKE 200MG TID-PTS DISCHARGE RECORDS FROM [facility] PROZAC 40MG AND 20MG DAILY FILLED 05/19/22 30D/S WAS DCED-
[2022-06-16 15:40] VITALS: BP 134/86; PULSE 118; RESP 18; TEMP 36.7; O2SAT 97
[2022-06-16] MEDS: nicotine 2 mg Gum BUCCAL (17:23)
[2022-06-16] MEDS: levETIRAcetam 500 mg Tablet 750 MG PO (18:23)
[2022-06-16] MEDS: gabapentin 100 mg Capsule PO (20:20)
[2022-06-16 22:00] VITALS: BP 146/91; PULSE 95; RESP 16; TEMP 36.7; O2SAT 100
[2022-06-17] MEDS: nicotine 2 mg Gum BUCCAL ×3 (01:09→21:11)
[2022-06-17 06:00] VITALS: BP 131/87; PULSE 95; RESP 15; TEMP 36.4; O2SAT 96
[2022-06-17] MEDS: gabapentin 100 mg Capsule PO (08:46)
[2022-06-17] MEDS: levETIRAcetam 500 mg Tablet 750 MG PO ×2 (08:46→17:56)
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
[2022-06-17 14:00] VITALS: BP 135/91; PULSE 98; RESP 16; TEMP 36.6; O2SAT 100
[2022-06-17] MEDS: gabapentin 300 mg Capsule PO ×2 (14:21→20:50)
[2022-06-17] MEDS: acetaminophen 325 mg Tablet 650 MG PO (20:49)
[2022-06-17] MEDS: quetiapine 100 mg Tablet PO (20:50)
[2022-06-17 22:00] VITALS: BP 129/88; PULSE 102; RESP 17; TEMP 36.5; O2SAT 97
[2022-06-18] MEDS: acetaminophen 325 mg Tablet 650 MG PO ×2 (03:31→11:42)
[2022-06-18] MEDS: nicotine 2 mg Gum BUCCAL ×4 (03:32→16:52)
[2022-06-18 06:00] VITALS: RESP 14
[2022-06-18] MEDS: gabapentin 300 mg Capsule PO ×3 (09:31→20:14)
[2022-06-18] MEDS: levETIRAcetam 500 mg Tablet 750 MG PO ×2 (09:32→17:12)
[2022-06-18 14:00] VITALS: BP 120/81; PULSE 108; RESP 18; TEMP 36.9; O2SAT 96
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
[2022-06-18 20:11] VITALS: BP 121/83; PULSE 103; RESP 20; TEMP 36.6; O2SAT 99
[2022-06-18] MEDS: quetiapine 100 mg Tablet 150 MG PO (20:14)
[2022-06-19] MEDS: nicotine 2 mg Gum BUCCAL ×3 (05:27→11:50)
[2022-06-19] MEDS: acetaminophen 325 mg Tablet 650 MG PO ×2 (05:27→11:50)
[2022-06-19 06:00] VITALS: BP 120/81; PULSE 100; RESP 20; TEMP 36.4; O2SAT 97
[2022-06-19] MEDS: levETIRAcetam 500 mg Tablet 750 MG PO ×2 (08:40→18:51)
[2022-06-19] MEDS: gabapentin 300 mg Capsule PO ×3 (08:40→20:52)
[2022-06-19 14:00] VITALS: BP 126/87; PULSE 106; RESP 18; TEMP 36.4; O2SAT 98
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
[2022-06-19 20:05] VITALS: BP 128/87; PULSE 111; RESP 18; TEMP 36.4; O2SAT 98
[2022-06-19] MEDS: quetiapine 100 mg Tablet 150 MG PO (20:52)
[2022-06-20] MEDS: acetaminophen 325 mg Tablet 650 MG PO ×3 (00:59→11:56)
[2022-06-20] MEDS: nicotine 2 mg Gum BUCCAL ×5 (00:59→20:09)
[2022-06-20 06:00] VITALS: BP 124/91; PULSE 102; RESP 18; TEMP 36.3; O2SAT 99
[2022-06-20] MEDS: gabapentin 300 mg Capsule PO ×3 (07:51→20:09)
[2022-06-20] MEDS: levETIRAcetam 500 mg Tablet 750 MG PO ×2 (07:51→20:09)
[2022-06-20 14:00] VITALS: BP 123/85; PULSE 108; RESP 18; TEMP 36.7; O2SAT 97
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
[2022-06-20] MEDS: quetiapine 100 mg Tablet 200 MG PO (20:09)
[2022-06-20 21:53] VITALS: BP 109/75; PULSE 114; RESP 16; TEMP 36.4; O2SAT 98
[2022-06-21 06:00] VITALS: BP 137/92; PULSE 100; RESP 20; TEMP 36.3; O2SAT 98
[2022-06-21] MEDS: gabapentin 300 mg Capsule PO ×2 (09:00→14:35)
[2022-06-21] MEDS: levETIRAcetam 500 mg Tablet 750 MG PO (09:00)
[2022-06-21] MEDS: acetaminophen 325 mg Tablet 650 MG PO (09:00)
[2022-06-21 10:51] VITALS: BP 137/92; PULSE 100; RESP 20; TEMP 36.3; O2SAT 98
[2022-06-21] MEDS: nicotine 2 mg Gum BUCCAL ×2 (11:22→14:40)
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
== END 2022-06-21 17:36 | disposition home or self-care (01) | DRG 881 ==
LOC: ER 14:01 → NP 15:25
PROVIDERS: Admitting Provider Psychiatry & Neurology Psychiatry; Emergency Provider Family Medicine; PCP Anesthesiology; Visit Provider Psychiatry & Neurology Psychiatry
DX: F32.9 Major depressive disorder, single episode, unspecified (principal); R45.851 Suicidal ideations; F43.10 Post-traumatic stress disorder, unspecified; F17.210 Nicotine dependence, cigarettes, uncomplicated; G31.84 Mild cognitive impairment of uncertain or unknown etiology; Z59.00 Homelessness unspecified
CPT/HCPCS: 80053; 80306; 80307; 84703; 85025; 97150; 97165; 99285

== ENCOUNTER 2022-07-22 20:31 | Emergency (ER) | payer MEDICAID, SELFPAY ==
[2022-07-22 20:32] VITALS: BP 132/90; PULSE 84; RESP 14; TEMP 36.6; O2SAT 98; BMI 20.8
[2022-07-22 20:42] VITALS: PULSE 99; RESP 22; O2SAT 98
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
[2022-07-22] MEDS: LORazepam 0.5 mg Tablet PO (21:48)
[2022-07-22] MEDS: doxycycline 100 mg Tablet PO (21:49)
[2022-07-22] MEDS: metroNIDAZOLE 500 MG Tablet PO (21:49)
[2022-07-22] MEDS: cefTRIAXone 500 MG in water for injection-sterile 1 ML IM (21:50)
[2022-07-22 22:11] LABS: Basophils # 0.1 10^3/uL (0.0-0.1); Basophils % 0.7 %; Eosinophils # 0.2 10^3/uL (0.0-0.8); Eosinophils % 3.4 %; Hematocrit 41.1 % (37.0-47.0); Hemoglobin 13.5 g/dL (11.5-15.3); Lymphocytes # 2.8 10^3/uL (0.8-4.8); Lymphocytes % 39.7 %; Mean Corpuscular HGB Conc 32.8 g/dL (30.0-36.0); Mean Corpuscular Volume 97.4 fl (81-99); Mean Platelet Volume 10.7 fL (7.4-10.4); Monocytes # 0.5 10^3/uL (0.2-0.9); Monocytes % 6.6 %; Neutrophils # 3.45 10^3/uL (1.8-7.7); Neutrophils % 49.5 %; Nucleated Red Blood Cells % 0 %; Platelet Count 150 10^3/cmm (130-400); Red Blood Count 4.22 10^6/uL (4.1-5.3); Red Cell Distribution Width 11.9 % (12.1-15.1)
[2022-07-22 22:29] VITALS: BP 138/96; PULSE 80; RESP 22; O2SAT 99
[2022-07-22 22:31] LABS: Alanine Aminotransferase 9 U/L (0-33); Albumin Level 4.8 g/dL (3.5-5.2); Alkaline Phosphatase 86 U/L (35-105); Anion Gap 13.4 (5-19); Aspartate Amino Transferase 9 U/L (0-32); Blood Urea Nitrogen 12 mg/dL (6-20); Calcium 9.2 mg/dL (8.5-10.5); Carbon Dioxide 30 mmol/L (22-29); Chloride 101 mmol/L (98-107); Globulin 2.4 g/dL (1.3-4.6); Glomerular Filtration Rate 112.5 mL/min (90-130); Glucose 87 mg/dL (65-115); Osmolality Calculated 289 mOsm/kg (285-295); Potassium 4.4 mmol/L (3.5-5.1); Sodium 140 mmol/L (136-145); Total Bilirubin 0.2 mg/dL (0.15-1.2); Total Protein 7.2 g/dL (6.6-8.7)
[2022-07-22 22:41] LABS: HCG, Serum Qual Negative (Negative)
[2022-07-23 03:42] LABS: Hepatitis A Antibody IgM Non-Reactive (Nonreactive); Hepatitis B Core IgM Non-Reactive (Nonreactive); Hepatitis B Surface Antigen Non-Reactive (Nonreactive); Hepatitis C Virus Antibody Non-Reactive (Nonreactive)
[2022-07-23 03:45] LABS: Rapid Plasma Reagin Syphilis Nonreactive (Nonreactive)
[2022-07-25 02:49] LABS: HIV AG/AB 4th Generation NON-REACTIVE (NON-REACTIVE)
== END 2022-07-22 22:41 | disposition home or self-care (01) ==
PROVIDERS: Emergency Provider Emergency Medicine; PCP Family Medicine
DX: T76.21XA Adult sexual abuse, suspected, initial encounter (principal); Y07.9 Unspecified perpetrator of maltreatment and neglect; F41.9 Anxiety disorder, unspecified
CPT/HCPCS: 80053; 80074; 84703; 85025; 86592; 87389; 96372; 99284; J0696

== ENCOUNTER 2022-07-27 16:24 | Emergency (ER) | payer MEDICAID, SELFPAY ==
[2022-07-27 16:26] VITALS: BP 165/110; PULSE 92; RESP 18; TEMP 36.7; O2SAT 98; BMI 20.1
[2022-07-27 16:49] VITALS: BP 117/91
--- NOTE | 2022-07-27 17:08 | ED_ITS ---
HPI - Headache General: Chief Complaint: Headache Stated Complaint: migraine Time Seen by Provider: 07/27/22 16:32 Source: patient Mode of arrival: EMS Limitations: no limitations History of Present Illness: Patient presents to the emergency department because of 4-day duration of headache. She states that this headache began like her usual migraine headaches but has not responded to her usual regimen of either Excedrin, Tylenol, ibuprofen. She states that she has had some flashing lights and irregular squiggly lines in her vision off and on with this headache which has not occurred in the past. She states the headache was gradual in onset and has been persistent since onset. She states that bright lights and noises tend to exacerbate her headache and she has been wearing sunglasses for the last 4 days. She denies any head trauma, fevers, weakness numbness or any other associated neurologic symptoms with this headache. She has had a longstanding history of migraine headaches for as long as she can remember. She states her mother also had migraine headaches and she has step siblings who have migraine headaches as well. She smokes tobacco but denies street drugs or alcohol. MD elicited complaint: headache and migraine Location: generalized Quality & Timing: throbbing, dull, steady and similar to previous headaches Associated symptoms: Reports nausea; Deny confusion, fever(s), lightheadedness, pre-syncope, rash, syncope or vomiting Treatments prior to arrival: acetaminophen and ibuprofen Review of Systems Const: Denies: fever(s) or chills Eyes: Reports: photophobia and seeing flashes ENMT: Denies: throat pain, odynophagia, nasal discharge or nasal congestion Card: Denies: palpitations, lightheadedness, syncope or pre-syncope Resp: Denies: productive cough or non-productive cough GI: Reports: nausea; Denies: vomiting or diarrhea : Denies: difficulty voiding, dysuria or urinary frequency Musc: Denies: neck pain or back pain Skin/Breast: Denies: rash Neuro: Reports: headache(s); Denies: numbness in extremities, weakness in extremities, confusion, Slurred speech present or seizure-like activity Psych: Denies: anxiety or depression PFSH ED PFSH: Medical History Bipolar disorder Posttraumatic stress disorder Schizoaffective disorder, bipolar type Scoliosis Seizure disorder Surgical History H/O tubal ligation History of foot surgery History of hysterectomy Family History Other CAD (coronary artery disease) Cancer Hypertension Denies family history of Diabetes Stroke Social History Smoking and tobacco status: current every day smoker cigarettes Packs smoked per day: 0.25 Years cigarettes smoked: 20 Second hand smoke exposure: Yes Alcohol intake: former Substance/Drug Use: never Caregiver/support person: Yes Lives independently: Yes Household members: significant other Marital status: service: No Current occupational status: disabled Current gender identity: Female Special matt needs: Yes Agree to transfusion: No Female Reproductive History: Spontaneous abortions: No Physical Exam Narrative: EXAM NARRATIVE: Patient makes good eye contact she appears comfortable but slightly photophobic. She answers questions in a goal-directed and organized fashion. Const: COMMON NORMALS: no acute distress, average body habitus, patient or iented x3 and alert GENERAL APPEARANCE: cooperative HENMT: COMMON NORMALS: normocephalic, atraumatic, EAC's normal (Soft wax noted right EAC greater than left), TM's normal bilaterally, Normal nasal mucous membranes and turbinates present and moist oral mucous membranes HEAD & SCALP: normocephalic and atraumatic FACE & SINUS: normal facial exam and sinuses nontender NOSE: Normal nasal mucous membranes and turbinates present EXTERNAL AUDITORY CANAL: EAC's normal (Soft wax noted right EAC greater than left) TYMPANIC MEMBRANE: TM's normal bilaterally Eye: COMMON NORMALS: Equal, round and reactive pupils present, EOMs intact bilaterally, conjunctivae normal and no scleral icterus CONJUNCTIVA: Yes c onjunctivae normal PUPIL: Yes Equal, round and reactive pupils present Neck/C-Spine: COMMON NORMALS: full ROM, supple and no meningeal signs Resp: COMMON NORMALS: normal respiratory effort, No retractions and clear to auscultation bilaterally EFFORT & INSPECTION: Yes able to speak in complete sentences AUSCULTATION: clear to auscultation bilaterally Cardio: COMMON NORMALS: regular rate, regular rhythm, No murmurs present (Cardio) and Peripheral pulses 2+ throughout RATE: regular rate RHYTHM: regular rhythm PERIPHERAL PULSES: Peripheral pulses 2+ throughout GI: COMMON NORMALS: Normal to inspection, nondistended, normoactive bowel sounds present and Soft to palpation PALPATION: Yes Soft to palpation : COMMON NORMALS: Yes no CVA tenderness BLADDER/KIDNEY EXAM: Yes no CVA tenderness Back/Pelvis: COMMON NORMALS: no CVA tenderness, thoracic and lumbar spine normal to inspection, no thoracic nor lumbar tenderness, thoraco-lumbar ROM normal and straight leg raise negative bilaterally Extremity: COMMON NORMALS: normal to inspection, full ROM, capillary refill normal, no calf tenderness and no pedal edema Neuro: COMMON NORMALS: patient oriented x3, moves all extremities and gait normal SENSORIUM/ORIENTATION: Yes alert MENINGEAL SIGNS: Yes no meningeal signs CRANIAL NERVES: Yes CN normal except as noted COORDINATION/BALANCE: [id number] test normal and [id number] test normal SPEECH: speech normal COORDINATION: [id number] test normal and [id number] test normal Psych: COMMON NORMALS: mental status grossly normal Skin: COMMON NORMALS: no rashes or lesions noted, no wounds and turgor normal GENERAL SKIN EXAM: no rashes or lesions noted and turgor normal Course Reevaluation(s): Reevaluation #1: Tach resolved. Patient states she feels completely back to normal. She has a follow-up appoint with neurology to discuss long-term treatment of her migraines to include acupuncture. No new or focal findings on reevaluation. Current presentation is consistent with a recurrent migraine type headache without any concern at this time for any worrisome secondary headache. Time: 18:41 Vital Signs: Vital signs: Vital Signs Temperature 98.1 F 07/27/22 16:26 Pulse Rate 92 07/27/22 16:26 Respiratory Rate 18 07/27/22 16:26 Blood Pressure 117/91 07/27/22 16:49 Pulse Oximetry 98 07/27/22 16:26 Oxygen Delivery Me thod Room Air 07/27/22 16:26 MDM - Headache Medical Decision Making Patient comes to our emergency department persistent but typical migraine type headache for her. It was gradual in onset and generalized and throbbing and associated with photophobia and phonophobia. Longstanding history of similar headaches. Clinical examination revealed her to be alert with a nonfocal neurologic examination. Remainder of her examination is also reassuring. Given her history of headaches and that other than being persistent this headache is unchanged with similar onset and other associated symptoms it is consistent with her usual headache. She was given the benefit of IV hydration and IV Reglan and to yanci her symptoms which was quite successful in doing so. Clinically stable at this time without any evidence of an ongoing emergency medical condition and suitable for discharge with neurology follow-up as scheduled. Discharge Plan Discharge Patient Disposition: Home Clinical Impression: Chronic headache disorder Condition: Stable Prescriptions: No Action acetaminophen [Tylenol Extra Strength] 500 mg tablet 1,000 mg PO TID PRN (Reason: Pain) Hold Instructions: Resume on 08/15/21. Do not take with hydrocodone camphor-methyl salicyl-menthol Adhesive Patch,Medicated 1 patch TOPICAL DAILY PRN (Reason: Pain) conjugated estrogens 0.625 mg tablet 0.625 mg PO DAILY Qty: 30 0RF Rx Instructions: cyclically levetiracetam 750 mg tablet 750 mg PO BID Qty: 60 0RF Prozac 40 mg Capsule 40 mg PO DAILY trazodone 50 mg tablet 150 mg PO BEDTIME PRN (Reason: Sleep) buspirone 10 mg Tablet 10 mg PO BID propranolol 20 mg Tablet 20 mg PO BID Prozac 20 mg Capsule 20 mg PO DAILY Allergy Relief (fluticasone) 50 mcg/actuation spray,suspension 2 spray intranasal DAILY PRN (Reason: Nasal Congestion) Rx Instructions: administer into each nostril Discharge Orders: Discharge ED (Routine); Ordered 07/27/22 Ordered By: Addison Joel Referrals: Augustine Ramirez DO [Primary Care Provider] - Discharge Diet: Usual diet Discharge Activity: Increase activity as tolerated Patient Instructions: Opioid Safety, Pain Management Activity Restrictions/Additional Instructions: You have received treatment for your headache which has resolved your symptoms today. We recommend following up with neurology as scheduled to discuss long- term treatment to help control your headaches. If you develop any new, worsening, changing headache symptoms or intractable headache you are welcome to return to the emergency department for reevaluation. Continue all your prescribed medications. Coding Level of Care Code ED Cooling Machine Operator for Indira Campos
[2022-07-27] MEDS: sodium chloride 0.9% 1,000 ML 999 ML IV (17:38)
[2022-07-27] MEDS: metoclopramide 5 mg/mL SDV 2 mL 10 MG IVP (17:38)
--- NOTE | 2022-07-27 17:54 | PC.NURSE ---
medications were pushed by Jimmy Adorno RN
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
== END 2022-07-27 18:56 | disposition home or self-care (01) ==
PROVIDERS: Emergency Provider Emergency Medicine; PCP Family Medicine
DX: R51.9 Headache, unspecified (principal); F17.210 Nicotine dependence, cigarettes, uncomplicated
CPT/HCPCS: 96361; 96374; 99284; J2765; J7030

== ENCOUNTER 2022-08-07 07:23 | Emergency (ER) | payer MEDICAID, SELFPAY ==
[2022-08-07 07:27] VITALS: BP 132/81; PULSE 93; RESP 16; TEMP 37; O2SAT 98; BMI 20.1
--- NOTE | 2022-08-07 07:28 | ED_ITS ---
HPI - General Adult General: Chief complaint: General Medical Stated complaint: medication refill Time Seen by Provider: 08/07/22 07:26 Source: patient Mode of arrival: ambulatory History of Present Illness: 36-year-old female who presents to the emergency room requesting refills on propranolol Keppra and Prozac. She usually sees Dr. Molina she has not been able to get to see him recently. She says she has appointment within the next week. She denies any recent illness or problems is just simply ran out of her medications. She has had psychiatric issues in the past no recent suicidal or homicidal ideation. In addition to this she denies any recent illness cough cold fever sweats chills etc. Associated symptoms: Deny chest pain, confusion, cough, diaphoresis, decreased appetite, dyspnea, fevers/chills, headache(s), malaise, nausea, rash, palpitations, seizures, short of breath, syncope, vomiting or weakness Review of Systems Const: Denies: fever(s), chills, malaise or diaphoresis ENMT: Denies: throat pain, ear or mastoid pain, nasal discharge or nasal congestion Card: Denies: chest pain, palpitations or syncope Resp: Denies: dyspnea GI: Denies: abdominal pain, nausea or vomiting : Denies: flank pain, difficulty voiding, dysuria, urinary frequency or urinary urgency Musc: Denies: neck pain or back pain Skin/Breast: Denies: rash Neuro: Denies: headache(s) or confusion Psych: Reports: anxiety and depression PFS ED PFSH: Medical History Bipolar disorder Posttraumatic stress disorder Schizoaffective disorder, bipolar type Scoliosis Seizure disorder Surgical History H/O tubal ligation History of foot surgery History of hysterectomy Family History Other CAD (coronary artery disease) Cancer Hypertension Denies family history of Diabetes Stroke Social History Smoking and tobacco status: current every day smoker cigarettes Packs smoked per day: 0.25 Years cigarettes smoked: 20 Second hand smoke exposure: Yes Alcohol intake: former Substance/Drug Use: never Caregiver/support person: Yes Lives independently: Yes Household members: significant other Marital status: service: No Current occupational status: disabled Current gender identity: Female Special matt needs: Yes Agree to transfusion: No Female Reproductive History: Spontaneous abortions: No Physical Exam Const: COMMON NORMALS: no acute distress GENERAL APPEARANCE: cooperative and comfortable ORIENTATION/CONSCIOUSNESS: Yes awake, Yes oriented to person, Yes oriented to place and Yes oriented to time HENMT: COMMON NORMALS: normocephalic, atraumatic and hearing grossly normal bilaterally HEAD & SCALP: normocephalic and atraumatic Resp: COMMON NORMALS: normal respiratory effort, No retractions, No use of accessory muscles and clear to auscultation bilaterally AUSCULTATION: clear to auscultation bilaterally Cardio: COMMON NORMALS: regular rate, regular rhythm and No murmurs present (Cardio) RATE: regular rate RHYTHM: regular rhythm GI: COMMON NORMALS: Soft to palpation and No hepatosplenomegaly present AUSCULTATION: Yes normoactive bowel sounds PALPATION: Yes Soft to palpation, No Tenderness to palpation present (GI), No Guarding due to palpation present (GI) and Yes No hepatosplenomegaly present Extremity: COMMON NORMALS: normal to inspection, capillary refill normal, no clubbing, cyanosis or edema, no calf tenderness and no pedal edema Neuro: SENSORIUM/ORIENTATION: Yes oriented to person, Yes oriented to place and Yes oriented to time Skin: COMMON NORMALS: no rashes or lesions noted GENERAL SKIN EXAM: no rashes or lesions noted Course Vital Signs: Vital signs: Vital Signs Temperature 98.6 F 08/07/22 07:27 Pulse Rate 93 08/07/22 07:27 Respiratory Rate 16 08/07/22 07:27 Blood Pressure 132/81 08/07/22 07:27 Pulse Oximetry 98 08/07/22 07:27 Oxygen Delivery Me thod Room Air 08/07/22 07:27 [facility] - General Adult Medical Decision Making Chart reviewed. Medications given for 2 weeks, written prescriptions of Prozac Keppra and propranolol at her current doses. Encourage patient to follow-up with Dr. Walters within the next 2 weeks for continuing management of long-term medication. Medical Records I reviewed the patient's medical records. Discharge Plan Discharge Patient Disposition: Home Clinical Impression: Schizoaffective disorder, bipolar type, Migraine, Seizure disorder Condition: Stable Prescriptions: New propranolol 20 mg tablet 20 mg PO BID Qty: 28 0RF Prozac 40 mg capsule 40 mg PO DAILY Qty: 14 0RF Keppra 750 mg tablet 750 mg PO BID 14 Days Qty: 28 0RF Discontinued levetiracetam 750 mg tablet 750 mg PO BID Qty: 60 0RF fluoxetine [Prozac] 40 mg Capsule 40 mg PO DAILY propranolol 20 mg Tablet 20 mg PO BID fluoxetine [Prozac] 20 mg Capsule 20 mg PO DAILY No Action acetaminophen [Tylenol Extra Strength] 500 mg tablet 1,000 mg PO TID PRN (Reason: Pain) Hold Instructions: Resume on 08/15/21. Do not take with hydrocodone camphor-methyl salicyl-menthol Adhesive Patch,Medicated 1 patch TOPICAL DAILY PRN (Reason: Pain) conjugated estrogens 0.625 mg tablet 0.625 mg PO DAILY Qty: 30 0RF Rx Instructions: cyclically trazodone 50 mg tablet 150 mg PO BEDTIME PRN (Reason: Sleep) buspirone 10 mg Tablet 10 mg PO BID Allergy Relief (fluticasone) 50 mcg/actuation spray,suspension 2 spray intranasal DAILY PRN (Reason: Nasal Congestion) Rx Instructions: administer into each nostril Discharge Orders: Discharge ED (Routine); Ordered 08/07/22 Ordered By: Sesar Valverde Referrals: Augustine Ramirez DO [Primary Care Provider] - Discharge Diet: Usual diet Discharge Activity: Resume usual activity Patient Instructions: Opioid Safety, Pain Management Activity Restrictions/Additional Instructions: You were given 2 weeks refills on 3 of your medications you requested today. Is very important that you follow-up with your primary care doctor within the next 2 weeks so they can manage your long-term medication needs. Coding Level of Care Code ED Swatch Checker for Indira Campos
== END 2022-08-07 07:53 | disposition home or self-care (01) ==
PROVIDERS: Emergency Provider Family Medicine; PCP Family Medicine
DX: Z76.0 Encounter for issue of repeat prescription (principal); F25.0 Schizoaffective disorder, bipolar type; G43.909 Migraine, unspecified, not intractable, without status migrainosus; G40.909 Epilepsy, unspecified, not intractable, without status epilepticus
CPT/HCPCS: 99284

== ENCOUNTER 2022-09-11 09:48 | Inpatient (IN) | payer MEDICAID, SELFPAY ==
[2022-09-11] VITALS (55 sets, daily range): BP systolic 109–148; BP diastolic 65–101; PULSE 16–111; RESP 15–29; TEMP 36.4–37.2; O2SAT 73–100; BMI 21.5
--- NOTE | 2022-09-11 09:52 | ECG_ITS ---
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 Measurements Intervals [place] Rate: 87 P: 60 IA: 141 QRS: 57 QRSD: 71 T: 35 QT: 366 QTc: 442 Interpretive Statements SINUS RHYTHM POSSIBLE ANTERIOR MYOCARDIAL INFARCTION , OF INDETERMINATE AGE [30 ms Q WAVE IN V3/V4, OR R < 0.2 mV IN V4] Compared to ECG 02/23/2022 16:49:27 No significant changes Electronically Signed On 09-11-2022 16:18:08 CDT by Royal Olea M.D. [id number]
--- NOTE | 2022-09-11 10:01 | ED_ITS ---
HPI - Overdose General: Chief Complaint: Overdose Stated Complaint: intentional overdose Time Seen by Provider: 09/11/22 09:51 Source: patient History of Present Illness: 37-year-old female presents emergency room via EMS after a intentional overdose of trazodone. She told EMS that around 8:00 this morning she took 2050 mg trazodone tablet she vomited after that EMS did not see any pill debris in the vomitus. She is awake and alert with no evidence of arrhythmia on arrival here. She denies seeing psychiatry she has had multiple ER visits and admissions for psychiatric issues in the past. She states her primary care doctor recently started her on aripiprazole 5 mg daily. MD complaint: intentional overdose Intent: suicide attempt Context: Intentional Overdose: financial issues and hearing voices Associated symptoms: depression Treatments Prior to Arrival: none Review of Systems Const: Denies: fever(s), chills, body aches, change in appetite, fatigue or malaise Card: Denies: chest pain, edema, dyspnea on exertion or orthopnea Resp: Denies: dyspnea, productive cough or non-productive cough GI: Denies: abdominal pain, nausea, vomiting, hematemesis, coffee ground emesis, diarrhea, constipation, bloating, hematochezia or melena : Denies: flank pain, difficulty voiding, dysuria, urinary frequency or urinary urgency Skin/Breast: Denies: rash or pruritus PFSH ED PFSH: Medical History (Updated 09/11/22 @ 13:13 by Sesar Valverde DO) Bipolar disorder Posttraumatic stress disorder Schizoaffective disorder, bipolar type Scoliosis Seizure disorder Surgical History H/O tubal ligation History of foot surgery History of hysterectomy Family History Other CAD (coronary artery disease) Cancer Hypertension Denies family history of Diabetes Stroke Social History Smoking and tobacco status: current every day smoker cigarettes Packs smoked per day: 0.25 Years cigarettes smoked: 20 Second hand smoke exposure: Yes Alcohol intake: former Substance/Drug Use: never Caregiver/support person: Yes Lives independently: Yes Household members: significant other Marital status: service: No Current occupational status: disabled Current gender identity: Female Special matt needs: Yes Agree to transfusion: No Female Reproductive History: Spontaneous abortions: No Physical Exam Const: GENERAL APPEARANCE: cooperative ORIENTATION/CONSCIOUSNESS: Yes awake HENMT: COMMON NORMALS: normocephalic, atraumatic and hearing grossly normal bilaterally HEAD & SCALP: normocephalic and atraumatic Resp: COMMON NORMALS: normal respiratory effort, No retractions, No use of accessory muscles and clear to auscultation bilaterally AUSCULTATION: clear to auscultation bilaterally Cardio: COMMON NORMALS: regular rate, regular rhythm and No murmurs present (Cardio) RATE: regular rate RHYTHM: regular rhythm GI: COMMON NORMALS: Soft to palpation and No hepatosplenomegaly present AUSCULTATION: Yes normoactive bowel sounds PALPATION: Yes Soft to palpation, No Tenderness to palpation present (GI), No Guarding due to palpation present (GI) and Yes No hepatosplenomegaly present Extremity: COMMON NORMALS: normal to inspection, capillary refill normal, no clubbing, cyanosis or edema, no calf tenderness and no pedal edema Skin: COMMON NORMALS: no rashes or lesions noted GENERAL SKIN EXAM: no rashes or lesions noted Course Vital Signs: Vital signs: Vital Signs Temperature 98.9 F 09/11/22 12:04 Pulse Rate 86 09/11/22 12:04 Respiratory Rate 18 09/11/22 12:04 Blood Pressure 126/85 09/11/22 12:04 Pulse Oximetry 96 09/11/22 12:04 Oxygen Delivery Me thod Room Air 09/11/22 12:17 MDM - Overdose Medical Decision Making Intentional overdose with head of suicide. Patient has no arrhythmias. Will admit to the ICU on a 96-hour hold consult psychiatry. Discussed with hospitalist orders written Medical Records I reviewed the patient's medical records. Lab Data I reviewed the patient's lab results. 09/11/22 10:32 09/11/22 10:32 Laboratory Results WBC 5.6 10^3/uL (4.0-10.0) 09/11/22 10:32 RBC 4.60 10^6/uL (4.1-5.3) 09/11/22 10:32 Hgb 14.8 g/dL (11.5-15.3) 09/11/22 10:32 Hct 44.0 % (37.0-47.0) 09/11/22 10:32 MCV 95.7 fl (81-99) 09/11/22 10:32 MCH 32.2 pg (28.0-34.0) 09/11/22 10: MCHC 33.6 g/dL (30.0-36.0) 09/11/22 10:32 RDW 11.9 % (12.1-15.1) L 09/11/22 10:32 Plt Count 148 10^3/cmm (130-400) 09/11/22 10:32 MPV 11.0 fL (7.4-10.4) H 09/11/22 10:32 Neut % (Auto) 61.1 % 09/11/22 10:32 Lymph % (Auto) 32.0 % 09/11/22 10:32 [place] % (Auto) 5.7 % 09/11/22 10:32 Eos % (Auto) 0.5 % 09/11/22:32 Baso % (Auto) 0.5 % 09/11/22 10:32 Neut # (Auto) 3.42 10^3/uL (1.8-7.7) 09/11/22 10:32 Lymph # (Auto) 1.8 10^3/uL (0.8-4.8) 09/11/22 10:32 [place] # (Auto) 0.3 10^3/uL (0.2-0.9) 09/11/22 10:32 Eos # (Auto) 0.0 10^3/uL (0.0-0.8) 09/11/22 10:32 Baso # (Auto) 0.0 10^3/uL (0.0-0.1) 09/11/22 10:32 Nucleated RBC % (auto) 0 % 09/11/22:32 Nucleated RBCs # 0.0 /100WBC 09/11/22 10:32 Sodium 134 mmol/L (136-145) L 09/11/22 10:32 Potassium 4.0 mmol/L (3.5-5.1) 09/11/22 10:32 Chloride 98 mmol/L (98-107) 09/11/22 10:32 Carbon Dioxide 28 mmol/L (22-29) 09/11/22 10:32 Anion Gap 12.0 (5-19) 09/11/22 10:32 BUN 18 mg/dL (6-20) 09/11/22 10:32 Creatinine 0.6 mg/dL (0.5-0.9) 09/11/22 10:32 GFR Calculation 111.9 mL/min (90-130) 09/11/22 10:32 Glucose 83 mg/dL (65-115) 09/11/22 10:32 Calculated Osmolality 279 mOsm/kg (285-295) L 09/11/22 10:32 Calcium 8.7 mg/dL (8.5-10.5) 09/11/22 10:32 Total Bilirubin 0.3 mg/dL (0.15-1.2) 09/11/22 10:32 AST 8 U/L (0-32) 09/11/22 10:32 ALT 8 U/L (0-33) 09/11/22 10:32 Alkaline Phosphatase 71 U/L (35-105) 09/11/22 10:32 Total Protein 6.8 g/dL (6.6-8.7) 09/11/22 10:32 Albumin 4.7 g/dL (3.5-5.2) 09/11/22 10:32 Globulin 2.1 g/dL (1.3-4.6) 09/11/22 10:32 Urine Color Yellow (Yellow) 09/11/22 10:25 Urine Appearance Clear (CLEAR) 09/11/22 10:25 Urine pH 6 (5-7) 09/11/22 10:25 Ur Specific [place] 1.015 (1.005-1.030) 09/11/22 10:25 Urine Protein Neg (Negative) 09/11/22 10:25 Urine Glucose (UA) Norm (Normal) 09/11/22 10:25 Urine Ketones Negative (Negative) 09/11/22 10:25 Urine Blood Neg (Negative) 09/11/22 10:25 Urine Nitrate Negative (Negative) 09/11/22 10:25 Urine Bilirubin Neg (Negative) 09/11/22 10:25 Urine Urobilinogen Norm mg/dL (Negative) 09/11/22 10:25 Ur Leukocyte Esterase Trace (Negative) H 09/11/22 10:25 Urine RBC None /hpf (0-2) 07/10/23 10:25 Urine WBC Rare /hpf (0-5) 09/11/22 10:25 Ur Squamous Epith Cells 10-15 /hpf (0-5) H 09/11/22 10:25 Amorphous Sediment Not Reportable 09/11/22 10:25 Urine Bacteria Trace /hpf (NONE) 09/11/22 10:25 Salicylates < 0.3 mg/dL (3-10) L 09/11/22 10:32 Urine Opiates Screen Negative ng/mL (Negative) 09/11/22 10:25 Acetaminophen < 5.0 ug/mL (10-30) L 09/11/22 10:32 Ur Barbiturates Screen Negative ng/mL (Negative) 09/11/22 10:25 Ur Phencyclidine Scrn Negative ng/mL (Negative) 09/11/22 10:25 Ur Amphetamines Screen Negative ng/mL (Negative) 09/11/22 10:25 U Benzodiazepines Scrn Positive ng/mL (Negative) H 09/11/22 10:25 Urine Cocaine Screen Negative ng/mL (Negative) 09/11/22 10:25 U Marijuana (THC) Screen Negative ng/mL (Negative) 09/11/22 10:25 Ethyl Alcohol < 10 mg/dL (0-10) 09/11/22 10:32 Discharge Plan Discharge Patient Disposition: Admitted As Inpatient Admit Provider: Krystian Lopez Clinical Impression: Suicide attempt, Intentional overdose Condition: Stable Coding Level of Care Code ED 2Nd Grade Teacher for Indira Campos
[2022-09-11 10:49] LABS: Basophils % 0.5 %; Eosinophils % 0.5 %; Hemoglobin 14.8 g/dL (11.5-15.3); Lymphocytes # 1.8 10^3/uL (0.8-4.8); Mean Corpuscular HGB Conc 33.6 g/dL (30.0-36.0); Mean Corpuscular Hemoglobin 32.2 pg (28.0-34.0); Mean Corpuscular Volume 95.7 fl (81-99); Monocytes # 0.3 10^3/uL (0.2-0.9); Monocytes % 5.7 %; Neutrophils # 3.42 10^3/uL (1.8-7.7); Neutrophils % 61.1 %; Nucleated Red Blood Cells % 0 %; Platelet Count 148 10^3/cmm (130-400); Red Cell Distribution Width 11.9 % (12.1-15.1); White Blood Count 5.6 10^3/uL (4.0-10.0)
[2022-09-11 10:53] LABS: Amphetamines Screen Urine Negative (Negative); Barbiturates Screen Urine Negative (Negative); Benzodiazepines Screen Urine Positive (Negative); Cocaine Screen Urine Negative (Negative); Opiate Screen Urine Negative (Negative); PCP Screen Urine Negative (Negative); THC Screen Urine Negative (Negative)
[2022-09-11 10:55] LABS: Blood Urine Neg (Negative); Glucose Urine UA Norm (Normal); Ketones Urine Negative (Negative); Nitrate Urine Negative (Negative); Protein Urine Neg (Negative); Specific Gravity, Urine 1.015 (1.005-1.030); Urine Appearance Clear (CLEAR); Urine Color Yellow (Yellow); pH Urine 6 (5-7)
[2022-09-11 10:56] LABS: Add Urine Culture? No; Add Urine Microscopic? YES; Bacteria Urine TRACE /hpf; Bilirubin Urine Neg (Negative); Leukocyte Esterase Urine Trace (Negative); Urobilinogen Urine Norm (Negative); WBC Urine RARE /hpf (0-5)
[2022-09-11 11:05] LABS: Alanine Aminotransferase 8 U/L (0-33); Albumin Level 4.7 g/dL (3.5-5.2); Alkaline Phosphatase 71 U/L (35-105); Aspartate Amino Transferase 8 U/L (0-32); Blood Urea Nitrogen 18 mg/dL (6-20); Calcium 8.7 mg/dL (8.5-10.5); Carbon Dioxide 28 mmol/L (22-29); Chloride 98 mmol/L (98-107); Creatinine Clr Calc Pharmacy 103.2966; Globulin 2.1 g/dL (1.3-4.6); Glomerular Filtration Rate 111.9 mL/min (90-130); Glucose 83 mg/dL (65-115); Osmolality Calculated 279 mOsm/kg (285-295); Sodium 134 mmol/L (136-145); Total Bilirubin 0.3 mg/dL (0.15-1.2); Total Protein 6.8 g/dL (6.6-8.7)
[2022-09-11 11:06] LABS: Acetaminophen < 5.0 ug/mL (10-30); Alcohol Level < 10 mg/dL (0-10); Salicylate < 0.3 mg/dL (3-10)
--- NOTE | 2022-09-11 11:26 | PM.HP ---
Providers/Chief Complaint Admitting Physician: Krysitan Lopez MD Primary Care Provider: Augustine Ramirez DO Chief Complaint: intentional overdose History of Present Illness Meredith Pressley is a 37 year old female that presents to the emergency department with complaints of suicide attempt. She reports around 8:00 this morning she took 20, she has a history of bipolar disorder and suicide attempt in the past 50 mg trazodone pills. She reports. She reports she feels okay currently, not reporting any effect of the pills. She denies any coingestions. Concerned she has a court hearing this week and wants to make sure somebody notifies them. Review of Systems General: Reports: 10 or more systems reviewed and unremarkable except in HPI and below Card: Denies: chest pain Resp: Denies: dyspnea GI: Denies: abdominal pain, nausea, vomiting, hematochezia, melena or mucus in stool Medications/Allergies Home Medications Medication Instructions Recorded Confirmed Last Taken Type acetaminophen 500 mg tablet 1,000 mg PO TID PRN Pain 07/26/21 09/11/22 Unknown History (Tylenol Extra Strength) camphor-methyl salicylate-menthol 1 patch topical DAILY PRN Pain 06/08/22 09/11/22 Unknown History topical patch fluticasone propionate 50 1 spray intranasal BID PRN Allergy 07/27/22 09/11/22 Unknown History mcg/actuation nasal Symptoms spray,suspension (Allergy Relief (fluticasone)) buspirone 10 mg tablet 10 mg PO BID #60 tabs 08/18/22 09/11/22 09/10/22 Rx levetiracetam 750 mg tablet 750 mg PO BID 2 weeks #60 tabs 08/18/22 09/11/22 09/10/22 Rx (Keppra) propranolol 20 mg tablet 20 mg PO BID #60 tabs 08/18/22 09/11/22 09/10/22 Rx trazodone 50 mg tablet 150 mg PO BEDTIME PRN Sleep #90 08/18/22 09/11/22 09/11/22 Rx tabs around 20 tabs aripiprazole 5 mg tablet (Abilify) 5 mg PO BEDTIME depression 09/11/22 09/11/22 09/10/22 History conjugated estrogens 0.625 mg 0.625 mg PO QAM 09/11/22 09/11/22 09/10/22 History tablet (Premarin) fluoxetine 20 mg capsule 20 mg PO QAM 09/11/22 09/11/22 09/11/22 History fluoxetine 40 mg capsule 40 mg PO QAM 09/11/22 09/11/22 09/11/22 History gabapentin 100 mg capsule 200 mg PO TID 09/11/22 09/11/22 09/10/22 History pt states has 2 days ibuprofen 200 mg tablet 400 mg PO Q6H PRN Pain 09/11/22 09/11/22 Unknown History Allergies Allergy/AdvReac Type Severity Reaction Status Date / Time adhesive tape Allergy ALGY-Rash Verified 09/11/22 10:04 amitriptyline Allergy Unknown Verified 09/11/22 10:04 cyclobenzaprine Allergy ALGY-Hives Verified 09/11/22 10:04 [From Flexeril] diphenhydramine Allergy ALGY-Hives Verified 09/11/22 10:04 [From Benadryl] fluphenazine [From Prolixin] Allergy ALGY-Anaphy Verified 09/11/22 10:04 laxis ibuprofen Allergy ALGY-Hives Verified 09/11/22 10:04 lithium Allergy ALGY-Difficulty Verified 09/11/22 10:04 Breathing PFSH Acute PFSH: Medical History (Updated 09/11/22 @ 11:30 by Krystian Lopez MD) Bipolar disorder Posttraumatic stress disorder Schizoaffective disorder, bipolar type Scoliosis Seizure disorder Surgical History H/O tubal ligation History of foot surgery History of hysterectomy Family History Other CAD (coronary artery disease) Cancer Hypertension Denies family history of Diabetes Stroke Social History Smoking and tobacco status: current every day smoker cigarettes Packs smoked per day: 0.25 Years cigarettes smoked: 20 Second hand smoke exposure: Yes Alcohol intake: former Substance/Drug Use: never Caregiver/support person: Yes Lives independently: Yes Household members: significant other Marital status: service: No Current occupational status: disabled Current gender identity: Female Special matt needs: Yes Agree to transfusion: No Female Reproductive History: Spontaneous abortions: No Vitals/I&O/Wt Last Vital Signs Temp 98.4 F 09/11/22 10:04 Pulse 85 09/11/22 10:04 Resp 18 09/11/22 10:04 BP 126/85 09/11/22 10:04 Pulse Ox 94 09/11/22 10:04 O2 Del Method Room Air 09/11/22 10:04 Weight last 48 hrs Weight 53.524 kg Physical Exam Narrative: General exam demonstrates a female, no distress, polite and regretful HEENT: Atraumatic and normocephalic. Oropharynx clear Neck is supple no lymphadenopathy thyromegaly Cardiovascular regular rate and rhythm, no murmur Lungs clear no wheezing or crackles Abdomen is soft with positive bowel sounds. No obvious organomegaly exam was deferred Extremities no cyanosis clubbing or edema Data 09/11/22 10:32 09/11/22 10:32 Other Labs: Liver function tests are normal Albumin and calcium are normal Urinalysis negative Urine drug screen positive for benzodiazepine. Acetaminophen level and alcohol level not detectable. Salicylate level not detectable. EKG demonstrates normal sinus rhythm, normal axis, poor R wave progression by my read A&P Assessment and plan (1) Suicide attempt: Patient presents with a suicide attempt, by ingesting trazodone Telemetry One-on-one sitter Psychiatric consultation Monitor for any side effects Hopefully can transfer to neuropsychiatry, if no symptoms are noted today Will need full admission secondary to psychiatric needs Hydration Hold her other SSRIs today (2) Intentional overdose: See above (3) Seizure disorder: Continue Keppra (4) Bipolar disorder: Psychiatric consultation Plan Multiple other medical problems as outlined in past medical history Full code Low risk for DVT, no prophylaxis indicated Attestations Medical Necessity Statement*: Will need greater than 2 midnight stay for evaluation and treatment of suicide attempt. Diagnoses Suicide attempt T14.91XA Intentional overdose T50.902A Seizure disorder G40.909 Bipolar disorder F31.9 Time Spent (min) 43
[2022-09-11] MEDS: nicotine 14 mg Patch 1 PATCH TRANSDERMA (11:45)
--- NOTE | 2022-09-11 11:49 | PC.NURSE ---
96 hour hold rights read to patient. Patient verbalized understandings. Copy was left at the bedside. Patient stated she has court on 09/14/22, and was needing to get ahold of her deputy commonwealth's attorney and the court so she does not get in trouble for not attending her court date. Instructed patient that we can assist with that.
--- NOTE | 2022-09-11 11:52 | PC.NURSE ---
Patient in ED, states, The voices said to kill myself. I took a lot of pills I did vomit some but told my fiance and we called 911. I am sorry I did this but I still want to . I've tried lots of times but its never worked, most recent one was 04/28/2022 by trying to hang myself. Patient is very forthcoming about attempts and wanting to end her life. She is concerned about court she has on Sunday. VSS, AAOx4. Report called to Akiko PEREZ in ICU.
--- NOTE | 2022-09-11 12:24 | PC.NURSE ---
Patient arrived to ICU at 1215. A&Ox4. Complaint with julius
[2022-09-11] MEDS: sodium chloride 0.9% 1,000 ML 75 ML IV (12:39)
--- NOTE | 2022-09-11 13:00 | PC.NURSE ---
Poison control Poison control contacted. Per them, the pt is outside of the 4hr window for when symptoms would typically peak after taking Trazodone. Poison control stated the pt may experience mild adverse symptoms like headache and fatigue. PC will follow up and we can contact them if pt gets worse.
[2022-09-11] MEDS: gabapentin 100 mg Capsule 200 MG PO ×2 (14:15→20:08)
--- NOTE | 2022-09-11 16:48 | PC.NURSE ---
Patient cleared by poison control
[2022-09-11] MEDS: levETIRAcetam 500 mg Tablet 750 MG PO (17:22)
[2022-09-11] MEDS: propranolol 20 mg Tablet PO (17:23)
--- NOTE | 2022-09-11 17:35 | PC.NURSE ---
Patient cleared medically, received transfer to [facility], report called. Awaiting security to transport to NPU
--- NOTE | 2022-09-11 17:35 | PC.NURSE ---
All IVs removed
--- NOTE | 2022-09-11 17:46 | PC.NURSE ---
Patient transferred to NPU with security and nurse
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
[2022-09-11] MEDS: trazodone 50 mg Tablet PO (20:08)
[2022-09-11] MEDS: nicotine 2 mg Gum BUCCAL (20:08)
[2022-09-11] MEDS: ARIPiprazole 10 mg Tablet 5 MG PO (20:08)
[2022-09-11] MEDS: BuSPIRONE 10 mg Tablet PO (20:08)
[2022-09-12 06:00] VITALS: BP 134/87; PULSE 98; RESP 17; TEMP 36.8; O2SAT 93
[2022-09-12] MEDS: fluoxetine 20 mg Capsule 40 MG PO (06:32)
[2022-09-12] MEDS: fluoxetine 20 mg Capsule PO (06:32)
[2022-09-12] MEDS: nicotine 2 mg Gum BUCCAL ×5 (06:36→19:51)
[2022-09-12] MEDS: levETIRAcetam 500 mg Tablet 750 MG PO ×2 (08:17→17:45)
[2022-09-12] MEDS: BuSPIRONE 10 mg Tablet PO (08:17)
[2022-09-12] MEDS: gabapentin 100 mg Capsule 200 MG PO ×3 (08:17→19:50)
[2022-09-12] MEDS: propranolol 20 mg Tablet PO ×2 (08:18→17:46)
[2022-09-12 14:00] VITALS: BP 113/76; PULSE 67; RESP 16; TEMP 36.6; O2SAT 98
--- NOTE | 2022-09-12 16:21 | W.PM.NPUPNS ---
Subjective NPU Subjective: Patient is a 37-year-old white female with mild cognitive impairment along with PTSD and depression admitted with suicidal ideation with overdose on trazodone. Patient had reported that she continued to be worried about her legal hearing and stated that she had become anxious as the hearing time was approached. She stated that she had charges potentially against her in [place]. She had no evidence of aggression here on the unit today. She had continued to endorse PTSD symptoms. She had been mostly isolative on the milieu. She had reported having some sleep continuity disruption. She continued to endorse some feelings of anxiousness. She had requested that she be restarted on prazosin to target nightmares associated with PTSD. Mental Status Exam MSE Comments: She is a thin white female who appeared older than her stated age with fair eye contact with poor hygiene and normal gait. There was no evidence of any abnormal involuntary motor movements tics or tremors appreciated. Her speech was normal in rate with normal volume and prosody. Her thought process was linear and logical and goal-directed. Her mood was described as depressed. Her affect was mood congruent and restricted in range. Her thought content showed no evidence of homicidal ideation. She did endorse suicidal ideation with no active plan. There was no clear evidence of delusional thinking. She did not appear to be responding to internal stimuli and denied any auditory or visual hallucinations. Her fund of knowledge appeared poor. Her recent and remote memory appeared grossly intact. She was alert and oriented to person, place, and time and situation. Her attention span was fair. Her insight is poor and her judgment is poor. Her impulse control is poor. Her intelligence was commensurate with mild cognitive impairment. Vitals/I&O/Wt Last Vital Signs Temp 98 F 09/12/22 14:00 Pulse 67 09/12/22 14:00 Resp 16 09/12/22 14:00 BP 113/76 09/12/22 14:00 Pulse Ox 98 09/12/22 14:00 O2 Del Method Room Air 09/12/22 14:00 Weight last 48 hrs Weight 53.524 kg Weight 53.524 kg Data NPU 09/11/22 10:32 09/11/22 10:32 A&P Assessment and plan (1) Major depressive disorder: (2) Suicidal ideation: (3) Posttraumatic stress disorder: (4) Overdose of trazodone: Plan This is a 37-year-old white female admitted with depressed mood, with alleged overdose on Trazodone 150mg at night with hx of PTSD, MDD and increased anxiety regarding pending legal hearing in 2 days. 1.? Engage patient in individual ,milieu, and group therapy 2..Will restart medications with hold on trazodone due to overdose. Increase abilify to 7.5mg daily. Continue Prozac 60mg in am. 3.? TO-15 minute checks on the unit 4. Restart Prazosin 2mg at night for nightmares associated with ptsd. 5. Recommend sober living treatment at the highest level of care to which the patient is willing to commit. Involuntary Hold Information 96 Hour Hold: 96 Hour Involuntary Admission: Yes 96 Hour Hold Ending Date: 09/15/22 96 Hour Hold Ending Time: 09:54 Attestations NPU Medical Necessity Statement*: Patient hospitalization is medically necessary and deemed to be the clinically appropriate intervention at this time. Medications will be initiated and adjusted accordingly as indicated. Her likely length of stay is 4 to 6 days. Coding Level of Care Code Acute Code for g Fwd Diagnoses Major depressive disorder F32.9 Suicidal ideation R45.851 Posttraumatic stress disorder F43.10 Overdose of trazodone T43.211A
[2022-09-12 19:20] VITALS: BP 133/96; PULSE 96; RESP 15; O2SAT 100
[2022-09-12] MEDS: ARIPiprazole 10 mg Tablet 7.5 MG PO (19:49)
[2022-09-12] MEDS: prazosin 1 mg Capsule 2 MG PO (19:50)
[2022-09-12] MEDS: acetaminophen 325 mg Tablet 650 MG PO (19:50)
[2022-09-13] MEDS: nicotine 2 mg Gum BUCCAL ×6 (03:00→20:09)
[2022-09-13 06:00] VITALS: BP 127/87; PULSE 92; RESP 17; TEMP 37; O2SAT 100
[2022-09-13] MEDS: fluoxetine 20 mg Capsule PO (06:28)
[2022-09-13] MEDS: fluoxetine 20 mg Capsule 40 MG PO (06:28)
[2022-09-13] MEDS: propranolol 20 mg Tablet PO ×2 (07:41→20:10)
[2022-09-13] MEDS: levETIRAcetam 500 mg Tablet 750 MG PO ×2 (07:41→20:09)
[2022-09-13] MEDS: gabapentin 100 mg Capsule 200 MG PO ×3 (07:41→20:09)
[2022-09-13] MEDS: acetaminophen 500 mg Tablet 1000 MG PO (09:00)
[2022-09-13 13:22] VITALS: BP 119/84; PULSE 88; RESP 16; TEMP 36.7; O2SAT 99
[2022-09-13] MEDS: benzocaine 20% 7 gm 1 APPLIC MUCOUS MEM (14:45)
--- NOTE | 2022-09-13 14:49 | W.PM.NPUPNS ---
Subjective NPU Subjective: Patient is a 37-year-old white female with mild cognitive impairment along with PTSD and depression admitted with suicidal ideation with overdose on trazodone. She had reported no suicidal thoughts. She had reported slight lightheadedness when taking the prazosin but reported no other side effects. She reported that she continued to worry about her legal charges. The patient had endorsed continued PTSD symptoms but states that they had been better. She had remained somewhat isolative on the milieu. There were no acts of aggression noted on the unit. She reported no side effects from her Abilify. Mental Status Exam MSE Comments: She is a thin white female who appeared older than her stated age with fair eye contact with poor hygiene and normal gait. There was no evidence of any abnormal involuntary motor movements tics or tremors appreciated. Her speech was normal in rate with normal volume and prosody. Her thought process was linear and logical and goal-directed. Her mood was described as depressed. Her affect was mood congruent and restricted in range. Her thought content showed no evidence of homicidal ideation. She did not endorse suicidal ideation with no active plan. There was no clear evidence of delusional thinking. She did not appear to be responding to internal stimuli and denied any auditory or visual hallucinations. Her fund of knowledge appeared poor. Her recent and remote memory appeared grossly intact. She was alert and oriented to person, place, and time and situation. Her attention span was fair. Her insight is poor and her judgment is poor. Her impulse control is improving. Her intelligence was commensurate with mild cognitive impairment. Vitals/I&O/Wt Last Vital Signs Temp 98.1 F 09/13/22 13:22 Pulse 88 09/13/22 13:22 Resp 16 09/13/22 13:22 BP 119/84 09/13/22 13:22 Pulse Ox 99 09/13/22 13:22 O2 Del Method Room Air 09/13/22 13:22 Weight last 48 hrs Weight 53.524 kg Data NPU 09/11/22 10:32 09/11/22 10:32 A&P Assessment and plan (1) Major depressive disorder: (2) Suicidal ideation: (3) Posttraumatic stress disorder: (4) Overdose of trazodone: Plan This is a 37-year-old white female admitted with depressed mood, with alleged overdose on Trazodone 150mg at night with hx of PTSD, MDD and increased anxiety regarding pending legal hearing in 2 days. 1.? Engage patient in individual ,milieu, and group therapy 2..Will restart medications with hold on trazodone due to overdose. Increase abilify to 10mg daily. Continue Prozac 60mg in am. 3.? TO-15 minute checks on the unit 4. Continue Prazosin 2mg at night for nightmares associated with ptsd. 5. Recommend sober living treatment at the highest level of care to which the patient is willing to commit. Involuntary Hold Information 96 Hour Hold: 96 Hour Involuntary Admission: Yes 96 Hour Hold Ending Date: 09/15/22 96 Hour Hold Ending Time: 09:54 Attestations NPU Medical Necessity Statement*: Patient hospitalization is medically necessary and deemed to be the clinically appropriate intervention at this time. Medications will be initiated and adjusted accordingly as indicated. Her likely length of stay is 4 to 6 days. Coding Level of Care Code Acute Code for [facility] Diagnoses Major depressive disorder F32.9 Suicidal ideation R45.851 Posttraumatic stress disorder F43.10 Overdose of trazodone T43.211A
[2022-09-13] MEDS: acetaminophen 325 mg Tablet 650 MG PO (18:41)
[2022-09-13] MEDS: prazosin 1 mg Capsule 2 MG PO (20:09)
[2022-09-13] MEDS: ARIPiprazole 10 mg Tablet PO (20:09)
[2022-09-13 20:52] VITALS: BP 139/97; PULSE 84; RESP 18; O2SAT 96
[2022-09-14] MEDS: nicotine 2 mg Gum BUCCAL ×8 (00:29→20:33)
[2022-09-14] MEDS: acetaminophen 325 mg Tablet 650 MG PO ×2 (04:44→19:04)
[2022-09-14 06:00] VITALS: BP 123/86; PULSE 100; RESP 18; TEMP 36.3; O2SAT 100
[2022-09-14] MEDS: fluoxetine 20 mg Capsule 40 MG PO (06:00)
[2022-09-14] MEDS: fluoxetine 20 mg Capsule PO (06:00)
[2022-09-14] MEDS: levETIRAcetam 500 mg Tablet 750 MG PO ×2 (09:24→20:28)
[2022-09-14] MEDS: gabapentin 100 mg Capsule 200 MG PO ×3 (09:24→20:28)
[2022-09-14] MEDS: propranolol 20 mg Tablet PO ×2 (09:25→20:28)
[2022-09-14 14:00] VITALS: BP 126/94; PULSE 73; RESP 16; TEMP 36.7; O2SAT 95
[2022-09-14] MEDS: OLANZapine 5 mg ODT PO (16:09)
--- NOTE | 2022-09-14 16:12 | PC.NURSE ---
pt upset that she possibly not be able to go home until tomorrow, went to phone called poli told him to call her warp splitter in the morning that one way or another she was going home tomorrow. pt came up asked for medication for anxiety. then went to her room, pt refused administration of zyprexia stating she wanted to see doctor order for it. explained to patient it was on the computer. pt said from now on if the doctor did not order it she was not taking it. attempted to explain that the doctor did order the prn medication And what prn meant. pt still refused.
--- NOTE | 2022-09-14 18:04 | P.NPUPN_ITS ---
Subjective NPU Subjective: Patient is in today reporting that she is doing fine. She reports that she is hopeful to get discharged at the end of her hold tomorrow. She reports that she has a plan with the social work team and a safe place to go. She reports the medication changes that she had Dr. Carcamo have done and worked well for her and she denied any need for continued hospitalization. Mental Status Exam MSE Comments: This is a thin, underweight white female, in hospital scrubs with limited grooming, and adequate eye contact. No abnormal movements except for mild psychomotor agitation. Cooperative with exam in mild distress she reports related to anxiety discharge. Speech was more normal rate and volume. Mood described as much better; affect anxious. Thought process, organized. Thought content: patient denied any suicidal or homicidal ideation, there were no delusions reported or noted, she denied any auditory or visual hallucinations. Attention and concentration appear intact and memory appears somewhat reliable probably intentionally as she desires to be discharged but none were formally tested. She is alert and oriented times three. Insight and judgment are limited and impulse control is limited. Vitals/I&O/Wt Last Vital Signs Temp 98.2 F 09/14/22 21:47 Pulse 93 09/14/22 21:47 Resp 18 09/14/22 21:47 BP 131/89 09/14/22 21:47 Pulse Ox 98 09/14/22 21:47 O2 Del Method Room Air 09/14/22 21:47 Data NPU 09/11/22 10:32 09/11/22 10:32 A&P Assessment and plan (1) Major depressive disorder: (2) Suicidal ideation: (3) Posttraumatic stress disorder: (4) Overdose of trazodone: Plan This is a 37-year-old white female admitted with depressed mood, with alleged overdose on Trazodone 150mg at night with hx of PTSD, MDD and increased anxiety regarding pending legal hearing in 2 days. 1.? Engage patient in individual ,milieu, and group therapy 2..Will restart medications with hold on trazodone due to overdose. Increased abilify to 10mg daily. Continue Prozac 60mg in am. 3.? TO-15 minute checks on the unit 4. Continue Prazosin 2mg at night for nightmares associated with ptsd. 5. Recommend sober living treatment at the highest level of care to which the patient is willing to commit. Involuntary Hold Information 96 Hour Hold: 96 Hour Involuntary Admission: Yes 96 Hour Hold Ending Date: 09/15/22 96 Hour Hold Ending Time: 09:54 Attestations NPU Medical Necessity Statement*: Patient hospitalization is medically necessary and deemed to be the clinically appropriate intervention at this time. Medications will be initiated and adjusted accordingly as indicated. Her likely length of stay is 1-3 days. Coding Level of Care Code Acute Code for [facility] Diagnoses Major depressive disorder F32.9 Suicidal ideation R45.851 Posttraumatic stress disorder F43.10 Overdose of trazodone T43.211A
[2022-09-14] MEDS: ARIPiprazole 10 mg Tablet PO (20:27)
[2022-09-14] MEDS: prazosin 1 mg Capsule 2 MG PO (20:28)
[2022-09-14 21:47] VITALS: BP 131/89; PULSE 93; RESP 18; TEMP 36.8; O2SAT 98
[2022-09-15] MEDS: nicotine 2 mg Gum BUCCAL ×4 (02:11→11:46)
[2022-09-15] MEDS: acetaminophen 325 mg Tablet 650 MG PO (02:29)
[2022-09-15 06:00] VITALS: BP 116/81; PULSE 86; RESP 18; O2SAT 100
[2022-09-15] MEDS: fluoxetine 20 mg Capsule 40 MG PO (06:15)
[2022-09-15] MEDS: fluoxetine 20 mg Capsule PO (06:15)
[2022-09-15] MEDS: gabapentin 100 mg Capsule 200 MG PO (08:51)
[2022-09-15] MEDS: propranolol 20 mg Tablet PO (08:51)
[2022-09-15] MEDS: levETIRAcetam 500 mg Tablet 750 MG PO (08:51)
[2022-09-15] MEDS: benzocaine 20% 7 gm 1 APPLIC MUCOUS MEM (08:52)
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
[2022-09-15 14:00] VITALS: BP 116/81; PULSE 86; RESP 18; O2SAT 100
== END 2022-09-15 14:00 | disposition home or self-care (01) | DRG 885 ==
LOC: ER 09:53 → ICU 12:06 → NP 17:49
PROVIDERS: Admitting Provider Internal Medicine; Emergency Provider Family Medicine; PCP Family Medicine; Visit Provider Internal Medicine
DX: F33.9 Major depressive disorder, recurrent, unspecified (principal); T43.212A Poisoning by selective serotonin and norepinephrine reuptake inhibitors, intentional self-harm, initial encounter; G40.909 Epilepsy, unspecified, not intractable, without status epilepticus; F17.210 Nicotine dependence, cigarettes, uncomplicated; F43.10 Post-traumatic stress disorder, unspecified; X58.XXXS Exposure to other specified factors, sequela; Z91.410 Personal history of adult physical and sexual abuse; Z62.810 Personal history of physical and sexual abuse in childhood; G31.84 Mild cognitive impairment of uncertain or unknown etiology
CPT/HCPCS: 36415; 80053; 80306; 80307; 81001; 85025; 93005; 97150; 97165; 99238; 99285; 99291; J7030

== ENCOUNTER 2022-10-12 18:12 | Emergency (ER) | payer MEDICAID, SELFPAY ==
[2022-10-12 18:20] VITALS: BP 118/79; PULSE 104; RESP 17; TEMP 37; O2SAT 97
--- NOTE | 2022-10-12 18:24 | ED_ITS ---
HPI - Headache General: Chief Complaint: Head Injury Stated Complaint: migraines Time Seen by Provider: 10/12/22 18:23 History of Present Illness: 37-year-old female comes in today for complaints of migraine headache for the last 3 days. Patient appears nontoxic. Patient was given a dose of Dilaudid and Zofran and route to the ER. Patient reports chronic history of migraines and seizures. Associated symptoms: Reports nausea; Deny chest pain, fever(s) or vomiting Review of Systems Const: Denies: fever(s) Card: Denies: chest pain Resp: Denies: dyspnea GI: Reports: nausea; Denies: vomiting Neuro: Reports: headache(s) PFSH ED PFSH: Medical History (Updated 10/12/22 @ 21:00 by SPRING Lora) Bipolar disorder Posttraumatic stress disorder Schizoaffective disorder, bipolar type Scoliosis Seizure disorder Surgical History H/O tubal ligation History of foot surgery History of hysterectomy Family History Other CAD (coronary artery disease) Cancer Hypertension Denies family history of Diabetes Stroke Social History Smoking and tobacco status: current every day smoker cigarettes Packs smoked per day: 0.25 Years cigarettes smoked: 20 Second hand smoke exposure: Yes Alcohol intake: former Substance/Drug Use: never Caregiver/support person: Yes Lives independently: Yes Household members: significant other Marital status: service: No Current occupational status: disabled Current gender identity: Female Special matt needs: Yes Agree to transfusion: No Female Reproductive History: Spontaneous abortions: No Physical Exam Const: COMMON NORMALS: alert HENMT: COMMON NORMALS: normocephalic HEAD & SCALP: normocephalic Neck/C-Spine: GENERAL: Yes normal visual inspection Resp: COMMON NORMALS: normal respiratory effort and clear to auscultation bilaterally AUSCULTATION: clear to auscultation bilaterally Cardio: COMMON NORMALS: regular rate and regular rhythm RATE: regular rate RHYTHM: regular rhythm Back/Pelvis: COMMON NORMALS: thoracic and lumbar spine normal to inspection Extremity: COMMON NORMALS: full ROM Neuro: SENSORIUM/ORIENTATION: Yes alert Skin: COMMON NORMALS: turgor normal GENERAL SKIN EXAM: turgor normal Course Vital Signs: Vital signs: Vital Signs Temperature 98.6 F 10/12/22 18:20 Pulse Rate 83 10/12/22 20:15 Respiratory Rate 17 10/12/22 18:20 Blood Pressure 106/62 10/12/22 20:15 Pulse Oximetry 100 10/12/22 20:15 Oxygen Delivery Me thod Room Air 10/12/22 18:20 MDM - Headache Medical Decision Making 37-year-old female comes in today for complaints of migraine headache. On exam patient appears nontoxic. Patient appears in no acute distress. Vital signs are normal. Patient came in by EMS after being given Zofran and Dilaudid for migraine headache. No focal neural deficits are noted. Differential diagnosis includes chronic migraine, seizure disorder, malingering, classic headache. Patient was given Reglan and dexamethasone for migraine headache. Patient is to continue routine medicines and follow-up with primary care. Patient left AMA prior to my reassessment after medication. Discharge Plan Discharge Patient Disposition: Left Against Medical Advice Clinical Impression: Migraine Condition: Stable Prescriptions: No Action acetaminophen [Tylenol Extra Strength] 500 mg tablet 1,000 mg PO TID PRN (Reason: Pain) Hold Instructions: Resume on 08/15/21. Do not take with hydrocodone Keppra 750 mg tablet 750 mg PO BID 14 Days Qty: 60 3RF propranolol 20 mg tablet 20 mg PO BID Qty: 60 3RF trazodone 50 mg tablet 150 mg PO BEDTIME PRN (Reason: Sleep) Qty: 90 3RF camphor-methyl salicyl-menthol Adhesive Patch,Medicated 1 patch TOPICAL DAILY PRN (Reason: Pain) ibuprofen 200 mg Tablet 400 mg PO Q6H PRN (Reason: Pain) Premarin 0.625 mg tablet 0.625 mg PO QAM Rx Instructions: cyclically prazosin 1 mg Capsule 2 mg PO BEDTIME 30 Days Qty: 60 1RF aripiprazole 10 mg Tablet 10 mg PO BEDTIME 30 Days Qty: 30 1RF fluoxetine 40 mg capsule 40 mg PO QAM 30 Days Qty: 30 1RF Rx Instructions: with 20mg to =60mg gabapentin 100 mg capsule 200 mg PO TID 30 Days Qty: 180 1RF fluoxetine 20 mg capsule 20 mg PO QAM 30 Days Qty: 30 1RF Rx Instructions: with 40mg to =60mg fluticasone propionate [Allergy Relief (fluticasone)] 50 mcg/actuation spray,suspension 1 spray intranasal BID PRN (Reason: Allergy Symptoms) Rx Instructions: administer into each nostril Referrals: Augustine Ramirez DO [Primary Care Provider] - Coding Level of Care Code ED Credit Collection Associate for Indira Campos
[2022-10-12] MEDS: sodium chloride 0.9% 250 ML IV (19:50)
[2022-10-12] MEDS: dexamethasone 10 mg/mL INJ IVP (19:52)
[2022-10-12] MEDS: metoclopramide 5 mg/mL SDV 2 mL 10 MG IVP (19:52)
[2022-10-12 20:15] VITALS: BP 106/62; PULSE 83; O2SAT 100
== END 2022-10-12 20:52 | disposition left against medical advice (07) ==
LOC: ER 18:26
PROVIDERS: Emergency Provider Nurse Practitioner Family; PCP Family Medicine
DX: G43.909 Migraine, unspecified, not intractable, without status migrainosus (principal); Z53.21 Procedure and treatment not carried out due to patient leaving prior to being seen by health care provider; F17.210 Nicotine dependence, cigarettes, uncomplicated
CPT/HCPCS: 96374; 96375; 99284; J1100; J2765; J7050

== ENCOUNTER → 2022-10-24 12:18 | Outpatient (BNVA) | payer MEDICAID, SELFPAY | PROVIDERS: PCP Family Medicine; Visit Provider Specialist | DX: G43.711 Chronic migraine without aura, intractable, with status migrainosus; G40.909 Epilepsy, unspecified, not intractable, without status epilepticus; F25.0 Schizoaffective disorder, bipolar type | CPT/HCPCS: 99204 ==

== ENCOUNTER 2022-11-08 01:45 | Emergency (ER) | payer MEDICAID, SELFPAY ==
[2022-11-08 01:48] VITALS: BP 134/82; PULSE 87; RESP 18; TEMP 36.5; O2SAT 97; BMI 22.8
--- NOTE | 2022-11-08 01:55 | ED_ITS ---
HPI - Headache General: Chief Complaint: Headache Stated Complaint: migraine Time Seen by Provider: 11/08/22 01:49 History of Present Illness: 37-year-old female comes in today with migraine headache. Patient reports that she has had a headache for about 4 to 5 days. Patient did have 1 seizure yesterday. This prompted patient to come into ER for treatment of her migraine. Patient appears nontoxic. Patient was recently started on Topamax which she states she has been tolerating well. Review of Systems General: Reports: 10 or more systems reviewed and unremarkable except in HPI and below Neuro: Reports: headache(s) PFSH ED PFSH: Medical History Bipolar disorder Posttraumatic stress disorder Schizoaffective disorder, bipolar type Scoliosis Seizure disorder Surgical History H/O tubal ligation History of foot surgery History of hysterectomy Family History Other CAD (coronary artery disease) Cancer Hypertension Denies family history of Diabetes Stroke Social History Smoking and tobacco status: current every day smoker cigarettes Packs smoked per day: 0.25 Years cigarettes smoked: 20 Second hand smoke exposure: Yes Alcohol intake: former Substance/Drug Use: never Caregiver/support person: Yes Lives independently: Yes Household members: significant other Marital status: service: No Current occupational status: disabled Current gender identity: Female Special matt needs: Yes Agree to transfusion: No Female Reproductive History: Spontaneous abortions: No Physical Exam Const: COMMON NORMALS: alert HENMT: COMMON NORMALS: normocephalic HEAD & SCALP: normocephalic Neck/C-Spine: COMMON NORMALS: full ROM Resp: COMMON NORMALS: normal respiratory effort and clear to auscultation bilaterally AUSCULTATION: clear to auscultation bilaterally Cardio: COMMON NORMALS: regular rate RATE: regular rate GI: COMMON NORMALS: Soft to palpation PALPATION: Yes Soft to palpation Extremity: COMMON NORMALS: normal to inspection Neuro: SENSORIUM/ORIENTATION: Yes alert Psych: APPEARANCE: Yes unkempt Skin: COMMON NORMALS: turgor normal GENERAL SKIN EXAM: turgor normal Course Vital Signs: Vital signs: Vital Signs Temperature 97.7 F 11/08/22 01:48 Pulse Rate 91 11/08/22 02:10 Respiratory Rate 16 11/08/22 02:10 Blood Pressure 114/65 11/08/22 02:10 Pulse Oximetry 96 11/08/22 02:10 Oxygen Delivery Me thod Room Air 11/08/22 01:48 MDM - Headache Medical Decision Making Patient comes in today for treatment for a migraine headache. Patient reports headache for the last 3 to 5 days. Patient endorses a seizure episode yesterday which prompted patient to come in [facility] for treatment of her migraine. No focal neural deficits are noted. Pupils are equal and reactive. Patient moves extremities well. Vital signs are normal. Differential diagnosis includes malingering, migraine headache, schizotypal disorder, tension headache, seizure disorder. Patient was given headache cocktail with 10 mg metoclopramide, 1000 mg of acetaminophen IV, 8 mg of dexamethasone, and 1 mg of Cogentin. Patient's headache came down to a 3 out of 10 she was discharged home to sleep. Recommend follow-up with primary care and return to ER as needed. Discharge Plan Discharge Patient Disposition: Home Clinical Impression: Migraine Qualifiers: Migraine type: unspecified Status migrainosus presence: without status migrainosus Intractability: intractable Qualified Code(s): G43.919 - Migraine, unspecified, intractable, without status migrainosus Condition: Stable Prescriptions: No Action acetaminophen [Tylenol Extra Strength] 500 mg tablet 1,000 mg PO TID PRN (Reason: Pain) Hold Instructions: Resume on 08/15/21. Do not take with hydrocodone Keppra 750 mg tablet 750 mg PO BID 14 Days Qty: 60 3RF propranolol 20 mg tablet 20 mg PO BID Qty: 60 3RF trazodone 50 mg tablet 150 mg PO BEDTIME PRN (Reason: Sleep) Qty: 90 3RF topiramate [Topamax] 100 mg tablet 100 mg PO DAILY Qty: 30 3RF camphor-methyl salicyl-menthol Adhesive Patch,Medicated 1 patch TOPICAL DAILY PRN (Reason: Pain) ibuprofen 200 mg Tablet 400 mg PO Q6H PRN (Reason: Pain) Premarin 0.625 mg tablet 0.625 mg PO QAM Rx Instructions: cyclically prazosin 1 mg Capsule 2 mg PO BEDTIME 30 Days Qty: 60 1RF aripiprazole 10 mg Tablet 10 mg PO BEDTIME 30 Days Qty: 30 1RF fluoxetine 40 mg capsule 40 mg PO QAM 30 Days Qty: 30 1RF Rx Instructions: with 20mg to =60mg gabapentin 100 mg capsule 200 mg PO TID 30 Days Qty: 180 1RF fluoxetine 20 mg capsule 20 mg PO QAM 30 Days Qty: 30 1RF Rx Instructions: with 40mg to =60mg fluticasone propionate [Allergy Relief (fluticasone)] 50 mcg/actuation spray,suspension 1 spray intranasal BID PRN (Reason: Allergy Symptoms) Rx Instructions: administer into each nostril Discharge Orders: Discharge ED (Routine); Ordered 11/08/22 Ordered By: Braden Miller Referrals: Augustine Ramirez DO [Primary Care Provider] - Discharge Diet: Usual diet Discharge Activity: Increase activity as tolerated Patient Instructions: Migraine Headache (ED) Activity Restrictions/Additional Instructions: Continue routine medications. Activity as tolerated. Follow-up with primary care for further instructions. Return to ED for new concerns. Coding Level of Care Code ED Chassis Wirer for Indira Campos
[2022-11-08] MEDS: metoclopramide 5 mg/mL SDV 2 mL 10 MG IVP (02:04)
[2022-11-08] MEDS: acetaminophen 1,000 MG/100 ML PIGGYBACK 400 MG IV (02:07)
[2022-11-08] MEDS: benztropine 1 mg/mL SDV 2 mL IVP (02:08)
[2022-11-08] MEDS: sodium chloride 0.9% 250 ML IV (02:08)
[2022-11-08] MEDS: dexamethasone 10 mg/mL INJ 8 MG IVP (02:08)
[2022-11-08 02:10] VITALS: BP 114/65; PULSE 91; RESP 16; O2SAT 96
[2022-11-08 02:40] VITALS: BP 102/57; PULSE 90; RESP 18; O2SAT 98
== END 2022-11-08 02:46 | disposition home or self-care (01) ==
PROVIDERS: Emergency Provider Nurse Practitioner Family; PCP Family Medicine
DX: G43.919 Migraine, unspecified, intractable, without status migrainosus (principal); F17.210 Nicotine dependence, cigarettes, uncomplicated
CPT/HCPCS: 96365; 96375; 99284; J0131; J0515; J1100; J2765; J7050

== ENCOUNTER 2022-11-17 14:48 | Emergency (ER) | payer MEDICAID, SELFPAY ==
[2022-11-17 14:53] VITALS: PULSE 61; RESP 17; TEMP 36.7; BMI 22.8
--- NOTE | 2022-11-17 14:57 | ED.C_ITS ---
HPI - Psych General: Stated Complaint: MHE Time Seen by Provider: 11/17/22 14:49 Source: patient Mode of arrival: ambulatory Limitations: no limitations History of Present Illness: 37-year-old female who states she has a history of bipolar disorder along with chronic depression. She states she has been trying to get into [facility] and was told she needed to come here for referral. States she is not suicidal not homicidal has had no worsening of her symptoms she states she is just here because she needs referral. She had no hallucinations. Associated symptoms: Reports depression; Deny auditory hallucinations, homicidal ideation or suicidal ideation Review of Systems Const: Denies: fever(s), chills, body aches or change in appetite ENMT: Denies: throat pain or dental pain Card: Denies: chest pain Resp: Denies: dyspnea GI: Denies: abdominal pain, nausea, vomiting or diarrhea Musc: Denies: neck pain or back pain Neuro: Denies: headache(s) Psych: Reports: depression; Denies: auditory hallucinations, suicidal ideation or homicidal ideation [facility] ED PFSH: Medical History Bipolar disorder Posttraumatic stress disorder Schizoaffective disorder, bipolar type Scoliosis Seizure disorder Surgical History H/O tubal ligation History of foot surgery History of hysterectomy Family History Other CAD (coronary artery disease) Cancer Hypertension Denies family history of Diabetes Stroke Social History Smoking and tobacco status: current every day smoker cigarettes Packs smoked per day: 0.25 Years cigarettes smoked: 20 Second hand smoke exposure: Yes Alcohol intake: former Substance/Drug Use: never Caregiver/support person: Yes Lives independently: Yes Household members: significant other Marital status: service: No Current occupational status: disabled Current gender identity: Female Special matt needs: Yes Agree to transfusion: No Female Reproductive History: Spontaneous abortions: No Physical Exam Const: COMMON NORMALS: no acute distress and patient oriented x3 HENMT: COMMON NORMALS: normocephalic and atraumatic HEAD & SCALP: normocephalic and atraumatic Eye: COMMON NORMALS: conjunctivae normal CONJUNCTIVA: Yes conjunctivae normal Neck/C-Spine: COMMON NORMALS: supple Chest: COMMONS NORMALS: normal inspection of the chest Resp: COMMON NORMALS: normal respiratory effort Cardio: COMMON NORMALS: No murmurs present (Cardio) Extremity: COMMON NORMALS: normal to inspection and full ROM Neuro: COMMON NORMALS: patient oriented x3, moves all extremities and no focal motor deficits Psych: COMMON NORMALS: mental status grossly normal, Normal thought process present and cooperative THOUGHT PROCESS: Normal thought process present THOUGHT CONTENT: No Suicidality present and No Homicidality present Skin: COMMON NORMALS: no rashes or lesions noted and no wounds GENERAL SKIN EXAM: no rashes or lesions noted MDM - Psych Medical Decision Making Patient presents here with depression she does have a history of bipolar she is not suicidal or homicidal she is wanting referral to she will place a referral and if she has any further issues she is to go to crisis center we will give her crisis center in but she has any suicidality she is to return here she understands agrees to plan. No radiology studies performed this visit Discharge Plan Discharge Patient Disposition: Home Clinical Impression: Bipolar disorder, Depression Condition: Stable Prescriptions: No Action acetaminophen [Tylenol Extra Strength] 500 mg tablet 1,000 mg PO TID PRN (Reason: Pain) Hold Instructions: Resume on 08/15/21. Do not take with hydrocodone Keppra 750 mg tablet 750 mg PO BID 14 Days Qty: 60 3RF propranolol 20 mg tablet 20 mg PO BID Qty: 60 3RF trazodone 50 mg tablet 150 mg PO BEDTIME PRN (Reason: Sleep) Qty: 90 3RF topiramate [Topamax] 100 mg tablet 100 mg PO DAILY Qty: 30 3RF aripiprazole 10 mg tablet 10 mg PO BEDTIME 30 Days Qty: 30 5RF gabapentin 100 mg capsule 200 mg PO TID 30 Days Qty: 180 5RF prazosin 1 mg capsule 2 mg PO BEDTIME 30 Days Qty: 60 5RF camphor-methyl salicyl-menthol Adhesive Patch,Medicated 1 patch TOPICAL DAILY PRN (Reason: Pain) ibuprofen 200 mg Tablet 400 mg PO Q6H PRN (Reason: Pain) Premarin 0.625 mg tablet 0.625 mg PO QAM Rx Instructions: cyclically fluoxetine 40 mg capsule 40 mg PO QAM 30 Days Qty: 30 1RF Rx Instructions: with 20mg to =60mg fluoxetine 20 mg capsule 20 mg PO QAM 30 Days Qty: 30 1RF Rx Instructions: with 40mg to =60mg fluticasone propionate [Allergy Relief (fluticasone)] 50 mcg/actuation spray,suspension 1 spray intranasal BID PRN (Reason: Allergy Symptoms) Rx Instructions: administer into each nostril Discharge Orders: Discharge ED (Routine); Ordered 11/17/22 Ordered By: Nikos Rodriges Referrals: Augustine Ramirez DO [Primary Care Provider] - Discharge Diet: Advance as tolerated Discharge Activity: Resume usual activity Patient Instructions: Depression (ED) Coding Level of Care Code ED News Production Assistant for Indira Campos
[2022-11-17 15:11] VITALS: BP 180/63; PULSE 60; O2SAT 99
--- NOTE | 2022-11-20 08:13 | PC.SOCIAL ---
[facility] Referral Referral message sent to clinic at this time. Clinic to contact patient with appt date/time.
== END 2022-11-17 15:12 | disposition home or self-care (01) ==
PROVIDERS: Emergency Provider Emergency Medicine; PCP Family Medicine
DX: F32.A Depression, unspecified (principal); F31.9 Bipolar disorder, unspecified; F17.210 Nicotine dependence, cigarettes, uncomplicated
CPT/HCPCS: 99283

== ENCOUNTER 2022-12-20 08:57 | Emergency (ER) | payer MEDICAID, SELFPAY ==
[2022-12-20 08:58] VITALS: BMI 21.0
[2022-12-20 09:02] VITALS: BP 136/96; PULSE 108; RESP 16; TEMP 37.1; O2SAT 96
[2022-12-20] MEDS: orphenadrine 30 mg/mL Inj 2 mL 60 MG IVP (09:15)
[2022-12-20] MEDS: ketorolac 30 mg/mL INJ IVP (09:16)
--- NOTE | 2022-12-20 09:25 | CT_ITS ---
WS: [id number] CT HEAD TECHNIQUE: Noncontrast CT of the head obtained from the skullbase to the vertex. CLINICAL INFORMATION: trauma COMPARISON: 03/23/2022 DLP: 976.[address] scans at [facility] use at least one of these dose optimization techniques: automated e xposure control; mA and/or kV adjustment per patient size (includes targeted exams where dose is matc hed to clinical indication); or iterative reconstruction. FINDINGS: No evidence of intracranial hemorrhage or mass effect. Ventricular system and basal cisterns are shore nt. Moderate parenchymal volume loss somewhat advanced for patient this age unchanged. No extra-ax ial fluid collections. No evidence of mass or mass effect. Paranasal sinuses and mastoid air cells are well aerated. .Normal visualized soft tissues. IMPRESSION: 1. No evidence of intracranial hemorrhage or mass effect. 2. Moderate parenchymal volume loss somewhat advanced for patient this age unchanged. 3. No acute intracranial findings.
--- NOTE | 2022-12-20 09:25 | XRR_ITS ---
PROCEDURE INFORMATION: Exam: XR Cervical Spine Exam date and time: 12/20/2022 10:21 AM Age: 37 years old Clinical indication: Injury or trauma; Fall; Blunt trauma; Injury details: Injury/trauma/ams TECHNIQUE: Imaging protocol: Radiologic exam of the cervical spine. Views: 2 or 3 views. Total images: 1591 COMPARISON: CT cervical spin wo con* [id number] 02/23/2022 4:25 PM FINDINGS: Bones/joints: Normal. No acute fracture. Normal alignment. Soft tissues: Unremarkable. XR/XR cervical spine 3V* [id number] IMPRESSION: No acute findings.
--- NOTE | 2022-12-20 09:25 | XRR_ITS ---
PROCEDURE INFORMATION: Exam: XR Lumbosacral Spine Exam date and time: 12/20/2022 10:30 AM Age: 37 years old Clinical indication: Injury or trauma; Fall; Blunt trauma (contusions or hematomas); Injury details: Injury/trauma/ams TECHNIQUE: Imaging protocol: Radiologic exam of the lumbosacral spine. Views: 2 or 3 views. Total images: 3 COMPARISON: CR XR lumbar spine f/e only [id number] 09/20/2016 2:34 PM FINDINGS: Bones/joints: Normal. No acute fracture. Normal alignment. Uriah left spinal scoliosis. Soft tissues: Unremarkable. Organs: Surgical clips are present in the right upper quadrant which are suggestive of prior cholecystectomy. XR/XR lumbar spine 2-3V* [id number] IMPRESSION: No acute findings.
--- NOTE | 2022-12-20 09:26 | W.ED.BACK ---
HPI - Back Pain/Injury General: Chief Complaint: Back Pain/Injury Stated Complaint: Fall/ Back Pain Time Seen by Provider: 12/20/22 09:00 Source: patient Mode of arrival: EMS History of Present Illness: 37-year-old female presents emergency room complaining of low back pain. She fell this morning around 3:40 AM while in the shower. She reports several minutes loss of consciousness neck and back pain. Vomited x1 since the fall. No hematochezia or melena. MD elicited complaint: back injury Pertinent past history: recent trauma Onset (ago): hour(s) Timing: constant Severity: moderate Quality: sharp Location: lumbar spine Radiation: none Exacerbating factors: movement and sitting upright Relieving factors: supine Context: fall Associated symptoms: Deny abdominal pain, arthralgias, chills, change in bowel habits, difficulty walking, dysuria, fatigue, fecal incontinence, fever(s), hematuria, myalgias, nausea, numbness, syncope, tingling/numbness/burning, urinary frequency, urinary urgency, vomiting or weakness Work related injury: No Review of Systems Const: Denies: fever(s), chills or fatigue Card: Denies: chest pain or syncope Resp: Denies: dyspnea GI: Denies: abdominal pain, nausea, vomiting, fecal incontinence or change in bowel habits : Denies: dysuria, urinary urgency or hematuria Musc: Reports: neck pain and back pain Skin/Breast: Denies: rash Neuro: Denies: difficulty walking PFS ED PFSH: Medical History Bipolar disorder Posttraumatic stress disorder Schizoaffective disorder, bipolar type Scoliosis Seizure disorder Surgical History H/O tubal ligation History of foot surgery History of hysterectomy Family History Other CAD (coronary artery disease) Cancer Hypertension Denies family history of Diabetes Stroke Social History Smoking and tobacco/nicotine status: current every day tobacco/nicotine user cigarettes Packs smoked per day: 0.25 Years cigarettes smoked: 20 Second hand smoke exposure: Yes Alcohol intake: former Substance/Drug Use: never Caregiver/support person: Yes Lives independently: Yes Household members: significant other Marital status: service: No Current occupational status: disabled Current gender identity: Female Special matt needs: Yes Agree to transfusion: No Female Reproductive History: Spontaneous abortions: No Physical Exam Const: COMMON NORMALS: no acute distress GENERAL APPEARANCE: cooperative and comfortable ORIENTATION/CONSCIOUSNESS: Yes awake, Yes oriented to person, Yes oriented to place and Yes oriented to time HENMT: COMMON NORMALS: normocephalic, atraumatic and hearing grossly normal bilaterally HEAD & SCALP: normocephalic and atraumatic Resp: COMMON NORMALS: normal respiratory effort, No retractions, No use of accessory muscles and clear to auscultation bilaterally AUSCULTATION: clear to auscultation bilaterally Cardio: COMMON NORMALS: regular rate, regular rhythm and No murmurs present (Cardio) RATE: regular rate RHYTHM: regular rhythm GI: COMMON NORMALS: Soft to palpation and No hepatosplenomegaly present AUSCULTATION: Yes normoactive bowel sounds PALPATION: Yes Soft to palpation, No Tenderness to palpation present (GI), No Guarding due to palpation present (GI) and Yes No hepatosplenomegaly present Extremity: COMMON NORMALS: normal to inspection, capillary refill normal, no clubbing, cyanosis or edema, no calf tenderness and no pedal edema Neuro: SENSORIUM/ORIENTATION: Yes oriented to person, Yes oriented to place and Yes oriented to time Skin: COMMON NORMALS: no rashes or lesions noted GENERAL SKIN EXAM: no rashes or lesions noted Course Vital Signs: Vital signs: Vital Signs Temperature 98.8 F 12/20/22 09:02 Pulse Rate 108 H 12/20/22 09:02 Respiratory Rate 16 12/20/22 09:02 Blood Pressure 136/96 12/20/22 09:02 Pulse Oximetry 96 12/20/22 09:02 Oxygen Delivery Me thod Room Air 12/20/22 09:02 MDM - Back Pain/Injury Medical Decision Making Imaging shows no acute fractures. Discharge patient home on diclofenac to use as needed follow-up as needed Medical Records I reviewed the patient's medical records. Labs I reviewed the patient's lab results. Radiology Impressions Cervical Spine X-Ray 12/20/22 09:25 IMPRESSION: No acute findings. Lumbar Spine X-Ray 12/20/22 09:25 IMPRESSION: No acute findings. All radiology interpretation(s) finalized by discharge Discharge Plan Discharge Patient Disposition: Home Clinical Impression: Fall, Low back pain Condition: Stable Prescriptions: New diclofenac sodium 75 mg tablet,delayed release (DR/EC) 75 mg PO Q12H PRN (Reason: pain) Qty: 20 0RF No Action acetaminophen [Tylenol Extra Strength] 500 mg tablet 1,000 mg PO TID PRN (Reason: Pain) Hold Instructions: Resume on 08/15/21. Do not take with hydrocodone Keppra 750 mg tablet 750 mg PO BID 14 Days Qty: 60 3RF propranolol 20 mg tablet 20 mg PO BID Qty: 60 3RF trazodone 50 mg tablet 150 mg PO BEDTIME PRN (Reason: Sleep) Qty: 90 3RF topiramate [Topamax] 100 mg tablet 100 mg PO DAILY Qty: 30 3RF aripiprazole 10 mg tablet 10 mg PO BEDTIME 30 Days Qty: 30 5RF gabapentin 100 mg capsule 200 mg PO TID 30 Days Qty: 180 5RF prazosin 1 mg capsule 2 mg PO BEDTIME 30 Days Qty: 60 5RF Premarin 0.625 mg tablet 0.625 mg PO QAM Qty: 90 3RF Rx Instructions: cyclically camphor-methyl salicyl-menthol Adhesive Patch,Medicated 1 patch TOPICAL DAILY PRN (Reason: Pain) ibuprofen 200 mg Tablet 400 mg PO Q6H PRN (Reason: Pain) fluoxetine 40 mg capsule 40 mg PO QAM 30 Days Qty: 30 1RF Rx Instructions: with 20mg to =60mg fluoxetine 20 mg capsule 20 mg PO QAM 30 Days Qty: 30 1RF Rx Instructions: with 40mg to =60mg fluticasone propionate [Allergy Relief (fluticasone)] 50 mcg/actuation spray,suspension 1 spray intranasal BID PRN (Reason: Allergy Symptoms) Rx Instructions: administer into each nostril Discharge Orders: Discharge ED (Routine); Ordered 12/20/22 Ordered By: Sesar Valverde Referrals: Augustine Ramirez DO [Primary Care Provider] - Discharge Diet: Usual diet Discharge Activity: Resume usual activity Patient Instructions: Opioid Safety, Pain Management Print Language: Northern Irish Coding Level of Care Code ED Marine Insulator for Indira Campos
== END 2022-12-20 11:45 | disposition home or self-care (01) ==
PROVIDERS: Emergency Provider Family Medicine; PCP Family Medicine
DX: M54.50 Low back pain, unspecified (principal); F17.210 Nicotine dependence, cigarettes, uncomplicated
CPT/HCPCS: 70450; 72040; 72100; 96374; 96375; 99285; J1885; J2360

== ENCOUNTER 2023-01-16 08:38 | Inpatient (IN) | payer MEDICAID, SELFPAY ==
[2023-01-16 09:15] LABS: Basophils % 0.3 %; Eosinophils % 0.5 %; Hematocrit 39.4 % (36-47); Lymphocytes # 1.4 10^3/uL (0.8-4.8); Lymphocytes % 22.5 %; Mean Corpuscular HGB Conc 33.8 g/dL (30-55); Mean Corpuscular Hemoglobin 31.5 pg (27-33); Mean Corpuscular Volume 93.4 fl (85-98); Mean Platelet Volume 11.4 fL (7.4-10.4); Monocytes # 0.4 10^3/uL (0.2-0.9); Monocytes % 6.1 %; Neutrophils # 4.42 10^3/uL (1.8-7.7); Neutrophils % 70.3 %; Nucleated Red Blood Cells % 0 %; Platelet Count 135 10^3/cmm (157-399); Red Blood Count 4.22 10^6/uL (3.85-5.65); Red Cell Distribution Width 12.5 % (12.1-15.1); White Blood Count 6.28 10^3/uL (3.29-11.43)
[2023-01-16 09:26] LABS: HCG, Serum Qual Negative (Negative)
[2023-01-16 09:35] LABS: Alanine Aminotransferase 14 U/L (0-33); Albumin Level 4.4 g/dL (3.5-5.2); Alkaline Phosphatase 88 U/L (35-105); Anion Gap 12.5 (5-19); Aspartate Amino Transferase 9 U/L (0-32); Blood Urea Nitrogen 10 mg/dL (6-20); Carbon Dioxide 25 mmol/L (22-29); Chloride 106 mmol/L (98-107); Glomerular Filtration Rate 138.1 mL/min (90-130); Glucose 105 mg/dL (65-115); Osmolality Calculated 289 mOsm/kg (285-295); Potassium 3.5 mmol/L (3.5-5.1); Sodium 140 mmol/L (136-145); Total Bilirubin 0.4 mg/dL (0.15-1.2); Total Protein 6.4 g/dL (6.6-8.7)
[2023-01-16 09:44] LABS: Acetaminophen < 5.0 ug/mL (10-30); Salicylate < 0.3 mg/dL (3-10)
--- NOTE | 2023-01-16 10:11 | PC.PHAR ---
PT STATES PROPRANOLOL 20 MG AND TOPIRAMATE 100 MG ARE UNAVAILABLE AT THE PHARMACY. VERIFIED WITH OLIVIER WILD PT HAS REFILLS ON THESE MEDS AND THEY HAVE MEDS IN STOCK. 01/16/23
[2023-01-16] MEDS: nicotine 2 mg Gum 4 MG BUCCAL (10:32)
--- NOTE | 2023-01-16 10:58 | ED.C_ITS ---
HPI - Psych General: Chief Complaint: Psychiatric Symptoms Stated Complaint: psych eval Time Seen by Provider: 01/16/23 08:48 Source: patient Mode of arrival: ambulatory History of Present Illness: 37-year-old female presents to the emergency room with complaints is depression suicidal ideation she does not feel as if her medications are working well. She states she is having PTSD and anxiety and is having suicidal thoughts. She has had multiple hospitalizations in the past. MD complaint: suicidal ideation Onset (ago): unknown Duration: constant and getting worse History of same: Yes Relieving factors: none Exacerbating factors: none Associated symptoms: Reports depression and suicidal ideation; Deny auditory hallucinations, visual hallucinations, delusions, homicidal ideation or racing thoughts Treatments prior to arrival: none If self harm: admits thoughts of self harm Review of Systems Const: Denies: fever(s) or chills Card: Denies: chest pain Resp: Denies: dyspnea GI: Denies: abdominal pain : Denies: dysuria, urinary frequency or urinary urgency Musc: Denies: neck pain or back pain Skin/Breast: Denies: rash Psych: Reports: depression and suicidal ideation; Denies: visual hallucinations, auditory hallucinations or homicidal ideation FOR[facility]LY [facility], [facility] ED PFSH: Medical History Bipolar disorder Posttraumatic stress disorder Schizoaffective disorder, bipolar type Scoliosis Seizure disorder Surgical History H/O tubal ligation History of foot surgery History of hysterectomy Family History Other CAD (coronary artery disease) Cancer Hypertension Denies family history of Diabetes Stroke Social History Smoking and tobacco/nicotine status: current every day tobacco/nicotine user cigarettes Packs smoked per day: 0.25 Years cigarettes smoked: 20 Second hand smoke exposure: Yes Alcohol intake: former Substance/Drug Use: never Caregiver/support person: Yes Lives independently: Yes Household members: significant other Marital status: service: No Current occupational status: disabled Current gender identity: Female Special matt needs: Yes Agree to transfusion: No Female Reproductive History: Spontaneous abortions: No Physical Exam Const: COMMON NORMALS: no acute distress GENERAL APPEARANCE: cooperative and comfortable ORIENTATION/CONSCIOUSNESS: Yes awake, Yes oriented to person, Yes oriented to place and Yes oriented to time HENMT: COMMON NORMALS: normocephalic, atraumatic and hearing grossly normal bilaterally HEAD & SCALP: normocephalic and atraumatic Resp: COMMON NORMALS: normal respiratory effort, No retractions, No use of accessory muscles and clear to auscultation bilaterally AUSCULTATION: clear to auscultation bilaterally Cardio: COMMON NORMALS: regular rate, regular rhythm and No murmurs present (Cardio) RATE: regular rate RHYTHM: regular rhythm GI: COMMON NORMALS: Soft to palpation and No hepatosplenomegaly present AUSCULTATION: Yes normoactive bowel sounds PALPATION: Yes Soft to palpation, No Tenderness to palpation present (GI), No Guarding due to palpation present (GI) and Yes No hepatosplenomegaly present Extremity: COMMON NORMALS: normal to inspection, capillary refill normal, no clubbing, cyanosis or edema, no calf tenderness and no pedal edema Neuro: SENSORIUM/ORIENTATION: Yes oriented to person, Yes oriented to place and Yes oriented to time Psych: THOUGHT CONTENT: No delusions Skin: COMMON NORMALS: no rashes or lesions noted GENERAL SKIN EXAM: no rashes or lesions noted Course Vital Signs: Vital signs: Vital Signs Temperature 98.3 F 01/16/23 20:51 Pulse Rate 73 01/16/23 20:51 Respiratory Rate 16 01/17/23 06:00 Blood Pressure 131/83 01/16/23 20:51 Pulse Oximetry 99 01/16/23 20:51 Oxygen Delivery Me thod Room Air 01/16/23 20:51 MDM - Psych Medical Decision Making Admit for suicidal ideation discussed with Dr. Estrada on-call for psychiatry he agrees. Differential Diagnosis Likely suicidal ideation, depression and acute anxiety Medical Records I reviewed the patient's medical records. Lab Data I reviewed the patient's lab results. 01/16/23 09:05 01/16/23 09:05 Laboratory Results WBC 6.28 10^3/uL (3.29-11.43) 01/16/23 09:05 RBC 4.22 10^6/uL (3.85-5.65) 01/16/23 09:05 Hgb 13.30 g/dL (11.27-16.99) 01/16/23 09:05 Hct 39.4 % (36-47) 01/16/23 09:05 MCV 93.4 fl (85-98) 01/16/23 09:05 MCH 31.5 pg (27-33) 01/16/23 09:05 MCHC 33.8 g/dL (30-55) 01/16/23 09:05 RDW 12.5 % (12.1-15.1) 01/16/23 09:05 Plt Count 135 10^3/cmm (157-399) L 01/16/23 09:05 MPV 11.4 fL (7.4-10.4) H 01/16/23 09:05 Neut % (Auto) 70.3 % 01/16/23 09:05 Lymph % (Auto) 22.5 % 01/16/23 09:05 Twiggs % (Auto) 6.1 % 01/16/23 09:05 Eos % (Auto) 0.5 % 01/16/23 09:05 Baso % (Auto) 0.3 % 01/16/23 09:05 Neut # (Auto) 4.42 10^3/uL (1.8-7.7) 01/16/23 09:05 Lymph # (Auto) 1.4 10^3/uL (0.8-4.8) 01/16/23 09:05 Twiggs # (Auto) 0.4 10^3/uL (0.2-0.9) 01/16/23 09:05 Eos # (Auto) 0.0 10^3/uL (0.0-0.8) 01/16/23 09:05 Baso # (Auto) 0.0 10^3/uL (0.0-0.1) 01/16/23 09:05 Nucleated RBC % (auto) 0 % 01/16/23 09:05 Nucleated RBCs # 0.0 /100WBC 01/16/23 09:05 Sodium 140 mmol/L (136-145) 01/16/23 09:05 Potassium 3.5 mmol/L (3.5-5.1) 01/16/23 09:05 Chloride 106 mmol/L (98-107) 01/16/23 09:05 Carbon Dioxide 25 mmol/L (22-29) 01/16/23 09:05 Anion Gap 12.5 (5-19) 01/16/23 09:05 BUN 10 mg/dL (6-20) 01/16/23 09:05 Creatinine 0.5 mg/dL (0.5-0.9) 01/16/23 09:05 GFR Calculation 138.1 mL/min (90-130) H 01/16/23 09:05 Glucose 105 mg/dL (65-115) 01/16/23 09:05 Calculated Osmolality 289 mOsm/kg (285-295) 01/16/23 09:05 Calcium 9.0 mg/dL (8.5-10.5) 01/16/23 09:05 Total Bilirubin 0.4 mg/dL (0.15-1.2) 01/16/23 09:05 AST 9 U/L (0-32) 01/16/23 09:05 ALT 14 U/L (0-33) 01/16/23 09:05 Alkaline Phosphatase 88 U/L (35-105) 01/16/23 09:05 Total Protein 6.4 g/dL (6.6-8.7) L 01/16/23 09:05 Albumin 4.4 g/dL (3.5-5.2) 01/16/23 09:05 Globulin 2.0 g/dL (1.3-4.6) 01/16/23 09:05 HCG, Qual Negative (Negative) 01/16/23 09:05 Salicylates < 0.3 mg/dL (3-10) L 01/16/23 09:05 Urine Opiates Screen Negative ng/mL (Negative) 01/16/23 09:15 Acetaminophen < 5.0 ug/mL (10-30) L 01/16/23 09:05 Ur Barbiturates Screen Negative ng/mL (Negative) 01/16/23 09:15 Ur Phencyclidine Scrn Negative ng/mL (Negative) 01/16/23 09:15 Ur Amphetamines Screen Negative ng/mL (Negative) 01/16/23 09:15 U Benzodiazepines Scrn Positive ng/mL (Negative) H 01/16/23 09:15 Urine Cocaine Screen Negative ng/mL (Negative) 01/16/23 09:15 U Marijuana (THC) Screen Negative ng/mL (Negative) 01/16/23 09:15 No radiology studies performed this visit Discharge Plan Discharge Patient Disposition: Admitted As Inpatient Admit Provider: Fran Estrada Clinical Impression: Suicidal ideation, Depression, Acute anxiety Condition: Stable Coding Level of Care Code ED Pilot Can Router for Indira Campos
[2023-01-16 13:22] LABS: Amphetamines Screen Urine Negative (Negative); Barbiturates Screen Urine Negative (Negative); Benzodiazepines Screen Urine Positive (Negative); Cocaine Screen Urine Negative (Negative); Opiate Screen Urine Negative (Negative); PCP Screen Urine Negative (Negative); THC Screen Urine Negative (Negative)
[2023-01-16 13:24] VITALS: BP 132/84; PULSE 75; RESP 16; TEMP 36.9; O2SAT 99
[2023-01-16 14:00] VITALS: BP 135/74; PULSE 68; RESP 16; TEMP 36.9; O2SAT 98
[2023-01-16] MEDS: gabapentin 100 mg Capsule PO ×2 (15:56→20:22)
[2023-01-16] MEDS: nicotine 2 mg Gum BUCCAL ×2 (15:58→20:22)
[2023-01-16] MEDS: levETIRAcetam 500 mg Tablet 750 MG PO (20:22)
[2023-01-16] MEDS: BuSPIRONE 10 mg Tablet PO (20:22)
[2023-01-16] MEDS: ARIPiprazole 10 mg Tablet PO (20:22)
[2023-01-16] MEDS: prazosin 1 mg Capsule 2 MG PO (20:22)
[2023-01-16 20:51] VITALS: BP 131/83; PULSE 73; RESP 17; TEMP 36.8; O2SAT 99
[2023-01-16] MEDS: acetaminophen 500 mg Tablet 1000 MG PO (21:36)
[2023-01-17] MEDS: gabapentin 100 mg Capsule PO ×5 (00:05→19:40)
[2023-01-17 06:00] VITALS: RESP 16
[2023-01-17] MEDS: nicotine 2 mg Gum BUCCAL ×5 (08:12→18:42)
[2023-01-17] MEDS: fluoxetine 20 mg Capsule PO (09:35)
[2023-01-17] MEDS: levETIRAcetam 500 mg Tablet 750 MG PO ×2 (09:35→19:40)
[2023-01-17] MEDS: fluoxetine 20 mg Capsule 40 MG PO (09:35)
[2023-01-17] MEDS: topiramate 100 mg Tablet PO (09:35)
[2023-01-17] MEDS: BuSPIRONE 10 mg Tablet PO ×2 (09:35→19:40)
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
[2023-01-17 14:00] VITALS: BP 144/87; PULSE 71; RESP 18; TEMP 36.8; O2SAT 96
--- NOTE | 2023-01-17 16:54 | PC.NURSE ---
Pt stated that her good friend Arya will pick her up and drive her home at time of discharge. Arya [id number]
[2023-01-17] MEDS: prazosin 1 mg Capsule 2 MG PO (19:40)
[2023-01-17] MEDS: ARIPiprazole 10 mg Tablet PO (19:40)
[2023-01-17 21:21] VITALS: BP 128/80; PULSE 66; RESP 18; TEMP 36.4; O2SAT 98
[2023-01-18] MEDS: nicotine 2 mg Gum BUCCAL ×8 (01:16→23:44)
[2023-01-18 05:57] VITALS: BP 119/80; PULSE 92; RESP 14; TEMP 36.4; O2SAT 98
[2023-01-18] MEDS: levETIRAcetam 500 mg Tablet 750 MG PO ×2 (08:29→20:09)
[2023-01-18] MEDS: BuSPIRONE 10 mg Tablet PO ×2 (08:30→20:09)
[2023-01-18] MEDS: gabapentin 100 mg Capsule PO ×5 (08:30→23:44)
[2023-01-18] MEDS: topiramate 100 mg Tablet PO (08:30)
[2023-01-18] MEDS: fluoxetine 20 mg Capsule PO ×2 (08:30→11:37)
[2023-01-18] MEDS: fluoxetine 20 mg Capsule 40 MG PO (08:30)
[2023-01-18 14:00] VITALS: BP 133/83; PULSE 79; RESP 18; TEMP 36.6; O2SAT 98
--- NOTE | 2023-01-18 16:12 | W.PM.NPUPNS ---
Subjective NPU Subjective: Patient presented today much like past hospitalizations quickly pivoting and now talking about being well and wanting to be discharged. We discussed concerns for malingering or at least having some secondary gains outside the identification of the treatment team. She reported that she was doing really well and that she is very thankful for everything and that she feels she is ready to leave whenever we decide to do so. Mental Status Exam MSE Comments: This is a thin, underweight white female, in hospital scrubs with limited grooming, and adequate eye contact. No abnormal movements except for mild psychomotor agitation. Cooperative with exam in mild distress. Speech was slightly decreased rate and volume. Mood described as depressed; affect anxious. Thought process, organized. Thought content: patient denied any suicidal or homicidal ideation, there were no delusions reported or noted, she denied any auditory or visual hallucinations. Attention and concentration appear intact and memory appears somewhat reliable but none were formally tested. She is alert and oriented times three. Insight and judgment are limited and impulse control is limited. Vitals/I&O/Wt Last Vital Signs Temp 98.3 F 01/18/23 20:12 Pulse 79 01/18/23 20:12 Resp 16 01/18/23 20:12 BP 109/72 01/18/23 20:12 Pulse Ox 98 01/18/23 20:12 O2 Del Method Room Air 01/18/23 20:12 Data NPU 01/16/23 09:05 01/16/23 09:05 A&P Assessment and plan (1) Major depressive disorder: (2) Suicidal ideation: (3) Posttraumatic stress disorder: (4) Suicidal ideation: (5) Depression: (6) Acute anxiety: (7) Chronic migraine without aura, intractable, with status migrainosus: (8) Bipolar disorder: (9) Bereavement: Plan This is a 37-year-old white female known through multiple past hospitalizations presents reporting increasing struggles recently and inability to contract for safety secondary to depression and feeling like her medications are not working with a recent losses. 1.? Continue current medication. 2.? Increase Prozac to 80 mg total daily dose. 3.? Encourage individual, group, and milieu therapy. 4.? Continue q-15-minute checks for safety. 5.? Recommend sober living treatment at the highest level of care to which the patient is willing to commit. Involuntary Hold Information 96 Hour Hold: 96 Hour Involuntary Admission: No Attestations NPU Medical Necessity Statement*: Patient hospitalization is medically necessary and deemed to be the clinically appropriate intervention at this time. Medications will be initiated and adjusted accordingly as indicated. Her likely length of stay is 1-4 days. Coding Level of Care Code Acute Code for g Fwd Diagnoses Major depressive disorder F32.9 Suicidal ideation R45.851 Posttraumatic stress disorder F43.10 Depression F32.A Acute anxiety F41.9 Chronic migraine without aura, intractable, with status migrainosus G43.711 Bipolar disorder F31.9 Bereavement Z63.4
[2023-01-18] MEDS: acetaminophen 500 mg Tablet 1000 MG PO (16:46)
[2023-01-18] MEDS: ARIPiprazole 10 mg Tablet PO (20:09)
[2023-01-18] MEDS: prazosin 1 mg Capsule 2 MG PO (20:09)
[2023-01-18 20:12] VITALS: BP 109/72; PULSE 79; RESP 16; TEMP 36.8; O2SAT 98
[2023-01-19] MEDS: gabapentin 100 mg Capsule PO ×3 (04:38→13:07)
[2023-01-19] MEDS: nicotine 2 mg Gum BUCCAL ×4 (04:42→13:07)
[2023-01-19 06:00] VITALS: BP 101/70; PULSE 101; RESP 18; O2SAT 99
[2023-01-19] MEDS: levETIRAcetam 500 mg Tablet 750 MG PO (08:03)
[2023-01-19] MEDS: BuSPIRONE 10 mg Tablet PO (08:04)
[2023-01-19] MEDS: fluoxetine 20 mg Capsule 80 MG PO (08:04)
[2023-01-19] MEDS: topiramate 100 mg Tablet PO (08:04)
[2023-01-19] MEDS: magnesium hydroxide 30 mL UDC PO (09:27)
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
[2023-01-19 13:24] VITALS: BP 101/70; PULSE 101; RESP 18; O2SAT 99
[2023-01-19 14:00] VITALS: BP 105/71; PULSE 71; RESP 16; TEMP 36.6; O2SAT 99
== END 2023-01-19 14:42 | disposition intermediate care facility (04) | DRG 881 ==
LOC: ER 13:27 → NP 13:31
PROVIDERS: Admitting Provider Psychiatry & Neurology Psychiatry; Emergency Provider Family Medicine; PCP Family Medicine; Visit Provider Psychiatry & Neurology Psychiatry
DX: F32.9 Major depressive disorder, single episode, unspecified (principal); R45.851 Suicidal ideations; F17.210 Nicotine dependence, cigarettes, uncomplicated; Z62.810 Personal history of physical and sexual abuse in childhood; Z62.811 Personal history of psychological abuse in childhood; Z62.812 Personal history of neglect in childhood; Z63.4 Disappearance and death of family member; F43.10 Post-traumatic stress disorder, unspecified
CPT/HCPCS: 80053; 80306; 80307; 84703; 85025; 97150; 97165; 99285